=== PATIENT | female | born 1940 | race Caucasian/White ===

== ENCOUNTER → 2016-07-31 | Outpatient (CLI) | payer MEDICARE, MEDICAID ==
[~2016-07-31] MED LIST: AMLO10TA PO; ATRV10T PO; BNZ20T PO; BPR75T PO; FURO20TA4 PO; GLMP1T PO; GLYB1.253 PO; NIFE10CA21 PO; POTA99TA15 PO
--- NOTE | 2016-08-01 17:05 | Diagnostic Imaging Report ---
Bilateral screening mammogram. The current study was also evaluated with a Computer Aided Detection (CAD) system. INDICATION: Screening. No current complaints stated on the questionnaire. COMPARISON: 05/31/2015. FINDINGS: The breasts are composed of heterogeneously dense parenchyma which may decrease mammographic sensitivity. A lobulated 9 mm asymmetry is seen in the lateral aspect of the left breast. The right breast demonstrates no definite change. IMPRESSION: Focal compression view and ultrasound evaluation for lateral left breast asymmetry is recommended. ACR BI-RADS Category 0: Incomplete. (Needs additional imaging evaluation). Result letter will be mailed to the patient. Note: At least 10% of breast cancer is not imaged by mammography. Dictated by: Dictated on workstation # [id number]
== END ==
LOC: RAD 09:12
PROVIDERS: ATTEND Internal Medicine
DX: Z12.31 Encounter for screening mammogram for malignant neoplasm of breast (principal)
CPT/HCPCS: 77067

== ENCOUNTER → 2016-09-12 | Outpatient (CLI) | payer MEDICARE, MEDICAID | LOC: RAD 08:19 | PROVIDERS: ATTEND Internal Medicine | DX: R92.8 Other abnormal and inconclusive findings on diagnostic imaging of breast (principal) ==

== ENCOUNTER 2019-02-07 09:50 | Emergency (ER) | payer MEDICARE, MEDICAID ==
[~2019-02-07] VITALS: Ht 152 cm; Wt 82.7 kg
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
[2019-02-07] MEDS ORDERED: fentaNYL INJECTION 100 MCG/2 ML AMP IM ONE (10:30)
--- NOTE | 2019-02-07 10:54 | Diagnostic Imaging Report ---
EXAMINATION: Left shoulder 2 or more views HISTORY: Trauma FINDINGS: No comparison available. There is a comminuted left proximal humeral fracture. There is varus angulation and impaction with anterior displacement of the humeral shaft relative to the head. The humeral head remains in articulation with the glenoid fossa. There is severe glenohumeral joint osteoarthritis. IMPRESSION: 1. Comminuted and displaced proximal left humeral fracture extending into the humeral head. Dictated by: Dictated on workstation # [id number]
--- NOTE | 2019-02-07 10:54 | NUR ---
IN TALKING TO PT AT THIS TIME.
--- NOTE | 2019-02-07 11:05 | NUR ---
PT HAS TO WAIT FOR HER RIDE TO GET OUT OF [facility]. UP AMBULATING WITH TECH AT THIS TIME.
[2019-02-07] MEDS ORDERED: HYDR-3455 PO (11:30)
[2019-02-07 11:44] VITALS: BP 175/82
--- NOTE | 2019-02-07 12:50 | NUR ---
PT'S [facility] VAN IS HERE TO GET HER. TRIED ASSISTING PT UP THE STAIRS ET PT WAS UNABLE TO GET UP THEM. PT HAS STIARS GOING INTO HER HOUSE. PT BROUGHT BACK INTO ER ET MADE AWARE AND PLANS FOR ADMIT.
[2019-02-07] MEDS ORDERED: BUSP10TA95 PO (15:39)
[2019-02-08] MEDS ORDERED: AMLO10TA7 PO (10:35)
[2019-02-08] MEDS ORDERED: BUSP10TA95 PO (10:35)
[2019-02-08] MEDS ORDERED: LISI1TAB10 PO (10:35)
[2019-02-08] MEDS ORDERED: FLUT16SP22 NSEACH (10:35)
[2019-02-08] MEDS ORDERED: FURO20TA4 PO (10:35)
[2019-02-08] MEDS ORDERED: ATOR10TA66 PO (10:35)
[2019-02-08] MEDS ORDERED: ALBU18HF2 PO (10:35)
[2019-02-08] MEDS ORDERED: GLIM4TAB PO (10:35)
[2019-02-08] MEDS ORDERED: METF-397 PO (10:35)
[2019-02-08] MEDS ORDERED: MONT10TA24 PO (10:36)
[2019-02-08] MEDS ORDERED: ACET-2650 PO (10:49)
== END 2019-02-07 11:44 | disposition home or self-care (01) ==
LOC: EDUNIT# 09:50 → ER 09:51
DX: S42.92XA Fracture of left shoulder girdle, part unspecified, initial encounter for closed fracture (principal); I10 Essential (primary) hypertension; E11.9 Type 2 diabetes mellitus without complications; F41.9 Anxiety disorder, unspecified; E78.00 Pure hypercholesterolemia, unspecified; Z90.710 Acquired absence of both cervix and uterus; Z88.5 Allergy status to narcotic agent; W18.39XA Other fall on same level, initial encounter; Y92.811 Bus as the place of occurrence of the external cause
CPT/HCPCS: 73030

== ENCOUNTER 2019-02-07 13:00 | Observation (INO) | payer MEDICARE, MEDICAID ==
[~2019-02-07 13:00] MED LIST changes: +HYDR-3455 PO
--- NOTE | 2019-02-07 13:40 | NUR ---
PRIMO BORJA admitted to room 405-1, with an admitting diagnosis of LEFT SHOULDER FRACTURE, on 02/07/19 DIRECT ADMIT via WHEELCHAIR , accompanied by ED STAFF AND FRIEND.PRIMO BORJA introduced to surroundings, call light, bed controls, phone, TV, temperature control, lights, meal times, smoking policy, visitor policy, side rail policy, bathrooms and showers. Patient Rights given to patient in the handbook. PRIMO BORJA verbalizes understanding that [facility] is not responsible for the loss or damage to any personal effects or valuables that are kept in the patients posession during their hospitalization. PRIMO BORJA verbalizes understanding of Interdisciplinary Patient Education. Patient and/or family were informed about the Rapid Response Team and its purpose.
[2019-02-07] MEDS ORDERED: ACETAMINOPHEN 325 MG TABLET PO PRN (14:00)
[2019-02-07] MEDS ORDERED: fentaNYL INJECTION 100 MCG/2 ML AMP IV PRN (14:00)
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
[2019-02-07] MEDS: HYDROcodone/APAP 5 MG/325 MG (LORTAB) TAB PO PRN ×2 (14:51→20:26)
[2019-02-07] MEDS ORDERED: BUSP10TA95 PO (15:39)
[2019-02-07 16:00] VITALS: BP 159/77
--- NOTE | 2019-02-07 19:39 | NUR ---
DR MILLS NOTIFIED REGARDING PT ANXIETY AND HOME MEDICATIONS. DR MILLS ORDERED TO CONTINUE ALL HOME MEDS EXCEPT LASIX AND PROCARDIA. MED REC DONE.
[2019-02-07 20:00] VITALS: BP 153/78
[2019-02-07 23:30] VITALS: BP 125/75
[2019-02-08 04:00] VITALS: BP 133/76
[2019-02-08] MEDS: glyBURIDE 2.5 MG (MICRONASE) TAB PO SCH (06:39)
[2019-02-08] MEDS: HYDROcodone/APAP 5 MG/325 MG (LORTAB) TAB PO PRN ×3 (06:39→19:00)
[2019-02-08 08:06] VITALS: BP 159/66
[2019-02-08] MEDS ORDERED: busPIRone 10 MG (BUSPAR) TAB PO SCH (09:00)
[2019-02-08] MEDS ORDERED: lisINopril 20 MG (PRINIVIL) TABLET PO SCH (09:00)
[2019-02-08] MEDS ORDERED: NON-FORMULARY MEDICATION 1 EA EA (Buspirone HCl 10 MG) PO SCH (09:00)
[2019-02-08] MEDS ORDERED: ATORVASTATIN CALCIUM PO SCH (09:00)
[2019-02-08] MEDS ORDERED: amLODIPine 10 MG (NORVASC) TAB PO SCH (09:00)
--- NOTE | 2019-02-08 10:15 | NUR ---
Spoke with Dr. Fletcher on the phone, he will follow up with patient on Friday.
[2019-02-08] MEDS ORDERED: LISI1TAB10 PO (10:35)
[2019-02-08] MEDS ORDERED: AMLO10TA7 PO (10:35)
[2019-02-08] MEDS ORDERED: ATOR10TA66 PO (10:35)
[2019-02-08] MEDS ORDERED: GLIM4TAB PO (10:35)
[2019-02-08] MEDS ORDERED: ALBU18HF2 PO (10:35)
[2019-02-08] MEDS ORDERED: FURO20TA4 PO (10:35)
[2019-02-08] MEDS ORDERED: FLUT16SP22 NSEACH (10:35)
[2019-02-08] MEDS ORDERED: BUSP10TA95 PO (10:35)
[2019-02-08] MEDS ORDERED: METF-397 PO (10:35)
[2019-02-08] MEDS ORDERED: MONT10TA24 PO (10:36)
[2019-02-08] MEDS ORDERED: ACET-2650 PO (10:49)
--- NOTE | 2019-02-08 10:50 | NUR ---
SPOKE WITH PT WELL GOING OVER THE EXT MED HISTORY TO COMPLETE THE MED REC. PT WAS ABLE TO TELL ME HOW/ WHEN SHE TAKES HER MEDS AND IT MATCHES THE EXT MED HISTORY. OTC MEDS: TYLENOL ARTHRITIS: 1 TAB Q 8 H PRN
--- NOTE | 2019-02-08 11:03 | Physical Therapy Progress Note ---
Therapy Progress Note Attempted PT eval at 1045 this date. Pt in bed; reports she had just showered. Declined therapy at this time. Reports she will participate "tomorrow"; educated pt on importance of PT. Told her I would return later today to attempt to see her, she was in agreeance. KALANI NARANJO PT Feb 08, 2019 11:03
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
[2019-02-08 12:00] VITALS: BP 150/72
--- NOTE | 2019-02-08 12:20 | Progress Note - Hospitalist ---
[facility] 02/08/19 1220: Subjective HPI/CC On Admission Date Seen by Provider: Feb 08, 2019 Time Seen by Provider: 07:48 This is a 78-year-old white female who is getting on the [employer] bus today lost her balance fell over striking her left arm. She has a comminuted fracture of the left humerus. The patient is in quite severe pain and has some disabilities in terms of ambulation to begin with and is unable to get in her home. She complains of being cold at the time of my interview and in some discomfort from her shoulder. Subjective/Events-last exam Pt reports falling while trying to sit down on the bus that was taking her to [employer]. She states she fell bracing her fall with her left arm that resulted in the injury to her shoulder area. she states her pain is okay right now due to the pain medication and keeping her arm elevated and immobilized. She does have some pedal edema which she states is chronic, but is worse since being in the hospital. She denied any loss of consciousness, dizziness, or vision changes during before or after the fall. She reports having a dry cough that she claims is from the BuSpar that she was given for her anxiety after the fall. She states she did have some abdominal pain that was likely related to gas, because it is better after she had a bowel movement this morning with a lot of gas. She does complain of chronic arthritis in her hands and knees that is still bothering her some at the moment. Review of Systems General: No Chills, No Fatigue HEENT: No Head Aches, No Visual Changes, No Sinus Congestion, No Sore Throat Pulmonary: No Dyspnea; Cough (Dry cough after BuSpar administration) Cardiovascular: Edema; No: Chest Pain, Palpitations, Lt Headedness Gastrointestinal: No: Nausea, Vomiting, Abdominal Pain, Diarrhea, Constipation Musculoskeletal: neck pain, shoulder pain, hand pain (Arthritis related on right); No: leg pain, foot pain Neurological: No: Weakness, Numbness Focused Exam Respiratory: Chest Non Tender, Lungs Clear, Normal Breath Sounds, No Accessory Muscle Use, No Respiratory Distress Cardiovascular: Regular Rate, Rhythm, No Murmur, Normal Peripheral Pulses Peripheral Pulses: 2+ Dorsalis Pedis (R), 2+ Left Dors-Pedis (L), 2+ Radial Pulses (R), 2+ Radial Pulses (L) Skin: normal color, warm/dry Objective Exam Vital Signs Vital Signs Date Time Temp Pulse Resp B/P (MAP) Pulse Ox O2 Delivery O2 Flow Rate FiO2 02/08/19 08:06 36.9 108 17 159/66 (97) 97 Room Air Capillary Refill : Less Than 3 Seconds General Appearance: WD/WN, Mild Distress Neck: Full Range of Motion, Normal Inspection Respiratory: Chest Non Tender, Lungs Clear, Normal Breath Sounds, No Accessory Muscle Use, No Respiratory Distress Cardiovascular: Regular Rate, Rhythm, No Gallop, Normal Peripheral Pulses Extremity: No Normal Range of Motion, No Non Tender (Left shoulder tenderness); No Calf Tenderness, Pedal Edema Neurologic/Psychiatric: Alert, Oriented x3, Normal Mood/Affect Skin: Normal Color, Warm/Dry Results/Procedures Lab Patient resulted labs reviewed. Imaging: Reviewed Imaging Report Assessment/Plan Assessment and Plan Assess & Plan/Chief Complaint Assessment: Left humerus fracture Diabetes Arthritis Hypertension Anxiety Plan: Consult orthopedics Continue pain management Consult OT/PT for rehab unit evaluation Continue management of diabetes with home medications/ insulin Continue management of hypertension Continue Buspirone for anxiety Clinical Quality Measures DVT/VTE Risk/Contraindication: Risk Factor Score Per Nursin RFS Level Per Nursing on Admit: 4+=Very High AIMEE VACA DO 02/08/19 2014: Subjective Subjective/Events-last exam Pt doing fairly well, pain is well controlled Consulted Dr. Aguirre but he does not do reverse shoulders of which that is what she needs so Dr. Amador was updated along with Dr. Fletcher and she does not need surgery now probably in the next couple of months will need a reverse shoulder operation and I have offered inpatient rehab but she refused therapies today, she lives alone, appears to be depressed and in real need of inpatient rehab so will try to re-attempt to work with her today. Review of Systems Musculoskeletal: arm pain Objective Exam General Appearance: No Apparent Distress, WD/WN Respiratory: Lungs Clear Cardiovascular: Regular Rate, Rhythm Extremity: Other (decreased ROM left arm) Neurologic/Psychiatric: Alert, Oriented x3, No Motor/Sensory Deficits, Normal Mood/Affect Assessment/Plan Assessment and Plan Assess & Plan/Chief Complaint Pain control IRF? Home meds Diagnosis/Problems Diagnosis/Problems (1) Fracture of left shoulder Status: Acute Qualifiers: Qualified Codes: S42.92XA - Fracture of left shoulder girdle, part unspecified, initial encounter for closed fracture Supervisory-Addendum Brief Verification & Attestation Participated in pt care: history, MDM, physical Personally performed: exam, history, MDM, supervision of care Care discussed with: Medical Student Procedures: n/a Results interpretation: Verified all documentation Verification and Attestation of Medical Student E/M Service A medical student performed and documented this service in my presence. I reviewed and verified all information documented by the medical student and made modifications to such information, when appropriate. I personally performed the physical exam and medical decision making. Aimee Vaca, Feb 08, 2019,20:14 [facility] Feb 08, 2019 12:20 AIMEE VACA DO Feb 08, 2019 20:14
[2019-02-08 12:21] LABS: HEMOGLOBIN 10.2 G/DL (11.5-16.0); RED CELL DISTRIBUTION WIDTH 14.8 % (10.0-14.5); WHITE BLOOD COUNT 10.1 10^3/uL (4.3-11.0)
[2019-02-08 12:44] LABS: BILIRUBIN,TOTAL 0.5 MG/DL (0.1-1.0); CALCIUM 9.2 MG/DL (8.5-10.1); CREATININE SERUM 1.57 MG/DL (0.60-1.30); TOTAL PROTEIN 7.2 GM/DL (6.4-8.2)
[2019-02-08] MEDS ORDERED: ACETAMINOPHEN 325 MG TABLET PO PRN (12:45)
[2019-02-08] MEDS: RT-ALBUTEROL SULF 2.5 MG/3 ML PRE-MIX VIAL IH SCH ×3 (13:42→21:50)
[2019-02-08] MEDS: FLUTICASONE NASAL SPRAY (FLONASE) 16 GM BTL NS SCH (14:15)
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
[2019-02-08 16:10] VITALS: BP 133/79
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
[2019-02-08] MEDS ORDERED: GLIMEPIRIDE 1 MG (AMARYL) TAB PO SCH (16:30)
[2019-02-08] MEDS: metFORMIN 500 MG (GLUCOPHAGE) TAB PO SCH (17:20)
[2019-02-08] MEDS ORDERED: DOCUSATE SODIUM 100 MG (COLACE) CAP PO PRN (20:15)
[2019-02-08] MEDS ORDERED: ONDANSETRON 4 MG (ZOFRAN) ORAL DISSOLVE TAB PO PRN (20:15)
[2019-02-08] MEDS ORDERED: ONDANSETRON 4 MG/2 ML (SDV) Z0FRAN IVP PRN (20:15)
[2019-02-08] MEDS ORDERED: CALCIUM CARBONATE 500 MG (TUMS) TAB.CHEW PO PRN (20:15)
[2019-02-08] MEDS ORDERED: ENOXAPARIN 30 MG/0.3 ML (LOVENOX) SYR SC SCH (20:15)
[2019-02-08] MEDS ORDERED: diphenhydrAMINE 25 MG TAB (BENADRYL) PO PRN (20:15)
[2019-02-08] MEDS ORDERED: ALPRAZolam 0.25 MG (XANAX) TAB PO PRN (20:15)
[2019-02-08] MEDS ORDERED: MELATONIN 3 MG TABLET PO PRN (20:15)
[2019-02-08 20:30] VITALS: BP 118/52
[2019-02-08] MEDS: busPIRone 10 MG (BUSPAR) TAB PO SCH (20:30)
[2019-02-08] MEDS: POLYETHYLENE GLYCOL 17 GM (MIRALAX) PACK PO SCH ×2 (21:00→22:11)
[2019-02-08] MEDS: SENNA W/DOCUSATE (SENOKOT S) TABLET PO SCH ×2 (21:00→22:02)
[2019-02-08] MEDS ORDERED: MONTELUKAST 10 MG (SINGULAIR) TAB PO SCH (21:00)
[2019-02-09 00:32] VITALS: BP 143/73
[2019-02-09] MEDS: RT-ALBUTEROL SULF 2.5 MG/3 ML PRE-MIX VIAL IH SCH ×2 (01:43→06:49)
[2019-02-09] MEDS: HYDROcodone/APAP 5 MG/325 MG (LORTAB) TAB PO PRN (01:44)
[2019-02-09 04:50] VITALS: BP 126/75
[2019-02-09 06:21] LABS: BASOPHILS % (AUTO) 0 % (0-10); EOSINOPHILS % (AUTO) 0 % (0-10); HEMATOCRIT 26 % (35-52); HEMOGLOBIN 8.5 G/DL (11.5-16.0); LYMPHOCYTES # (AUTO) 1.1 X 10^3 (1.0-4.0); LYMPHOCYTES % (AUTO) 12 % (12-44); MEAN CORPUSCULAR HEMOGLOBIN 28 PG (25-34); MEAN CORPUSCULAR HGB CONC 33 G/DL (32-36); MEAN CORPUSCULAR VOLUME 83 FL (80-99); MEAN PLATELET VOLUME 8.3 FL (7.4-10.4); MONOCYTES # (AUTO) 0.7 X 10^3 (0.0-1.0); MONOCYTES % (AUTO) 8 % (0-12); NEUTROPHILS # (AUTO) 7.4 X 10^3 (1.8-7.8); NEUTROPHILS % (AUTO) 81 % (42-75); PLATELET COUNT 301 10^3/uL (130-400); RED CELL DISTRIBUTION WIDTH 14.9 % (10.0-14.5); WHITE BLOOD COUNT 9.2 10^3/uL (4.3-11.0)
[2019-02-09] MEDS ORDERED: GLIMEPIRIDE 4 MG (AMARYL) TAB PO SCH (06:30)
[2019-02-09 06:45] LABS: ALBUMIN 3.4 GM/DL (3.2-4.5); BILIRUBIN,TOTAL 0.4 MG/DL (0.1-1.0); CALCIUM 8.8 MG/DL (8.5-10.1); CREATININE SERUM 1.45 MG/DL (0.60-1.30); POTASSIUM 5.1 MMOL/L (3.6-5.0); TOTAL PROTEIN 6.3 GM/DL (6.4-8.2)
[2019-02-09] MEDS: glyBURIDE 2.5 MG (MICRONASE) TAB PO SCH (06:54)
[2019-02-09] MEDS: metFORMIN 500 MG (GLUCOPHAGE) TAB PO SCH (06:54)
[2019-02-09 07:40] VITALS: BP 108/65
[2019-02-09] MEDS: busPIRone 10 MG (BUSPAR) TAB PO SCH (08:46)
[2019-02-09] MEDS: SENNA W/DOCUSATE (SENOKOT S) TABLET PO SCH (08:47)
[2019-02-09] MEDS: POLYETHYLENE GLYCOL 17 GM (MIRALAX) PACK PO SCH (08:47)
[2019-02-09] MEDS: FLUTICASONE NASAL SPRAY (FLONASE) 16 GM BTL NS SCH (08:47)
[2019-02-09] MEDS ORDERED: FUROSEMIDE 20 MG (LASIX) TAB PO SCH (09:00)
[2019-02-09] MEDS ORDERED: lisINopril 20 MG (PRINIVIL) TABLET PO SCH (09:00)
[2019-02-09] MEDS ORDERED: amLODIPine 10 MG (NORVASC) TAB PO SCH (09:00)
--- NOTE | 2019-02-09 09:29 | NUR ---
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 She was going to leave to get her bible, and thanked us from bringing her one so she could stay at the bedside. Pt is Confucianist and affiliated with [employer].
--- NOTE | 2019-02-09 10:28 | Discharge Summary ---
PRATIBHA WILLIAM [facility] 02/09/19 1028: Diagnosis/Chief Complaint Date of Admission Feb 07, 2019 at 13:00 Date of Discharge Discharge Date: Feb 09, 2019 Admission Diagnosis Left humerus fracture Obesity Hypertension Type II diabetes Chronic leg pain Plan consult Dr. Amador, evaluate for inpatient rehabilitation Primary Care Reji Daigle MD Discharge Diagnosis (1) Fracture of left shoulder Status: Acute Discharge Summary Discharge Physical Exam Allergies: Coded Allergies: codeine (Verified Adverse Reaction, Mild, NAUSEA, 02/08/19) Vitals & I&Os Vital Signs Date Time Temp Pulse Resp B/P (MAP) Pulse Ox O2 Delivery O2 Flow Rate FiO2 02/09/19 08:00 Room Air 02/09/19 07:40 36.4 94 18 108/65 (79) 96 General Appearance: WD/WN, Mild Distress Respiratory: Chest Non Tender, Lungs Clear, Normal Breath Sounds, No Accessory Muscle Use, No Respiratory Distress Cardiovascular: Regular Rate, Rhythm, No Gallop, No JVD, No Murmur, Normal Peripheral Pulses Extremity: No Calf Tenderness, Pedal Edema (Minor bilateral) Skin: Normal Color, Warm/Dry Neurologic/Psychiatric: Alert, Oriented x3, Normal Mood/Affect Hospital Course Pt fell trying to sit down on the [employer] bus bracing herself with her left arm. She was brought to the ER and evaluated for left shoulder subsequent to the fall. She was found to have a comminuted fracture of the proximal humerus. She wanted to return home and see her orthopedic surgeon Dr. Quinonez the next day, but upon trying to get on the bus home she was unable. She was admitted to the 4th floor for observation and orthopedic consultation. She was started on pain management, diabetic management, and some medication for anxiety. She was evaluated by orthopedics Dr. Aguirre who does not perform shoulder surgery, but found out that she can either have open reduction and internal fixation by a trauma surgeon or total shoulder by shoulder specialist. The patient was informed of this information as well as that surgery is not an emergency and that we will likely need to let some of the swelling decrease as well as correct the patients hyponatremia prior to surgery. The patient is to be discharged to inpatient rehabilitation in order to help reduce the swelling and correct her sodium levels. Labs (last 24 hrs) Laboratory Tests 02/08/19 12:10: White Blood Count 10.1, Red Blood Count 3.63L, Hemoglobin 10.2L, Hematocrit 30L, Mean Corpuscular Volume 83, Mean Corpuscular Hemoglobin 28, Mean Corpuscular Hemoglobin Concent 34, Red Cell Distribution Width 14.8H, Platelet Count 325, Mean Platelet Volume 8.0, Sodium Level 127L, Potassium Level 5.0, Chloride Level 92L, Carbon Dioxide Level 26, Anion Gap 9, Blood Urea Nitrogen 45H, Creatinine 1.57H, Estimat Glomerular Filtration Rate 32, BUN/Creatinine Ratio 29, Glucose Level 143H, Calcium Level 9.2, Corrected Calcium 9.2, Total Bilirubin 0.5, Aspartate Amino Transf (AST/SGOT) 17, Alanine Aminotransferase (ALT/SGPT) 10, Alkaline Phosphatase 78, Total Protein 7.2, Albumin 4.0 02/09/19 05:40: White Blood Count 9.2, Red Blood Count 3.08L, Hemoglobin 8.5L, Hematocrit 26L, Mean Corpuscular Volume 83, Mean Corpuscular Hemoglobin 28, Mean Corpuscular Hemoglobin Concent 33, Red Cell Distribution Width 14.9H, Platelet Count 301, Mean Platelet Volume 8.3, Sodium Level 126L, Potassium Level 5.1H, Chloride Level 91L, Carbon Dioxide Level 21, Anion Gap 14, Blood Urea Nitrogen 48H, Creatinine 1.45H, Estimat Glomerular Filtration Rate 35, BUN/Creatinine Ratio 33, Glucose Level 148H, Calcium Level 8.8, Corrected Calcium 9.3, Total Bilirubin 0.4, Aspartate Amino Transf (AST/SGOT) 16, Alanine Aminotransferase (ALT/SGPT) 11, Alkaline Phosphatase 56, Total Protein 6.3L, Albumin 3.4, Neutrophils (%) (Auto) 81H, Lymphocytes (%) (Auto) 12, Monocytes (%) (Auto) 8, Eosinophils (%) (Auto) 0, Basophils (%) (Auto) 0, Neutrophils # (Auto) 7.4, Lymphocytes # (Auto) 1.1, Monocytes # (Auto) 0.7, Eosinophils # (Auto) 0.0, Basophils # (Auto) 0.0 Patient resulted labs reviewed. Pending Labs Laboratory Tests 02/09/19 05:40: White Blood Count 9.2, Red Blood Count 3.08, Hemoglobin 8.5, Hematocrit 26, Mean Corpuscular Volume 83, Mean Corpuscular Hemoglobin 28, Mean Corpuscular Hemoglobin Concent 33, Red Cell Distribution Width 14.9, Platelet Count 301, Mean Platelet Volume 8.3, Neutrophils (%) (Auto) 81, Lymphocytes (%) (Auto) 12, Monocytes (%) (Auto) 8, Eosinophils (%) (Auto) 0, Basophils (%) (Auto) 0, Neutrophils # (Auto) 7.4, Lymphocytes # (Auto) 1.1, Monocytes # (Auto) 0.7, Eosinophils # (Auto) 0.0, Basophils # (Auto) 0.0, Sodium Level 126, Potassium Level 5.1, Chloride Level 91, Carbon Dioxide Level 21, Anion Gap 14, Blood Urea Nitrogen 48, Creatinine 1.45, Estimat Glomerular Filtration Rate 35, BUN/Creatinine Ratio 33, Glucose Level 148, Calcium Level 8.8, Corrected Calcium 9.3, Total Bilirubin 0.4, Aspartate Amino Transf (AST/SGOT) 16, Alanine Aminotransferase (ALT/SGPT) 11, Alkaline Phosphatase 56, Total Protein 6.3, Albumin 3.4 Imaging: Reviewed Imaging Report Discharge Home Medications: Active Scripts Active Reported Tylenol Arthritis (Acetaminophen) 650 Mg Tablet.er 650 Mg PO Q8H PRN Montelukast Sodium 10 Mg Tablet 10 Mg PO HS Atorvastatin Calcium 10 Mg Tablet 10 Mg PO DAILY Glimepiride 4 Mg Tablet 4 Mg PO DAILY Fluticasone Propionate 16 Gm [facility].susp 2 Spr NSEACH DAILY Amlodipine Besylate 10 Mg Tablet 10 Mg PO DAILY Metformin HCl 500 Mg Tablet 500 Mg PO BID Lisinopril-Hctz 20-25 mg Tab (Lisinopril/Hydrochlorothiazide) 1 Each Tablet 1 Tab PO DAILY Furosemide 20 Mg Tablet 20 Mg PO DAILY Ventolin Hfa (Albuterol Sulfate) 18 Gm Hfa.aer.ad 2 Puff PO Q4H Buspirone HCl 10 Mg Tablet 10 Mg PO BID Instructions to patient/family Please see electronic discharge instructions given to patient. Clinical Quality Measures DVT/VTE Risk/Contraindication: Risk Factor Score Per Nursin RFS Level Per Nursing on Admit: 4+=Very High AIMEE VACA DO 02/09/192051: Diagnosis/Chief Complaint Discharge Diagnosis (1) Closed left humeral fracture (2) Anxiety Status: Acute Discharge Summary Discharge Physical Exam Allergies: Coded Allergies: codeine (Verified Adverse Reaction, Mild, NAUSEA, 02/08/19) General Appearance: No Apparent Distress, WD/WN, Chronically ill Respiratory: Lungs Clear Cardiovascular: Regular Rate, Rhythm Neurologic/Psychiatric: Alert, Oriented x3, No Motor/Sensory Deficits, Normal Mood/Affect Hospital Course Was the Problem List Reviewed?: Yes Hospital course: Pt had a short hospital course when she was admitted after a left proximal humerus fracture displaced, after seen in the ER she was sent home but returned a couple hours later so Dr. Pablo admitted her directly. Pt was found to have hyponatremia of 127, placed on fluid restriction, still an issue at 126 on re-check, creatinine remains stable at 1.5. Home medications were restarted and no evidence of any medication as the source of the hyponatremia. Pt very poor historian. Spoke with Dr. Fletcher and Dr Aguirre who talked to Dr. Amador, Pt will ultimately need a reverse shoulder arthroplasty and will need that done after she is able to navigate and electrolyte imbalances are corrected and will need that to be done as an outpatient basis. Her bowels are moving, she was able to participate in therapy, so she was transferred down to inpatient rehab. Discussion & Recommendations Discharge Planning: <30 minutes discharge planning Supervisory-Addendum Brief Verification & Attestation Participated in pt care: history, MDM, physical Personally performed: exam, history, MDM, supervision of care Care discussed with: Medical Student Procedures: n/a Results interpretation: Verified all documentation Verification and Attestation of Medical Student E/M Service A medical student performed and documented this service in my presence. I reviewed and verified all information documented by the medical student and made modifications to such information, when appropriate. I personally performed the physical exam and medical decision making. Aimee Vaca, Feb 09, 2019,20:52 Problem Qualifiers (1) Fracture of left shoulder: Encounter type: initial encounter Fracture type: closed Qualified Codes: S42.92XA - Fracture of left shoulder girdle, part unspecified, initial encounter for closed fracture PRATIBHA WILLIAM Feb 09, 2019 10:28 AIMEE VACA DO Feb 09, 2019 20:52
[2019-02-09] MEDS ORDERED: ENOXAPARIN 40 MG/0.4 ML (LOVENOX) SYR SC SCH (22:00)
== END 2019-02-09 10:39 ==
LOC: 4TH 13:00
PROVIDERS: ADMIT Internal Medicine; ATTEND Internal Medicine
DX: S42.202A Unspecified fracture of upper end of left humerus, initial encounter for closed fracture (principal); I10 Essential (primary) hypertension; M19.90 Unspecified osteoarthritis, unspecified site; M79.606 Pain in leg, unspecified; E78.00 Pure hypercholesterolemia, unspecified; E11.9 Type 2 diabetes mellitus without complications; E66.09 Other obesity due to excess calories; G89.29 Other chronic pain; F41.9 Anxiety disorder, unspecified; W01.0XXA Fall on same level from slipping, tripping and stumbling without subsequent striking against object, initial encounter; Z88.5 Allergy status to narcotic agent; Z90.710 Acquired absence of both cervix and uterus; Z68.35 Body mass index [BMI] 35.0-35.9, adult; Z79.891 Long term (current) use of opiate analgesic; Z79.899 Other long term (current) drug therapy
CPT/HCPCS: 36415; 80053; 85025; 85027; 94640; 94760; 99211; G0378

== ENCOUNTER 2019-02-09 10:04 | Inpatient (IN) | payer MEDICARE, MEDICAID ==
[~2019-02-09] VITALS: Ht 152.4 cm; Wt 91.9 kg
[~2019-02-09 10:04] MED LIST changes: +ACET-2650 PO; +ALBU18HF2 PO; +AMLO10TA7 PO; +ATOR10TA66 PO; +BUSP10TA95 PO; +FLUT16SP22 NSEACH; +GLIM4TAB PO; +LISI1TAB10 PO; +METF-397 PO; +MONT10TA24 PO
[2019-02-09] MEDS ORDERED: diphenhydrAMINE 25 MG TAB (BENADRYL) PO PRN (10:15)
[2019-02-09] MEDS ORDERED: LOPERAMIDE 2 MG (IMODIUM) TABLET PO PRN (10:15)
[2019-02-09] MEDS ORDERED: DOCUSATE SODIUM 100 MG (COLACE) CAP PO PRN (10:15)
--- NOTE | 2019-02-09 10:30 | NUR ---
Primo Borja admitted to room 229, with an admitting diagnosis of Left Shoulder Fracture, on 02/07/2019 from 4th Floor via Wheelchair, accompanied by Therapy.PRIMO BORJA introduced to surroundings, call light, bed controls, phone, TV, temperature control, lights, meal times, smoking policy, visitor policy, side rail policy, bathrooms and showers. Patient Rights given to patient in the handbook.PRIMO BORJA verbalizes understanding that [facility] is not responsible for the loss or damage to any personal effects or valuables that are kept in the patient's possession during their hospitalization. The following Patient Care Plans were discussed with the Pt: Discharge Planning,Pain,Impaired Mobility,High risk infection and Knowledge Deficit. PRIMO BORJA verbalizes understanding of Interdisciplinary Patient Education. Patient received Patient Rights Booklet, which includes Privacy Act Statement and Data Collection Information Summary.
--- NOTE | 2019-02-09 11:39 | Physical Therapy Evaluation ---
PT Evaluation-General Medical Diagnosis Admission Date Feb 09, 2019 at 10:40 Medical Diagnosis: left humerus fx Onset Date: Feb 07, 2019 Therapy Diagnosis Therapy Diagnosis: impaired mobility, strength, endurance, ROM Height/Weight Height (Feet): 5 Weight (Pounds): 203 Weight Bear Status Right Lower Extremity: Right Full Weight Bearing Left Lower Extremity: Left Full Weight Bearing [place] VARGAS in sling Referral Physician: Aimee Villagomez DO Reason for Referral: Evaluation/Treatment Medical History Pertinent Medical History: Arthritis, DM, HTN Reviewed History: Yes Social History Home: Single Level Current Living Status: Alone Entry Into Home: Stairs With Railing PT Steps Into Home: 3 Prior Prior Level of Function SCALE: Activities may be completed with or without assistive devices. 8-Hojhfjaqmj-anmtyqj completes the activity by him/herself with no assistance from a helper. 5-Set-up or Clean-up Assistance-helper sets up or cleans up; patient completes activity. [place] assists only prior to or following the activity. 4-Supervision or Touching Assistance-helper provides verbal cues and/or touching/steadying and/or contact guard assistance as patient completes activity. Assistance may be provided throughout the activity or intermittently. 3-Partial/Moderate Assistance-helper does LESS THAN HALF the effort. [place] lifts, holds or supports trunk or limbs, but provides less than half the effort. 2-Substantial/Maximal Assistance-helper does MORE THAN HALF the effort. [place] lifts or holds trunk or limbs and provides more than half the effort. 7-Giietyvmh-ztylwv does ALL the effort. Patient does none of the effort to complete the activity. Or, the assistance of 2 or more helpers is required for the patient to complete the activity. If activity was not attempted, code reason: 7-Patient Refused. 9-Not Applicable-not attempted and the patient did not perform the activity before the current illness, exacerbation or injury. 10-Not Attempted due to Environmental Limitations-(lack of equipment, weather restraints, etc.). 88-Not Attempted due to Medical Conditions or Safety Concerns. Bed Mobility: 6 Transfers (B,C,W/C): 6 Gait: 6 Indoor Mobility (Ambulation): Independent used single point cane PT Evaluation-Current Subjective Pt in recliner pre-tx with feet elevated. Pt agrees to PT but states she doesn't know how much she will be able to due secondary to her nausea. Patient has unrated pain in her left arm. Pt/Family Goals to be independent at home Objective Patient Orientation: Person, Place, Time, Situation Pt asks PT multiple times if she is doing okay and if this PT is upset with the pt. Pt is reassured of no problems. Pt is mod impulsive and doesn't use quad cane appropriately at all times or will leave the cane and keep walking. Pt has difficulty following directions for LE exercises this date. ROM/Strength ROM Lower Extremities WNL Strength Lower Extremities hip flexion R: 4+/5. L 4-/5 Knee extension R: 5/5. L 4/5 Knee flexion R: 5/5. L 4/5 Sensory Vision: Wears Glasses Hearing: Functional Hand Dominance: Right Sensation Right Lower Extremit: Intact Sensation Left Lower Extremity: Intact Transfers Roll Left to Right (QC): 2 (MaxA) Sit to Lying (QC): 3 (ModA for LE lifting) Lying to Sitting/Side of Bed(Q: 3 Sit to Stand (QC): 3 (ModA) Chair/Hqa-om-Pyhfh Xfer(QC): 3 (Nasima) Car Transfer (QC): 3 (ModA for LE lifting) Pt is limited by pain and nausea today. Gait Does the Patient Walk?: Yes Mode of Locomotion: Walk Anticipated Mode of Locomotion: Walk Walk 10 feet (QC): 3 (Nasima) Walk 50 ft with 2 Turns(QC): 3 (Nasima) Walk 150 ft (QC): 9 (Nausea) Walking 10ft/uneven surface-QC: 3 (modA with multiple slight LOB) Distance: 75'x2 Gait Assistive Device: Cane Large Base Quad Comments/Gait Description Pt walks with R foot turned out with decreased R knee flexion during R LE swing phase. Pt walks with step through pattern but is unsteady with multiple LOB requiring min-modA to maintain balance. Pt does not rely on quad cane appropriately. Wheelchair Training Does the Pt Use a Wheelchair?: No Stairs 1 Step (curb) (QC): 9 (nausea) 4 Steps (QC): 9 (nausea) 12 Steps (QC): 9 (nausea) Patient is not able to safely attempt stairs due to poor balance and nausea. Balance Sitting Static: Good Sitting Dynamic: Good Standing Static: Fair Standing Dynamic: Poor Picking up an Object (QC): 88 Treatment Pt performed LE exercises in bed, bed mobility, gait training, transfer training, and education this date. Assessment/Needs Pt is currently a fall risk. Pt is limited this session by pain in her L UE and by nausea. Pt has gait abnormalities and Slight LE weakness that need to be addr essed for the pt to be safe with ambulation. 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 Time Frame: Mar 02, 2019 Sit to Lying (QC): 4 (SBA) Lying-Sitting on Side/Bed(QC): 4 (SBA) Sit to Stand (QC): 4 (SBA) Roll Left to Right (QC): 4 (SBA) Chair/Tcl-gb-Phbzu Xfer(QC): 4 (SBA) Car Transfer (QC): 4 (SBA) Distance: 150' Walk 10 feet (QC): 4 (SBA) Walk 10ft-Uneven Surface(QC): 4 (CGA) Walk 50ft with 2 Turns (QC): 4 (SBA) Walk 150 ft (QC): 4 (SBA) Gait Assistive Device: Cane Single Point # of Steps: 4 1 Step (curb) (QC): 4 (CGA) 4 Steps (QC): 4 (CGA) Picking up an Object (QC): 4 (CGA) PT Plan Problem List Problem List: Activity Tolerance, Functional Strength, Safety, Balance, Gait, Transfer, Bed Mobility, ROM Treatment/Plan Treatment Plan: Continue Plan of Care Treatment Plan: Bed Mobility, Concurrent Therapy, Education, Functional Activity Isaias, Functional Strength, Group Therapy, Gait, Safety, Therapeutic Exercise, Transfers Treatment Duration: Mar 02, 2019 Frequency: At least 5 of 7 days/Wk (IRF) Estimated Hrs Per Day: 1.5 hours per day Patient and/or Family Agrees t: Yes Safety Risks/Education Patient Education: Gait Training, Transfer Techniques, Reviewed Precautions, Correct Positioning, Safety Issues Teaching Recipient: Patient Teaching Methods: Demonstration, Discussion Response to Teaching: Reinforcement Needed Discharge Recommendations Plan Patient will perform bed mobility and transfer training, balance and endurance training, functional strengthening, gait training, stair training, and education, to improve functional mobility and independence at home. Therapy Discharge Recommendati: Scheduled Assistance, Assisted Living, Other, See Comments (home with family) Time/GCodes Time In: 1105 Time Out: 1205 Total Billed Treatment Time: 60 Total Billed Treatment 1 visit EVM 30' EX 10' FA 20' KAMILA CHERY PT Feb 09, 2019 11:39
[2019-02-09] MEDS: inSUlin ASPART (NovoLOG) 1 UNIT/0.01 ML (CHARGE PER UNIT) SC SCH ×3 (11:52→20:31)
[2019-02-09] MEDS: HYDROcodone/APAP 5 MG/325 MG (LORTAB) TAB PO PRN ×3 (11:52→22:22)
--- NOTE | 2019-02-09 12:49 | Occupational Therapy Eval ---
OT Evaluation-General/PLF Medical Diagnosis Admission Date Feb 09, 2019 at 10:40 Medical Diagnosis: left humerus fx Onset Date: Feb 07, 2019 Therapy Diagnosis Therapy Diagnosis: impaired self care skills Height/Weight Height (Feet): 5 Weight (Pounds): 203 Weight Bear Status Weight Bearing Restriction: Non Weight Bearing Location Restriction: L UE (sling on when up) Referral Physician: Aimee Villagomez DO Medical History Pertinent Medical History: Arthritis, DM, HTN Additional Medical History anxiety Current History Pt had a fall resulting in left humeral fracture. Social History Home: Single Level Current Living Status: Alone Entry Into Home: Stairs With Railing Steps Into Home: 3 ADL-Prior Level of Function SCALE: Activities may be completed with or without assistive devices. 7-Mwcdnvpfig-ahmweip completes the activity by him/herself with no assistance from a helper. 5-Set-up or Clean-up Assistance-helper sets up or cleans up; patient completes activity. [place] assists only prior to or following the activity. 4-Supervision or Touching Assistance-helper provides verbal cues and/or touching/steadying and/or contact guard assistance as patient completes activity. Assistance may be provided throughout the activity or intermittently. 3-Partial/Moderate Assistance-helper does LESS THAN HALF the effort. [place] lifts, holds or supports trunk or limbs, but provides less than half the effort. 2-Substantial/Maximal Assistance-helper does MORE THAN HALF the effort. [place] lifts or holds trunk or limbs and provides more than half the effort. 4-Nisprtfeu-hjahsm does ALL the effort. Patient does none of the effort to complete the activity. Or, the assistance of 2 or more helpers is required for the patient to complete the activity. If activity was not attempted, code reason: 7-Patient Refused. 9-Not Applicable-not attempted and the patient did not perform the activity before the current illness, exacerbation or injury. 10-Not Attempted due to Environmental Limitations-(lack of equipment, weather restraints, etc.). 88-Not Attempted due to Medical Conditions or Safety Concerns. ADL PLOF Comments Pt reports being independent with self care and mobility prior to fall. Does not drive. Uses a cane for mobility. Self Care: Independent DME/Equipment: Bath Chair, Tub/Shower (Pt states she has not been using for last several months. Has just been doing sponge baths) Drive Self: No OT Current Status Subjective Pt agreeable to therapy and transfer to ARU. Pt reports nausea, RN states pt recently had nausea medication. Pt reports 5/10 pain in left UE. Mental Status/Objective Patient Orientation: Person, Place Current Glasses/Contacts: Yes Hearing Aids: No Dentures/Partials: No Hand Dominance: Right Upper Extremity ROM Right- grossly WFL Left UE Not assessed- in sling secondary to humeral fracture. Upper Extremity Coordination Right UE intact Left UE not assessed ADL-Treatment ADL-Current Pt supine to sit with mod assist and cues for technique. Pt sit to stand with min assist and transfer to w/c. Transported to ARU via w/c. Pt transferred w/c to recliner chair with mod assist and cues for safety. Pt completed grooming tasks while seated in chair. Pt combed hair and washed face with SBA. Used mouth swab for oral care with SBA. Education provided regarding role of OT and plan of care. Pt states understanding of education and agrees with plan, but states she doesn't know how much she will be able to do today secondary to nausea. Will continue ADL assessment in future session as pt tolerates. Pt sitting in chair with needs met after session. Oral Hygiene (QC): 4 Education OT Patient Education: Rehab process Teaching Recipient: Patient Teaching Methods: Discussion Response to Teaching: Verbalize Understanding OT Short Term Goals Short Term Goals Time Frame: Feb 16, 2019 Upper Body Dressing(FIM): 3 Lower Body Dressing(FIM): 3 Toileting(FIM): 3 Toilet/Commode Transfer(FIM): 4 Additional Short Term Goals: 1-Demonstrate ADL Tasks, 2-Verbalize Understanding, 3-ImproveStrength/Isaias 1=Demonstrate adherence to instructed precautions during ADL tasks. 2=Patient will verbalize/demonstrate understanding of assistive devices/modifications for ADL. 3=Patient will improve strength/tolerance for activity to enable patient to perform ADL's. OT Fdc Goals Fdc Goals Time Frame: Mar 02, 2019 Eating (QC): 6 Oral Hygiene (QC): 5 Shower/Bathe Self (QC): 4 Upper Body Dressing (QC): 5 Lower Body Dressing (QC): 5 On/Off Footwear (QC): 5 Toileting Hygiene (QC): 6 Toilet/Commode Transfer (QC): 6 Additional Goals: 1-Demonstrate ADL Tasks, 2-Verbalize Understanding, 3- ImproveStrength/Isaias 1=Demonstrate adherence to instructed precautions during ADL tasks. 2=Patient will verbalize/demonstrate understanding of assistive devices/modifications for ADL. 3=Patient will improve strength/tolerance for activity to enable patient to perform ADL's. OT Education/Plan Problem List/Assessment Assessment: Decreased Activ Tolerance, Decreased UE Strength, Dependent Transfers, Impaired Coordination, Impaired Funct Balance, Impaired I ADL's, Impaired Self-Care Skills Pt to benefit from skilled OT intervention for ADL training, transfers, strengthening, and safety education to increase level of independence and allow safe discharge plan. Discharge Recommendations Plan/Recommendations: Continue POC Treatment Plan/Plan of Care Treatment,Training & Education: Yes Patient would benefit from OT for education, treatment and training to promote independence in ADL's, mobility, safety and/or upper extremity function for ADL's. Plan of Care: ADL Retraining, Functional Mobility, Group Exercise/Act as Ind, UE Funct Exercise/Act Treatment Duration: Mar 02, 2019 Frequency: At least 5 of 7 days/Wk (IRF) Estimated Hrs Per Day: 1.5 hours per day Rehab Potential: Fair Time/GCodes Start Time: 10:35 Stop Time: 11:05 Total Time Billed (hr/min): 30 Billed Treatment Time 1 visit, EVM(15minutes), ADL(15minutes) BENJAMIN ADAMES OT Feb 09, 2019 12:49
--- NOTE | 2019-02-09 13:01 | NUR ---
REVIEWED MED REC IT WAS REPORTED UPON ADMISSION TO 4TH FLOOR. NO CHANGES WERE MADE WHEN THE PATIENT DISCHARGED TO REHAB.
[2019-02-09 13:36] VITALS: BP 151/75
--- NOTE | 2019-02-09 14:04 | Physical Therapy Daily Note ---
PT Daily Note-Current Subjective Pt in bed pre-tx. Pt agrees to therapy this afternoon. This treatment will be co-treatment with OT due to patients decreased endurance, weakness, and poor tolerance of therapy and poor balance and inability to use left arm. Appearance Pt is in the therapy gym post-tx continuing with OT at this time. Mental Status Patient Orientation: Person, Situation UE sling on L UE Transfers SCALE: Activities may be completed with or without assistive devices. 1-Xesmwblhsn-pxpqjpo completes the activity by him/herself with no assistance from a helper. 5-Set-up or Clean-up Assistance-helper sets up or cleans up; patient completes activity. [place] assists only prior to or following the activity. 4-Supervision or Touching Assistance-helper provides verbal cues and/or touching/steadying and/or contact guard assistance as patient completes activity. Assistance may be provided throughout the activity or intermittently. 3-Partial/Moderate Assistance-helper does LESS THAN HALF the effort. [place] lifts, holds or supports trunk or limbs, but provides less than half the effort. 2-Substantial/Maximal Assistance-helper does MORE THAN HALF the effort. [place] lifts or holds trunk or limbs and provides more than half the effort. 6-Ralfrlyed-vrytnm does ALL the effort. Patient does none of the effort to complete the activity. Or, the assistance of 2 or more helpers is required for the patient to complete the activity. If activity was not attempted, code reason: 7-Patient Refused. 9-Not Applicable-not attempted and the patient did not perform the activity before the current illness, exacerbation or injury. 10-Not Attempted due to Environmental Limitations-(lack of equipment, weather restraints, etc.). 88-Not Attempted due to Medical Conditions or Safety Concerns. Roll Left to Right (QC): 2 Sit to Lying (QC): 2 Sit to Stand (QC): 3 (min-modA pt is not consistant and varies assist needs with every attempt.) Weight Bearing Right Lower Extremity: Right Full Weight Bearing Left Lower Extremity: Left Full Weight Bearing NWB LUE, in sling Gait Training Does the Patient Walk?: Yes Gait: 3 (modA. pt is mainly CGA with mod LOB that requires modA to regain balance.) Distance: 50'x2 Walk 10 feet (QC): 3 (modA with mod LOB) Gait Assistive Device: Cane Large Base Quad Pt continues improper use of quad cane at this time. pt is inconsistent with cane placement either too far lateral or will let the cane get behind her and not be able to use the cane for balance. Treatments Pt performed ambulation training, transfer training, and static balance (with PT assist) while OT worked on ADL's at the sink. OT also worked on [place] soc ks on pt's rest breaks during ambulation. Assessment Current Status: Poor Progress Pt continues to be a fall risk with improper use of AD during ambulation with mod LOB. Pt fatigues quickly with therapy and continues to be limited by pain and nausea. PT Short Term Goals Short Term Goals Time Frame: Feb 16, 2019 Gait Distance Comment: 150' Gait Assistive Device: Cane Large Base Quad PT Skilled Nursing Goals Skilled Nursing Goals PT Skilled Nursing Goals Time Frame: Mar 02, 2019 Sit to Lying (QC): 4 (SBA) Lying-Sitting on Side/Bed(QC): 4 (SBA) Sit to Stand (QC): 4 (SBA) Roll Left to Right (QC): 4 (SBA) Chair/Hhz-nm-Abcgi Xfer(QC): 4 (SBA) Car Transfer (QC): 4 (SBA) Distance: 150' Walk 10 feet (QC): 4 (SBA) Walk 10ft-Uneven Surface(QC): 4 (CGA) Walk 50ft with 2 Turns (QC): 4 (SBA) Walk 150 ft (QC): 4 (SBA) Gait Assistive Device: Cane Single Point # of Steps: 4 1 Step (curb) (QC): 4 (CGA) 4 Steps (QC): 4 (CGA) Picking up an Object (QC): 4 (CGA) PT Plan Problem List Problem List: Activity Tolerance, Functional Strength, Safety, Balance, Gait, Transfer, Bed Mobility Treatment/Plan Treatment Plan: Continue Plan of Care Treatment Plan: Bed Mobility, Concurrent Therapy, Education, Functional Activity Isaias, Functional Strength, Group Therapy, Gait, Safety, Therapeutic Exercise, Transfers Treatment Duration: Mar 02, 2019 Frequency: At least 5 of 7 days/Wk (IRF) Estimated Hrs Per Day: 1.5 hours per day Patient and/or Family Agrees t: Yes Safety Risks/Education Patient Education: Gait Training, Transfer Techniques, Correct Positioning, Safety Issues Teaching Recipient: Patient Teaching Methods: Demonstration, Discussion Response to Teaching: Return Demonstration, Reinforcement Needed Time/GCodes Time In: 1330 Time Out: 1400 Total Billed Treatment Time: 30 Total Billed Treatment 1 visit GT 20' FA 10' KAMILA CHERY PT Feb 09, 2019 14:04
--- NOTE | 2019-02-09 14:42 | Occupational Ther Daily Note ---
OT Current Status-Daily Note Subjective Pt. is tearful and reports pain in left UE. Does not report number, but has already had pain medication. OT issued ice pack at end of treatment. Pt. also verbalizes that she is nauseated. Nursing is aware of this. OT gave pt. broth and crackers at end of session. Appearance Pt. in bed. Agrees to work with therapy. Mental Status/Objective Patient Orientation: Person ADL-Treatment Therapy Code Descriptions/Definitions Functional [place] Measure: 0=Not Assessed/NA 4=Minimal Assistance 1=Total Assistance 5=Supervision or Setup 2=Maximal Assistance 6=Modified [place] 3=Moderate Assistance 7=Complete IndependenceSCALE: Activities may be completed with or without assistive devices. 8-Mwogsdoltq-uaoqjdu completes the activity by him/herself with no assistance from a helper. 5-Set-up or Clean-up Assistance-helper sets up or cleans up; patient completes activity. [place] assists only prior to or following the activity. 4-Supervision or Touching Assistance-helper provides verbal cues and/or touching/steadying and/or contact guard assistance as patient completes activity. Assistance may be provided throughout the activity or intermittently. 3-Partial/Moderate Assistance-helper does LESS THAN HALF the effort. [place] lifts, holds or supports trunk or limbs, but provides less than half the effort. 2-Substantial/Maximal Assistance-helper does MORE THAN HALF the effort. [place] lifts or holds trunk or limbs and provides more than half the effort. 0-Rfarqiktv-uaiyio does ALL the effort. Patient does none of the effort to complete the activity. Or, the assistance of 2 or more helpers is required for the patient to complete the activity. If activity was not attempted, code reason: 7-Patient Refused. 9-Not Applicable-not attempted and the patient did not perform the activity before the current illness, exacerbation or injury. 10-Not Attempted due to Environmental Limitations-(lack of equipment, weather restraints, etc.). 88-Not Attempted due to Medical Conditions or Safety Concerns. Eating (QC): 5 (Set up at end of session with chicken broth and saltine crackers.) Shower/Bathe Self (QC): 7 Upper Body Dressing (QC): 7 (Pt. declines at this time due to pain.) Lower Body Dressing (QC): 1 (Pt. unable to doff slipper socks on her own. OT issued dressing stick and pt. able to doff with stick and assist. OT donned them for her.) Toileting Hygiene (QC): 1 (Pt. is unable to cleanse front salma area after urinating. OT did this for her.) Toilet Transfer (QC): 3 PT/OT completed partial co-treatment due to nausea, pain, and fatigue. OT facilitated ADL skills training as well as endurance tasks while PT facilitated mobility and transfers. Pt. transferred with max x 2 from supine-sit. Stood with min assist and ambulated to bathroom. Pt. requires constant cues for encouragement and to use quad cane effectively. Pt. stood with min assist of one person at sink, while second person assisted with washing hands. Ambulated to dining area where pt. requested to sit down. Pt. is somewhat tearful throughout treatment. OT/PT continued to encourage pt. Pt. is able to stand and ambulated a second time, but requires rest break. PT leaves and OT finishes treatment. Pt. uses right UE while seated to complete arm arc task for right shoulder ROM and endurance. Tolerated back and forth motion several times with requests to rest. Ambulated back to room with CGA/Min assist and transferred sit-supine with max x 2. Pt. positioned to comfort level and ice pack applied to left UE. All needs met. Education OT Patient Education: Correct positioning, Exercise program, Modified ADL techniques, Progress toward Goal/Update tx plan, Purpose of tx/functional activities, Reviewed precautions, Rehab process, Transfer techniques, Use of adapted equipment Teaching Recipient: Patient Teaching Methods: Demonstration, Discussion Response to Teaching: Verbalize Understanding, Return Demonstration OT Short Term Goals Short Term Goals Time Frame: Feb 16, 2019 Upper Body Dressing(FIM): 3 Lower Body Dressing(FIM): 3 Toileting(FIM): 3 Toilet/Commode Transfer(FIM): 4 Additional Short Term Goals: 1-Demonstrate ADL Tasks, 2-Verbalize Understanding, 3-ImproveStrength/Isaias 1=Demonstrate adherence to instructed precautions during ADL tasks. 2=Patient will verbalize/demonstrate understanding of assistive devices/modifi cations for ADL. 3=Patient will improve strength/tolerance for activity to enable patient to perform ADL's. OT Prison Goals Prison Goals Time Frame: Mar 02, 2019 Eating (QC): 6 Oral Hygiene (QC): 5 Shower/Bathe Self (QC): 4 Upper Body Dressing (QC): 5 Lower Body Dressing (QC): 5 On/Off Footwear (QC): 5 Toileting Hygiene (QC): 6 Toilet/Commode Transfer (QC): 6 Additional Goals: 1-Demonstrate ADL Tasks, 2-Verbalize Understanding, 3- ImproveStrength/Isaias 1=Demonstrate adherence to instructed precautions during ADL tasks. 2=Patient will verbalize/demonstrate understanding of assistive devices/modifications for ADL. 3=Patient will improve strength/tolerance for activity to enable patient to perform ADL's. OT Education/Plan Problem List/Assessment Assessment: Decreased Activ Tolerance, Decreased UE Strength, Dependent Transfers, Impaired Bed Mobility, Impaired Cognition, Impaired Funct Balance, Impaired I ADL's, Impaired Self-Care Skills, Restricted Funct UE ROM Pt to benefit from skilled OT intervention for ADL training, transfers, strengthening, and safety education to increase level of independence and allow safe discharge plan. Discharge Recommendations Plan/Recommendations: Continue POC Therapy Discharge Recommendati: Post Acute OT Equpiment Recommendations-D/C: Hip Kit Treatment Plan/Plan of Care Treatment,Training & Education: Yes Patient would benefit from OT for education, treatment and training to promote independence in ADL's, mobility, safety and/or upper extremity function for ADL 's. Plan of Care: ADL Retraining, Functional Mobility, Group Exercise/Act as Ind, UE Funct Exercise/Act Treatment Duration: Mar 02, 2019 Frequency: At least 5 of 7 days/Wk (IRF) Estimated Hrs Per Day: 1.5 hours per day Agreement: Yes Rehab Potential: Fair Time/GCodes Start Time: 13:30 Stop Time: 14:20 Total Time Billed (hr/min): 50 Billed Treatment Time 1, ADL x 20minutes, FA x 30minutes PATSY STERN OT Feb 09, 2019 14:42
[2019-02-09] MEDS: RT-ALBUTEROL SULF 2.5 MG/3 ML PRE-MIX VIAL INH SCH ×3 (14:47→22:24)
--- NOTE | 2019-02-09 15:10 | ST Cognitive Linguistic Eval ---
Speech Evaluation-General Medical Diagnosis left humerus fx Onset Date: Feb 07, 2019 Therapy Diagnosis Therapy Diagnosis: Cognitive-communication Precautions Precautions/Isolations: Fall Prevention, Standard Precautions Referral Referring Physician: Dr. Villagomez Reason for Referral: Evaluation/Treatment Medical History Pertinent Medical History: Arthritis, DM, HTN Reviewed History: Yes Social History Current Living Status: Alone Speech PLF-Current Status Prior Level of Function Patient lived at home alone where she was independent for her daily needs. She has a big support system of friends and rastafarian family. Subjective Patient was pleasant and cooperative with the cognitive assessment Language Eval: Auditory Comprehends Simple Yes/No Ques: Functional Indent/Objects Multiple [place]: Functional Ident/Pics in Multiple [place]: Functional Follows 1-Step Commands: Functional Follows Complex Directions: Mild Follows General Conversations: Functional Language Eval: Verbal Language Completes Spontaneous Greeting: Functional Produces Auto, Serial Info: Functional Imitates Simple Words/Phrases: Functional Word Finding: Mild Requests Basic Needs: Functional States Basic Personal Info: Functional Expresses Complex Ideas: Moderate Objective Cognitive Domain Attention: WNL Memory: Moderate Problem Solving: Mild Executive Functions: Mild Visuospatial Skills: WNL Composite Severity Rating: WNL Clock Drawing Severity Rating: Mild Objective Formal/Standardized Tests [facility] Mental Status ([facility]) Results , Mild Neurocognitive Disorder Oral Motor/Speech Production Within Normal Limits Impression The patient is a 78 year old female who was admitted to the ARU s/p broken arm. The patient was given the SLUMS with results of . This indicates a MNCD range. The patient will receive skilled ST for improving cognitive function with focus on safety and independence. Speech Patient Assess Expression of Ideas/Wants: Exhibits (3) Understanding Verbal Content: Usually Understands (3) Brief Interview-Mental Status: Yes Repetition of Three Words: Three (3) Temporal Orientation: Year: Correct (3) Temporal Orientation: Month: Accurate within 5 days(2) Temporal Orientation: Day: Correct (1) Recall : Wear to say "Sock": No, could not recall (0) Recall : Color: No, could not recall (0) Recall : Bed: Yes,after cueing (1) Memory/Recall Ability: Current season, That he or she is in a hsp/hsp unit Speech Short Term Goals Short Term Goals Short Term Goals 1) The patient will complete memory tasks related to her daily needs at 90% or greater given 10% cues. 2) The patient will complete problem solving tasks related to her daily needs at 90% or greater given 10% cues. 3) The patient will complete safety awareness tasks related to her daily needs at 90% or greater given 10% cues. Speech [place] Paralegal Goals [place] Paralegal Goals Patient will improve her cognitive level of function in order to return home safely. Speech-Plan Patient/Family Goals Patient/Family Goals: Patient plans on returning home alone with support of friends post rehab. Treatment Plan Speech Therapy Treatment Plan: Continue Plan of Care Patient will receive skilled ST for improving cognitive function. Treatment Duration: Feb 19, 2019 Frequency: 5 times per week Estimated Hrs Per Day: .5 hour per day Rehab Potential: Fair Barriers to Learning: Patient has mild cognitive deficits Pt/Family Agrees to Plan: Yes Safety Risks/Education Teaching Recipient: Patient, Friend Teaching Methods: Discussion Response to Teaching: Verbalize Understanding Education Topics Provided: Safety within her room and communication of wants/needs Time Speech Therapy Time In: 13:00 Speech Therapy Time Out: 13:15 Total Billed Time: 15 Billed Treatment Time 1, MARTIN Altamirano Feb 09, 2019 15:10
--- NOTE | 2019-02-09 15:28 | NUR ---
RD ASSESSMENT PMHx: hypercholesterolemia; HTN; DM PT INTERACTION: Pt was awake and pleasant during consult for MST score. Pt states current appetite is pretty poor, and has been since admission. Note pt consumed avg of 38% of meals x2d, per chart review. Pt states following a regular diet at home, and has no current issues with chewing/swallowing food at this time. Pt states some recent episodes of nausea and vomiting this AM. Pt states recent issues with constipation, and is currently on a bowel regimen of senna, miralax, colace. Note no BM has been recorded at this time. Pt states recent 17# wt loss, but could not give timeframe of weight lost. Note unable to determine recent wt hx, per chart review. Pt states current DM management as pretty good and blood glucose readings are "generally between 90-114, and never above 200." ABNORMAL NUTRITION-RELATED LAB VALUES: Na 126 (L); Cl 91 (L); Pro 6.3 (L); K 5.1 (H); BUN 48 (H); cr 1.45 (H); glu 148 (H) Est. kcal needs: 8463-7748 kcal (15-20 kcal/kg) Est. Pro needs: 85-101 g Pro (1.0-1.2 g Pro/kg) PES STATEMENT: Inadequate oral intake (NI-2.1) related to nausea | vomiting | loss of appetite as evidenced by pt interview | 39% of meals x2d INTERVENTION: Continue with current diet order of Regular diet. Encouraged pt to eat when able. Pt may benefit from nutrition supplementation if PO intake declines. MONITOR/EVALUATE: PO Intake; Plan of Care; Hydration Status; Weight Status; Lab Values Maxine Lucero, MS, RD, LD Ext. 133
[2019-02-09 17:20] VITALS: BP 139/72
[2019-02-09] MEDS: metFORMIN 500 MG (GLUCOPHAGE) TAB PO SCH (17:32)
--- NOTE | 2019-02-09 18:31 | NUR ---
BOTTOM IS RED, BUT BLANCHABLE. ALLEVYN APPLIED. TURN Q2H.
--- NOTE | 2019-02-09 19:45 | NUR ---
PATIENT IS VERY FEARFUL, STATING SHE IS "NERVOUS" MAKING STATEMENTS SEVERAL TIMES TO THIS RN, "I CAN'T LIFT MY ARM." REFERRING TO HER LEFT, FRACTURED ARM. RN EXPLAINED INJURY AND DISEASE PROCESS, WELL , SCHEDULED MD PLANS WITH SURGICAL INTERVENTION. PATIENT VERBALIZED UNDERSTANDING. REINFORCEMENT AND RN PRESENCE REQUIRED FOR PATIENT. DEEP BREATHING AND RELAXATION EXERCISES. RETURN DEMO-REINFORCEMENT IS NEEDED. PATIENT REFUSES XANAX. CONTINUE TO MONITOR.
[2019-02-09] MEDS: ONDANSETRON 4 MG (ZOFRAN) ORAL DISSOLVE TAB PO PRN (20:25)
--- NOTE | 2019-02-09 20:25 | NUR ---
POWER SALINAS FOR C/O NAUSEA. CONT TO MONITOR.
[2019-02-09] MEDS: POLYETHYLENE GLYCOL 17 GM (MIRALAX) PACK PO SCH (20:26)
[2019-02-09] MEDS: MONTELUKAST 10 MG (SINGULAIR) TAB PO SCH (20:26)
[2019-02-09] MEDS: busPIRone 10 MG (BUSPAR) TAB PO SCH (20:26)
[2019-02-09] MEDS: SENNA W/DOCUSATE (SENOKOT S) TABLET PO SCH (20:26)
--- NOTE | 2019-02-09 22:00 | NUR ---
ZOFRAN EFFECTIVE AT THIS TIME. CONT TO MONITOR
[2019-02-09] MEDS: ENOXAPARIN 40 MG/0.4 ML (LOVENOX) SYR SC SCH (22:22)
[2019-02-10] MEDS: ACETAMINOPHEN 500 MG TAB (TYLENOL) PO PRN (00:40)
--- NOTE | 2019-02-10 00:53 | NUR ---
PATIENT UP MOD A, FWW, GAIT BELT. EVEN STEADY GAIT TO BR. REQ ASSISTANCE MANEUVERING ROSS KHAN PERFORM HYGIENE. VOIDED LARGE AMOUNT OF URINE AND HAD SOFT, FORMED BM. PATIENT C/O PAIN 5/10 IN LEFT ARM. TYLENOL FO RC/O PAIN. RIGHT SIDE LYING AT THIS TIME. CONT TO MONITOR.
[2019-02-10] MEDS: RT-ALBUTEROL SULF 2.5 MG/3 ML PRE-MIX VIAL INH SCH ×5 (02:10→19:12)
[2019-02-10] MEDS: HYDROcodone/APAP 5 MG/325 MG (LORTAB) TAB PO PRN ×4 (04:12→21:22)
[2019-02-10 04:46] VITALS: BP 139/81
[2019-02-10] MEDS: metFORMIN 500 MG (GLUCOPHAGE) TAB PO SCH ×2 (06:14→17:12)
[2019-02-10] MEDS: glyBURIDE 2.5 MG (MICRONASE) TAB PO SCH (06:14)
[2019-02-10] MEDS: GLIMEPIRIDE 4 MG (AMARYL) TAB PO SCH (06:14)
[2019-02-10] MEDS: inSUlin ASPART (NovoLOG) 1 UNIT/0.01 ML (CHARGE PER UNIT) SC SCH ×4 (06:15→21:23)
[2019-02-10 06:22] LABS: BASOPHILS % (AUTO) 0 % (0-10); EOSINOPHILS % (AUTO) 0 % (0-10); HEMATOCRIT 24 % (35-52); HEMOGLOBIN 8.2 G/DL (11.5-16.0); LYMPHOCYTES # (AUTO) 1.3 X 10^3 (1.0-4.0); LYMPHOCYTES % (AUTO) 15 % (12-44); MEAN CORPUSCULAR HEMOGLOBIN 28 PG (25-34); MEAN CORPUSCULAR HGB CONC 34 G/DL (32-36); MEAN CORPUSCULAR VOLUME 84 FL (80-99); MEAN PLATELET VOLUME 8.3 FL (7.4-10.4); MONOCYTES # (AUTO) 0.9 X 10^3 (0.0-1.0); MONOCYTES % (AUTO) 10 % (0-12); NEUTROPHILS # (AUTO) 6.6 X 10^3 (1.8-7.8); NEUTROPHILS % (AUTO) 75 % (42-75); PLATELET COUNT 285 10^3/uL (130-400); RED CELL DISTRIBUTION WIDTH 14.6 % (10.0-14.5); WHITE BLOOD COUNT 8.9 10^3/uL (4.3-11.0)
[2019-02-10 06:55] LABS: ALBUMIN 3.5 GM/DL (3.2-4.5); BILIRUBIN,TOTAL 0.4 MG/DL (0.1-1.0); CALCIUM 8.5 MG/DL (8.5-10.1); CREATININE SERUM 1.27 MG/DL (0.60-1.30); POTASSIUM 4.9 MMOL/L (3.6-5.0); TOTAL PROTEIN 6.2 GM/DL (6.4-8.2)
[2019-02-10 08:00] VITALS: BP 114/64
--- NOTE | 2019-02-10 08:10 | PM&R H&P / Post Admit Assess ---
History of Present Illness HPI/Chief Complaint Chief complaint: Left proximal humerus fracture HPI: This is a 78yo [facility] white female who presented after a proximal left humerus fracture after falling in the [employer] bus. She was admitted, pain was controlled, hyponatremia managed with fluid restriction, and home meds were restarted. She was able to participate in therapy, in preparation for repair on the left arm with a reverse arthroplasty likely by Dr. Fletcher or Dr. Crane in the near future once electrolyte imbalances are corrected. Previously independent of all ADL's. No confusion noted but she is a poor historian. Source: patient, RN/MD, old records Exam Limitations: no limitations Date Seen 02/10/19 Time Seen by a Provider: 08:30 Attending Physician Aimee Vaca DO PCP Reji Daigle MD Referring Physician Date of Admission Feb 09, 2019 at 10:40 Home Medications & Allergies Home Medications Reviewed patient Home Medication Reconciliation performed by pharmacy medication reconciliations certified medical technician and/or nursing. Patients Allergies have been reviewed. Allergies Allergies Coded Allergies codeine (Verified Adverse Reaction, Mild, NAUSEA, 02/08/19) Past Sjopaav-Zslzqy-Jnitgs Hx Past Med/Social Hx: Reviewed Nursing Past Med/Soc Hx, Reviewed and Corrections made Patient Social History Marrital Status: single Employed/Student: retired Smoking Status: Never a Smoker Recent Foreign Travel: No Contact w/other who traveled: No Recent Hopitalizations: No Recent Infectious Disease Expo: No Immunizations Up To Date Pediatric: Yes Date of Pneumonia Vaccine: Jul 05, 2015 Date of Influenza Vaccine: Feb 03, 2019 Seasonal Allergies Seasonal Allergies: No Past Medical History Surgeries: Hysterectomy Currently Using CPAP: No Currently Using BIPAP: No Cardiac: High Cholesterol, Hypertension Reproductive: No Sexually Transmitted Disease: No HIV/AIDS: No Female Reproductive Disorders: Denies Hysterectomy Musculoskeletal: Arthritis, Chronic Back Pain, Fractures Endocrine: Diabetes, Non-Insulin dep Are Your Blood Sugars Over 250: No Loss of Vision: Denies Cancer: Uterine Did You Recieve Any Treatments: Yes What Type of Treatment Did You: Surgical Intervention Psychosocial: Anxiety History of Blood Disorders: No Adverse Reaction to Blood Richardson: No Family History Diabetes mellitus 19 FATHER Hypertension 19 FATHER Diabetes, Hypertension Review of Systems Constitutional: see HPI, weakness EENTM: no symptoms reported Respiratory: no symptoms reported Cardiovascular: no symptoms reported Genitourinary: no symptoms reported Musculoskeletal: joint pain (left shoulder) Psychiatric/Neurological: Anxiety, Depressed All Other Systems Reviewed Negative Unless Noted: Yes Physical Exam Exam Vital Signs Vital Signs Date Time Temp Pulse Resp B/P (MAP) Pulse Ox O2 Delivery O2 Flow Rate FiO2 02/10/19 08:40 92 Room Air 02/10/19 04:46 36.3 91 20 139/81 (100) Capillary Refill : Less Than 3 Seconds General Appearance: No Apparent Distress, WD/WN, Chronically ill HEENT: PERRL/EOMI, Normal ENT Inspection, Pharynx Normal, Moist Mucous Membranes Neck: Full Range of Motion, Normal Inspection, Non Tender, Supple Respiratory: Chest Non Tender, Lungs Clear, Normal Breath Sounds, No Accessory Muscle Use, No Respiratory Distress Cardiovascular: Regular Rate, Rhythm, No Edema, No Gallop, No JVD, No Murmur Gastrointestinal: Normal Bowel Sounds, No Organomegaly, No Pulsatile Mass, Non Tender, Soft Back: Normal Inspection, No CVA Tenderness, No Vertebral Tenderness Extremity: Normal Capillary Refill, Normal Inspection, Normal Range of Motion (except left arm in sling), Non Tender, No Calf Tenderness, No Pedal Edema Neurologic/Psychiatric: Alert, Oriented x3, No Motor/Sensory Deficits, Normal Mood/Affect, tester sound II-XII Norm as Tested Skin: Normal Color, Warm/Dry Lymphatic: No Adenopathy Results Results/Procedures Labs Laboratory Tests 02/10/19 06:10 Patient resulted labs reviewed. Assessment/Plan Assessment and Plan Assess & Plan/Chief Complaint Assessment: Left proximal humerus fracture will need repair on an outpatient basis Severe hyponatremia requiring fluid restriction Anemia Chronic renal insufficiency Hypertension Diabetes mellitus Plan: Pain medication Bowel regimen Inpatient rehabilitation Monitor closely (1) Closed left humeral fracture (2) Hyponatremia (3) Hypertension (4) Diabetes mellitus (5) Chronic renal insufficiency (6) Anemia (7) Frequent falls Post Admission Physician Asses Date seen by provider: Feb 10, 2019 Time seen by provider: 08:30 Admisison Dx: (1) Closed left humeral fracture The preadmission screen agrees with the post admission assessment that the patient is a good candidate for inpatient rehabilitation. The patient will have a comprehensive program of inpatient rehabilitation with a goal of maximizing level of functional independence prior to discharge home. The patient will have PT/OT ninety minutes per day, each discipline, five days a week for gait, strengthening, conditioning, balance, ADLs, any patient/family/caregiver training as necessary. Speech therapy to do cognitive assessment and treat as indicated. Rehabilitation nursing to assist with bowel, bladder, skin, wound care, medication administration, pain management. Fire Equipment Inspector Helper to assist with discharge planning, community reentry. SCD's for DVT prophylaxis. She appears to be well motivated to participate in three hours of therapy a day. She should be able to tolerate three hours of therapy a day from a medical standpoint. She should benefit from the three hours of therapy a day. She has a reasonable discharge plan, reasonable discharge rehabilitation goals and a supportive family. She has various comorbidities that need to be closely monitored with medications and treatments adjusted on a daily basis as needed. These include: See list Barriers to discharge for this patient who had been independent prior to this are for her to be modified independent to supervision for ADLs and mobility skills prior to discharge home, so as to lessen the burden of the caregivers. Risks for this patient include: 1. Fall 2. Fracture 3. DVT 4. Pulmonary embolism 5. Wound infection 6. Skin breakdown 7. Contractures 8. Poorly controlled pain 9. Urinary retention 10. UTI 11. Respiratory infection 12. Aspiration Estimated Length of Stay: 10 days Prognosis: Rehab prognosis appears good for goal of discharge home modified independent to supervision for ADLs and mobility skills. AIMEE VACA DO Feb 10, 2019 08:10
--- NOTE | 2019-02-10 08:20 | NUR ---
MEDICATED WITH LORTAB FOR LEFT ARM PAIN. LEFT HAND VERY SWOLLEN AND ELEVATED ON PILLOW. MEDICATED WITH ZOFRAN FOR CHRONIC NAUSEA. DR. VACA AWARE OF NA 127 AND ELEVATED BUN. REMAINS ON FLUID RESTRICTION.
[2019-02-10] MEDS: lisINopril 20 MG (PRINIVIL) TABLET PO SCH (08:21)
[2019-02-10] MEDS: busPIRone 10 MG (BUSPAR) TAB PO SCH ×2 (08:22→21:22)
[2019-02-10] MEDS: POLYETHYLENE GLYCOL 17 GM (MIRALAX) PACK PO SCH ×2 (08:22→21:23)
[2019-02-10] MEDS: SENNA W/DOCUSATE (SENOKOT S) TABLET PO SCH ×2 (08:22→21:23)
[2019-02-10] MEDS: amLODIPine 10 MG (NORVASC) TAB PO SCH (08:23)
[2019-02-10] MEDS: FUROSEMIDE 20 MG (LASIX) TAB PO SCH (08:23)
[2019-02-10] MEDS: ONDANSETRON 4 MG (ZOFRAN) ORAL DISSOLVE TAB PO PRN (08:24)
[2019-02-10] MEDS: FLUTICASONE NASAL SPRAY (FLONASE) 16 GM BTL NS SCH (08:25)
--- NOTE | 2019-02-10 09:52 | Speech Therapy Daily Note ---
Speech Daily Progress Note Subjective Date Seen by Provider: Feb 10, 2019 Time Seen by Provider: 00:30 Patient was resting in bed when I entered her room. The patient has taken nausea medicine as well as her pain medicine so she was very lethargic. Objective The patient completed memory tasks related to her daily needs at 70% given 20% cues. Assessment Assessment Current Status: Good Progress Treatment Plan Continue Plan of Care Speech Short Term Goals Short Term Goals Short Term Goals 1) The patient will complete memory tasks related to her daily needs at 90% or greater given 10% cues. 2) The patient will complete problem solving tasks related to her daily needs at 90% or greater given 10% cues. 3) The patient will complete safety awareness tasks related to her daily needs at 90% or greater given 10% cues. Speech Intermediate Goals Retail And Promotions Coordinator Goals Patient will improve her cognitive level of function in order to return home safely. Speech-Plan Patient/Family Goals Patient/Family Goals: The patient plans on returning home post rehab. She lives alone, however she has a very large support group of friends and zoroastrianism family. Treatment Plan Speech Therapy Treatment Plan: Continue Plan of Care Patient was able to participate with therapy with verbal cues due to being drowsy. Treatment Duration: Feb 19, 2019 Frequency: 5 times per week Estimated Hrs Per Day: .5 hour per day Rehab Potential: Fair Barriers to Learning: Patient has cognitive deficits. Pt/Family Agrees to Plan: Yes Safety Risks/Education Teaching Recipient: Patient Teaching Methods: Demonstration, Discussion Response to Teaching: Verbalize Understanding, Return Demonstration Education Topics Provided: Continued communication of her wants and needs. Time Speech Therapy Time In: 09:00 Speech Therapy Time Out: 09:30 Total Billed Time: 30 Billed Treatment Time [address] Feb 10, 2019 09:52
--- NOTE | 2019-02-10 10:11 | Individualized Plan of Care ---
Individualized Plan of Care Rehab Nursing IPOC Order Admission Date Feb 09, 2019 at 10:40 Current Orders Orders Admission Order(Inpt,Obs,Sdc) (02/09/19 10:07) Vital Signs: Per Unit Policy ( 08,16,00 (02/09/19 10:07) Java Lead Developer-Inpt Rehab Con (02/09/19 10:07) Rehab Nursing Orders-Ipoc (02/09/19 10:07) Physical Therapy Rehab Orders (02/09/19 10:07) Occupational Therapy Rehab Ord (02/09/19 10:07) Speech Therapy Rehab Orders (02/09/19 10:07) Intake & Output ,, (02/09/19 10:07) Precautions (Aru) (02/09/19 10:07) Weekly Weight WEEK (02/09/19 10:07) Rehab-Intensity Of Therapy (02/09/19 10:07) Initiate Admission Nursing Pro .admission (02/09/19 10:07) Initiate Admission Nursing Pro .admission (02/09/19 10:07) Cbc With Automated Diff (02/10/19 06:00) Comprehensive Metabolic Panel (02/10/19 06:00) Acetaminophen Tablet (Tylenol Tablet) (02/09/19 10:15) Alprazolam Tablet (Xanax Tablet) (02/09/19 10:15) Calcium Carbonate Chew Tablet (Antacid C (02/09/19 10:15) Diphenhydramine Tablet (Benadryl Tablet) (02/09/19 10:15) Docusate Sodium Capsule (Colace Capsule) (02/09/19 10:15) Hydrocodone/Apap 5/325 Tablet (Lortab 5 (02/09/19 10:15) Loperamide Tablet (Imodium Tablet) (02/09/19 10:15) Melatonin Tablet (Melatonin Tablet) (02/09/19 10:15) Ondansetron Oral Dissolve Tab (Zofran (02/09/19 10:15) Senna S Tablet (Senokot S Tablet) (02/09/19 21:00) Fluid Restriction (02/09/19 10:14) Cho 75g/M 0snack (21-2400 Singh) (02/09/19 Dinner) Accucheck Achs ACHS (02/09/19 10:17) Insulin Aspart (Novolog) (Novolog (Charg (02/09/19 11:00) Admission Arrival Bed Request (02/09/19 10:40) Code/Resuscitation (02/09/19 11:19) Ice: Apply To Affected Area (02/09/19 11:19) Albuterol Pre-Mix Nebs (Rt) (Proventil (02/09/19 14:00) Svn Small Volume Nebulizer (02/09/19 11:19) Fluticasone Nasal [place] (Flonase Nasal S (02/10/19 09:00) Glyburide Tablet (Micronase Tablet) (02/10/19 06:30) Furosemide Tablet (Lasix Tablet) (02/10/19 09:00) Montelukast Tablet (Singulair Tablet) (02/09/19 21:00) Buspirone Tablet (Buspar Tablet) (02/09/19 21:00) Glimepiride Tablet (Amaryl Tablet) (02/10/19 06:30) Lisinopril Tablet (Zestril Tablet) (02/10/19 09:00) Metformin Tablet (Glucophage Tablet) (02/09/19 17:00) Atorvastatin Tablet (Lipitor Tablet) (02/09/19 21:00) Polyethylene Glycol Powder Pkt (Miralax (02/09/19 21:00) Enoxaparin Injection (Lovenox Injection) (02/09/19 22:00) Amlodipine Tablet (Norvasc Tablet) (02/10/19 09:00) Request Ot Evaluate & Treat (02/09/19 13:50) Patient Visit (02/09/19 ) Speech Sound Lang Comp (02/09/19 ) Patient Visit (02/09/19 ) Pt Eval Moderate Complexity (02/09/19 ) Gait Training, Ea 15 Min (02/09/19 ) Exercise Therap, Ea 15 Min (02/09/19 ) Functional Activities, Ea 15 (02/09/19 ) Ondansetron Injection (Zofran Injectio (02/10/19 10:30) Patient Visit (02/10/19 ) Treat. Speech/Lang/Voice (02/10/19 ) Patient Visit (02/10/19 ) Exercise Therap, Ea 15 Min (02/10/19 ) Gait Training, Ea 15 Min (02/10/19 ) Functional Activities, Ea 15 (02/10/19 ) Rehab Nursing Orders: Ongoing Assess. of Cognitive Status, Ongoing Assess. of Function Status, Bladder Management, Bladder Scan, Bladder Training, Bowel Management, Bowel Training, Disease Management & Educaiton, DVT Prophylaxis, Fall Prevention, Fluid/Electrolyte/Nutrition Mgmt, Infection Prevention, Medication Management & Education, Management of Risks & Complications, Nutrition Management, Pain Management, Patient/Family Support, Safety Management Intensity of Therapy to be met Patient to be seen: Min.3h per day/5 of 7d PT IPOC Problem List: Activity Tolerance, Functional Strength, Safety, Balance, Gait, Transfer, Bed Mobility Treatment Plan: Continue Plan of Care Bed Mobility, Concurrent Therapy, Education, Functional Activity Isaias, Functional Strength, Group Therapy, Gait, Safety, Therapeutic Exercise, T ransfers Treatment Duration: Mar 02, 2019 Frequency: At least 5 of 7 days/Wk (IRF) Estimated Hrs Per Day: 1.5 hours per day OT IPOC Problems: Decreased Activ Tolerance, Decreased UE Strength, Dependent Transfers, Impaired Bed Mobility, Impaired Cognition, Impaired Funct Balance, Impaired I ADL's, Impaired Self-Care Skills, Restricted Funct UE ROM OT Treatment, Training and Edu: Yes OT Problems Pt to benefit from skilled OT intervention for ADL training, transfers, strengthening, and safety education to increase level of independence and allow safe discharge plan. Plan of Care: ADL Retraining, Functional Mobility, Group Exercise/Act as Ind, UE Funct Exercise/Act Treatment Duration: Mar 02, 2019 Frequency: At least 5 of 7 days/Wk (IRF) Estimated Hrs Per Day: 1.[address] IPOC Speech Therapy Treatment Plan: Continue Plan of Care Treatment Duration: Feb 19, 2019 Frequency: 5 times per week Estimated Hrs Per Day: .5 hour per day Java Lead Developer/Case Mgmt Java Lead Developer/Case Managemen: Discharge Planning Dietitian/Art Framing Manager Dietitian/Art Framing Manager to monitor nutritional status and make changes and/or recommendations as needed and work with speech pathology on dietary upgrades as the occur. Physician IPOC Medical Issues being managed closely and that require the 24 hour availability of a physician: History of learning disability and severe pain and hyponatremia and at risk for decompensation. Medical Issues: Bowel/Bladder Function, DVT Prophylaxis, Falls Precautions, Fluid/Electrolyte/Nutrition Balance, Pain Management Brief Synthesis of Preadmission Screen, Post-Admission Evaluation, and Therapy Evaluations: PT will increase ambulation with no use of the left arm OT will work on independence in ADLs given the left arm cannot be used because of the sling and will work on hand edema Speech therapy will work on cognition Pt requires 24/7 supervision given her slum score of 20 Medical Prognosis: Good Anticipated Length of Stay: 7 days JAMEY VACA DO Feb 10, 2019 10:11
--- NOTE | 2019-02-10 10:17 | Physical Therapy Daily Note ---
PT Daily Note-Current Subjective Pt laying Supine in bed upon arrival. Pt agrees to PT. Pt reports not sleeping well last night and feeling nauseated today. "I'm not sure how much I can do today but I will try." Pain Numeric Pain Scale: 5-Moderate Pain Location: Left Location Body Site: Arm Pain Description: Ache Mental Status Patient Orientation: Person, Confused, Place Attachments: Other-See Comments (Sling for L UE) Transfers SCALE: Activities may be completed with or without assistive devices. 1-Nneabpseyc-vpygbwv completes the activity by him/herself with no assistance from a helper. 5-Set-up or Clean-up Assistance-helper sets up or cleans up; patient completes activity. Crandall assists only prior to or following the activity. 4-Supervision or Touching Assistance-helper provides verbal cues and/or touching/steadying and/or contact guard assistance as patient completes activity. Assistance may be provided throughout the activity or intermittently. 3-Partial/Moderate Assistance-helper does LESS THAN HALF the effort. Crandall lifts, holds or supports trunk or limbs, but provides less than half the effort. 2-Substantial/Maximal Assistance-helper does MORE THAN HALF the effort. Crandall lifts or holds trunk or limbs and provides more than half the effort. 6-Pvvofcywy-fepabt does ALL the effort. Patient does none of the effort to complete the activity. Or, the assistance of 2 or more helpers is required for the patient to complete the activity. If activity was not attempted, code reason: 7-Patient Refused. 9-Not Applicable-not attempted and the patient did not perform the activity before the current illness, exacerbation or injury. 10-Not Attempted due to Environmental Limitations-(lack of equipment, weather restraints, etc.). 88-Not Attempted due to Medical Conditions or Safety Concerns. Weight Bearing Right Lower Extremity: Right Full Weight Bearing Left Lower Extremity: Left Full Weight Bearing NWB LUE, in sling Exercises Supine Ex: Ankle pumps, Quad Set, Glut sets, Heel Slides, Straight leg raise, Hip abd/add Supine Reps: 15 Treatments Pt needs encouragement to participate as pt states she is not feeling well, nauseated today. Pt completes Supine Ex in bed with several RBs as needed. Pt needs assistance with repositioning so DORMITORY KEEPER assists. Pt resting at end of Rx with all needs met, call light in hand. Assessment Current Status: Fair Progress Pt needs redirection to stay on task & encouragement to participate due to feeling ill. Nursing is aware. PT Short Term Goals Short Term Goals Time Frame: Feb 16, 2019 Gait Distance Comment: 150' Gait Assistive Device: Cane Large Base Quad PT Coping Machine Operator Goals Custodial Goals PT Custodial Goals Time Frame: Mar 02, 2019 Sit to Lying (QC): 4 (SBA) Lying-Sitting on Side/Bed(QC): 4 (SBA) Sit to Stand (QC): 4 (SBA) Roll Left to Right (QC): 4 (SBA) Chair/Ywi-rf-Uxwnc Xfer(QC): 4 (SBA) Car Transfer (QC): 4 (SBA) Distance: 150' Walk 10 feet (QC): 4 (SBA) Walk 10ft-Uneven Surface(QC): 4 (CGA) Walk 50ft with 2 Turns (QC): 4 (SBA) Walk 150 ft (QC): 4 (SBA) Gait Assistive Device: Cane Single Point # of Steps: 4 1 Step (curb) (QC): 4 (CGA) 4 Steps (QC): 4 (CGA) Picking up an Object (QC): 4 (CGA) PT Plan Problem List Problem List: Activity Tolerance, Functional Strength, Safety, Balance, Gait, Transfer Treatment/Plan Treatment Plan: Continue Plan of Care Treatment Plan: Bed Mobility, Concurrent Therapy, Education, Functional Activity Isaias, Functional Strength, Group Therapy, Gait, Safety, Therapeutic Exercise, Transfers Treatment Duration: Mar 02, 2019 Frequency: At least 5 of 7 days/Wk (IRF) Estimated Hrs Per Day: 1.5 hours per day Patient and/or Family Agrees t: Yes Safety Risks/Education Patient Education: Correct Positioning, Safety Issues Teaching Methods: Discussion Response to Teaching: Verbalize Understanding, Reinforcement Needed Time/GCodes Time In: 930 Time Out: 1015 Total Billed Treatment Time: 45 Total Billed Treatment 1, EX x2 (30m) & FA (15m) LOTTIE POSEY PTA Feb 10, 2019 10:17
[2019-02-10] MEDS: CALCIUM CARBONATE 500 MG (TUMS) TAB.CHEW PO PRN ×2 (10:37→19:01)
--- NOTE | 2019-02-10 12:53 | Occupational Ther Daily Note ---
OT Current Status-Daily Note Subjective Pt in bed, states she's been nauseated this morning. Agrees to therapy. Reports 5/10 pain in left shoulder. ADL-Treatment Pt supine to sit with minimal assistance to right side. Skilled cues for technique and safety. Sit to stand with minimal assistance. Gait to restroom quad cane. Pt requires multiple cues for sequencing and use of quad cane, but has difficulty comprehending. Transfer to toilet with min assist. Pt able to pull Depends down, but requires assist for hygiene and to pull Depends up. Pt initially states she would like to shower, but then requests sponge bath only stating she is "queasy." Transfer to chair with min assist. Sponge bath completed while seated in chair. Pt able to wash chest and abdomen, and partially wash left UE, but requires assist for all other areas. Increased time. Educated pt on UE dressing technique. Pt requires assist to thread bilateral UE into sleeves and dry chain puller head. Unable to pull down in back without assist. Pt also requires assist to properly position left UE sling. Assist to thread bilateral LE into Depends. Pt stood with min assist and attempts to pull Depends up on right side, but requires assist to complete. Pt demonstrates ability to doff socks with min assist using dressing stick. Skilled cues for use. Total assist to don socks. Pt combed hair with SBA using right UE. Increased time required for all ADL tasks. Pt completed graded clothespin activity with right hand to increase sign carpenter/pinch strength. Pt has some difficulty with greatest resistance clothespins, but is able to complete without assist, only increase time. Pt requests to return to bed after session. Min assist for transfer and for sit to supine. Pt resting in bed with needs met after session. Therapy Code Descriptions/Definitions Functional [place] Measure: 0=Not Assessed/NA 4=Minimal Assistance 1=Total Assistance 5=Supervision or Setup 2=Maximal Assistance 6=Modified [place] 3=Moderate Assistance 7=Complete IndependenceSCALE: Activities may be completed with or without assistive devices. 3-Jooaqytgzp-tsyewwj completes the activity by him/herself with no assistance from a helper. 5-Set-up or Clean-up Assistance-helper sets up or cleans up; patient completes activity. [place] assists only prior to or following the activity. 4-Supervision or Touching Assistance-helper provides verbal cues and/or touch ing/steadying and/or contact guard assistance as patient completes activity. Assistance may be provided throughout the activity or intermittently. 3-Partial/Moderate Assistance-helper does LESS THAN HALF the effort. [place] lifts, holds or supports trunk or limbs, but provides less than half the effort. 2-Substantial/Maximal Assistance-helper does MORE THAN HALF the effort. [place] lifts or holds trunk or limbs and provides more than half the effort. 0-Odtfjzqkf-ifjlel does ALL the effort. Patient does none of the effort to complete the activity. Or, the assistance of 2 or more helpers is required for the patient to complete the activity. If activity was not attempted, code reason: 7-Patient Refused. 9-Not Applicable-not attempted and the patient did not perform the activity before the current illness, exacerbation or injury. 10-Not Attempted due to Environmental Limitations-(lack of equipment, weather restraints, etc.). 88-Not Attempted due to Medical Conditions or Safety Concerns. Shower/Bathe Self (QC): 2 Upper Body Dressing (QC): 1 Lower Body Dressing (QC): 2 Toileting Hygiene (QC): 2 Toilet Transfer (QC): 3 OT Short Term Goals Short Term Goals Time Frame: Feb 16, 2019 Upper Body Dressing(FIM): 3 Lower Body Dressing(FIM): 3 Toileting(FIM): 3 Toilet/Commode Transfer(FIM): 4 Additional Short Term Goals: 1-Demonstrate ADL Tasks, 2-Verbalize Understanding, 3-ImproveStrength/Isaias 1=Demonstrate adherence to instructed precautions during ADL tasks. 2=Patient will verbalize/demonstrate understanding of assistive devices/modifications for ADL. 3=Patient will improve strength/tolerance for activity to enable patient to p erform ADL's. OT Senior Care Goals Senior Care Goals Time Frame: Mar 02, 2019 Eating (QC): 6 Oral Hygiene (QC): 5 Shower/Bathe Self (QC): 4 Upper Body Dressing (QC): 5 Lower Body Dressing (QC): 5 On/Off Footwear (QC): 5 Toileting Hygiene (QC): 6 Toilet/Commode Transfer (QC): 6 Additional Goals: 1-Demonstrate ADL Tasks, 2-Verbalize Understanding, 3- ImproveStrength/Isaias 1=Demonstrate adherence to instructed precautions during ADL tasks. 2=Patient will verbalize/demonstrate understanding of assistive devices/modifications for ADL. 3=Patient will improve strength/tolerance for activity to enable patient to perform ADL's. OT Education/Plan Discharge Recommendations Plan/Recommendations: Continue POC Treatment Plan/Plan of Care Patient would benefit from OT for education, treatment and training to promote independence in ADL's, mobility, safety and/or upper extremity function for ADL's. Plan of Care: ADL Retraining, Functional Mobility, Group Exercise/Act as Ind, UE Funct Exercise/Act Treatment Duration: Mar 02, 2019 Frequency: At least 5 of 7 days/Wk (IRF) Estimated Hrs Per Day: 1.5 hours per day Agreement: Yes Rehab Potential: Fair Time/GCodes Start Time: 10:45 Stop Time: 12:00 Total Time Billed (hr/min): 75 Billed Treatment Time 1 visit, ADLx4(65minutes), EX(10minutes) BENJAMIN ADAMES OT Feb 10, 2019 12:53
[2019-02-10] MEDS: ONDANSETRON 4 MG/2 ML (SDV) Z0FRAN IVP PRN ×2 (14:00→21:22)
--- NOTE | 2019-02-10 15:48 | NUR ---
Attempted to meet with patient for initial assessment and to discuss weekly team conference. Patient had multiple visitors at bedside. Will attempt to see patient later today.
--- NOTE | 2019-02-10 16:03 | Physical Therapy Daily Note ---
PT Daily Note-Current Subjective Pt laying Supine in bed upon arrival. Pt agrees to PT but again reports feeling ill. SANITARY LANDFILL SUPERVISOR asks pt to attempt taking a walk and pt agrees. Mental Status Patient Orientation: Person, Place Attachments: Other-See Comments (Sling for L UE) Transfers SCALE: Activities may be completed with or without assistive devices. 7-Lnnftqyhse-hseaxdx completes the activity by him/herself with no assistance from a helper. 5-Set-up or Clean-up Assistance-helper sets up or cleans up; patient completes activity. [place] assists only prior to or following the activity. 4-Supervision or Touching Assistance-helper provides verbal cues and/or touching/steadying and/or contact guard assistance as patient completes activity. Assistance may be provided throughout the activity or intermittently. 3-Partial/Moderate Assistance-helper does LESS THAN HALF the effort. [place] lifts, holds or supports trunk or limbs, but provides less than half the effort. 2-Substantial/Maximal Assistance-helper does MORE THAN HALF the effort. [place] lifts or holds trunk or limbs and provides more than half the effort. 6-Yfunbvdwi-gdewgy does ALL the effort. Patient does none of the effort to complete the activity. Or, the assistance of 2 or more helpers is required for the patient to complete the activity. If activity was not attempted, code reason: 7-Patient Refused. 9-Not Applicable-not attempted and the patient did not perform the activity before the current illness, exacerbation or injury. 10-Not Attempted due to Environmental Limitations-(lack of equipment, weather restraints, etc.). 88-Not Attempted due to Medical Conditions or Safety Concerns. Roll Left to Right (QC): 4 Sit to Lying (QC): 4 Sit to Stand (QC): 4 Weight Bearing Right Lower Extremity: Right Full Weight Bearing Left Lower Extremity: Left Full Weight Bearing NWB LUE, in sling Gait Training Does the Patient Walk?: Yes Gait: 4 Distance: 30' Walk 10 feet (QC): 4 Gait Persons Needed: 1 Gait Assistive Device: Cane Large Base Quad Pt is given instruction on how to properly use LBQC but retention is poor, SANITARY [employer]ANDFILL SUPERVISOR gives redirection. Treatments Pt transfers from Supine to EOB to standing. Pt uses LBQC to ambulates to [facility] then rest and back to room. Pt asks to use restroom before returning to bed. Pt needs assistance for pericare. Pt returns to bed at end of tx. Pt resting in bed with all needs met as company arrives. Pt has call light in hand. Assessment Current Status: Fair Progress Pt is limited by fatigue, feeling ill and cognitive deficits at this time. PT Short Term Goals Short Term Goals Time Frame: Feb 16, 2019 Gait Distance Comment: 150' Gait Assistive Device: Cane Large Base Quad PT Long-Term Goals Die Tester Goals PT Long-Term Goals Time Frame: Mar 02, 2019 Sit to Lying (QC): 4 (SBA) Lying-Sitting on Side/Bed(QC): 4 (SBA) Sit to Stand (QC): 4 (SBA) Roll Left to Right (QC): 4 (SBA) Chair/Cyq-yy-Znchx Xfer(QC): 4 (SBA) Car Transfer (QC): 4 (SBA) Distance: 150' Walk 10 feet (QC): 4 (SBA) Walk 10ft-Uneven Surface(QC): 4 (CGA) Walk 50ft with 2 Turns (QC): 4 (SBA) Walk 150 ft (QC): 4 (SBA) Gait Assistive Device: Cane Single Point # of Steps: 4 1 Step (curb) (QC): 4 (CGA) 4 Steps (QC): 4 (CGA) Picking up an Object (QC): 4 (CGA) PT Plan Problem List Problem List: Activity Tolerance, Functional Strength, Safety, Balance, Gait, Transfer Treatment/Plan Treatment Plan: Continue Plan of Care Treatment Plan: Bed Mobility, Concurrent Therapy, Education, Functional Activity Isaias, Functional Strength, Group Therapy, Gait, Safety, Therapeutic Exercise, Transfers Treatment Duration: Mar 02, 2019 Frequency: At least 5 of 7 days/Wk (IRF) Estimated Hrs Per Day: 1.5 hours per day Patient and/or Family Agrees t: Yes Safety Risks/Education Patient Education: Gait Training, Transfer Techniques, Correct Positioning, Safety Issues Teaching Recipient: Patient Teaching Methods: Discussion Response to Teaching: Reinforcement Needed Time/GCodes Time In: 1330 Time Out: 1400 Total Billed Treatment Time: 30 Total Billed Treatment 1, GT (15m) & FA (15m) LOTTIE POSEY SANITARY LANDFILL SUPERVISOR Feb 10, 2019 16:02
--- NOTE | 2019-02-10 16:54 | NUR ---
Attempted to meet with patient to complete initial assessment and to discuss weekly team conference. Patient sleeping soundly in bed. Will attempt to talk with patient tomorrow.
[2019-02-10 18:00] VITALS: BP 144/77
--- NOTE | 2019-02-10 18:00 | NUR ---
NAUSEA BETTER WITH IV ZOFRAN. TUMS HELPS "GASEY STOMACH". REPEATEDLY REMINDING TO KEEP LEFT ARM AND HAND ELEVATED, BUT LIKES TO DANGLE HAND AND IT HAS 3+ EDEMA.
[2019-02-10] MEDS: ENOXAPARIN 40 MG/0.4 ML (LOVENOX) SYR SC SCH (21:22)
[2019-02-10] MEDS: MONTELUKAST 10 MG (SINGULAIR) TAB PO SCH (21:22)
[2019-02-11] MEDS: RT-ALBUTEROL SULF 2.5 MG/3 ML PRE-MIX VIAL INH SCH ×7 (00:42→22:42)
[2019-02-11] MEDS: CALCIUM CARBONATE 500 MG (TUMS) TAB.CHEW PO PRN (02:37)
[2019-02-11] MEDS: inSUlin ASPART (NovoLOG) 1 UNIT/0.01 ML (CHARGE PER UNIT) SC SCH ×4 (05:52→20:26)
[2019-02-11] MEDS: HYDROcodone/APAP 5 MG/325 MG (LORTAB) TAB PO PRN ×4 (06:16→21:40)
[2019-02-11] MEDS: ONDANSETRON 4 MG/2 ML (SDV) Z0FRAN IVP PRN (06:16)
[2019-02-11 06:34] VITALS: BP 121/67
[2019-02-11] MEDS: metFORMIN 500 MG (GLUCOPHAGE) TAB PO SCH ×2 (06:47→18:11)
[2019-02-11] MEDS: GLIMEPIRIDE 4 MG (AMARYL) TAB PO SCH (06:48)
[2019-02-11] MEDS: glyBURIDE 2.5 MG (MICRONASE) TAB PO SCH (06:48)
--- NOTE | 2019-02-11 09:40 | PM&R Progress Note ---
Subjective HPI/CC On Admission Date Seen by Provider: Feb 11, 2019 Time Seen by Provider: 08:30 Chief complaint: Left proximal humerus fracture HPI: This is a 78yo [facility] white female who presented after a proximal left humerus fracture after falling in the [employer] bus. She was admitted, pain was controlled, hyponatremia managed with fluid restriction, and home meds were restarted. She was able to participate in therapy, in preparation for repair on the left arm with a reverse arthroplasty likely by Dr. Fletcher or Dr. Crane in the near future once electrolyte imbalances are corrected. Previously independent of all ADL's. No confusion noted but she is a poor historian. Subjective/Events-last exam Protonix 40 mg daily will be ordered along with her home dose Mylanta because she is awfully nauseated. Learning disability and dementia precludes a fast recovery. May very well need a group home. Pain is tolerated with the left shoulder. Doing well overall. Reviewed therapy notes Conferred with RN Checked meds and labs Review of Systems Gastrointestinal: Nausea Musculoskeletal: arm pain Objective Exam Vital Signs Vital Signs Date Time Temp Pulse Resp B/P (MAP) Pulse Ox O2 Delivery O2 Flow Rate FiO2 02/11/19 18:57 90 Room Air 02/11/19 18:00 36.6 100 18 116/69 (85) Capillary Refill : Less Than 3 Seconds General Appearance: No Apparent Distress, WD/WN, Chronically ill HEENT: PERRL/EOMI, Normal ENT Inspection, Pharynx Normal, Moist Mucous Membranes Neck: Full Range of Motion, Normal Inspection, Non Tender, Supple Respiratory: Chest Non Tender, Lungs Clear, Normal Breath Sounds, No Accessory Muscle Use, No Respiratory Distress Cardiovascular: Regular Rate, Rhythm, No Edema, No Gallop, No JVD, No Murmur Gastrointestinal: Normal Bowel Sounds, No Organomegaly, No Pulsatile Mass, Non Tender, Soft Back: Normal Inspection, No CVA Tenderness, No Vertebral Tenderness Extremity: Normal Capillary Refill, Normal Inspection, Normal Range of Motion (except left arm in sling), Non Tender, No Calf Tenderness, No Pedal Edema Neurologic/Psychiatric: Alert, Oriented x3, No Motor/Sensory Deficits, Normal Mood/Affect, digging machine operator II-XII Norm as Tested Skin: Normal Color, Warm/Dry Lymphatic: No Adenopathy Results/Procedures Lab Patient resulted labs reviewed. FIM Transfers Therapy Code Descriptions/Definitions Functional [place] Measure: 0=Not Assessed/NA 4=Minimal Assistance 1=Total Assistance 5=Supervision or Setup 2=Maximal Assistance 6=Modified [place] 3=Moderate Assistance 7=Complete IndependenceSCALE: Activities may be completed with or without assistive devices. 3-Sprqxowdws-khrvclr completes the activity by him/herself with no assistance from a helper. 5-Set-up or Clean-up Assistance-helper sets up or cleans up; patient completes activity. [place] assists only prior to or following the activity. 4-Supervision or Touching Assistance-helper provides verbal cues and/or touching/steadying and/or contact guard assistance as patient completes activity. Assistance may be provided throughout the activity or intermittently. 3-Partial/Moderate Assistance-helper does LESS THAN HALF the effort. [place] lifts, holds or supports trunk or limbs, but provides less than half the effort. 2-Substantial/Maximal Assistance-helper does MORE THAN HALF the effort. [place] lifts or holds trunk or limbs and provides more than half the effort. 2-Mdvudnxwe-xytbai does ALL the effort. Patient does none of the effort to compl ete the activity. Or, the assistance of 2 or more helpers is required for the patient to complete the activity. If activity was not attempted, code reason: 7-Patient Refused. 9-Not Applicable-not attempted and the patient did not perform the activity before the current illness, exacerbation or injury. 10-Not Attempted due to Environmental Limitations-(lack of equipment, weather restraints, etc.). 88-Not Attempted due to Medical Conditions or Safety Concerns. Roll Left to Right (QC): 4 Sit to Lying (QC): 4 Sit to Stand (QC): 4 Chair/Uwj-ak-Kzyhp Xfer(QC): 3 (Nasima) Car Transfer (QC): 3 (ModA for LE lifting) Gait Training Does the Patient Walk?: Yes Gait (FIM): 4 Distance: 30' Walk 10 feet (QC): 4 Walk 50 ft with 2 Turns(QC): 3 (Nasima) Walk 150 ft (QC): 9 (Nausea) Walking 10ft/uneven surface-QC: 3 (modA with multiple slight LOB) Gait Persons Needed: 1 Gait Assistive Device: Cane Large Base Quad Wheelchair Training Does the Pt Use a Wheelchair?: No Stair Training 1 Step (curb) (QC): 9 (nausea) 4 Steps (QC): 9 (nausea) 12 Steps (QC): 9 (nausea) Balance Picking up an Object (QC): 88 ADL-Treatment Eating (QC): 5 (Set up at end of session with chicken broth and saltine crackers.) Oral Hygiene (QC): 4 Shower/Bathe Self (QC): 2 Upper Body Dressing (QC): 1 Lower Body Dressing (QC): 2 Toileting Hygiene (QC): 2 Toilet Transfer (QC): 3 Assessment/Plan Assessment and Plan Assess & Plan/Chief Complaint Assessment: Left proximal humerus fracture will need repair on an outpatient basis Severe hyponatremia requiring fluid restriction Anemia Chronic renal insufficiency Hypertension Diabetes mellitus GERD Plan: Pain medication Bowel regimen Inpatient rehabilitation Monitor closely PPI (1) Closed left humeral fracture (2) Hyponatremia (3) Hypertension (4) Diabetes mellitus (5) Chronic renal insufficiency (6) Anemia (7) Frequent falls JAMEY VACA DO Feb 11, 2019 09:39
--- NOTE | 2019-02-11 09:56 | Speech Therapy Daily Note ---
Speech Daily Progress Note Subjective Date Seen by Provider: Feb 11, 2019 Time Seen by Provider: 00:30 Patient stated she was feeling nauseated again. Objective Patient completed a series of safety awareness with 75% given 25% verbal and/or visual cues. Assessment Assessment Current Status: Fair Progress Treatment Plan Continue Plan of Care Speech Short Term Goals Short Term Goals Short Term Goals 1) The patient will complete memory tasks related to her daily needs at 90% or greater given 10% cues. 2) The patient will complete problem solving tasks related to her daily needs at 90% or greater given 10% cues. 3) The patient will complete safety awareness tasks related to her daily needs at 90% or greater given 10% cues. Speech Police Aide Goals Fpc Goals Patient will improve her cognitive level of function in order to return home safely. Speech-Plan Patient/Family Goals Patient/Family Goals: Patient plans on returning home alone, however this will be determined by the team and patient at a later date prior to discharge. Treatment Plan Speech Therapy Treatment Plan: Continue Plan of Care Patient was able to participate easier today. Treatment Duration: Feb 19, 2019 Frequency: 5 times per week Estimated Hrs Per Day: .5 hour per day Rehab Potential: Fair Barriers to Learning: Patient has cognitive deficits. Pt/Family Agrees to Plan: Yes Safety Risks/Education Teaching Recipient: Patient Teaching Methods: Demonstration, Discussion Response to Teaching: Verbalize Understanding, Return Demonstration Education Topics Provided: Continued communication of her wants/needs. Time Speech Therapy Time In: 09:00 Speech Therapy Time Out: 09:30 Total Billed Time: 30 Billed Treatment Time 1, MARTIN Gutierrez Feb 11, 2019 09:56
[2019-02-11] MEDS: ONDANSETRON 4 MG (ZOFRAN) ORAL DISSOLVE TAB PO PRN (10:57)
--- NOTE | 2019-02-11 11:01 | Occupational Ther Daily Note ---
OT Current Status-Daily Note Subjective Pt. is tearful throughout treatment, and states that she is nauseated. Reports pain in left UE during movement tasks, but does not state pain level. Pt. has had pain medication and meds for nausea. Completed gentle massage and positioning to left UE for pain control. Appearance Pt. in bed when therapist enters room. Agrees to treatment. Mental Status/Objective Patient Orientation: Person, Place ADL-Treatment Therapy Code Descriptions/Definitions Functional [place] Measure: 0=Not Assessed/NA 4=Minimal Assistance 1=Total Assistance 5=Supervision or Setup 2=Maximal Assistance 6=Modified [place] 3=Moderate Assistance 7=Complete IndependenceSCALE: Activities may be completed with or without assistive devices. 9-Bbeywywaiy-zivpqaj completes the activity by him/herself with no assistance from a helper. 5-Set-up or Clean-up Assistance-helper sets up or cleans up; patient completes activity. [place] assists only prior to or following the activity. 4-Supervision or Touching Assistance-helper provides verbal cues and/or touching/steadying and/or contact guard assistance as patient completes activity. Assistance may be provided throughout the activity or intermittently. 3-Partial/Moderate Assistance-helper does LESS THAN HALF the effort. [place] lifts, holds or supports trunk or limbs, but provides less than half the effort. 2-Substantial/Maximal Assistance-helper does MORE THAN HALF the effort. [place] lifts or holds trunk or limbs and provides more than half the effort. 3-Nzbcsxyqn-cxioim does ALL the effort. Patient does none of the effort to complete the activity. Or, the assistance of 2 or more helpers is required for the patient to complete the activity. If activity was not attempted, code reason: 7-Patient Refused. 9-Not Applicable-not attempted and the patient did not perform the activity before the current illness, exacerbation or injury. 10-Not Attempted due to Environmental Limitations-(lack of equipment, weather restraints, etc.). 88-Not Attempted due to Medical Conditions or Safety Concerns. Oral Hygiene (QC): 5 (Set up to brush gums seated.) Shower/Bathe Self (QC): 2 (Pt. declines showering, but agrees to sponge bathe up in chair. Pt. is able to wash stomach, right groin area, and bilateral feet with LH sponge. OT washed and dried between toes. Noted that pt. has not been able to care for feet herself at home. Requires assistance otherwise for all other parts. Pt. having difficulty reaching salma areas in stance or under panus region. Unable to wash under arms. Requires encouragement to do for self.) Upper Body Dressing (QC): 2 (Max assist overall to doff/don sling and shirt. Max cues provided on how to initiate each task.) Lower Body Dressing (QC): 2 (Pt. is able to doff slipper socks with DS with min assist and cues. Requires max assist to don with sock aide.) Toileting Hygiene (QC): 2 Toilet Transfer (QC): 7 (Pt. verbalizes that she wants to be able to have a BM, but declines attempting to toilet at this time.) Other Treatment Noted left hand swollen when OT entered room. OT provided gentle retrograde massage to left hand and lower arm with lotion. Pt. verbalizes that this feels good. Provided gentle PROM to left elbow and wrist. Pt. educated to make sure that sling is on appropriately, as she will let left hand hand out of it, causing further swelling. During ADLs, noted toenails need podiatry attention. Notified nursing and nurse to put in consult. OT applied isotoner glove to left hand to further assist with swelling. Pt. further educated on importance of k eeping sling in good placement and hand elevated. Pt. verbalizes understanding. All needs met in room. Education OT Patient Education: Correct positioning, Exercise program, Modified ADL techniques, Progress toward Goal/Update tx plan, Purpose of tx/functional activities, Reviewed precautions, Rehab process, Transfer techniques, Use of adapted equipment Teaching Recipient: Patient Teaching Methods: Demonstration, Discussion Response to Teaching: Verbalize Understanding, Return Demonstration OT Short Term Goals Short Term Goals Time Frame: Feb 16, 2019 Upper Body Dressing(FIM): 3 Lower Body Dressing(FIM): 3 Toileting(FIM): 3 Toilet/Commode Transfer(FIM): 4 Additional Short Term Goals: 1-Demonstrate ADL Tasks, 2-Verbalize Understanding, 3-ImproveStrength/Isaias 1=Demonstrate adherence to instructed precautions during ADL tasks. 2=Patient will verbalize/demonstrate understanding of assistive devices/modifications for ADL. 3=Patient will improve strength/tolerance for activity to enable patient to perform ADL's. OT Halfway Goals Halfway Goals Time Frame: Mar 02, 2019 Eating (QC): 6 Oral Hygiene (QC): 5 Shower/Bathe Self (QC): 4 Upper Body Dressing (QC): 5 Lower Body Dressing (QC): 5 On/Off Footwear (QC): 5 Toileting Hygiene (QC): 6 Toilet/Commode Transfer (QC): 6 Additional Goals: 1-Demonstrate ADL Tasks, 2-Verbalize Understanding, 3- ImproveStrength/Isaias 1=Demonstrate adherence to instructed precautions during ADL tasks. 2=Patient will verbalize/demonstrate understanding of assistive devices/modifications for ADL. 3=Patient will improve strength/tolerance for activity to enable patient to perform ADL's. OT Education/Plan Problem List/Assessment Assessment: Decreased Activ Tolerance, Decreased UE Strength, Dependent Transfers, Impaired Bed Mobility, Impaired Cognition, Impaired Coordination, Impaired Funct Balance, Impaired I ADL's, Impaired Self-Care Skills, Restricted Funct UE ROM Discharge Recommendations Plan/Recommendations: Continue POC Therapy Discharge Recommendati: 24 Hour Supervision Equpiment Recommendations-D/C: Hip Kit Treatment Plan/Plan of Care Treatment,Training & Education: Yes Patient would benefit from OT for education, treatment and training to promote independence in ADL's, mobility, safety and/or upper extremity function for ADL's. Plan of Care: ADL Retraining, Functional Mobility, Group Exercise/Act as Ind, UE Funct Exercise/Act Treatment Duration: Mar 02, 2019 Frequency: At least 5 of 7 days/Wk (IRF) Estimated Hrs Per Day: 1.5 hours per day Agreement: Yes Rehab Potential: Fair Time/GCodes Start Time: 09:30 Stop Time: 10:45 Total Time Billed (hr/min): 75 Billed Treatment Time 1, Ex x 30minutes, ADL x 45minutes PATSY STERN OT Feb 11, 2019 11:01
[2019-02-11] MEDS: POLYETHYLENE GLYCOL 17 GM (MIRALAX) PACK PO SCH ×2 (11:02→20:35)
[2019-02-11] MEDS: SENNA W/DOCUSATE (SENOKOT S) TABLET PO SCH ×2 (11:03→11:23)
[2019-02-11] MEDS: FLUTICASONE NASAL SPRAY (FLONASE) 16 GM BTL NS SCH (11:22)
[2019-02-11] MEDS: lisINopril 20 MG (PRINIVIL) TABLET PO SCH (11:22)
[2019-02-11] MEDS: amLODIPine 10 MG (NORVASC) TAB PO SCH (11:22)
[2019-02-11] MEDS: PANTOPRAZOLE 20 MG TABLET (PROTONIX) PO SCH (11:23)
[2019-02-11] MEDS: FUROSEMIDE 20 MG (LASIX) TAB PO SCH (11:23)
[2019-02-11] MEDS: busPIRone 10 MG (BUSPAR) TAB PO SCH ×2 (11:27→20:24)
--- NOTE | 2019-02-11 12:00 | NUR ---
Met with patient to complete initial assessment and to discuss weekly team conference. Patient admitted to ARU on 02/09/19 with a left shoulder fracture. Patient lives at home alone in a single-story home with 3 entry steps with railing. Patient reported being independent with ADLs and functional mobility with a SPC. Patient reported she does not drive because her "doctor won't let her." Patient reported having a bath chair at home. Patient confirmed her PCP as Dr. Daigle. Her preferred pharmacy is [facility] in [place], [place]. Patient confirmed primary insurance as Medicare and secondary insurance as [place] Medicaid. Emergency contacts are: Mirlande Anglin (friend) - and Verna Brandt (friend) - . Patient reported she has neighbors and friends that assist her as needed. When asked if patient would have assistance at discharge, she stated her neighbors could assist; however, she would not want anybody to live with her because she is "too independent." Patient asked if this worker could contact her friend, Mary who works at the [email or web address] [facility], to let her know she was hospitalized. Patient reported Mary and Mary's fiance help patient and that Mary would want to know she is in the hospital. Patient also asked if this worker would let Carolina, RN on 4th floor, know she was on the rehab unit. Patient asking for pastoral care visit and this worker will place order for pastoral consultation. Discussed purpose of weekly team conference and patient verbalized understanding. Informed patient that team's recommendation is to reevaluate patient next Friday. Patient is in agreement with this and stated she wants to "stay here as long as she can so she gets better." Patient's discharge goal is to return home alone. Carolina, 4th floor nurse, arrived on rehab unit. Carolina notified of patient's request to see her. Carolina verbalized understanding and stated she would visit her.
--- NOTE | 2019-02-11 12:18 | NUR ---
Attempted to call Mary at the [facility]. Mary was not working and will not work until this Friday at 1100. Notified patient.
--- NOTE | 2019-02-11 12:27 | Physical Therapy Daily Note ---
PT Daily Note-Current Subjective Pt sitting in chair in room upon arrival. Pt reluctantly agrees to participate with PT. Pt reports nausea and fatigue again today. Pt reports sleeping well though but wants to return to bed. After encouragement & medications, pt participates in limited PT. Pain Numeric Pain Scale: 5-Moderate Pain Location: Left Location Body Site: Arm Pain Description: Throbbing Mental Status Patient Orientation: Person, Confused, Place Attachments: Other-See Comments (Sling foe L UE) Transfers SCALE: Activities may be completed with or without assistive devices. 9-Vfxxoakrye-dphlivc completes the activity by him/herself with no assistance from a helper. 5-Set-up or Clean-up Assistance-helper sets up or cleans up; patient completes activity. [place] assists only prior to or following the activity. 4-Supervision or Touching Assistance-helper provides verbal cues and/or touching/steadying and/or contact guard assistance as patient completes activity. Assistance may be provided throughout the activity or intermittently. 3-Partial/Moderate Assistance-helper does LESS THAN HALF the effort. [place] lifts, holds or supports trunk or limbs, but provides less than half the effort. 2-Substantial/Maximal Assistance-helper does MORE THAN HALF the effort. [place] lifts or holds trunk or limbs and provides more than half the effort. 1-Nuldvxrwl-zrbrda does ALL the effort. Patient does none of the effort to complete the activity. Or, the assistance of 2 or more helpers is required for the patient to complete the activity. If activity was not attempted, code reason: 7-Patient Refused. 9-Not Applicable-not attempted and the patient did not perform the activity before the current illness, exacerbation or injury. 10-Not Attempted due to Environmental Limitations-(lack of equipment, weather restraints, etc.). 88-Not Attempted due to Medical Conditions or Safety Concerns. Sit to Stand (QC): 4 Weight Bearing Right Lower Extremity: Right Full Weight Bearing Left Lower Extremity: Left Full Weight Bearing JOHNNY VARGAS, in sling Gait Training Does the Patient Walk?: Yes Gait: 4 Distance: 50' Walk 10 feet (QC): 4 Walk 50 ft with 2 Turns(QC): 4 Gait Persons Needed: 1 Gait Assistive Device: Handheld Assist Pt walks with slow rhona, needing reassurance from LECTURER OF [place]. Pt had tried using LBQC but continues to demonstrate lack of retention with proper instruction of use of AD. It appears to hamper pt's mobility more than assist. Exercises Seated Therapy Exercises: Ankle pumps, Sit to stand (5 reps), Long arc quads, Hip flexion, Kicking activity, Hamstring Curls Seated Reps: 20 Treatments Pt is encouraged to participated in Rx. Pt completes Seated Ex with RB as needed. Pt then transfers to standing after receiving medications. Pt ambulates short distance before needing to RB. Pt returns to room at end of tx with all needs met, call light in hand. Assessment Current Status: Fair Progress Pt limits participation in Rx. LECT[employer] [place] continues to encourage and advise benefits of PT. Pt reports fatigue and nausea limit participation. PT Short Term Goals Short Term Goals Time Frame: Feb 16, 2019 Gait Distance Comment: 150' Gait Assistive Device: Cane Large Base Quad PT Name Plate Stamping Machine Operator Goals Name Plate Stamping Machine Operator Goals PT Name Plate Stamping Machine Operator Goals Time Frame: Mar 02, 2019 Sit to Lying (QC): 4 (SBA) Lying-Sitting on Side/Bed(QC): 4 (SBA) Sit to Stand (QC): 4 (SBA) Roll Left to Right (QC): 4 (SBA) Chair/Nwo-je-Evvel Xfer(QC): 4 (SBA) Car Transfer (QC): 4 (SBA) Distance: 150' Walk 10 feet (QC): 4 (SBA) Walk 10ft-Uneven Surface(QC): 4 (CGA) Walk 50ft with 2 Turns (QC): 4 (SBA) Walk 150 ft (QC): 4 (SBA) Gait Assistive Device: Cane Single Point # of Steps: 4 1 Step (curb) (QC): 4 (CGA) 4 Steps (QC): 4 (CGA) Picking up an Object (QC): 4 (CGA) PT Plan Problem List Problem List: Activity Tolerance, Functional Strength, Safety, Balance, Gait, Transfer Treatment/Plan Treatment Plan: Continue Plan of Care Treatment Plan: Bed Mobility, Concurrent Therapy, Education, Functional Activity Isaias, Functional Strength, Group Therapy, Gait, Safety, Therapeutic Exercise, Transfers Treatment Duration: Mar 02, 2019 Frequency: At least 5 of 7 days/Wk (IRF) Estimated Hrs Per Day: 1.5 hours per day Patient and/or Family Agrees t: Yes Safety Risks/Education Patient Education: Gait Training, Transfer Techniques, Correct Positioning, Safety Issues Teaching Recipient: Patient Teaching Methods: Discussion Response to Teaching: Reinforcement Needed Time/GCodes Time In: 1045 Time Out: 1130 Total Billed Treatment Time: 45 Total Billed Treatment 1, FA (15m), GT (10m) & EX (20m) LOTTIE POSEY LECTURER OF [place] Feb 11, 2019 12:27
[2019-02-11] MEDS: ANTACID SUSP 30 ML UDC (MYLANTA) PO PRN (15:27)
--- NOTE | 2019-02-11 16:42 | Physical Therapy Daily Note ---
PT Daily Note-Current Subjective Pt laying Supine in bed. Pt reports fatigue and asks for Supine EX. Pain Numeric Pain Scale: 5-Moderate Pain Location: Left Location Body Site: Arm Pain Description: Throbbing Mental Status Patient Orientation: Person, Confused, Place Attachments: Other-See Comments (sling for L UE) Transfers SCALE: Activities may be completed with or without assistive devices. 1-Gacbczgzdn-hmwevxy completes the activity by him/herself with no assistance from a helper. 5-Set-up or Clean-up Assistance-helper sets up or cleans up; patient completes activity. [place] assists only prior to or following the activity. 4-Supervision or Touching Assistance-helper provides verbal cues and/or touching/steadying and/or contact guard assistance as patient completes activity. Assistance may be provided throughout the activity or intermittently. 3-Partial/Moderate Assistance-helper does LESS THAN HALF the effort. [place] lifts, holds or supports trunk or limbs, but provides less than half the effort. 2-Substantial/Maximal Assistance-helper does MORE THAN HALF the effort. [place] lifts or holds trunk or limbs and provides more than half the effort. 2-Dvjvfkhnj-vjxayn does ALL the effort. Patient does none of the effort to complete the activity. Or, the assistance of 2 or more helpers is required for the patient to complete the activity. If activity was not attempted, code reason: 7-Patient Refused. 9-Not Applicable-not attempted and the patient did not perform the activity before the current illness, exacerbation or injury. 10-Not Attempted due to Environmental Limitations-(lack of equipment, weather restraints, etc.). 88-Not Attempted due to Medical Conditions or Safety Concerns. Weight Bearing Right Lower Extremity: Right Full Weight Bearing Left Lower Extremity: Left Full Weight Bearing NWB LUE, in sling Exercises Supine Ex: Ankle pumps, Quad Set, Glut sets, Heel Slides, Straight leg raise, Hip abd/add Supine Reps: 20 Treatments Pt completes Supine Ex with RB as needed. Pt resting as guest arrives at end of tx. Pt has all needs met, call light in hand. Assessment Current Status: Fair Progress Pt continues to limit participation. Pt also continues to demonstrate cognitive deficits that limit understanding of benefits of PT. PT Short Term Goals Short Term Goals Time Frame: Feb 16, 2019 Gait Distance Comment: 150' Gait Assistive Device: Cane Large Base Quad PT Dental Services Director Goals Dental Services Director Goals PT Dental Services Director Goals Time Frame: Mar 02, 2019 Sit to Lying (QC): 4 (SBA) Lying-Sitting on Side/Bed(QC): 4 (SBA) Sit to Stand (QC): 4 (SBA) Roll Left to Right (QC): 4 (SBA) Chair/Yty-sr-Imicj Xfer(QC): 4 (SBA) Car Transfer (QC): 4 (SBA) Distance: 150' Walk 10 feet (QC): 4 (SBA) Walk 10ft-Uneven Surface(QC): 4 (CGA) Walk 50ft with 2 Turns (QC): 4 (SBA) Walk 150 ft (QC): 4 (SBA) Gait Assistive Device: Cane Single Point # of Steps: 4 1 Step (curb) (QC): 4 (CGA) 4 Steps (QC): 4 (CGA) Picking up an Object (QC): 4 (CGA) PT Plan Problem List Problem List: Activity Tolerance, Functional Strength, Safety Treatment/Plan Treatment Plan: Continue Plan of Care Treatment Plan: Bed Mobility, Concurrent Therapy, Education, Functional Activity Isaias, Functional Strength, Group Therapy, Gait, Safety, Therapeutic Exercise, Transfers Treatment Duration: Mar 02, 2019 Frequency: At least 5 of 7 days/Wk (IRF) Estimated Hrs Per Day: 1.5 hours per day Patient and/or Family Agrees t: Yes Safety Risks/Education Patient Education: Transfer Techniques, Correct Positioning, Safety Issues Teaching Recipient: Patient Teaching Methods: Discussion Response to Teaching: Verbalize Understanding Time/GCodes Time In: 1515 Time Out: 1545 Total Billed Treatment Time: 30 Total Billed Treatment 1, EX x2 (30m) LOTTIE POSEY UNHAIRER Feb 11, 2019 16:42
[2019-02-11 18:00] VITALS: BP 116/69
[2019-02-11] MEDS: MONTELUKAST 10 MG (SINGULAIR) TAB PO SCH (20:25)
[2019-02-11] MEDS: ENOXAPARIN 40 MG/0.4 ML (LOVENOX) SYR SC SCH (21:22)
[2019-02-12] MEDS: ALPRAZolam 0.25 MG (XANAX) TAB PO PRN ×2 (00:24→20:55)
[2019-02-12] MEDS: RT-ALBUTEROL SULF 2.5 MG/3 ML PRE-MIX VIAL INH SCH ×5 (02:47→21:49)
[2019-02-12] MEDS: HYDROcodone/APAP 5 MG/325 MG (LORTAB) TAB PO PRN ×4 (02:50→20:55)
[2019-02-12] MEDS: inSUlin ASPART (NovoLOG) 1 UNIT/0.01 ML (CHARGE PER UNIT) SC SCH ×4 (05:22→21:08)
[2019-02-12 05:40] VITALS: BP 160/76
[2019-02-12 06:21] LABS: CALCIUM 8.7 MG/DL (8.5-10.1); CREATININE SERUM 1.33 MG/DL (0.60-1.30)
[2019-02-12] MEDS: glyBURIDE 2.5 MG (MICRONASE) TAB PO SCH (06:31)
[2019-02-12] MEDS: metFORMIN 500 MG (GLUCOPHAGE) TAB PO SCH ×2 (06:32→17:05)
[2019-02-12] MEDS: GLIMEPIRIDE 4 MG (AMARYL) TAB PO SCH (06:32)
--- NOTE | 2019-02-12 08:35 | Speech Therapy Daily Note ---
Speech Daily Progress Note Subjective Date Seen by Provider: Feb 12, 2019 Time Seen by Provider: 00:30 Patient was sleeping in bed and awoke when therapist entered room. Patient complained of lack of sleep and pain in both arms. Patient reported feeling unwell with stomachache. Objective Patient refused to participate in cognitive-communicative tasks and skills were targeted via conversation. Patient was oriented to date and day of the week with a visual aid. Patient was able to recall details of injury, report personal information, and recall previous therapy and strategies. Patient independently recalled room safety and use of call button. Assessment Assessment Current Status: Good Progress Treatment Plan Continue Plan of Care Speech Short Term Goals Short Term Goals Short Term Goals 1) The patient will complete memory tasks related to her daily needs at 90% or greater given 10% cues. 2) The patient will complete problem solving tasks related to her daily needs at 90% or greater given 10% cues. 3) The patient will complete safety awareness tasks related to her daily needs at 90% or greater given 10% cues. Speech Prison Goals Manager Utilization Goals Patient will improve her cognitive level of function in order to return home safely. Speech-Plan Patient/Family Goals Patient/Family Goals: Patient hopes to return home to her cat Treatment Plan Speech Therapy Treatment Plan: Continue Plan of Care Patient was pleasant and demonstrated functional cognitive skills during co nversation. Formal memory and communication tasks were not performed due to refusal. Treatment Duration: Feb 19, 2019 Frequency: 5 times per week Estimated Hrs Per Day: .5 hour per day Rehab Potential: Fair Barriers to Learning: participation and cognition Pt/Family Agrees to Plan: Yes Safety Risks/Education Teaching Recipient: Patient Teaching Methods: Discussion Response to Teaching: Verbalize Understanding Education Topics Provided: room safety and visual aids for memory Time Speech Therapy Time In: 07:58 Speech Therapy Time Out: 08:28 Total Billed Time: 30 Billed Treatment Time 1, TEDDY Marshall Feb 12, 2019 08:35
--- NOTE | 2019-02-12 09:06 | PM&R Progress Note ---
Subjective HPI/CC On Admission Date Seen by Provider: Feb 12, 2019 Time Seen by Provider: 09:15 Chief complaint: Left proximal humerus fracture HPI: This is a 78yo [facility] white female who presented after a proximal left humerus fracture [place] [employer] [place]. She was admitted, pain was controlled, hyponatremia managed with fluid restriction, and home meds were restarted. She was able to participate in therapy, in preparation for repair on the left arm with a reverse arthroplasty likely by Dr. Fletcher or Dr. Crane in the near future once electrolyte imbalances are corrected. Previously independent of all ADL's. No confusion noted but she is a poor historian. Subjective/Events-last exam Protonix 40 mg daily will be maintained along with her home dose Mylanta because she is still experiencing nausea Learning disability and dementia precludes a fast recovery. Will likely need a mcfp. Pain is tolerated with the left shoulder. Sodium level 129 Doing well overall. Reviewed therapy notes Conferred with RN Checked meds and labs Review of Systems Musculoskeletal: arm pain Objective Exam Vital Signs Vital Signs Date Time Temp Pulse Resp B/P (MAP) Pulse Ox O2 Delivery O2 Flow Rate FiO2 02/12/19 07:13 94 Room Air 02/12/19 05:40 36.2 97 20 160/76 (104) Capillary Refill : Less Than 3 Seconds General Appearance: No Apparent Distress, WD/WN, Chronically ill HEENT: PERRL/EOMI, Normal ENT Inspection, Pharynx Normal, Moist Mucous Membranes Neck: Full Range of Motion, Normal Inspection, Non Tender, Supple Respiratory: Chest Non Tender, Lungs Clear, Normal Breath Sounds, No Accessory Muscle Use, No Respiratory Distress Cardiovascular: Regular Rate, Rhythm, No Edema, No Gallop, No JVD, No Murmur Gastrointestinal: Normal Bowel Sounds, No Organomegaly, No Pulsatile Mass, Non Tender, Soft Back: Normal Inspection, No CVA Tenderness, No Vertebral Tenderness Extremity: Normal Capillary Refill, Normal Inspection, Normal Range of Motion (except left arm in sling), Non Tender, No Calf Tenderness, No Pedal Edema Neurologic/Psychiatric: Alert, Oriented x3, No Motor/Sensory Deficits, Normal Mood/Affect, proteomics scientist II-XII Norm as Tested Skin: Normal Color, Warm/Dry Lymphatic: No Adenopathy Results/Procedures Lab Laboratory Tests 02/12/19 05:15 Patient resulted labs reviewed. FIM Transfers Therapy Code Descriptions/Definitions Functional [place] Measure: 0=Not Assessed/NA 4=Minimal Assistance 1=Total Assistance 5=Supervision or Setup 2=Maximal Assistance 6=Modified [place]rell 3=Moderate Assistance 7=Complete IndependenceSCALE: Activities may be completed with or without assistive devices. 9-Hjykrkkdmi-lftvtku completes the activity by him/herself with no assistance from a helper. 5-Set-up or Clean-up Assistance-helper sets up or cleans up; patient completes activity. [place] assists only prior to or following the activity. 4-Supervision or Touching Assistance-helper provides verbal cues and/or touching/steadying and/or contact guard assistance as patient completes activity. Assistance may be provided throughout the activity or intermittently. 3-Partial/Moderate Assistance-helper does LESS THAN HALF the effort. [place] lif ts, holds or supports trunk or limbs, but provides less than half the effort. 2-Substantial/Maximal Assistance-helper does MORE THAN HALF the effort. [place] lifts or holds trunk or limbs and provides more than half the effort. 0-Ffbjwgyck-trjomk does ALL the effort. Patient does none of the effort to complete the activity. Or, the assistance of 2 or more helpers is required for the patient to complete the activity. If activity was not attempted, code reason: 7-Patient Refused. 9-Not Applicable-not attempted and the patient did not perform the activity before the current illness, exacerbation or injury. 10-Not Attempted due to Environmental Limitations-(lack of equipment, weather restraints, etc.). 88-Not Attempted due to Medical Conditions or Safety Concerns. Roll Left to Right (QC): 4 Sit to Lying (QC): 4 Sit to Stand (QC): 4 Chair/Gkj-us-Fuxoc Xfer(QC): 3 (Nasima) Car Transfer (QC): 3 (ModA for LE lifting) Gait Training Does the Patient Walk?: Yes Gait (FIM): 4 Distance: 50' Walk 10 feet (QC): 4 Walk 50 ft with 2 Turns(QC): 4 Walk 150 ft (QC): 9 (Nausea) Walking 10ft/uneven surface-QC: 3 (modA with multiple slight LOB) Gait Persons Needed: 1 Gait Assistive Device: Handheld Assist Wheelchair Training Does the Pt Use a Wheelchair?: No Stair Training 1 Step (curb) (QC): 9 (nausea) 4 Steps (QC): 9 (nausea) 12 Steps (QC): 9 (nausea) Balance Picking up an Object (QC): 88 ADL-Treatment Eating (QC): 5 (Set up at end of session with chicken broth and saltine crackers.) Oral Hygiene (QC): 5 (Set up to brush gums seated.) Shower/Bathe Self (QC): 2 (Pt. declines showering, but agrees to sponge bathe up in chair. Pt. is able to wash stomach, right groin area, and bilateral feet with LH sponge. OT washed and dried between toes. Noted that pt. has not been able to care for feet herself at home. Requires assistance otherwise for all other parts. Pt. having difficulty reaching salma areas in stance or under panus region. Unable to wash under arms. Requires encouragement to do for self.) Upper Body Dressing (QC): 2 (Max assist overall to doff/don sling and shirt. Max cues provided on how to initiate each task.) Lower Body Dressing (QC): 2 (Pt. is able to doff slipper socks with DS with min assist and cues. Requires max assist to don with sock aide.) Toileting Hygiene (QC): 2 Toilet Transfer (QC): 7 (Pt. verbalizes that she wants to be able to have a BM, but declines attempting to toilet at this time.) Assessment/Plan Assessment and Plan Assess & Plan/Chief Complaint Assessment: Left proximal humerus fracture will need repair on an outpatient basis Severe hyponatremia requiring fluid restriction improving now 129 Anemia Chronic renal insufficiency Hypertension Diabetes mellitus GERD Plan: Pain medication Bowel regimen Inpatient rehabilitation Monitor closely PPI Likely will need mcfp (1) Closed left humeral fracture (2) Hyponatremia (3) Hypertension (4) Diabetes mellitus (5) Chronic renal insufficiency (6) Anemia (7) Frequent falls JAMEY VACA DO Feb 12, 2019 09:06
[2019-02-12] MEDS: FUROSEMIDE 20 MG (LASIX) TAB PO SCH (09:14)
[2019-02-12] MEDS: amLODIPine 10 MG (NORVASC) TAB PO SCH (09:14)
[2019-02-12] MEDS: busPIRone 10 MG (BUSPAR) TAB PO SCH ×2 (09:14→20:54)
[2019-02-12] MEDS: PANTOPRAZOLE 20 MG TABLET (PROTONIX) PO SCH (09:14)
[2019-02-12] MEDS: lisINopril 20 MG (PRINIVIL) TABLET PO SCH (09:14)
--- NOTE | 2019-02-12 09:47 | Occ Therapy Progress Note ---
Therapy Progress Note Pt refused treatment at this time due to nausea and L arm pain. Pt stated that she would like to wait and would take shower later this morning. Will attempt with pt at 11. 1 refusal KALANI BOOKER Feb 12, 2019 09:47
[2019-02-12] MEDS: ANTACID SUSP 30 ML UDC (MYLANTA) PO PRN (09:49)
[2019-02-12] MEDS: POLYETHYLENE GLYCOL 17 GM (MIRALAX) PACK PO SCH ×2 (09:50→20:47)
[2019-02-12] MEDS: SENNA W/DOCUSATE (SENOKOT S) TABLET PO SCH ×2 (09:50→20:54)
[2019-02-12] MEDS: FLUTICASONE NASAL SPRAY (FLONASE) 16 GM BTL NS SCH (09:51)
--- NOTE | 2019-02-12 11:01 | Physical Therapy Daily Note ---
PT Daily Note-Current Subjective Pt. in bed, c/o she is having nausea as well as pain in left arm at 8/10 mostly during TRFs. Pt. expresses fear and wants to be reassured she will not fall etc, "hold on to me honey" Pain Numeric Pain Scale: 8 Location: Left Location Body Site: Shoulder Pain Description: Stabbing Mental Status Patient Orientation: Person, Place, Time, Situation Attachments: Other-See Comments (LUE sling) Transfers SCALE: Activities may be completed with or without assistive devices. 4-Riaayhjfgg-fszyxlm completes the activity by him/herself with no assistance from a helper. 5-Set-up or Clean-up Assistance-helper sets up or cleans up; patient completes activity. [place] assists only prior to or following the activity. 4-Supervision or Touching Assistance-helper provides verbal cues and/or touching/steadying and/or contact guard assistance as patient completes activity. Assistance may be provided throughout the activity or intermittently. 3-Partial/Moderate Assistance-helper does LESS THAN HALF the effort. [place] lifts, holds or supports trunk or limbs, but provides less than half the effort. 2-Substantial/Maximal Assistance-helper does MORE THAN HALF the effort. [place] lifts or holds trunk or limbs and provides more than half the effort. 2-Xortpalnq-vxiwcn does ALL the effort. Patient does none of the effort to complete the activity. Or, the assistance of 2 or more helpers is required for the patient to complete the activity. If activity was not attempted, code reason: 7-Patient Refused. 9-Not Applicable-not attempted and the patient did not perform the activity before the current illness, exacerbation or injury. 10-Not Attempted due to Environmental Limitations-(lack of equipment, weather restraints, etc.). 88-Not Attempted due to Medical Conditions or Safety Concerns. Transfers (B, C, W/C): 3 Roll Left to Right (QC): 3 Sit to Lying (QC): 3 Sit to Stand (QC): 4 Chair/Umr-gd-Woyqh Xfer(QC): 3 Bed to/from Chair: 3 Car Transfer (QC): 88 Weight Bearing Right Lower Extremity: Right Full Weight Bearing Left Lower Extremity: Left Full Weight Bearing NWB LUE, in sling Gait Training Does the Patient Walk?: Yes Gait: 3 Walk 10 feet (QC): 3 Walk 50 ft with 2 Turns(QC): 3 Gait Persons Needed: 1 Gait Assistive Device: Handheld Assist pt. very fearful and states she does not like to use the cane and prefers hand held. Pt. encouraged to think about progressing to the cane or another device to progress to greater indep Exercises Supine Ex: Bridging, Ankle pumps, Quad Set, Rolling, Glut sets, Heel Slides, Short Arc Quads, Scooting, Straight leg raise, Hip abd/add Supine Reps: 12 (x2) Seated Therapy Exercises: Ankle pumps, Sit to stand, Long arc quads, Hip flexion Seated Reps: 20 Treatments short bouts of gait with PAPETERIE TABLE ASSEMBLER pt. very fearful and holds to therapist with tight gis scientist, sit to stand pt instructed to use arm of chair instead of pulling on pt. This was a major accomplishment for pt. this date. Assessment Current Status: Good Progress pt. is fearful and has some learning challenges and needs reassurance . PT Short Term Goals Short Term Goals Time Frame: Feb 16, 2019 Gait Distance Comment: 150' Gait Assistive Device: Cane Large Base Quad PT Routing Clerk Goals Routing Clerk Goals PT Prison Goals Time Frame: Mar 02, 2019 Sit to Lying (QC): 4 (SBA) Lying-Sitting on Side/Bed(QC): 4 (SBA) Sit to Stand (QC): 4 (SBA) Roll Left to Right (QC): 4 (SBA) Chair/Ucj-oj-Xkrlx Xfer(QC): 4 (SBA) Car Transfer (QC): 4 (SBA) Distance: 150' Walk 10 feet (QC): 4 (SBA) Walk 10ft-Uneven Surface(QC): 4 (CGA) Walk 50ft with 2 Turns (QC): 4 (SBA) Walk 150 ft (QC): 4 (SBA) Gait Assistive Device: Cane Single Point # of Steps: 4 1 Step (curb) (QC): 4 (CGA) 4 Steps (QC): 4 (CGA) Picking up an Object (QC): 4 (CGA) PT Plan Treatment/Plan Treatment Plan: Continue Plan of Care Treatment Plan: Bed Mobility, Concurrent Therapy, Education, Functional Activity Isaias, Functional Strength, Group Therapy, Gait, Safety, Therapeutic Exercise, Transfers Treatment Duration: Mar 02, 2019 Frequency: At least 5 of 7 days/Wk (IRF) Estimated Hrs Per Day: 1.5 hours per day Patient and/or Family Agrees t: Yes Safety Risks/Education Patient Education: Gait Training, Transfer Techniques, Correct Positioning, Disease Process, Safety Issues Teaching Recipient: Patient Teaching Methods: Demonstration, Discussion Response to Teaching: Verbalize Understanding, Return Demonstration, Reinforcement Needed Time/GCodes Time In: 1000 Time Out: 1100 Total Billed Treatment Time: 60 Total Billed Treatment 1,GT25m,FA20m,EX15m SUMA BERMAN FORM SETTER [address] [address] FORMS Feb 12, 2019 11:01
--- NOTE | 2019-02-12 11:08 | Occupational Ther Daily Note ---
OT Current Status-Daily Note Subjective Pt reported that she was up all night. She state that she needs some Mylanta for upset stomach. Appearance Pt in bed when OT entered the room. Pt agrees to therapy but requested to have it in an hour. Mental Status/Objective Patient Orientation: Person, Place, Time, Situation ADL-Treatment Pt ambulated to the shower room with hand hold. Pt declined to use the toilet. Pt sat on the shower bench. OT asked the pt to undress but patient stated that she is hurting so bad that she could not do it, OT assisted. OT handed pt wash cloth to clean self but only patted the chest and stated that she could not due to pain. Pt required max assist to dress, and don socks. OT donned sling and edema glove. Pt declined to go the the gym but agreed to do some exercises in room. Pt ambulated with CGA to reclining chair for exercises. Therapy Code Descriptions/Definitions Functional [place] Measure: 0=Not Assessed/NA 4=Minimal Assistance 1=Total Assistance 5=Supervision or Setup 2=Maximal Assistance 6=Modified [place] 3=Moderate Assistance 7=Complete IndependenceSCALE: Activities may be completed with or without assistive devices. 9-Qyqldztkdt-nzrkkvb completes the activity by him/herself with no assistance from a helper. 5-Set-up or Clean-up Assistance-helper sets up or cleans up; patient completes activity. [place] assists only prior to or following the activity. 4-Supervision or Touching Assistance-helper provides verbal cues and/or touching/steadying and/or contact guard assistance as patient completes activity. Assistance may be provided throughout the activity or intermittently. 3-Partial/Moderate Assistance-helper does LESS THAN HALF the effort. [place] lifts, holds or supports trunk or limbs, but provides less than half the effort. 2-Substantial/Maximal Assistance-helper does MORE THAN HALF the effort. [place] lifts or holds trunk or limbs and provides more than half the effort. 1-Frxlezmwg-oabfww does ALL the effort. Patient does none of the effort to complete the activity. Or, the assistance of 2 or more helpers is required for the patient to complete the activity. If activity was not attempted, code reason: 7-Patient Refused. 9-Not Applicable-not attempted and the patient did not perform the activity before the current illness, exacerbation or injury. 10-Not Attempted due to Environmental Limitations-(lack of equipment, weather restraints, etc.). 88-Not Attempted due to Medical Conditions or Safety Concerns. Oral Hygiene (QC): 5 (Pt had difficult doing sqeezing toothpaste onto brush, OT cued the pt to squeeze in her mouth . Pt completed oral hygiene at sink seated on a chair.) Bathing Location: L Arm, R Arm, L Upper Leg, R Upper Leg, L Lower Leg (including foot), R Lower Leg (including foot), Chest, Abdomen, Buttocks, Perineal Area Shower/Bathe Self (QC): 2 Upper Body Dressing (QC): 2 Lower Body Dressing (QC): 2 Toileting Hygiene (QC): 7 Toilet Transfer (QC): 7 Other Treatment Pt educated in UE exercises for strengthening and ROM that adheres to humeral fracture precautions. Pt completed forearm pronation/supination ROM without resistance. Strengthening of wrist flexion/extension with 1# wt and medium resistance sponge for insurance advisor/pinch strengthening. Pt given medium resistance theraputty for working on pinch and insurance advisor strengthening. Pt also provided pt with squeeze ball and educated the importance of it. Gentle edema to dorsum of hand. Edema has decreased since applying edema glove. Pt completed therapy exercise and ambulated to bed with CGA. Pt she required cues to move her feet and body on the bed. Pt in bed arm elevated phone and call light in reach. All need met. Education OT Patient Education: Correct positioning, Exercise program, Instructions don/doff splint/brace, Modified ADL techniques, Progress toward Goal/Update tx plan, Purpose of tx/functional activities, Reviewed precautions, Rehab process, Safety issues, Transfer techniques, Use of adapted equipment Teaching Recipient: Patient Teaching Methods: Demonstration, Discussion Response to Teaching: Verbalize Understanding, Return Demonstration OT Short Term Goals Short Term Goals Time Frame: Feb 16, 2019 Upper Body Dressing(FIM): 3 Lower Body Dressing(FIM): 3 Toileting(FIM): 3 Toilet/Commode Transfer(FIM): 4 Additional Short Term Goals: 1-Demonstrate ADL Tasks, 2-Verbalize Understanding, 3-ImproveStrength/Isaias 1=Demonstrate adherence to instructed precautions during ADL tasks. 2=Patient will verbalize/demonstrate understanding of assistive devices/modifications for ADL. 3=Patient will improve strength/tolerance for activity to enable patient to perform ADL's. OT Smash Piecer Goals Smash Piecer Goals Time Frame: Mar 02, 2019 Eating (QC): 6 Oral Hygiene (QC): 5 Shower/Bathe Self (QC): 4 Upper Body Dressing (QC): 5 Lower Body Dressing (QC): 5 On/Off Footwear (QC): 5 Toileting Hygiene (QC): 6 Toilet/Commode Transfer (QC): 6 Additional Goals: 1-Demonstrate ADL Tasks, 2-Verbalize Understanding, 3-Imp roveStrength/Isaias 1=Demonstrate adherence to instructed precautions during ADL tasks. 2=Patient will verbalize/demonstrate understanding of assistive devices/modifications for ADL. 3=Patient will improve strength/tolerance for activity to enable patient to perform ADL's. OT Education/Plan Problem List/Assessment Assessment: Decreased Activ Tolerance, Decreased UE Strength, Edema, Impaired Bed Mobility, Impaired Funct Balance, Impaired I ADL's, Impaired Self-Care Skills Discharge Recommendations Plan/Recommendations: Continue POC Therapy Discharge Recommendati: Post Acute OT Equpiment Recommendations-D/C: Hip Kit Treatment Plan/Plan of Care Patient would benefit from OT for education, treatment and training to promote independence in ADL's, mobility, safety and/or upper extremity function for ADL's. Plan of Care: ADL Retraining, Functional Mobility, Group Exercise/Act as Ind, UE Funct Exercise/Act Treatment Duration: Mar 02, 2019 Frequency: At least 5 of 7 days/Wk (IRF) Estimated Hrs Per Day: 1.5 hours per day Agreement: Yes Rehab Potential: Fair Time/GCodes Start Time: 11:00 Stop Time: 12:00 Total Time Billed (hr/min): 60 Billed Treatment Time 1, ADL 2 (30 min) EX 2 (30 min) KALANI BOOKER Feb 12, 2019 11:08
--- NOTE | 2019-02-12 14:31 | Therapy Group Daily Note ---
Therapy Daily Group Note Patient Education Topic Other List Below (ambulation, ARU description/expectations) Exercises LE Seated Exercise, UE Exercise Session Ratio (pt:therapist): 5:1 Goal of Session: Education on ARU Expectations, UE/LE Strengthing, Other (list) (ambulation) Goal Met for this Session: Yes Pt Benefit of Group: Contributions to Others, Increased Functional Strength, Improved Cognition, Recognition of Peers, Socialization Other/Notes Pt ambulated with hand hold assist to ARU [facility] area for OT/PT group. Group consisted of introductions (name, place living, telling a joke), socialization, UE/LE seated exercises, education of ARU description/expectations and walking safely utilizing AE. Pt introduced self appropriately and actively listened to peers. Pt demonstrated understanding of educational topics by asking questions or giving personal observations and stories. Pt was able to tolerate UE/LE seated exercises with assist with L LE at times. After therapy, pt lying in bed with call light/phone in reach. Pt c/o pain, reported to nrsg. All needs met in room. Start Time: 13:00 Stop Time: 14:15 Total Billed Treatment Time: 75 Total Billed Treatment 1-GRP KALANI BOOKER Feb 12, 2019 14:31 POS
[2019-02-12 18:20] VITALS: BP 137/80
[2019-02-12] MEDS: MONTELUKAST 10 MG (SINGULAIR) TAB PO SCH (20:54)
[2019-02-12] MEDS: ENOXAPARIN 40 MG/0.4 ML (LOVENOX) SYR SC SCH (20:56)
[2019-02-13] MEDS: HYDROcodone/APAP 5 MG/325 MG (LORTAB) TAB PO PRN ×5 (00:17→20:49)
[2019-02-13] MEDS: RT-ALBUTEROL SULF 2.5 MG/3 ML PRE-MIX VIAL INH SCH ×6 (01:31→21:25)
[2019-02-13 05:07] VITALS: BP 135/66
[2019-02-13] MEDS: metFORMIN 500 MG (GLUCOPHAGE) TAB PO SCH ×2 (06:07→16:24)
[2019-02-13] MEDS: glyBURIDE 2.5 MG (MICRONASE) TAB PO SCH (06:07)
[2019-02-13] MEDS: inSUlin ASPART (NovoLOG) 1 UNIT/0.01 ML (CHARGE PER UNIT) SC SCH ×4 (06:08→21:08)
[2019-02-13] MEDS: GLIMEPIRIDE 4 MG (AMARYL) TAB PO SCH (06:08)
[2019-02-13 08:00] VITALS: BP 123/66
[2019-02-13] MEDS: FUROSEMIDE 20 MG (LASIX) TAB PO SCH (08:50)
[2019-02-13] MEDS: lisINopril 20 MG (PRINIVIL) TABLET PO SCH (08:50)
[2019-02-13] MEDS: POLYETHYLENE GLYCOL 17 GM (MIRALAX) PACK PO SCH ×2 (08:50→19:42)
[2019-02-13] MEDS: PANTOPRAZOLE 20 MG TABLET (PROTONIX) PO SCH (08:50)
[2019-02-13] MEDS: busPIRone 10 MG (BUSPAR) TAB PO SCH ×2 (08:50→20:49)
[2019-02-13] MEDS: SENNA W/DOCUSATE (SENOKOT S) TABLET PO SCH ×2 (08:51→20:49)
[2019-02-13] MEDS: FLUTICASONE NASAL SPRAY (FLONASE) 16 GM BTL NS SCH (08:52)
[2019-02-13] MEDS: amLODIPine 10 MG (NORVASC) TAB PO SCH (08:54)
--- NOTE | 2019-02-13 10:28 | Physical Therapy Daily Note ---
PT Daily Note-Current Subjective Pt laying asleep Supine in bed upon arrival. Pt c/o nausea & fatigue again today and agrees to limited Supine Ex in bed. Pain Numeric Pain Scale: 5-Moderate Pain Location: Left Location Body Site: Shoulder Pain Description: Stabbing Mental Status Patient Orientation: Person, Confused, Place Attachments: Other-See Comments (Sling for L UE) Transfers SCALE: Activities may be completed with or without assistive devices. 7-Gyrguenazj-vruaraj completes the activity by him/herself with no assistance from a helper. 5-Set-up or Clean-up Assistance-helper sets up or cleans up; patient completes activity. [place] assists only prior to or following the activity. 4-Supervision or Touching Assistance-helper provides verbal cues and/or touchin g/steadying and/or contact guard assistance as patient completes activity. Assistance may be provided throughout the activity or intermittently. 3-Partial/Moderate Assistance-helper does LESS THAN HALF the effort. [place] lifts, holds or supports trunk or limbs, but provides less than half the effort. 2-Substantial/Maximal Assistance-helper does MORE THAN HALF the effort. [place] lifts or holds trunk or limbs and provides more than half the effort. 9-Rycbcwjme-oruwky does ALL the effort. Patient does none of the effort to complete the activity. Or, the assistance of 2 or more helpers is required for the patient to complete the activity. If activity was not attempted, code reason: 7-Patient Refused. 9-Not Applicable-not attempted and the patient did not perform the activity before the current illness, exacerbation or injury. 10-Not Attempted due to Environmental Limitations-(lack of equipment, weather restraints, etc.). 88-Not Attempted due to Medical Conditions or Safety Concerns. Weight Bearing Right Lower Extremity: Right Full Weight Bearing Left Lower Extremity: Left Full Weight Bearing NWB LUE, in sling Exercises Supine Ex: Ankle pumps, Quad Set, Glut sets, Heel Slides, Straight leg raise, Hip abd/add Supine Reps: 20 Treatments Pt completes Supine Ex in bed with RB as needed. Pt resting at end of Rx with all needs met, call light in hand. Assessment Current Status: Fair Progress Pt self limits based on nausea & fatigue. ELECTRIC PILE DRIVER OPERATOR encourages participation. PT Short Term Goals Short Term Goals Time Frame: Feb 16, 2019 Gait Distance Comment: 150' Gait Assistive Device: Cane Large Base Quad PT Residential Goals School Cook Goals PT Residential Goals Time Frame: Mar 02, 2019 Sit to Lying (QC): 4 (SBA) Lying-Sitting on Side/Bed(QC): 4 (SBA) Sit to Stand (QC): 4 (SBA) Roll Left to Right (QC): 4 (SBA) Chair/Pov-cj-Vneyx Xfer(QC): 4 (SBA) Car Transfer (QC): 4 (SBA) Distance: 150' Walk 10 feet (QC): 4 (SBA) Walk 10ft-Uneven Surface(QC): 4 (CGA) Walk 50ft with 2 Turns (QC): 4 (SBA) Walk 150 ft (QC): 4 (SBA) Gait Assistive Device: Cane Single Point # of Steps: 4 1 Step (curb) (QC): 4 (CGA) 4 Steps (QC): 4 (CGA) Picking up an Object (QC): 4 (CGA) PT Plan Problem List Problem List: Activity Tolerance, Functional Strength, Safety, Balance, Gait, Transfer Treatment/Plan Treatment Plan: Continue Plan of Care Treatment Plan: Bed Mobility, Concurrent Therapy, Education, Functional Activity Isaias, Functional Strength, Group Therapy, Gait, Safety, Therapeutic Exercise, Transfers Treatment Duration: Mar 02, 2019 Frequency: At least 5 of 7 days/Wk (IRF) Estimated Hrs Per Day: 1.5 hours per day Patient and/or Family Agrees t: Yes Safety Risks/Education Patient Education: Correct Positioning, Safety Issues Teaching Recipient: Patient Teaching Methods: Discussion Response to Teaching: Reinforcement Needed Time/GCodes Time In: 820 Time Out: 840 Total Billed Treatment Time: 20 Total Billed Treatment 1, EX (20m) LOTTIE POSEY ELECTRIC PILE DRIVER OPERATOR Feb 13, 2019 10:28
--- NOTE | 2019-02-13 14:00 | NUR ---
TOLERATED SITTING UP IN CHAIR FOR SEVERAL HOURS WELL. SITTING ON PILLOW DUE TO REDDENED SACRUM. COMPANY VISITED AND PATIENT IN GOOD SPIRITS. ISOTONER GLOVE ON LEFT HAND. LEFT HAND AND ARM REMAIN SWOLLEN.
--- NOTE | 2019-02-13 14:59 | PM&R Progress Note ---
Subjective HPI/CC On Admission Date Seen by Provider: Feb 13, 2019 Time Seen by Provider: 13:30 Chief complaint: Left proximal humerus fracture HPI: This is a 78yo [facility] white female who presented after a proximal left humerus fracture after falling in the [employer] bus. She was admitted, pain was controlled, hyponatremia managed with fluid restriction, and home meds were restarted. She was able to participate in therapy, in preparation for repair on the left arm with a reverse arthroplasty likely by Dr. Fletcher or Dr. Crane in the near future once electrolyte imbalances are corrected. Previously independent of all ADL's. No confusion noted but she is a poor historian. Subjective/Events-last exam Protonix 40 mg daily will be maintained along with her home dose Mylanta and she appears to have less stomach somatic issues Learning disability and dementia precludes a fast recovery. Will likely need a residential since she really can't pull herself up. Pain is tolerated with the left shoulder. Visitors here now Doing well overall. Reviewed therapy notes Conferred with RN Checked meds and labs Review of Systems General: Fatigue Musculoskeletal: arm pain Objective Exam Vital Signs Vital Signs Date Time Temp Pulse Resp B/P (MAP) Pulse Ox O2 Delivery O2 Flow Rate FiO2 02/13/19 10:38 92 Room Air 02/13/19 05:07 36.5 84 18 135/66 (89) Capillary Refill : Less Than 3 Seconds General Appearance: No Apparent Distress, WD/WN, Chronically ill HEENT: PERRL/EOMI, Normal ENT Inspection, Pharynx Normal, Moist Mucous Membranes Neck: Full Range of Motion, Normal Inspection, Non Tender, Supple Respiratory: Chest Non Tender, Lungs Clear, Normal Breath Sounds, No Accessory Muscle Use, No Respiratory Distress Cardiovascular: Regular Rate, Rhythm, No Edema, No Gallop, No JVD, No Murmur Gastrointestinal: Normal Bowel Sounds, No Organomegaly, No Pulsatile Mass, Non Tender, Soft Back: Normal Inspection, No CVA Tenderness, No Vertebral Tenderness Extremity: Normal Capillary Refill, Normal Inspection, Normal Range of Motion (except left arm in sling), Non Tender, No Calf Tenderness, No Pedal Edema Neurologic/Psychiatric: Alert, Oriented x3, No Motor/Sensory Deficits, Normal Mood/Affect, chief operating officer II-XII Norm as Tested Skin: Normal Color, Warm/Dry Lymphatic: No Adenopathy Results/Procedures Lab Patient resulted labs reviewed. FIM Transfers Therapy Code Descriptions/Definitions Functional [place] Measure: 0=Not Assessed/NA 4=Minimal Assistance 1=Total Assistance 5=Supervision or Setup 2=Maximal Assistance 6=Modified [place] 3=Moderate Assistance 7=Complete IndependenceSCALE: Activities may be completed with or without assistive devices. 7-Xstgcydpsr-rvjnsqm completes the activity by him/herself with no assistance from a helper. 5-Set-up or Clean-up Assistance-helper sets up or cleans up; patient completes activity. [place] assists only prior to or following the activity. 4-Supervision or Touching Assistance-helper provides verbal cues and/or touching/steadying and/or contact guard assistance as patient completes activity. Assistance may be provided throughout the activity or intermittently. 3-Partial/Moderate Assistance-helper does LESS THAN HALF the effort. [place] lifts, holds or supports trunk or limbs, but provides less than half the effort. 2-Substantial/Maximal Assistance-helper does MORE THAN HALF the effort. [place] lifts or holds trunk or limbs and provides more than half the effort. 7-Ihphidtkx-vafsfv does ALL the effort. Patient does none of the effort to complete the activity. Or, the assistance of 2 or more helpers is required for the patient to complete the activity. If activity was not attempted, code reason: 7-Patient Refused. 9-Not Applicable-not attempted and the patient did not perform the activity before the current illness, exacerbation or injury. 10-Not Attempted due to Environmental Limitations-(lack of equipment, weather restraints, etc.). 88-Not Attempted due to Medical Conditions or Safety Concerns. Transfers (B, C, W/C) (FIM): 3 Roll Left to Right (QC): 3 Sit to Lying (QC): 3 Sit to Stand (QC): 4 Chair/Asx-bb-Eqtql Xfer(QC): 3 Bed to/from Chair: 3 Car Transfer (QC): 88 Gait Training Does the Patient Walk?: Yes Gait (FIM): 3 Distance: 50' Walk 10 feet (QC): 3 Walk 50 ft with 2 Turns(QC): 3 Walk 150 ft (QC): 9 (Nausea) Walking 10ft/uneven surface-QC: 3 (modA with multiple slight LOB) Gait Persons Needed: 1 Gait Assistive Device: Handheld Assist Wheelchair Training Does the Pt Use a Wheelchair?: No Stair Training 1 Step (curb) (QC): 9 (nausea) 4 Steps (QC): 9 (nausea) 12 Steps (QC): 9 (nausea) Balance Picking up an Object (QC): 88 ADL-Treatment Eating (QC): 5 (Set up at end of session with chicken broth and saltine crackers.) Oral Hygiene (QC): 5 (Pt had difficult doing sqeezing toothpaste onto brush, OT cued the pt to squeeze in her mouth . Pt completed oral hygiene at sink seated on a chair.) Bathing Location: L Arm, R Arm, L Upper Leg, R Upper Leg, L Lower Leg (including foot), R Lower Leg (including foot), Chest, Abdomen, Buttocks, Perineal Area Shower/Bathe Self (QC): 2 Upper Body Dressing (QC): 2 Lower Body Dressing (QC): 2 Toileting Hygiene (QC): 7 Toilet Transfer (QC): 7 Assessment/Plan Assessment and Plan Assess & Plan/Chief Complaint Assessment: Left proximal humerus fracture will need repair on an outpatient basis Severe hyponatremia requiring fluid restriction improving now 129 Anemia Chronic renal insufficiency Hypertension Diabetes mellitus GERD Plan: Pain medication Bowel regimen Inpatient rehabilitation Monitor closely PPI Likely will need residential (1) Closed left humeral fracture (2) Hyponatremia (3) Hypertension (4) Diabetes mellitus (5) Chronic renal insufficiency (6) Anemia (7) Frequent falls JAMEY VACA DO Feb 13, 2019 14:59
[2019-02-13] MEDS: ACETAMINOPHEN 500 MG TAB (TYLENOL) PO PRN (16:22)
[2019-02-13 17:28] VITALS: BP 146/72
--- NOTE | 2019-02-13 18:00 | NUR ---
NO INCONTINENCY TODAY. UP IN CHAIR X 2 TODAY.
[2019-02-13] MEDS: ALPRAZolam 0.25 MG (XANAX) TAB PO PRN (20:49)
[2019-02-13] MEDS: MELATONIN 3 MG TABLET PO PRN (20:50)
[2019-02-13] MEDS: MONTELUKAST 10 MG (SINGULAIR) TAB PO SCH (20:50)
[2019-02-13] MEDS: ENOXAPARIN 40 MG/0.4 ML (LOVENOX) SYR SC SCH (21:15)
[2019-02-14] MEDS: HYDROcodone/APAP 5 MG/325 MG (LORTAB) TAB PO PRN ×6 (00:22→22:52)
[2019-02-14] MEDS: RT-ALBUTEROL SULF 2.5 MG/3 ML PRE-MIX VIAL INH SCH ×6 (02:02→21:41)
[2019-02-14 05:29] VITALS: BP 168/81
[2019-02-14] MEDS: inSUlin ASPART (NovoLOG) 1 UNIT/0.01 ML (CHARGE PER UNIT) SC SCH ×4 (05:37→19:51)
[2019-02-14] MEDS: GLIMEPIRIDE 4 MG (AMARYL) TAB PO SCH (06:37)
[2019-02-14] MEDS: metFORMIN 500 MG (GLUCOPHAGE) TAB PO SCH ×2 (06:37→16:42)
[2019-02-14] MEDS: glyBURIDE 2.5 MG (MICRONASE) TAB PO SCH (06:37)
[2019-02-14 08:00] VITALS: BP 144/69
[2019-02-14] MEDS: FUROSEMIDE 20 MG (LASIX) TAB PO SCH (09:01)
[2019-02-14] MEDS: lisINopril 20 MG (PRINIVIL) TABLET PO SCH (09:01)
[2019-02-14] MEDS: PANTOPRAZOLE 20 MG TABLET (PROTONIX) PO SCH (09:01)
[2019-02-14] MEDS: busPIRone 10 MG (BUSPAR) TAB PO SCH ×2 (09:01→19:43)
[2019-02-14] MEDS: amLODIPine 10 MG (NORVASC) TAB PO SCH (09:01)
[2019-02-14] MEDS: POLYETHYLENE GLYCOL 17 GM (MIRALAX) PACK PO SCH ×2 (09:02→19:44)
[2019-02-14] MEDS: SENNA W/DOCUSATE (SENOKOT S) TABLET PO SCH ×2 (09:02→19:43)
[2019-02-14] MEDS: FLUTICASONE NASAL SPRAY (FLONASE) 16 GM BTL NS SCH (09:02)
--- NOTE | 2019-02-14 09:13 | PM&R Progress Note ---
Subjective HPI/CC On Admission Date Seen by Provider: Feb 14, 2019 Time Seen by Provider: 09:15 Chief complaint: Left proximal humerus fracture HPI: This is a 78yo [facility] white female who presented after a proximal left humerus fracture after [place] in [place] [employer]. She was admitted, pain was controlled, hyponatremia managed with fluid restriction, and home meds were restarted. She was able to participate in therapy, in preparation for repair on the left arm with a reverse arthroplasty likely by Dr. Fletcher or Dr. Crane in the near future once electrolyte imbalances are corrected. Previously independent of all ADL's. No confusion noted but she is a poor historian. Subjective/Events-last exam Protonix 40 mg daily will be maintained along with her home dose Mylanta and she appears to have less stomach somatic issues Learning disability and dementia precludes a fast recovery. Will likely need a mcfp since she really can't pull herself up. Pain is tolerated with the left shoulder but now overuse is causing right shoul collins pain. Visitors come to see her a lot Doing well overall. Reviewed therapy notes Conferred with RN Checked meds and labs Review of Systems General: Fatigue Musculoskeletal: arm pain Objective Exam Vital Signs Vital Signs Date Time Temp Pulse Resp B/P (MAP) Pulse Ox O2 Delivery O2 Flow Rate FiO2 02/14/19 06:47 97 Room Air 02/14/19 05:29 36.3 82 18 168/81 (110) Capillary Refill : Less Than 3 Seconds General Appearance: No Apparent Distress, WD/WN, Chronically ill HEENT: PERRL/EOMI, Normal ENT Inspection, Pharynx Normal, Moist Mucous Membranes Neck: Full Range of Motion, Normal Inspection, Non Tender, Supple Respiratory: Chest Non Tender, Lungs Clear, Normal Breath Sounds, No Accessory Muscle Use, No Respiratory Distress Cardiovascular: Regular Rate, Rhythm, No Edema, No Gallop, No JVD, No Murmur Gastrointestinal: Normal Bowel Sounds, No Organomegaly, No Pulsatile Mass, Non Tender, Soft Back: Normal Inspection, No CVA Tenderness, No Vertebral Tenderness Extremity: Normal Capillary Refill, Normal Inspection, Normal Range of Motion (except left arm in sling), Non Tender, No Calf Tenderness, No Pedal Edema Neurologic/Psychiatric: Alert, Oriented x3, No Motor/Sensory Deficits, Normal Mood/Affect, cigarette lighter repairer II-XII Norm as Tested Skin: Normal Color, Warm/Dry Lymphatic: No Adenopathy Results/Procedures Lab Patient resulted labs reviewed. FIM Transfers Therapy Code Descriptions/Definitions Functional [place] Measure: 0=Not Assessed/NA 4=Minimal Assistance 1=Total Assistance 5=Supervision or Setup 2=Maximal Assistance 6=Modified [place] 3=Moderate Assistance 7=Complete IndependenceSCALE: Activities may be completed with or without assistive devices. 8-Zkxtlgqxhz-biymnbn completes the activity by him/herself with no assistance from a helper. 5-Set-up or Clean-up Assistance-helper sets up or cleans up; patient completes activity. [place] assists only prior to or following the activity. 4-Supervision or Touching Assistance-helper provides verbal cues and/or touching/steadying and/or contact guard assistance as patient completes activity. Assistance may be provided throughout the activity or intermittently. 3-Partial/Moderate Assistance-helper does LESS THAN HALF the effort. [place] lifts, holds or supports trunk or limbs, but provides less than half the effort. 2-Substantial/Maximal Assistance-helper does MORE THAN HALF the effort. [place] lifts or holds trunk or limbs and provides more than half the effort. 3-Xvrxztuay-dcyoam does ALL the effort. Patient does none of the effort to complete the activity. Or, the assistance of 2 or more helpers is required for the patient to complete the activity. If activity was not attempted, code reason: 7-Patient Refused. 9-Not Applicable-not attempted and the patient did not perform the activity before the current illness, exacerbation or injury. 10-Not Attempted due to Environmental Limitations-(lack of equipment, weather restraints, etc.). 88-Not Attempted due to Medical Conditions or Safety Concerns. Transfers (B, C, W/C) (FIM): 3 Roll Left to Right (QC): 3 Sit to Lying (QC): 3 Sit to Stand (QC): 4 Chair/Qop-gy-Vijcb Xfer(QC): 3 Bed to/from Chair: 3 Car Transfer (QC): 88 Gait Training Does the Patient Walk?: Yes Gait (FIM): 3 Distance: 50' Walk 10 feet (QC): 3 Walk 50 ft with 2 Turns(QC): 3 Walk 150 ft (QC): 9 (Nausea) Walking 10ft/uneven surface-QC: 3 (modA with multiple slight LOB) Gait Persons Needed: 1 Gait Assistive Device: Handheld Assist Wheelchair Training Does the Pt Use a Wheelchair?: No Stair Training 1 Step (curb) (QC): 9 (nausea) 4 Steps (QC): 9 (nausea) 12 Steps (QC): 9 (nausea) Balance Picking up an Object (QC): 88 ADL-Treatment Eating (QC): 5 (Set up at end of session with chicken broth and saltine crackers.) Oral Hygiene (QC): 5 (Pt had difficult doing sqeezing toothpaste onto brush, OT cued the pt to squeeze in her mouth . Pt completed oral hygiene at sink seated on a chair.) Bathing Location: L Arm, R Arm, L Upper Leg, R Upper Leg, L Lower Leg (including foot), R Lower Leg (including foot), Chest, Abdomen, Buttocks, Perineal Area Shower/Bathe Self (QC): 2 Upper Body Dressing (QC): 2 Lower Body Dressing (QC): 2 Toileting Hygiene (QC): 7 Toilet Transfer (QC): 7 Assessment/Plan Assessment and Plan Assess & Plan/Chief Complaint Assessment: Left proximal humerus fracture will need repair on an outpatient basis Severe hyponatremia requiring fluid restriction improving now 129 Anemia Chronic renal insufficiency Hypertension Diabetes mellitus GERD Plan: Pain medication Bowel regimen Inpatient rehabilitation Monitor closely PPI Likely will need mcfp (1) Closed left humeral fracture (2) Hyponatremia (3) Hypertension (4) Diabetes mellitus (5) Chronic renal insufficiency (6) Anemia (7) Frequent falls JAMEY VACA DO Feb 14, 2019 09:13
[2019-02-14] MEDS: ANTACID SUSP 30 ML UDC (MYLANTA) PO PRN (09:17)
--- NOTE | 2019-02-14 13:00 | NUR ---
HAS ENJOYED COMPANY TODAY. CONTINUES TO HAVE PAIN IN LEFT ARM FROM FRACTURE AND RIGHT ARM FROM OVERUSE. MEDICATED PRN.
[2019-02-14] MEDS: CALCIUM CARBONATE 500 MG (TUMS) TAB.CHEW PO PRN ×2 (14:09→19:44)
[2019-02-14] MEDS: ACETAMINOPHEN 500 MG TAB (TYLENOL) PO PRN (16:42)
[2019-02-14 18:00] VITALS: BP 131/76
[2019-02-14] MEDS: MONTELUKAST 10 MG (SINGULAIR) TAB PO SCH (19:43)
[2019-02-14] MEDS: ALPRAZolam 0.25 MG (XANAX) TAB PO PRN (19:43)
[2019-02-14] MEDS: ENOXAPARIN 40 MG/0.4 ML (LOVENOX) SYR SC SCH (21:06)
[2019-02-15] MEDS: RT-ALBUTEROL SULF 2.5 MG/3 ML PRE-MIX VIAL INH SCH ×6 (01:59→21:24)
[2019-02-15] MEDS: inSUlin ASPART (NovoLOG) 1 UNIT/0.01 ML (CHARGE PER UNIT) SC SCH ×4 (05:03→20:29)
[2019-02-15 05:04] VITALS: BP 162/76
[2019-02-15 05:37] LABS: BASOPHILS # (AUTO) 0.1 10^3/uL (0.0-0.1); BASOPHILS % (AUTO) 1 % (0-10); EOSINOPHILS # (AUTO) 0.2 10^3/uL (0.0-0.3); EOSINOPHILS % (AUTO) 3 % (0-10); HEMATOCRIT 25 % (35-52); HEMOGLOBIN 8.4 G/DL (11.5-16.0); LYMPHOCYTES # (AUTO) 1.5 X 10^3 (1.0-4.0); LYMPHOCYTES % (AUTO) 19 % (12-44); MEAN CORPUSCULAR HEMOGLOBIN 28 PG (25-34); MEAN CORPUSCULAR HGB CONC 33 G/DL (32-36); MEAN CORPUSCULAR VOLUME 85 FL (80-99); MONOCYTES # (AUTO) 0.9 X 10^3 (0.0-1.0); MONOCYTES % (AUTO) 11 % (0-12); NEUTROPHILS # (AUTO) 5.2 X 10^3 (1.8-7.8); NEUTROPHILS % (AUTO) 66 % (42-75); PLATELET COUNT 381 10^3/uL (130-400); RED CELL DISTRIBUTION WIDTH 15.6 % (10.0-14.5); WHITE BLOOD COUNT 7.9 10^3/uL (4.3-11.0)
[2019-02-15 06:03] LABS: ALBUMIN 3.3 GM/DL (3.2-4.5); BILIRUBIN,TOTAL 0.7 MG/DL (0.1-1.0); CALCIUM 8.8 MG/DL (8.5-10.1); CREATININE SERUM 1.3 MG/DL (0.60-1.30); POTASSIUM 5.3 MMOL/L (3.6-5.0)
[2019-02-15] MEDS: metFORMIN 500 MG (GLUCOPHAGE) TAB PO SCH ×2 (06:14→17:18)
[2019-02-15] MEDS: glyBURIDE 2.5 MG (MICRONASE) TAB PO SCH (06:14)
[2019-02-15] MEDS: GLIMEPIRIDE 4 MG (AMARYL) TAB PO SCH (06:14)
[2019-02-15] MEDS: CALCIUM CARBONATE 500 MG (TUMS) TAB.CHEW PO PRN ×2 (06:14→14:20)
[2019-02-15] MEDS: HYDROcodone/APAP 5 MG/325 MG (LORTAB) TAB PO PRN ×3 (06:15→17:38)
[2019-02-15] MEDS: lisINopril 20 MG (PRINIVIL) TABLET PO SCH (08:36)
[2019-02-15] MEDS: amLODIPine 10 MG (NORVASC) TAB PO SCH (08:36)
[2019-02-15] MEDS: FUROSEMIDE 20 MG (LASIX) TAB PO SCH (08:36)
[2019-02-15] MEDS: PANTOPRAZOLE 20 MG TABLET (PROTONIX) PO SCH (08:36)
[2019-02-15] MEDS: POLYETHYLENE GLYCOL 17 GM (MIRALAX) PACK PO SCH ×2 (08:36→20:30)
[2019-02-15] MEDS: SENNA W/DOCUSATE (SENOKOT S) TABLET PO SCH ×2 (08:36→20:29)
[2019-02-15] MEDS: busPIRone 10 MG (BUSPAR) TAB PO SCH ×2 (08:36→20:29)
[2019-02-15] MEDS: FLUTICASONE NASAL SPRAY (FLONASE) 16 GM BTL NS SCH (08:37)
--- NOTE | 2019-02-15 09:03 | PM&R Progress Note ---
Subjective HPI/CC On Admission Date Seen by Provider: Feb 15, 2019 Time Seen by Provider: 08:30 Chief complaint: Left proximal humerus fracture HPI: This is a 78yo [facility] white female who presented after a proximal left humerus fracture after [place] in the [employer]. She was admitted, pain was controlled, hyponatremia managed with fluid restriction, and home meds were restarted. She was able to participate in therapy, in preparation for repair on the left arm with a reverse arthroplasty likely by Dr. Fletcher or Dr. Crane in the near future once electrolyte imbalances are corrected. Previously independent of all ADL's. No confusion noted but she is a poor historian. Subjective/Events-last exam Sodium level 125 Increase fluid restriction severity to 800 from 1000 Started sodium tablets 1g twice daily Low sugar noted Needs a penitentiary but improving Reviewed therapy notes Conferred with RN Checked meds and labs Review of Systems General: Fatigue Musculoskeletal: arm pain Objective Exam Vital Signs Vital Signs Date Time Temp Pulse Resp B/P (MAP) Pulse Ox O2 Delivery O2 Flow Rate FiO2 02/15/19 17:20 36.7 86 20 146/76 (99) 98 Room Air Capillary Refill : Less Than 3 Seconds General Appearance: No Apparent Distress, WD/WN, Chronically ill HEENT: PERRL/EOMI, Normal ENT Inspection, Pharynx Normal, Moist Mucous Membranes Neck: Full Range of Motion, Normal Inspection, Non Tender, Supple Respiratory: Chest Non Tender, Lungs Clear, Normal Breath Sounds, No Accessory Muscle Use, No Respiratory Distress Cardiovascular: Regular Rate, Rhythm, No Edema, No Gallop, No JVD, No Murmur Gastrointestinal: Normal Bowel Sounds, No Organomegaly, No Pulsatile Mass, Non Tender, Soft Back: Normal Inspection, No CVA Tenderness, No Vertebral Tenderness Extremity: Normal Capillary Refill, Normal Inspection, Normal Range of Motion (except left arm in sling), Non Tender, No Calf Tenderness, No Pedal Edema Neurologic/Psychiatric: Alert, Oriented x3, No Motor/Sensory Deficits, Normal Mood/Affect, embedded nurse II-XII Norm as Tested Skin: Normal Color, Warm/Dry Lymphatic: No Adenopathy Results/Procedures Lab Laboratory Tests 02/15/19 04:59 Patient resulted labs reviewed. FIM Transfers Therapy Code Descriptions/Definitions Functional [place] Measure: 0=Not Assessed/NA 4=Minimal Assistance 1=Total Assistance 5=Supervision or Setup 2=Maximal Assistance 6=Modified [place] 3=Moderate Assistance 7=Complete IndependenceSCALE: Activities may be completed with or without assistive devices. 9-Ojwttdakww-dnlczgb completes the activity by him/herself with no assistance from a helper. 5-Set-up or Clean-up Assistance-helper sets up or cleans up; patient completes activity. [place] assists only prior to or following the activity. 4-Supervision or Touching Assistance-helper provides verbal cues and/or touching/steadying and/or contact guard assistance as patient completes activity. Assistance may be provided throughout the activity or intermittently. 3-Partial/Moderate Assistance-helper does LESS THAN HALF the effort. [place] lifts, holds or supports trunk or limbs, but provides less than half the effort. 2-Substantial/Maximal Assistance-helper does MORE THAN HALF the effort. [place] lifts or holds trunk or limbs and provides more than half the effort. 3-Bphcvenna-nztibh does ALL the effort. Patient does none of the effort to complete the activity. Or, the assistance of 2 or more helpers is required for the patient to complete the activity. If activity was not attempted, code reason: 7-Patient Refused. 9-Not Applicable-not attempted and the patient did not perform the activity before the current illness, exacerbation or injury. 10-Not Attempted due to Environmental Limitations-(lack of equipment, weather restraints, etc.). 88-Not Attempted due to Medical Conditions or Safety Concerns. Transfers (B, C, W/C) (FIM): 3 Roll Left to Right (QC): 3 Sit to Lying (QC): 3 Sit to Stand (QC): 4 Chair/Egm-ho-Lxaiw Xfer(QC): 3 Bed to/from Chair: 3 Car Transfer (QC): 88 Gait Training Does the Patient Walk?: Yes Gait (FIM): 3 Distance: 50' Walk 10 feet (QC): 3 Walk 50 ft with 2 Turns(QC): 3 Walk 150 ft (QC): 9 (Nausea) Walking 10ft/uneven surface-QC: 3 (modA with multiple slight LOB) Gait Persons Needed: 1 Gait Assistive Device: Handheld Assist Wheelchair Training Does the Pt Use a Wheelchair?: No Stair Training 1 Step (curb) (QC): 9 (nausea) 4 Steps (QC): 9 (nausea) 12 Steps (QC): 9 (nausea) Balance Picking up an Object (QC): 88 ADL-Treatment Eating (QC): 5 (Set up at end of session with chicken broth and saltine crackers.) Oral Hygiene (QC): 5 (Pt had difficult doing sqeezing toothpaste onto brush, OT cued the pt to squeeze in her mouth . Pt completed oral hygiene at sink seated on a chair.) Bathing Location: L Arm, R Arm, L Upper Leg, R Upper Leg, L Lower Leg (including foot), R Lower Leg (including foot), Chest, Abdomen, Buttocks, Perineal Area Shower/Bathe Self (QC): 2 Upper Body Dressing (QC): 2 Lower Body Dressing (QC): 2 Toileting Hygiene (QC): 7 Toilet Transfer (QC): 7 Assessment/Plan Assessment and Plan Assess & Plan/Chief Complaint Assessment: Left proximal humerus fracture will need repair on an outpatient basis Severe hyponatremia requiring fluid restriction improving now 129 Anemia Chronic renal insufficiency Hypertension Diabetes mellitus GERD Plan: Pain medication Bowel regimen Inpatient rehabilitation Monitor closely PPI Likely will need penitentiary Fluid restriction Salt tablets (1) Closed left humeral fracture (2) Hyponatremia (3) Hypertension (4) Diabetes mellitus (5) Chronic renal insufficiency (6) Anemia (7) Frequent falls JAMEY VACA DO Feb 15, 2019 09:03 POS
--- NOTE | 2019-02-15 09:41 | Occupational Ther Daily Note ---
OT Current Status-Daily Note Subjective Pt reports that she is sore all over and she is hurting "really bad." Pt could not remember if she had pain pill or not. Did not report pain level, but nursing is notified. Appearance Pt up in recliner. Patient agrees to therapy treatment. Mental Status/Objective Patient Orientation: Person, Place, Situation ADL-Treatment Therapy Code Descriptions/Definitions Functional [place] Measure: 0=Not Assessed/NA 4=Minimal Assistance 1=Total Assistance 5=Supervision or Setup 2=Maximal Assistance 6=Modified [place] 3=Moderate Assistance 7=Complete IndependenceSCALE: Activities may be completed with or without assistive devices. 1-Aityoyxmwi-mubpifl completes the activity by him/herself with no assistance from a helper. 5-Set-up or Clean-up Assistance-helper sets up or cleans up; patient completes activity. [place] assists only prior to or following the activity. 4-Supervision or Touching Assistance-helper provides verbal cues and/or touching/steadying and/or contact guard assistance as patient completes activity. Assistance may be provided throughout the activity or intermittently. 3-Partial/Moderate Assistance-helper does LESS THAN HALF the effort. [place] lifts, holds or supports trunk or limbs, but provides less than half the effort. 2-Substantial/Maximal Assistance-helper does MORE THAN HALF the effort. [place] lifts or holds trunk or limbs and provides more than half the effort. 5-Fcxohzucy-vbmfyb does ALL the effort. Patient does none of the effort to complete the activity. Or, the assistance of 2 or more helpers is required for the patient to complete the activity. If activity was not attempted, code reason: 7-Patient Refused. 9-Not Applicable-not attempted and the patient did not perform the activity before the current illness, exacerbation or injury. 10-Not Attempted due to Environmental Limitations-(lack of equipment, weather restraints, etc.). 88-Not Attempted due to Medical Conditions or Safety Concerns. Oral Hygiene (QC): 5 (Pt required set up only to complete oral hygiene. Pt seated on the chair at the sink.) Bathing Location: L Arm, R Arm, L Upper Leg, R Upper Leg, L Lower Leg ( including foot), R Lower Leg (including foot), Chest, Abdomen, Buttocks, Perineal Area Shower/Bathe Self (QC): 2 (OT handed the pt wash cloth to clease self but pt was only able to wash her face. Pt stated that she is hurting bad she could not do any more. Pt attempted to cleanse body but only patted chest. OT completed for her.) Upper Body Dressing (QC): 1 Lower Body Dressing (QC): 1 Toileting Hygiene (QC): 2 (Pt had difficulty doffing pants to sit on the toilet so OT assisted her.) Toilet Transfer (QC): 4 (Using grabbars pt was able to stand with CGA.) Pt complained that she is hurting today that she could not do anything. Pt had difficulty with upper and lower body dressing. OT assisted her and donned sling as well. Pt ambulated to therapy gym with hand held assist. Pt participated in strengthening activity using one pound weight with right UE, x 3 exercises x 10 reps in all planes. OT completed PROM to LUE in elbow flexion, wrist flexion/extension, and finger flexion. Also completed gentle retrograde massage on the dorsal side to eliminate swelling. Edema glove was donned. OT educated the importance elevating hand and keeping it in sling for positioning. Pt ambulated back to room with handheld assist, and transferred to bed with SBA. Call light, phone in reach. All needs met. Education OT Patient Education: Correct positioning, Exercise program, Instructions don/ doff splint/brace, Modified ADL techniques, Progress toward Goal/Update tx plan, Purpose of tx/functional activities, Reviewed precautions, Rehab process, Safety issues, Transfer techniques, Use of adapted equipment Teaching Recipient: Patient Teaching Methods: Demonstration, Discussion Response to Teaching: Verbalize Understanding, Return Demonstration OT Short Term Goals Short Term Goals Time Frame: Feb 16, 2019 Upper Body Dressing(FIM): 3 Lower Body Dressing(FIM): 3 Toileting(FIM): 3 Toilet/Commode Transfer(FIM): 4 Additional Short Term Goals: 1-Demonstrate ADL Tasks, 2-Verbalize Understanding, 3-ImproveStrength/Isaias 1=Demonstrate adherence to instructed precautions during ADL tasks. 2=Patient will verbalize/demonstrate understanding of assistive devices/modifications for ADL. 3=Patient will improve strength/tolerance for activity to enable patient to perform ADL's. OT Penitentiary Goals Yarn Dumper Goals Time Frame: Mar 02, 2019 Eating (QC): 6 Oral Hygiene (QC): 5 Shower/Bathe Self (QC): 4 Upper Body Dressing (QC): 5 Lower Body Dressing (QC): 5 On/Off Footwear (QC): 5 Toileting Hygiene (QC): 6 Toilet/Commode Transfer (QC): 6 Additional Goals: 1-Demonstrate ADL Tasks, 2-Verbalize Understanding, 3- ImproveStrength/Isaias 1=Demonstrate adherence to instructed precautions during ADL tasks. 2=Patient will verbalize/demonstrate understanding of assistive devices/modifications for ADL. 3=Patient will improve strength/tolerance for activity to enable patient to perform ADL's. OT Education/Plan Problem List/Assessment Assessment: Decreased Activ Tolerance, Decreased Safety Aware, Decreased UE Strength, Dependent Transfers, Edema, Impaired Bed Mobility, Impaired Cognition, Impaired Coordination, Impaired Funct Balance, Impaired I ADL's, Impaired Self- Care Skills, Restricted Funct UE ROM Discharge Recommendations Plan/Recommendations: Continue POC Therapy Discharge Recommendati: Post Acute OT Equpiment Recommendations-D/C: Hip Kit Treatment Plan/Plan of Care Treatment,Training & Education: Yes Patient would benefit from OT for education, treatment and training to promote independence in ADL's, mobility, safety and/or upper extremity function for ADL's. Plan of Care: ADL Retraining, Functional Mobility, Group Exercise/Act as Ind, UE Funct Exercise/Act Treatment Duration: Mar 02, 2019 Frequency: At least 5 of 7 days/Wk (IRF) Estimated Hrs Per Day: 1.5 hours per day Agreement: Yes Rehab Potential: Fair Time/GCodes Start Time: 08:15 Stop Time: 09:30 Total Time Billed (hr/min): 75 Billed Treatment Time 1, ADL x 45minutes, EX x 30minutes PATSY STERN OT Feb 15, 2019 09:41
--- NOTE | 2019-02-15 10:21 | Progress Note ---
[facility] 02/15/19 1020: Progress Note CC: Left Humerus Fracture * Pt states she has no motivation today and feels like going back to bed * She states she is able to walk using a walker with no assistance * She states her shoulder is sore today and the swelling has gone down some * She reports being constipated and not having a BM since Friday, which she thinks she is giving her headaches * Pt was informed of her low sodium levels again, and told about restricting fluids intake as well as getting a dissolving salt pill * She states she has been a little dizzy recently as well * She is currently unable to perform her ADL without significant assistance * Pt likely will need fpc facility to help her in self care at least until her shoulder can be repair * She has been unable to complete most of her therapy recently due to fatigue a nd nausea Discharge likely Friday (02/19) pending skill nursing placement evaluation and medical evaluation for hyponatremia AIMEE VACA DO 02/15/192034: Supervisory-Addendum Brief Verification & Attestation Participated in pt care: history, MDM, physical Personally performed: exam, history, MDM, supervision of care Care discussed with: Medical Student Procedures: n/a Results interpretation: Verified all documentation Verification and Attestation of Medical Student E/M Service A medical student performed and documented this service in my presence. I reviewed and verified all information documented by the medical student and made modifications to such information, when appropriate. I personally performed the physical exam and medical decision making. Aimee Vaca, Feb 15, 2019,20:35 [facility] Feb 15, 2019 10:20 AIMEE PERRY DO Feb 15, 2019 20:35 POS
--- NOTE | 2019-02-15 10:35 | NUR ---
Pastoral care visit.
[2019-02-15] MEDS: SODIUM CHLORIDE 1 GM TABLET PO SCH ×2 (11:02→20:34)
[2019-02-15] MEDS: ONDANSETRON 4 MG (ZOFRAN) ORAL DISSOLVE TAB PO PRN (11:06)
--- NOTE | 2019-02-15 11:09 | Physical Therapy Daily Note ---
PT Daily Note-Current Subjective Pt laying Supine in bed upon arrival. Pt agrees to PT but reports nausea again this morning. Pain Numeric Pain Scale: 4 Location: Left Location Body Site: Shoulder Pain Description: Ache Mental Status Patient Orientation: Person, Place Attachments: Other-See Comments (Sling for L UE) Transfers SCALE: Activities may be completed with or without assistive devices. 2-Wgyoadzcvq-iwbrilj completes the activity by him/herself with no assistance from a helper. 5-Set-up or Clean-up Assistance-helper sets up or cleans up; patient completes activity. [place] assists only prior to or following the activity. 4-Supervision or Touching Assistance-helper provides verbal cues and/or touching/steadying and/or contact guard assistance as patient completes activity. Assistance may be provided throughout the activity or intermittently. 3-Partial/Moderate Assistance-helper does LESS THAN HALF the effort. [place] lifts, holds or supports trunk or limbs, but provides less than half the effort. 2-Substantial/Maximal Assistance-helper does MORE THAN HALF the effort. [place] lifts or holds trunk or limbs and provides more than half the effort. 7-Ndraskolv-mnkffh does ALL the effort. Patient does none of the effort to complete the activity. Or, the assistance of 2 or more helpers is required for the patient to complete the activity. If activity was not attempted, code reason: 7-Patient Refused. 9-Not Applicable-not attempted and the patient did not perform the activity before the current illness, exacerbation or injury. 10-Not Attempted due to Environmental Limitations-(lack of equipment, weather restraints, etc.). 88-Not Attempted due to Medical Conditions or Safety Concerns. Sit to Lying (QC): 4 Sit to Stand (QC): 4 Weight Bearing Right Lower Extremity: Right Full Weight Bearing Left Lower Extremity: Left Full Weight Bearing NWB LUE, in sling Gait Training Does the Patient Walk?: Yes Gait: 4 Distance: 50', 100', 150' Walk 10 feet (QC): 4 Walk 50 ft with 2 Turns(QC): 4 Walk 150 ft (QC): 4 Gait Persons Needed: 1 Gait Assistive Device: None Pt needs encouragement to walk longer. If pt is distracted with talking to DATABASE ARCHITECT while walking, pt will ambulate longer. Wheelchair Training Does the Pt Use a Wheelchair?: No Exercises Supine Ex: Ankle pumps, Quad Set, Heel Slides, Hip abd/add Supine Reps: 20 Seated Therapy Exercises: Ankle pumps, Long arc quads, Hip flexion, Kicking activity, Glut set Seated Reps: 15 Treatments Pt completes Supine Ex in bed then transfers from Supine to EOB at CGA-Min A. Pt then stands and ambulates to restroom. Pt then ambulates to Therapy Commons, RB then ambulates in hallway. Pt completes Seated Ex. Pt then returns to room to rest Supine in bed at end of Rx. Pt has all needs met, call light in hand. Assessment Current Status: Fair Progress Pt needs encouragement to participate at times, self limiting due to nausea and fatigue. PT Short Term Goals Short Term Goals Time Frame: Feb 16, 2019 Gait Distance Comment: 150' Gait Assistive Device: Cane Large Base Quad PT Prison Goals Prison Goals PT Prison Goals Time Frame: Mar 02, 2019 Sit to Lying (QC): 4 (SBA) Lying-Sitting on Side/Bed(QC): 4 (SBA) Sit to Stand (QC): 4 (SBA) Roll Left to Right (QC): 4 (SBA) Chair/Dpp-ec-Unsmf Xfer(QC): 4 (SBA) Car Transfer (QC): 4 (SBA) Distance: 150' Walk 10 feet (QC): 4 (SBA) Walk 10ft-Uneven Surface(QC): 4 (CGA) Walk 50ft with 2 Turns (QC): 4 (SBA) Walk 150 ft (QC): 4 (SBA) Gait Assistive Device: Cane Single Point # of Steps: 4 1 Step (curb) (QC): 4 (CGA) 4 Steps (QC): 4 (CGA) Picking up an Object (QC): 4 (CGA) PT Plan Problem List Problem List: Activity Tolerance, Functional Strength, Safety, Balance, Gait, Transfer Treatment/Plan Treatment Plan: Continue Plan of Care Treatment Plan: Bed Mobility, Concurrent Therapy, Education, Functional Activity Isaias, Functional Strength, Group Therapy, Gait, Safety, Therapeutic Exercise, Transfers Treatment Duration: Mar 02, 2019 Frequency: At least 5 of 7 days/Wk (IRF) Estimated Hrs Per Day: 1.5 hours per day Patient and/or Family Agrees t: Yes Safety Risks/Education Patient Education: Gait Training, Transfer Techniques, Correct Positioning, Safety Issues Teaching Recipient: Patient Teaching Methods: Discussion Response to Teaching: Verbalize Understanding Time/GCodes Time In: 1000 Time Out: 1100 Total Billed Treatment Time: 60 Total Billed Treatment 1, GT (20m), FA (15m) & EX x2 (25m) LOTTIE POSEY DATABASE ARCHITECT Feb 15, 2019 11:09 POS
--- NOTE | 2019-02-15 14:03 | Physical Therapy Daily Note ---
PT Daily Note-Current Subjective Pt laying asleep Supine in bed upon arrival. Pt agrees to PT. Pain Location: No Pain Reported Mental Status Patient Orientation: Person, Place Transfers SCALE: Activities may be completed with or without assistive devices. 7-Xlefxmqcqz-hypkute completes the activity by him/herself with no assistance from a helper. 5-Set-up or Clean-up Assistance-helper sets up or cleans up; patient completes activity. [place] assists only prior to or following the activity. 4-Supervision or Touching Assistance-helper provides verbal cues and/or touching/steadying and/or contact guard assistance as patient completes activity. Assistance may be provided throughout the activity or intermittently. 3-Partial/Moderate Assistance-helper does LESS THAN HALF the effort. [place] lifts, holds or supports trunk or limbs, but provides less than half the effort. 2-Substantial/Maximal Assistance-helper does MORE THAN HALF the effort. [place] lifts or holds trunk or limbs and provides more than half the effort. 4-Kgsqcoiso-pcmfii does ALL the effort. Patient does none of the effort to complete the activity. Or, the assistance of 2 or more helpers is required for the patient to complete the activity. If activity was not attempted, code reason: 7-Patient Refused. 9-Not Applicable-not attempted and the patient did not perform the activity before the current illness, exacerbation or injury. 10-Not Attempted due to Environmental Limitations-(lack of equipment, weather restraints, etc.). 88-Not Attempted due to Medical Conditions or Safety Concerns. Weight Bearing Right Lower Extremity: Right Full Weight Bearing Left Lower Extremity: Left Full Weight Bearing NWB LUE, in sling Treatments Pt reports more fatigue in afternoon. MACHINE OPERATOR GENERAL gives pt education over energy conservation, pain management & benefit of continued participation in therapy despite fatigue and pain (pushing through). Pt resting at end of Rx. with all needs met, call light in hand. Assessment Current Status: Fair Progress Pt needs encouragement at times to participate in Rx. PT Short Term Goals Short Term Goals Time Frame: Feb 16, 2019 Gait Distance Comment: 150' Gait Assistive Device: Cane Large Base Quad PT Telephone Sex Worker Goals Telephone Sex Worker Goals PT Telephone Sex Worker Goals Time Frame: Mar 02, 2019 Sit to Lying (QC): 4 (SBA) Lying-Sitting on Side/Bed(QC): 4 (SBA) Sit to Stand (QC): 4 (SBA) Roll Left to Right (QC): 4 (SBA) Chair/Gcw-qj-Ijsud Xfer(QC): 4 (SBA) Car Transfer (QC): 4 (SBA) Distance: 150' Walk 10 feet (QC): 4 (SBA) Walk 10ft-Uneven Surface(QC): 4 (CGA) Walk 50ft with 2 Turns (QC): 4 (SBA) Walk 150 ft (QC): 4 (SBA) Gait Assistive Device: Cane Single Point # of Steps: 4 1 Step (curb) (QC): 4 (CGA) 4 Steps (QC): 4 (CGA) Picking up an Object (QC): 4 (CGA) PT Plan Problem List Problem List: Activity Tolerance, Functional Strength, Safety, Gait, Transfer Treatment/Plan Treatment Plan: Continue Plan of Care Treatment Plan: Bed Mobility, Concurrent Therapy, Education, Functional Activity Isaias, Functional Strength, Group Therapy, Gait, Safety, Therapeutic Exercise, Transfers Treatment Duration: Mar 02, 2019 Frequency: At least 5 of 7 days/Wk (IRF) Estimated Hrs Per Day: 1.5 hours per day Patient and/or Family Agrees t: Yes Safety Risks/Education Patient Education: Gait Training, Transfer Techniques, Correct Positioning, Safety Issues Teaching Recipient: Patient Teaching Methods: Discussion Response to Teaching: Verbalize Understanding Time/GCodes Time In: 1345 Time Out: 1400 Total Billed Treatment Time: 15 Total Billed Treatment 1, FA (15m) LOTTIE POSEY PTA Feb 15, 2019 14:03 POS
--- NOTE | 2019-02-15 14:55 | Speech Therapy Daily Note ---
Speech Daily Progress Note Subjective Date Seen by Provider: Feb 15, 2019 Time Seen by Provider: 00:30 Patient resting in her bed, she states she had some medicine for her stomach. Objective Patient completed problem solving tasks related to her daily needs at 80% with 20% verbal cues and/or redirections. Assessment Assessment Current Status: Good Progress Treatment Plan Continue Plan of Care Speech Short Term Goals Short Term Goals Short Term Goals 1) The patient will complete memory tasks related to her daily needs at 90% or greater given 10% cues. 2) The patient will complete problem solving tasks related to her daily needs at 90% or greater given 10% cues. 3) The patient will complete safety awareness tasks related to her daily needs at 90% or greater given 10% cues. Speech Shelter Goals Chalk Cutter Goals Patient will improve her cognitive level of function in order to return home safely. Speech-Plan Patient/Family Goals Patient/Family Goals: Patient plans on returning to her home where she lives alone. The discharge placement will be determined by the team as related to her progress. Treatment Plan Speech Therapy Treatment Plan: Continue Plan of Care Patient requires redirection frequently. Treatment Duration: Feb 26, 2019 Frequency: 5 times per week Estimated Hrs Per Day: .5 hour per day Rehab Potential: Fair Barriers to Learning: Patient has cognitive deficits. Pt/Family Agrees to Plan: Yes Safety Risks/Education Teaching Recipient: Patient Teaching Methods: Demonstration, Discussion Response to Teaching: Verbalize Understanding, Return Demonstration Education Topics Provided: Continued safety within her room. Time Speech Therapy Time In: 11:30 Speech Therapy Time Out: 12:00 Total Billed Time: 30 Billed Treatment Time 1JOEY [address] ST Feb 15, 2019 14:55 POS
[2019-02-15 17:20] VITALS: BP 146/76
[2019-02-15] MEDS: ALPRAZolam 0.25 MG (XANAX) TAB PO PRN (20:29)
[2019-02-15] MEDS: ACETAMINOPHEN 500 MG TAB (TYLENOL) PO PRN (20:29)
[2019-02-15] MEDS: MONTELUKAST 10 MG (SINGULAIR) TAB PO SCH (20:29)
[2019-02-15] MEDS: ENOXAPARIN 40 MG/0.4 ML (LOVENOX) SYR SC SCH (21:39)
[2019-02-15] MEDS: ANTACID SUSP 30 ML UDC (MYLANTA) PO PRN (21:39)
[2019-02-16] MEDS: HYDROcodone/APAP 5 MG/325 MG (LORTAB) TAB PO PRN ×4 (02:11→20:17)
[2019-02-16] MEDS: RT-ALBUTEROL SULF 2.5 MG/3 ML PRE-MIX VIAL INH SCH ×6 (02:26→22:19)
[2019-02-16 05:48] VITALS: BP 117/69
[2019-02-16] MEDS: inSUlin ASPART (NovoLOG) 1 UNIT/0.01 ML (CHARGE PER UNIT) SC SCH ×4 (05:54→20:32)
[2019-02-16] MEDS: metFORMIN 500 MG (GLUCOPHAGE) TAB PO SCH ×2 (06:08→17:30)
[2019-02-16] MEDS: GLIMEPIRIDE 4 MG (AMARYL) TAB PO SCH (06:08)
[2019-02-16] MEDS: glyBURIDE 2.5 MG (MICRONASE) TAB PO SCH (06:08)
[2019-02-16] MEDS: POLYETHYLENE GLYCOL 17 GM (MIRALAX) PACK PO SCH ×2 (08:26→20:17)
[2019-02-16] MEDS: SENNA W/DOCUSATE (SENOKOT S) TABLET PO SCH ×2 (08:27→20:17)
--- NOTE | 2019-02-16 08:37 | PM&R Progress Note ---
Subjective HPI/CC On Admission Date Seen by Provider: Feb 16, 2019 Time Seen by Provider: 08:30 Chief complaint: Left proximal humerus fracture HPI: This is a 78yo [facility] white female who presented after a proximal left humerus fracture after falling in the [employer]ian[employer] bus. She was admitted, pain was controlled, hyponatremia managed with fluid restriction, and home meds were restarted. She was able to participate in therapy, in preparation for repair on the left arm with a reverse arthroplasty likely by Dr. Fletcher or Dr. Crane in the near future once electrolyte imbalances are corrected. Previously independent of all ADL's. No confusion noted but she is a poor historian. Subjective/Events-last exam Patient really feels like she is thirsty Started sodium tablets 1g twice daily yesterday Will check BMP tomorrow Overall feels pretty good otherwise Needs a skilled nursing but improving Reviewed therapy notes Conferred with RN Checked meds and labs Review of Systems General: Fatigue Objective Exam Vital Signs Vital Signs Date Time Temp Pulse Resp B/P (MAP) Pulse Ox O2 Delivery O2 Flow Rate FiO2 02/16/19 06:11 94 Room Air 02/16/19 05:48 36.8 85 16 117/69 (85) Capillary Refill : Less Than 3 Seconds General Appearance: No Apparent Distress, WD/WN, Chronically ill HEENT: PERRL/EOMI, Normal ENT Inspection, Pharynx Normal, Moist Mucous Membranes Neck: Full Range of Motion, Normal Inspection, Non Tender, Supple Respiratory: Chest Non Tender, Lungs Clear, Normal Breath Sounds, No Accessory Muscle Use, No Respiratory Distress Cardiovascular: Regular Rate, Rhythm, No Edema, No Gallop, No JVD, No Murmur Gastrointestinal: Normal Bowel Sounds, No Organomegaly, No Pulsatile Mass, Non Tender, Soft Back: Normal Inspection, No CVA Tenderness, No Vertebral Tenderness Extremity: Normal Capillary Refill, Normal Inspection, Normal Range of Motion (except left arm in sling), Non Tender, No Calf Tenderness, No Pedal Edema Neurologic/Psychiatric: Alert, Oriented x3, No Motor/Sensory Deficits, Normal Mood/Affect, traffic personnel supervisor II-XII Norm as Tested Skin: Normal Color, Warm/Dry Lymphatic: No Adenopathy Results/Procedures Lab Patient resulted labs reviewed. FIM Transfers Therapy Code Descriptions/Definitions Functional [place] Measure: 0=Not Assessed/NA 4=Minimal Assistance 1=Total Assistance 5=Supervision or Setup 2=Maximal Assistance 6=Modified [place] 3=Moderate Assistance 7=Complete IndependenceSCALE: Activities may be completed with or without assistive devices. 3-Fwhfclwvml-clisexy completes the activity by him/herself with no assistance from a helper. 5-Set-up or Clean-up Assistance-helper sets up or cleans up; patient completes activity. [place] assists only prior to or following the activity. 4-Supervision or Touching Assistance-helper provides verbal cues and/or touching/steadying and/or contact guard assistance as patient completes activity. Assistance may be provided throughout the activity or intermittently. 3-Partial/Moderate Assistance-helper does LESS THAN HALF the effort. [place] lifts, holds or supports trunk or limbs, but provides less than half the effort. 2-Substantial/Maximal Assistance-helper does MORE THAN HALF the effort. [place] lifts or holds trunk or limbs and provides more than half the effort. 0-Gmqpfwxok-vnnzki does ALL the effort. Patient does none of the effort to complete the activity. Or, the assistance of 2 or more helpers is required for the patient to complete the activity. If activity was not attempted, code reason: 7-Patient Refused. 9-Not Applicable-not attempted and the patient did not perform the activity before the current illness, exacerbation or injury. 10-Not Attempted due to Environmental Limitations-(lack of equipment, weather restraints, etc.). 88-Not Attempted due to Medical Conditions or Safety Concerns. Transfers (B, C, W/C) (FIM): 3 Roll Left to Right (QC): 3 Sit to Lying (QC): 4 Sit to Stand (QC): 4 Chair/Stk-js-Xmvbs Xfer(QC): 3 Bed to/from Chair: 3 Car Transfer (QC): 88 Gait Training Does the Patient Walk?: Yes Gait (FIM): 4 Distance: 50', 100', 150' Walk 10 feet (QC): 4 Walk 50 ft with 2 Turns(QC): 4 Walk 150 ft (QC): 4 Walking 10ft/uneven surface-QC: 3 (modA with multiple slight LOB) Gait Persons Needed: 1 Gait Assistive Device: None Wheelchair Training Does the Pt Use a Wheelchair?: No Stair Training 1 Step (curb) (QC): 9 (nausea) 4 Steps (QC): 9 (nausea) 12 Steps (QC): 9 (nausea) Balance Picking up an Object (QC): 88 ADL-Treatment Eating (QC): 5 (Set up at end of session with chicken broth and saltine crackers.) Oral Hygiene (QC): 5 (Pt required set up only to complete oral hygiene. Pt seated on the chair at the sink.) Bathing Location: L Arm, R Arm, L Upper Leg, R Upper Leg, L Lower Leg (including foot), R Lower Leg (including foot), Chest, Abdomen, Buttocks, Perineal Area Shower/Bathe Self (QC): 2 (OT handed the pt wash cloth to clease self but pt was only able to wash her face. Pt stated that she is hurting bad she could not do any more. Pt attempted to cleanse body but only patted chest. OT completed for her.) Upper Body Dressing (QC): 1 Lower Body Dressing (QC): 1 Toileting Hygiene (QC): 2 (Pt had difficulty doffing pants to sit on the toilet so OT assisted her.) Toilet Transfer (QC): 4 (Using grabbars pt was able to stand with CGA.) Assessment/Plan Assessment and Plan Assess & Plan/Chief Complaint Assessment: Left proximal humerus fracture will need repair on an outpatient basis Severe hyponatremia requiring fluid restriction improving now 129 Anemia Chronic renal insufficiency Hypertension Diabetes mellitus GERD Plan: Pain medication Bowel regimen Inpatient rehabilitation Monitor closely PPI Likely will need skilled nursing Fluid restriction Salt tablets (1) Closed left humeral fracture (2) Hyponatremia (3) Hypertension (4) Diabetes mellitus (5) Chronic renal insufficiency (6) Anemia (7) Frequent falls JAMEY VACA DO Feb 16, 2019 08:37 POS
[2019-02-16] MEDS: PANTOPRAZOLE 20 MG TABLET (PROTONIX) PO SCH (09:05)
[2019-02-16] MEDS: busPIRone 10 MG (BUSPAR) TAB PO SCH ×2 (09:05→20:17)
[2019-02-16] MEDS: FUROSEMIDE 20 MG (LASIX) TAB PO SCH (09:05)
[2019-02-16] MEDS: SODIUM CHLORIDE 1 GM TABLET PO SCH ×2 (09:06→20:17)
[2019-02-16] MEDS: amLODIPine 10 MG (NORVASC) TAB PO SCH (09:06)
[2019-02-16] MEDS: FLUTICASONE NASAL SPRAY (FLONASE) 16 GM BTL NS SCH (09:06)
[2019-02-16] MEDS: lisINopril 20 MG (PRINIVIL) TABLET PO SCH (09:06)
--- NOTE | 2019-02-16 09:25 | Physical Therapy Daily Note ---
PT Daily Note-Current Subjective Pt. up in recliner and c/o she is so thirsty and her bottom hurts. Nursing present and inspects area on pts. buttocks. Pt. c/o throughout Rx that she is very tired and resists walking but complies with repeated encouragement Pain Numeric Pain Scale: 6 Location: Medial Location Body Site: Sacrum Pain Description: Pressure Mental Status Patient Orientation: MR Attachments: Other-See Comments (sling LUE) Transfers SCALE: Activities may be completed with or without assistive devices. 5-Bdidxivdiq-terncha completes the activity by him/herself with no assistance from a helper. 5-Set-up or Clean-up Assistance-helper sets up or cleans up; patient completes activity. [place] assists only prior to or following the activity. 4-Supervision or Touching Assistance-helper provides verbal cues and/or touching/steadying and/or contact guard assistance as patient completes activity. Assistance may be provided throughout the activity or intermittently. 3-Partial/Moderate Assistance-helper does LESS THAN HALF the effort. [place] lifts, holds or supports trunk or limbs, but provides less than half the effort. 2-Substantial/Maximal Assistance-helper does MORE THAN HALF the effort. [place] lifts or holds trunk or limbs and provides more than half the effort. 1-Gohdlgjod-dyquat does ALL the effort. Patient does none of the effort to complete the activity. Or, the assistance of 2 or more helpers is required for the patient to complete the activity. If activity was not attempted, code reason: 7-Patient Refused. 9-Not Applicable-not attempted and the patient did not perform the activity before the current illness, exacerbation or injury. 10-Not Attempted due to Environmental Limitations-(lack of equipment, weather restraints, etc.). 88-Not Attempted due to Medical Conditions or Safety Concerns. Transfers (B, C, W/C): 3 Roll Left to Right (QC): 3 Sit to Lying (QC): 3 Sit to Stand (QC): 4 Chair/Gnt-ar-Hbjnh Xfer(QC): 4 pt. retropulsive and requires min assist as well as step by step repeated instruction for all TRF and gait. Pt doesnt use good safet patterns unless cued, pt. reaches for therapist , whimpering and wants to be pulled up or josey godwin by hand Weight Bearing Right Lower Extremity: Right Full Weight Bearing Left Lower Extremity: Left Full Weight Bearing NWB LUE, in sling Gait Training Does the Patient Walk?: Yes Gait: 3 Walk 10 feet (QC): 3 Walk 50 ft with 2 Turns(QC): 88 Walk 150 ft (QC): 88 Gait Persons Needed: 1 Gait Assistive Device: Walker Glenn pt. has been using large QC, glenn walker was trialed today as pt. is awkward with QC etc. pt. still needs skilled instruction as well as MENOMINEE at glenn walker and instruction every step. pt. frequently letting go of glenn walker and states her hand are numb. Exercises Supine Ex: Ankle pumps, Quad Set, Heel Slides, Scooting, Hip abd/add Supine Reps: 20 Seated Therapy Exercises: Ankle pumps, Sit to stand, Long arc quads, Hip flexion Seated Reps: 20 pt. needs expander machine operator instruction for all exercises and AAROM and still cannot duplicate the motion if shown or taken through with P/AAROM. Treatments pt. toileted and requires assist to manage brief up and down, pt. has LOB with some reaching etc Assessment Current Status: Fair Progress pts. limited learning and comprehension inhibits safe function therefore pt. is dependent for all mobility. PT Short Term Goals Short Term Goals Time Frame: Feb 16, 2019 Gait Distance Comment: 150' Gait Assistive Device: Cane Large Base Quad PT Shelter Goals Director [place] Goals PT Director [place] Goals Time Frame: Mar 02, 2019 Sit to Lying (QC): 4 (SBA) Lying-Sitting on Side/Bed(QC): 4 (SBA) Sit to Stand (QC): 4 (SBA) Roll Left to Right (QC): 4 (SBA) Chair/Fax-jz-Erhbp Xfer(QC): 4 (SBA) Car Transfer (QC): 4 (SBA) Distance: 150' Walk 10 feet (QC): 4 (SBA) Walk 10ft-Uneven Surface(QC): 4 (CGA) Walk 50ft with 2 Turns (QC): 4 (SBA) Walk 150 ft (QC): 4 (SBA) Gait Assistive Device: Cane Single Point # of Steps: 4 1 Step (curb) (QC): 4 (CGA) 4 Steps (QC): 4 (CGA) Picking up an Object (QC): 4 (CGA) PT Plan Treatment/Plan Treatment Plan: Continue Plan of Care Treatment Plan: Bed Mobility, Concurrent Therapy, Education, Functional Activity Isaias, Functional Strength, Group Therapy, Gait, Safety, Therapeutic Exercise, Transfers Treatment Duration: Mar 02, 2019 Frequency: At least 5 of 7 days/Wk (IRF) Estimated Hrs Per Day: 1.5 hours per day Patient and/or Family Agrees t: Yes Safety Risks/Education Patient Education: Gait Training, Transfer Techniques, Correct Positioning, Disease Process, Safety Issues Teaching Recipient: Patient Teaching Methods: Discussion Response to Teaching: Unable to Return Demonstration, Unable to Comprehend, Reinforcement Needed Time/GCodes Time In: 800 Time Out: 930 Total Billed Treatment Time: 90 Total Billed Treatment 1,GT40m,E20m,FA30m SUMA BERMAN RESIDENT CAREGIVER Feb 16, 2019 09:25 POS
--- NOTE | 2019-02-16 09:25 | Progress Note ---
[facility] 02/16/1923[facility] Progress Note CC: Left proximal humerus fracture * She states she was able to sleep last night, but did have some pain in her right arm and shoulder * She denied any chest pain, palpitations, shortness of breath, cough, abdominal pain, or nausea. * She states she was able to walk around yesterday and go to PT in the morning without much difficulty * She states she has been very thirsty due to being restricted on her fluid intake due to the low sodium levels * She states her left shoulder pain is better today * She still has some swelling in her left arm and hand, but the swelling in her legs has been better AIMEE VACA DO 02/16/1925: Supervisory-Addendum Brief Verification & Attestation Participated in pt care: history, MDM, physical Personally performed: exam, history, MDM, supervision of care Care discussed with: Medical Student Procedures: n/a Results interpretation: Verified all documentation Verification and Attestation of Medical Student E/M Service A medical student performed and documented this service in my presence. I reviewed and verified all information documented by the medical student and made modifications to such information, when appropriate. I personally performed the physical exam and medical decision making. Aimee Vaca, Feb 16, 2019,09:27 PRATIBHA WILLIAM Feb 16, 2019 09:25 AIMEE PERRY DO Feb 16, 2019 09:27 POS
--- NOTE | 2019-02-16 10:06 | NUR ---
Observed patient while working with PT this morning. Patient required constant cueing on safe use of adaptive equipment. Per PT's progress note: "pt. retropulsive and requires min assist as well as step by step repeated instruction for all TRF and gait. Pt doesnt use good safet patterns unless cued, pt. reaches for therapist , whimpering and wants to be pulled up or assisted by hand." Discussed with OT and per report, patient still requiring a lot of assistance for bathing, dressing and toileting. Discussed discharge options with patient as she will most likely require 24-hour assistance at home versus SNF placement. Patient states "she would like to think about it." Reminded patient that our weekly team conference is tomorrow, Friday, and this worker would discuss team's recommendations with patient after meeting. Patient verbalized understanding.
[2019-02-16 10:09] LABS: CALCIUM 8.8 MG/DL (8.5-10.1); CREATININE SERUM 1.29 MG/DL (0.60-1.30); POTASSIUM 5.1 MMOL/L (3.6-5.0)
--- NOTE | 2019-02-16 10:18 | Speech Therapy Daily Note ---
Speech Daily Progress Note Subjective Date Seen by Provider: Feb 16, 2019 Time Seen by Provider: 00:30 Patient was resting in her recliner after having a pain pill. She was able to participate with q/a. Objective Patient completed a series of memory tasks related to her daily needs at 80% with 15% verbal cues or repetitions. Assessment Assessment Current Status: Good Progress Treatment Plan Continue Plan of Care Speech Short Term Goals Short Term Goals Short Term Goals 1) The patient will complete memory tasks related to her daily needs at 90% or greater given 10% cues. 2) The patient will complete problem solving tasks related to her daily needs at 90% or greater given 10% cues. 3) The patient will complete safety awareness tasks related to her daily needs at 90% or greater given 10% cues. Speech Wheel Installer Goals [facility] Goals Patient will improve her cognitive level of function in order to return home safely. Speech-Plan Patient/Family Goals Patient/Family Goals: Patient plans on returning home upon rehab discharge, however she may not be able to be independent. Discharge placement will be determined as the patient progresses. Treatment Plan Speech Therapy Treatment Plan: Continue Plan of Care Patient has increased memory by 20%. Treatment Duration: Feb 26, 2019 Frequency: 5 times per week Estimated Hrs Per Day: .5 hour per day Rehab Potential: Fair Barriers to Learning: Patient has cognitive deficits as well as learning disability. Pt/Family Agrees to Plan: Yes Safety Risks/Education Teaching Recipient: Patient Teaching Methods: Demonstration, Discussion Response to Teaching: Verbalize Understanding, Return Demonstration Education Topics Provided: Continued safety awareness. Time Speech Therapy Time In: 09:30 Speech Therapy Time Out: 10:00 Total Billed Time: 30 Billed Treatment Time [address] Feb 16, 2019 10:18 POS
--- NOTE | 2019-02-16 11:50 | Occupational Ther Daily Note ---
OT Current Status-Daily Note Subjective Pt did complain of pain left UE. Pt did not rate the pain. Nurse notified. Appearance Pt seated in recliner when OT walked in the room. Pt agrees to therapy. Mental Status/Objective Patient Orientation: Person, Place, Time, Situation ADL-Treatment Therapy Code Descriptions/Definitions Functional [place] Measure: 0=Not Assessed/NA 4=Minimal Assistance 1=Total Assistance 5=Supervision or Setup 2=Maximal Assistance 6=Modified [place] 3=Moderate Assistance 7=Complete IndependenceSCALE: Activities may be completed with or without assistive devices. 4-Tsligsosfv-ofdwaby completes the activity by him/herself with no assistance from a helper. 5-Set-up or Clean-up Assistance-helper sets up or cleans up; patient completes activity. [place] assists only prior to or following the activity. 4-Supervision or Touching Assistance-helper provides verbal cues and/or touching/steadying and/or contact guard assistance as patient completes activity. Assistance may be provided throughout the activity or intermittently. 3-Partial/Moderate Assistance-helper does LESS THAN HALF the effort. [place] lifts, holds or supports trunk or limbs, but provides less than half the effort. 2-Substantial/Maximal Assistance-helper does MORE THAN HALF the effort. [place] lifts or holds trunk or limbs and provides more than half the effort. 1-Jzkgcgomf-pfpwrr does ALL the effort. Patient does none of the effort to complete the activity. Or, the assistance of 2 or more helpers is required for the patient to complete the activity. If activity was not attempted, code reason: 7-Patient Refused. 9-Not Applicable-not attempted and the patient did not perform the activity b efore the current illness, exacerbation or injury. 10-Not Attempted due to Environmental Limitations-(lack of equipment, weather restraints, etc.). 88-Not Attempted due to Medical Conditions or Safety Concerns. Oral Hygiene (QC): 5 (Pt required set up only. Pt completed oral hygiene seated on chair at sink.) Bathing Location: Chest, Abdomen Shower/Bathe Self (QC): 2 (Pt required max assist to complete sponge bath.) Upper Body Dressing (QC): 2 (Pt required max assist to don and and doff gown and sling.) Lower Body Dressing (QC): 2 (OT assisted pt to don underwear over feet. Pt was able to pull senior living up on the left side over hips.) Toileting Hygiene (QC): 2 (Pt required max assist to complete toilet hygeine.) Toilet Transfer (QC): 4 (pt required handheld assist to transfer.) Other Treatment Pt declined shower but agreed to sponge bath. Pt was able to cleanse her face and chest when OT handed her the washcloth. Pt complained throughout the session that she is hurting "all over." OT assisted with her shower with max assist, as pt. does not sequence well and requires constant cues to complete the task. Pt. has AE in room, but often requires continued cues on how to use it. Pt. participated in left UE PROM to wrist, elbow, and fingers, as well as AAROM, wrist flexion/extension fingers flexion /extension, retrograde massage performed to reduce swelling. Pt was encouraged for participate and educated the important of those exercises. Pt. very guarded with exercises due to reports of pain. Pt ambulated to bed hand held assist. Pt laying in bed with call light, phone in reach, and all needs met. Education OT Patient Education: Correct positioning, Exercise program, Instructions don/ doff splint/brace, Modified ADL techniques, Progress toward Goal/Update tx plan, Purpose of tx/functional activities, Reviewed precautions, Rehab process, Safety issues, Transfer techniques, Use of adapted equipment Teaching Recipient: Patient Teaching Methods: Demonstration, Discussion Response to Teaching: Verbalize Understanding, Return Demonstration OT Short Term Goals Short Term Goals Time Frame: Feb 16, 2019 Upper Body Dressing(FIM): 3 Lower Body Dressing(FIM): 3 Toileting(FIM): 3 Toilet/Commode Transfer(FIM): 4 Additional Short Term Goals: 1-Demonstrate ADL Tasks, 2-Verbalize Understanding, 3-ImproveStrength/Isaias 1=Demonstrate adherence to instructed precautions during ADL tasks. 2=Patient will verbalize/demonstrate understanding of assistive devices/modifications for ADL. 3=Patient will improve strength/tolerance for activity to enable patient to perform ADL's. OT Merchandising Execution Manager Goals [facility] Goals Time Frame: Mar 02, 2019 Eating (QC): 6 Oral Hygiene (QC): 5 Shower/Bathe Self (QC): 4 Upper Body Dressing (QC): 5 Lower Body Dressing (QC): 5 On/Off Footwear (QC): 5 Toileting Hygiene (QC): 6 Toilet/Commode Transfer (QC): 6 Additional Goals: 1-Demonstrate ADL Tasks, 2-Verbalize Understanding, 3- ImproveStrength/Isaias 1=Demonstrate adherence to instructed precautions during ADL tasks. 2=Patient will verbalize/demonstrate understanding of assistive devices/modifications for ADL. 3=Patient will improve strength/tolerance for activity to enable patient to perform ADL's. OT Education/Plan Problem List/Assessment Assessment: Decreased Activ Tolerance, Decreased Safety Aware, Decreased UE Strength, Dependent Transfers, Edema, Impaired Cognition, Impaired Coordination, Impaired Funct Balance, Impaired I ADL's, Impaired Self-Care Skills, Restricted Funct UE ROM Discharge Recommendations Plan/Recommendations: Continue POC Therapy Discharge Recommendati: Post Acute OT Equpiment Recommendations-D/C: Hip Kit Treatment Plan/Plan of Care Treatment,Training & Education: Yes Patient would benefit from OT for education, treatment and training to promote independence in ADL's, mobility, safety and/or upper extremity function for ADL's. Plan of Care: ADL Retraining, Functional Mobility, Group Exercise/Act as Ind, UE Funct Exercise/Act Treatment Duration: Mar 02, 2019 Frequency: At least 5 of 7 days/Wk (IRF) Estimated Hrs Per Day: 1.5 hours per day Agreement: Yes Rehab Potential: Fair Time/GCodes Start Time: 10:00 Stop Time: 11:15 Total Time Billed (hr/min): 75 Billed Treatment Time 1, ADL 40 minutes 1 EX 35 Minutes This note is to reflect a rehab/swb note, and not an acute note. PATSY STERN OT Feb 16, 2019 11:50 POS
[2019-02-16 18:00] VITALS: BP 128/72
[2019-02-16 20:00] VITALS: BP 137/67
[2019-02-16] MEDS: ALPRAZolam 0.25 MG (XANAX) TAB PO PRN (20:17)
[2019-02-16] MEDS: MONTELUKAST 10 MG (SINGULAIR) TAB PO SCH (20:17)
[2019-02-16] MEDS: ENOXAPARIN 40 MG/0.4 ML (LOVENOX) SYR SC SCH (21:55)
[2019-02-16] MEDS: ACETAMINOPHEN 500 MG TAB (TYLENOL) PO PRN (22:01)
[2019-02-16] MEDS: MELATONIN 3 MG TABLET PO PRN (23:43)
[2019-02-17] MEDS: HYDROcodone/APAP 5 MG/325 MG (LORTAB) TAB PO PRN ×4 (01:33→23:47)
[2019-02-17] MEDS: RT-ALBUTEROL SULF 2.5 MG/3 ML PRE-MIX VIAL INH SCH ×6 (02:13→22:11)
[2019-02-17 05:24] VITALS: BP 95/57
[2019-02-17 05:27] LABS: CALCIUM 8.9 MG/DL (8.5-10.1); CREATININE SERUM 1.42 MG/DL (0.60-1.30); POTASSIUM 5.5 MMOL/L (3.6-5.0)
--- NOTE | 2019-02-17 05:45 | NUR ---
CRITICAL GLUCOSE LEVEL RECEIVED - GLUCOSE LEVEL 58. THIS RN GAVE PT ORANGE JUICE AND PEANUT BUTTER. WILL CONTINUE TO MONITOR
[2019-02-17] MEDS: inSUlin ASPART (NovoLOG) 1 UNIT/0.01 ML (CHARGE PER UNIT) SC SCH ×4 (06:01→20:14)
--- NOTE | 2019-02-17 06:17 | NUR ---
FOLLOW UP BLOOD SUGAR LEVEL 73.
[2019-02-17] MEDS: GLIMEPIRIDE 4 MG (AMARYL) TAB PO SCH (06:44)
[2019-02-17] MEDS: metFORMIN 500 MG (GLUCOPHAGE) TAB PO SCH (06:44)
--- NOTE | 2019-02-17 06:47 | NUR ---
FOLLOW UP BLOOD SUGAR LEVEL 93. Addendum: 02/17/19 at 0658 by EYAL OROT RN AMENDMENT TO NOTE: BLOOD SUGAR LEVEL 95.
[2019-02-17 08:44] VITALS: BP 163/72
[2019-02-17] MEDS: lisINopril 20 MG (PRINIVIL) TABLET PO SCH (08:44)
[2019-02-17] MEDS: ALPRAZolam 0.25 MG (XANAX) TAB PO PRN ×2 (08:44→20:22)
[2019-02-17] MEDS: SENNA W/DOCUSATE (SENOKOT S) TABLET PO SCH ×2 (08:44→20:23)
[2019-02-17] MEDS: busPIRone 10 MG (BUSPAR) TAB PO SCH ×2 (08:44→20:22)
[2019-02-17] MEDS: amLODIPine 10 MG (NORVASC) TAB PO SCH (08:45)
[2019-02-17] MEDS: FUROSEMIDE 20 MG (LASIX) TAB PO SCH (08:45)
[2019-02-17] MEDS: SODIUM CHLORIDE 1 GM TABLET PO SCH ×2 (08:45→20:22)
--- NOTE | 2019-02-17 09:08 | PM&R Progress Note ---
Subjective HPI/CC On Admission Date Seen by Provider: Feb 17, 2019 Time Seen by Provider: 08:30 Chief complaint: Left proximal humerus fracture HPI: This is a 78yo [facility] white female who presented after a proximal left humerus fracture after falling in the [employer]. She was admitted, pain was controlled, hyponatremia managed with fluid restriction, and home meds were restarted. She was able to participate in therapy, in preparation for repair on the left arm with a reverse arthroplasty likely by Dr. Fletcher or Dr. Crane in the near future once electrolyte imbalances are corrected. Previously independent of all ADL's. No confusion noted but she is a poor historian. Subjective/Events-last exam Pt very nervous Sodium level 128 so will increase fluids to 1200cc a day Stop Protonix since less than 1% could cause hyponatremia so will continue off of that medication Creatinine 1.42 but she has chronic renal insufficiency of 1.6 baseline Hgb 8.2 Tried to reassure her Spoke to Dr. Crane in process of getting everything arranged for surgery tomorrow Reviewed therapy notes Conferred with RN Checked meds and labs Will go to [place] after DC from inpatient med-surg Review of Systems Musculoskeletal: arm pain Neurological: Other (anxiety) Objective Exam Vital Signs Vital Signs Date Time Temp Pulse Resp B/P (MAP) Pulse Ox O2 Delivery O2 Flow Rate FiO2 02/17/19 14:32 98 Room Air 02/17/19 08:44 93 163/72 (102) 02/17/19 05:24 36.7 16 Capillary Refill : Less Than 3 Seconds General Appearance: No Apparent Distress, WD/WN, Chronically ill HEENT: PERRL/EOMI, Normal ENT Inspection, Pharynx Normal, Moist Mucous Membranes Neck: Full Range of Motion, Normal Inspection, Non Tender, Supple Respiratory: Chest Non Tender, Lungs Clear, Normal Breath Sounds, No Accessory Muscle Use, No Respiratory Distress Cardiovascular: Regular Rate, Rhythm, No Edema, No Gallop, No JVD, No Murmur Gastrointestinal: Normal Bowel Sounds, No Organomegaly, No Pulsatile Mass, Non Tender, Soft Back: Normal Inspection, No CVA Tenderness, No Vertebral Tenderness Extremity: Normal Capillary Refill, Normal Inspection, Normal Range of Motion, Non Tender, No Calf Tenderness, No Pedal Edema Neurologic/Psychiatric: Alert, Oriented x3, No Motor/Sensory Deficits, Normal Mood/Affect, civil cad designer II-XII Norm as Tested Skin: Normal Color, Warm/Dry Lymphatic: No Adenopathy Results/Procedures Lab Laboratory Tests 02/17/19 04:35 Patient resulted labs reviewed. FIM Transfers Therapy Code Descriptions/Definitions Functional [place] Measure: 0=Not Assessed/NA 4=Minimal Assistance 1=Total Assistance 5=Supervision or Setup 2=Maximal Assistance 6=Modified [place] 3=Moderate Assistance 7=Complete IndependenceSCALE: Activities may be completed with or without assistive devices. 4-Lxbdmhipku-ihvoscf completes the activity by him/herself with no assistance from a helper. 5-Set-up or Clean-up Assistance-helper sets up or cleans up; patient completes activity. [place] assists only prior to or following the activity. 4-Supervision or Touching Assistance-helper provides verbal cues and/or touching/steadying and/or contact guard assistance as patient completes acti vity. Assistance may be provided throughout the activity or intermittently. 3-Partial/Moderate Assistance-helper does LESS THAN HALF the effort. [place] lifts, holds or supports trunk or limbs, but provides less than half the effort. 2-Substantial/Maximal Assistance-helper does MORE THAN HALF the effort. [place] lifts or holds trunk or limbs and provides more than half the effort. 9-Flafdmygx-eggshf does ALL the effort. Patient does none of the effort to complete the activity. Or, the assistance of 2 or more helpers is required for the patient to complete the activity. If activity was not attempted, code reason: 7-Patient Refused. 9-Not Applicable-not attempted and the patient did not perform the activity before the current illness, exacerbation or injury. 10-Not Attempted due to Environmental Limitations-(lack of equipment, weather restraints, etc.). 88-Not Attempted due to Medical Conditions or Safety Concerns. Transfers (B, C, W/C) (FIM): 3 Roll Left to Right (QC): 3 Sit to Lying (QC): 3 Sit to Stand (QC): 4 Chair/Cnr-qj-Xrccp Xfer(QC): 4 Bed to/from Chair: 3 Car Transfer (QC): 88 Gait Training Does the Patient Walk?: Yes Gait (FIM): 3 Distance: 50', 100', 150' Walk 10 feet (QC): 3 Walk 50 ft with 2 Turns(QC): 88 Walk 150 ft (QC): 88 Walking 10ft/uneven surface-QC: 3 (modA with multiple slight LOB) Gait Persons Needed: 1 Gait Assistive Device: Walker Glenn Wheelchair Training Does the Pt Use a Wheelchair?: No Stair Training 1 Step (curb) (QC): 9 (nausea) 4 Steps (QC): 9 (nausea) 12 Steps (QC): 9 (nausea) Balance Picking up an Object (QC): 88 ADL-Treatment Eating (QC): 5 (Set up at end of session with chicken broth and saltine crackers.) Oral Hygiene (QC): 5 (Pt required set up only. Pt completed oral hygiene seated on chair at sink.) Bathing Location: L Arm, R Arm, R Upper Leg, L Lower Leg (including foot), R Lower Leg (including foot), Chest, Abdomen, Buttocks, Perineal Area Shower/Bathe Self (QC): 2 (Pt required max assist to complete sponge bath.) Upper Body Dressing (QC): 2 (Pt required max assist to don and and doff upper body dressing.) Lower Body Dressing (QC): 2 (OT assisted pt to don underwear. Pt was able to pull [place] up on the left side.) Toileting Hygiene (QC): 5 (Pt required set up to complete oral hygiene while seated at sink.) Toilet Transfer (QC): 4 (pt required handheld assist to transfer.) Assessment/Plan Assessment and Plan Assess & Plan/Chief Complaint Assessment: Left proximal humerus fracture will need repair tomorrow Severe hyponatremia requiring fluid restriction improving now 129 Anemia Chronic renal insufficiency Hypertension Diabetes mellitus GERD Plan: Pain medication Bowel regimen Inpatient rehabilitation Monitor closely PPI Likely will need custodial Fluid restriction Salt tablets (1) Closed left humeral fracture (2) Hyponatremia (3) Hypertension (4) Diabetes mellitus (5) Chronic renal insufficiency (6) Anemia (7) Frequent falls JAMEY VACA DO Feb 17, 2019 09:08 POS
[2019-02-17] MEDS: FLUTICASONE NASAL SPRAY (FLONASE) 16 GM BTL NS SCH (09:30)
[2019-02-17] MEDS: POLYETHYLENE GLYCOL 17 GM (MIRALAX) PACK PO SCH ×2 (09:30→19:45)
--- NOTE | 2019-02-17 09:45 | Occupational Ther Daily Note ---
OT Current Status-Daily Note Subjective Pt states " My bottom hurts." No pain number given. Nurse notified. Appearance Pt was in bed when OT entered the room. Pt agrees to therapy treatment. Mental Status/Objective Patient Orientation: Person, Place, Time, Situation ADL-Treatment From supine to EOB, pt required min assist. Pt ambulated to the bathroom with hand held assistance, requiring min assist. Pt encouraged to doff her gown but stated that she "can't" do it. OT encouraged pt to attempt using AE. Pt. was only able to doff sock with verbal cues on how to use dressing stick. Pt required CGA for toilet transfer. Pt encouraged to cleanse self. Pt stated ' I can't do it." OT assisted with toilet hygiene. Pt ambulated with hand held assist to the shower. OT handed the wash cloth for pt to cleanse self but was only able to cleanse face, chest and abdomen. OT completed shower for her. Pt required max assist to don LE clothing, and Mod assist to don upper body clothing, including shirt and sling. OT performed PROM / AAROM ,retrograde massage to reduce pain/swelling, finger flexion/extension to increase movements of left UE. OT donned compression glove and arm sling to left arm. Pt ambulated back to the room with hand held min assist. Pt seated in her recliner. Call light, phone in reach. All needs met. Therapy Code Descriptions/Definitions Functional [place] Measure: 0=Not Assessed/NA 4=Minimal Assistance 1=Total Assistance 5=Supervision or Setup 2=Maximal Assistance 6=Modified [place] 3=Moderate Assistance 7=Complete IndependenceSCALE: Activities may be completed with or without assistive devices. 2-Bynlnaxonu-ioclfxj completes the activity by him/herself with no assistance from a helper. 5-Set-up or Clean-up Assistance-helper sets up or cleans up; patient completes activity. [place] assists only prior to or following the activity. 4-Supervision or Touching Assistance-helper provides verbal cues and/or touchi ng/steadying and/or contact guard assistance as patient completes activity. Assistance may be provided throughout the activity or intermittently. 3-Partial/Moderate Assistance-helper does LESS THAN HALF the effort. [place] lifts, holds or supports trunk or limbs, but provides less than half the effort. 2-Substantial/Maximal Assistance-helper does MORE THAN HALF the effort. [place] lifts or holds trunk or limbs and provides more than half the effort. 1-Qaewxivoh-cy[place]ne does ALL the effort. Patient does none of the effort to complete the activity. Or, the assistance of 2 or more helpers is required for the patient to complete the activity. If activity was not attempted, code reason: 7-Patient Refused. 9-Not Applicable-not attempted and the patient did not perform the activity before the current illness, exacerbation or injury. 10-Not Attempted due to Environmental Limitations-(lack of equipment, weather restraints, etc.). 88-Not Attempted due to Medical Conditions or Safety Concerns. Oral Hygiene (QC): 5 (Pt completed oral hygiene while seated on the chair with set up only. ) Bathing Location: Chest, Abdomen Shower/Bathe Self (QC): 2 Upper Body Dressing (QC): 3 Lower Body Dressing (QC): 2 Toileting Hygiene (QC): 1 Toilet Transfer (QC): 4 Education OT Patient Education: Correct positioning, Exercise program, Home exercise program, Instructions don/doff splint/brace, Modified ADL techniques, Progress toward Goal/Update tx plan, Purpose of tx/functional activities, Reviewed precautions, Rehab process, Safety issues, Transfer techniques, Use of adapted equipment Teaching Recipient: Patient Teaching Methods: Demonstration Response to Teaching: Verbalize Understanding, Return Demonstration OT Short Term Goals Short Term Goals Time Frame: Feb 16, 2019 Upper Body Dressing(FIM): 3 Lower Body Dressing(FIM): 3 Toileting(FIM): 3 Toilet/Commode Transfer(FIM): 4 Additional Short Term Goals: 1-Demonstrate ADL Tasks, 2-Verbalize Understanding, 3-ImproveStrength/Isaias 1=Demonstrate adherence to instructed precautions during ADL tasks. 2=Patient will verbalize/demonstrate understanding of assistive devices/modifications for ADL. 3=Patient will improve strength/tolerance for activity to enable patient to perform ADL's. OT [facility] Goals Creel Clerk Goals Time Frame: Mar 02, 2019 Eating (QC): 6 Oral Hygiene (QC): 5 Shower/Bathe Self (QC): 4 Upper Body Dressing (QC): 5 Lower Body Dressing (QC): 5 On/Off Footwear (QC): 5 Toileting Hygiene (QC): 6 Toilet/Commode Transfer (QC): 6 Additional Goals: 1-Demonstrate ADL Tasks, 2-Verbalize Understanding, 3- ImproveStrength/Isaias 1=Demonstrate adherence to instructed precautions during ADL tasks. 2=Patient will verbalize/demonstrate understanding of assistive devices/modifications for ADL. 3=Patient will improve strength/tolerance for activity to enable patient to perform ADL's. OT Education/Plan Problem List/Assessment Assessment: Decreased Activ Tolerance, Decreased Safety Aware, Decreased UE Strength, Dependent Transfers, Edema, Impaired Cognition, Impaired Coordination, Impaired Funct Balance, Impaired I ADL's, Impaired Self-Care Skills, Restricted Funct UE ROM Discharge Recommendations Plan/Recommendations: Continue POC Therapy Discharge Recommendati: Post Acute OT Comment To be determined. Treatment Plan/Plan of Care Treatment,Training & Education: Yes Patient would benefit from OT for education, treatment and training to promote independence in ADL's, mobility, safety and/or upper extremity function for ADL's. Plan of Care: ADL Retraining, Functional Mobility, Group Exercise/Act as Ind, UE Funct Exercise/Act Treatment Duration: Mar 02, 2019 Frequency: At least 5 of 7 days/Wk (IRF) Estimated Hrs Per Day: 1.5 hours per day Agreement: Yes Rehab Potential: Fair Time/GCodes Start Time: 08:15 Stop Time: 09:15 Total Time Billed (hr/min): 60 Billed Treatment Time 1, ADL X 45minutes, EX X 15minutes PATSY STERN OT Feb 17, 2019 09:45 POS
--- NOTE | 2019-02-17 10:14 | Progress Note ---
[facility] 02/17/19 1014: Progress Note CC: Left proximal humerus fracture * Pt reports not sleeping well due to having some anxiety * She states she has been constipated and this has caused her to have a headache * She denies any abdominal pain, nausea, or vomiting * She states she had a little trouble breathing this morning, but is okay currently * She denies any dizziness, but does report getting lightheaded when she bears down on the toilet trying to have a BM * She states she has been walking around okay, but she does not like the new cane they are having her use because it is a lot heavier * She does report getting tired during her workouts, but states she tries to complete them all * She does not like wearing the glove for her edema on her left hand * The swelling in left shoulder has decreased, and it has become less tender to the touch AIMEE VACA DO 02/17/19 1643: Supervisory-Addendum Brief Verification & Attestation Participated in pt care: history, MDM, physical Personally performed: exam, history, MDM, supervision of care Care discussed with: Medical Student Procedures: n/a Results interpretation: Verified all documentation Verification and Attestation of Medical Student E/M Service A medical student performed and documented this service in my presence. I reviewed and verified all information documented by the medical student and made modifications to such information, when appropriate. I personally performed the physical exam and medical decision making. Aimee Vaca, Feb 17, 2019,16:43 [facility] Feb 17, 2019 10:14 AIMEE PERRY DO Feb 17, 2019 16:43 POS
--- NOTE | 2019-02-17 10:19 | Physical Therapy Daily Note ---
PT Daily Note-Current Subjective Patient agrees to PT at this time. Patient reports that she is not feeling good today and doesn't think she can walk very far. Patient reports that her L arm hurts but her R arm and bottom are sore as well. Pt. requests pain meds, nurse advises they have just been given. Pain Numeric Pain Scale: 5-Moderate Pain Location: Left Location Body Site: Arm Pain Description: Ache Mental Status Patient Orientation: Person, Place, Time, Situation Attachments: Other-See Comments (sling L UE) Transfers SCALE: Activities may be completed with or without assistive devices. 6-Xbwrxamzpq-lonhono completes the activity by him/herself with no assistance from a helper. 5-Set-up or Clean-up Assistance-helper sets up or cleans up; patient completes activity. [place] assists only prior to or following the activity. 4-Supervision or Touching Assistance-helper provides verbal cues and/or touching/steadying and/or contact guard assistance as patient completes activity. Assistance may be provided throughout the activity or intermittently. 3-Partial/Moderate Assistance-helper does LESS THAN HALF the effort. [place] lifts, holds or supports trunk or limbs, but provides less than half the effort. 2-Substantial/Maximal Assistance-helper does MORE THAN HALF the effort. [place] lifts or holds trunk or limbs and provides more than half the effort. 7-Rgwcprxur-iovmkx does ALL the effort. Patient does none of the effort to complete the activity. Or, the assistance of 2 or more helpers is required for the patient to complete the activity. If activity was not attempted, code reason: 7-Patient Refused. 9-Not Applicable-not attempted and the patient did not perform the activity before the current illness, exacerbation or injury. 10-Not Attempted due to Environmental Limitations-(lack of equipment, weather restraints, etc.). 88-Not Attempted due to Medical Conditions or Safety Concerns. Sit to Stand (QC): 4 Required reminders to push up from and reach back for chair when sitting or standing. Weight Bearing Right Lower Extremity: Right Full Weight Bearing Left Lower Extremity: Left Full Weight Bearing NWB LUE, in sling Gait Training Does the Patient Walk?: Yes Gait: 3 Distance: 30ftx3,10ftx1 Walk 10 feet (QC): 3 Gait Assistive Device: Walker Glenn Required reminders to move glenn walker first, then take steps. Patient tended to move walker too far in front and would be unable to maintain floor contact with all 4 legs. Required manual assistance to move or steady walker. sporadic pattern, dependent for safety and skilled instruction Exercises Supine Ex: Ankle pumps, Quad Set, Glut sets, Heel Slides, Straight leg raise, Hip abd/add Supine Reps: 10 Seated Therapy Exercises: Ankle pumps, Long arc quads, Hip flexion, Hip abd/add Seated Reps: 10 (2 sets) Assessment Current Status: Fair Progress Patient able to complete supine exercises in chair with feet up, requiring cues to slow down movement and complete full ROM. Patient walked 30' x3 with glenn walker and seated rest breaks in between. Patient demonstrated fatigue at conclusion of each walk. Patient able to complete sit to stand and ambulation with recurrent reminders and manual cues for hand placement and walker placement. PT Short Term Goals Short Term Goals Time Frame: Feb 16, 2019 Gait Distance Comment: 150' Gait Assistive Device: Cane Large Base Quad PT Alf Goals Ignition Mechanic Goals PT Ignition Mechanic Goals Time Frame: Mar 02, 2019 Sit to Lying (QC): 4 (SBA) Lying-Sitting on Side/Bed(QC): 4 (SBA) Sit to Stand (QC): 4 (SBA) Roll Left to Right (QC): 4 (SBA) Chair/Xfs-kz-Edwcf Xfer(QC): 4 (SBA) Car Transfer (QC): 4 (SBA) Distance: 150' Walk 10 feet (QC): 4 (SBA) Walk 10ft-Uneven Surface(QC): 4 (CGA) Walk 50ft with 2 Turns (QC): 4 (SBA) Walk 150 ft (QC): 4 (SBA) Gait Assistive Device: Cane Single Point # of Steps: 4 1 Step (curb) (QC): 4 (CGA) 4 Steps (QC): 4 (CGA) Picking up an Object (QC): 4 (CGA) PT Plan Treatment/Plan Treatment Plan: Continue Plan of Care Treatment Plan: Bed Mobility, Concurrent Therapy, Education, Functional Activity Isaias, Functional Strength, Group Therapy, Gait, Safety, Therapeutic Exercise, Transfers Treatment Duration: Mar 02, 2019 Frequency: At least 5 of 7 days/Wk (IRF) Estimated Hrs Per Day: 1.5 hours per day Patient and/or Family Agrees t: Yes Safety Risks/Education Patient Education: Gait Training, Transfer Techniques, Correct Positioning, Disease Process, Safety Issues Teaching Recipient: Patient Teaching Methods: Demonstration, Discussion Response to Teaching: Verbalize Understanding, Return Demonstration Time/GCodes Time In: 930 Time Out: 1015 Total Billed Treatment Time: 45 Total Billed Treatment 1 visit EX 15min FA 15min GT 15min SUMA BERMAN PTA Feb 17, 2019 10:19 POS
--- NOTE | 2019-02-17 12:48 | Consultation ---
History of Present Illness History of Present Illness Patient Consulted On(ankur/time) 02/17/19 12:43 Date Seen by Provider: Feb 17, 2019 Time Seen by Provider: 12:43 Reason for Visit: left shoulder pain History of Present Illness She fell nearly two weeks ago and hurt the left shoulder. She was admitted and then moved to rehab. Some medical issues have been treated and resolved. Dr. Aguirre does not do shoulder replacements, and I was asked to see her for this. She is still having a lot of pain in the arm and swelling down to the fingers. She denies numbness or tingling. The swelling is better with a compression glove. Allergies and Home Medications Allergies Coded Allergies: codeine (Verified Adverse Reaction, Mild, NAUSEA, 02/08/19) Home Medications Acetaminophen 650 Mg Tablet.er, 650 MG PO Q8H PRN for PAIN-MILD, (Reported) Albuterol Sulfate 18 Gm Hfa.aer.ad, 2 PUFF PO Q4H, (Reported) Amlodipine Besylate 10 Mg Tablet, 10 MG PO DAILY, (Reported) Atorvastatin Calcium 10 Mg Tablet, 10 MG PO DAILY, (Reported) Buspirone HCl 10 Mg Tablet, 10 MG PO BID, (Reported) Fluticasone Propionate 16 Gm [place].susp, 2 SPR NSEACH DAILY, (Reported) Furosemide 20 Mg Tablet, 20 MG PO DAILY, (Reported) Glimepiride 4 Mg Tablet, 4 MG PO DAILY, (Reported) Lisinopril/Hydrochlorothiazide 1 Each Tablet, 1 TAB PO DAILY, (Reported) Metformin HCl 500 Mg Tablet, 500 MG PO BID, (Reported) Montelukast Sodium 10 Mg Tablet, 10 MG PO HS, (Reported) Patient Home Medication List Home Medication List Reviewed: Yes Past Dxwxboe-Uhmpet-Wureru Hx Past Med/Social Hx: Reviewed Nursing Past Med/Soc Hx, Reviewed and Corrections made Patient Social History Alcohol Use: Denies Use Recreational Drug Use: No Smoking Status: Never a Smoker Recent Foreign Travel: No Contact w/Someone Who Travel: No Recent Infectious Disease Expo: No Recent Hopitalizations: No Immunizations Up To Date PED Vaccines UTD: Yes Date of Pneumonia Vaccine: Jul 05, 2015 Date of Influenza Vaccine: Feb 03, 2019 Seasonal Allergies Seasonal Allergies: No Past Medical History Surgeries: Yes Hysterectomy Respiratory: Yes Chronic Bronchitis Currently Using CPAP: No Currently Using BIPAP: No Cardiac: Yes High Cholesterol, Hypertension Neurological: No Reproductive Disorders: No Female Reproductive Disorders: Denies 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 Sexually Transmitted Disease: No HIV/AIDS: No Genitourinary: No Gastrointestinal: No Musculoskeletal: Yes Arthritis, Chronic Back Pain, Fractures Endocrine: Yes Diabetes, Non-Insulin dep Are Your Blood Sugars Over 250: No HEENT: No (wears glasses) Loss of Vision: Denies Cancer: No Uterine Did You Recieve Any Treatments: Yes What Type of Treatment Did You: Surgical Intervention Psychosocial: No Anxiety Integumentary: No Blood Disorders: No Adverse Reaction/Blood Tranf: No Family Medical History Diabetes mellitus 19 FATHER Hypertension 19 FATHER Diabetes, Hypertension Review of Systems-General Constitutional: no symptoms reported EENTM: no symptoms reported Respiratory: no symptoms reported Cardiovascular: no symptoms reported Gastrointestinal: no symptoms reported Genitourinary: no symptoms reported : No Musculoskeletal: other (See HPI) Skin: no symptoms reported Psychiatric/Neurological: Anxiety Physical Exam-General Problems Physical Exam Vital Signs Vital Signs - First Documented 02/11/19 02/11/19 02:35 06:34 Temp 36.3 Pulse 86 Resp 20 B/P (MAP) 121/67 (85) Pulse Ox 90 O2 Delivery Room Air Capillary Refill : Less Than 3 Seconds General Appearance: WD/WN, no apparent distress, obese Neck: non-tender Respiratory: chest non-tender Cardiovascular: normal peripheral pulses Extremities: other (Left upper arm is bruised and it is working its way down the arm the the hand. The hand is moderately swollen. ROM of shoulder not assessed due to the fracture) Skin: normal color Assessment/Plan Assessment/Plan Admission Diagnosis/Plan Primary DJD left glenohumeral joint with comminuted left proximal humerus fracture- will proceed with left reverse total shoulder arthroplasty tomorrow. She can be admitted in patient, have the surgery, and come back to rehab 2 days afterwards. Admission Status: Inpatient Order (span 2 midnights) Reason for Inpatient Admission: She will be admitted to acute care tomorrow from the rehab unit and needs hospitalization for postoperative pain control Clinical Quality Measures DVT/VTE Risk/Contraindication: Risk Factor Score Per Nursin RFS Level Per Nursing on Admit: 4+=Very High SERENE JONES MD Feb 17, 2019 12:48 POS
--- NOTE | 2019-02-17 13:48 | Speech Therapy Daily Note ---
Speech Daily Progress Note Subjective Date Seen by Provider: Feb 17, 2019 Time Seen by Provider: 00:30 Patient resting in her recliner when I entered her room. She states she is having shoulder surgery tomorrow. Objective Patient completed q/a regarding her daily needs with 75% given moderate verbal cues and redirections. Assessment Assessment Current Status: Fair Progress Treatment Plan Discontinue ST Speech Short Term Goals Short Term Goals Short Term Goals 1) The patient will complete memory tasks related to her daily needs at 90% or greater given 10% cues. 2) The patient will complete problem solving tasks related to her daily needs at 90% or greater given 10% cues. 3) The patient will complete safety awareness tasks related to her daily needs at 90% or greater given 10% cues. Speech Cap And Hat Production Supervisor Goals Cap And Hat Production Supervisor Goals Patient will improve her cognitive level of function in order to return home safely. Speech-Plan Patient/Family Goals Patient/Family Goals: Patient will most likely go to SNF due to needs post surgery. Treatment Plan Speech Therapy Treatment Plan: Discontinue ST Patient is being discharged today due to having surgery tomorrow. Treatment Duration: Feb 17, 2019 Frequency: 5 times per week Estimated Hrs Per Day: .5 hour per day Rehab Potential: Fair Barriers to Learning: Patient has mild cognitive deficits. Pt/Family Agrees to Plan: Yes Safety Risks/Education Teaching Recipient: Patient Teaching Methods: Demonstration, Discussion Response to Teaching: Verbalize Understanding, Return Demonstration Education Topics Provided: Safety within her room and upon discharge. Time Speech Therapy Time In: 11:30 Speech Therapy Time Out: 12:00 Total Billed Time: 30 Billed Treatment Time 1JOEY [address]ETH[address] ST Feb 17, 2019 13:48 POS
--- NOTE | 2019-02-17 14:30 | Physical Therapy Daily Note ---
PT Daily Note-Current Transfers SCALE: Activities may be completed with or without assistive devices. 7-Dpqqcbezsf-xwginpf completes the activity by him/herself with no assistance from a helper. 5-Set-up or Clean-up Assistance-helper sets up or cleans up; patient completes activity. [place] assists only prior to or following the activity. 4-Supervision or Touching Assistance-helper provides verbal cues and/or touching/steadying and/or contact guard assistance as patient completes activity. Assistance may be provided throughout the activity or intermittently. 3-Partial/Moderate Assistance-helper does LESS THAN HALF the effort. [place] lifts, holds or supports trunk or limbs, but provides less than half the effort. 2-Substantial/Maximal Assistance-helper does MORE THAN HALF the effort. [place] lifts or holds trunk or limbs and provides more than half the effort. 1-Etknulpmd-rpndox does ALL the effort. Patient does none of the effort to complete the activity. Or, the assistance of 2 or more helpers is required for the patient to complete the activity. If activity was not attempted, code reason: 7-Patient Refused. 9-Not Applicable-not attempted and the patient did not perform the activity before the current illness, exacerbation or injury. 10-Not Attempted due to Environmental Limitations-(lack of equipment, weather restraints, etc.). 88-Not Attempted due to Medical Conditions or Safety Concerns. Transfers (B, C, W/C): 3 Roll Left to Right (QC): 3 Sit to Lying (QC): 3 Sit to Stand (QC): 4 Chair/Iqx-dq-Ivtri Xfer(QC): 4 Car Transfer (QC): 88 Weight Bearing Right Lower Extremity: Right Full Weight Bearing Left Lower Extremity: Left Full Weight Bearing NWB LUE, in sling Gait Training Gait: 3 Walk 10 feet (QC): 3 Walk 50 ft with 2 Turns(QC): 88 Walk 150 ft (QC): 88 Walking 10ft/uneven surface-QC: 88 Gait Persons Needed: 1 Gait Assistive Device: Walker Glenn pt. needs FT assist , fatigues quickly and wants to stop for rest often Stair Training 1 Step (curb) (QC): 88 4 Steps (QC): 88 12 Steps (QC): 88 unsafe to trial steps Balance Picking up an Object (QC): 88 Treatments documentation for QC codes only PT Short Term Goals Short Term Goals Time Frame: Feb 16, 2019 Gait Distance Comment: 150' Gait Assistive Device: Cane Large Base Quad PT Skilled Nursing Goals Skilled Nursing Goals PT Skilled Nursing Goals Time Frame: Mar 02, 2019 Sit to Lying (QC): 4 (SBA) Lying-Sitting on Side/Bed(QC): 4 (SBA) Sit to Stand (QC): 4 (SBA) Roll Left to Right (QC): 4 (SBA) Chair/The-kz-Odngt Xfer(QC): 4 (SBA) Car Transfer (QC): 4 (SBA) Distance: 150' Walk 10 feet (QC): 4 (SBA) Walk 10ft-Uneven Surface(QC): 4 (CGA) Walk 50ft with 2 Turns (QC): 4 (SBA) Walk 150 ft (QC): 4 (SBA) Gait Assistive Device: Cane Single Point # of Steps: 4 1 Step (curb) (QC): 4 (CGA) 4 Steps (QC): 4 (CGA) Picking up an Object (QC): 4 (CGA) PT Plan Treatment/Plan Treatment Plan: Discontinue PT Treatment Plan: Bed Mobility, Concurrent Therapy, Education, Functional Activity Isaias, Functional Strength, Group Therapy, Gait, Safety, Therapeutic Exercise, Transfers Treatment Duration: Mar 02, 2019 Frequency: At least 5 of 7 days/Wk (IRF) Estimated Hrs Per Day: 1.5 hours per day Patient and/or Family Agrees t: Yes Time/GCodes Time In: 1430 Time Out: 1430 Total Billed Treatment Time: 0 Total Billed Treatment no Rx , no chg SUMA BERMAN HEMP FIBER TAKER OFF Feb 17, 2019 14:30 POS
--- NOTE | 2019-02-17 14:44 | Therapy Group Daily Note ---
Therapy Daily Group Note Patient Education Topic Other List Below (memory and strategies) Exercises LE Seated Exercise, UE Exercise Session Ratio (pt:therapist): 4:1 Goal of Session: Education on ARU Expectations, Memory Strategies, UE/LE Strengthing Goal Met for this Session: Yes Pt Benefit of Group: Contributions to Others, Increased Functional Safety, Increased Functional Strength, Improved Cognition, Socialization Other/Notes Pt. participated in group PT OT session . Pt. came and went with assist using alexei walker. Pt. was social and participated sharing name and contributing to exercises session by demonstrating exercises from written illustrated card with assist from therapist. Pts were reviewed in the routines and expectations of ARU. Pt. to room after group with assist to bed , call ball at hand Start Time: 13:00 Stop Time: 13:50 Total Billed Treatment Time: 50 Total Billed Treatment 1,GRP SUMA BERMAN PLAY READER Feb 17, 2019 14:44 POS
--- NOTE | 2019-02-17 15:14 | NUR ---
Weekly team conference Attempted to meet with patient to discuss weekly team conference; however, patient is sleeping and RN reports patient has had increased anxiety today for which she received a Xanax. Plan is for patient to discharge from ARU tomorrow, 02/18/19, for reverse total shoulder arthroplasty by Dr. Crane. Surgery is scheduled for 1300. After surgery, patient will admit to the med/surg unit. Dr. Villagomez and RN aware of this plan.
--- NOTE | 2019-02-17 15:25 | NUR ---
Weekly team conference Patient awake at this time. Discussed weekly team conference and plan for tomorrow's surgery with patient. Patient reported she knows all about the surgery and Dr. Crane talked with her earlier today. Patient verbalized understanding that she would discharge from ARU to surgery and then admit to 4th floor for postoperative care. Attempted to discuss discharge options after surgery with patient; however, patient stated "she does not want to talk about nursing homes right now, she doesn't like them and she doesn't want to go to one."
--- NOTE | 2019-02-17 15:27 | NUR ---
RD FOLLOW-UP PMHx: hypercholesterolemia; HTN; DM PT INTERACTION: Pt was awake and pleasant during nutrition follow-up. Pt states appetite has been "so-so" since last assessment. Note pt PO intake avg >75% meals x3d, per chart review. Pt states recent episodes of nausea, but no emesis since last assessment. Pt states recent episodes of constipation since last assessment. Note last BM was 02/12, per chart review. Note pt currently on bowel regimen of senna, miralax, colace. ABNORMAL NUTRITION-RELATED LAB VALUES: Na 126 (L); Cl 90 (L); K 5.1 (H); BUN 36 (H) Est. kcal needs: 4073-2622 kcal (15-20 kcal/kg) Est. Pro needs: 91-110 g Pro (1.-1.2 g Pro/kg) PES STATEMENT: Given pt's PO intake and hx since last assessment, no nutrition diagnosis at this time (NO-1.1) INTERVENTION: Continue with current diet order of CHO 75g/m 0snack diet MONITOR/EVALUATE: PO Intake; Plan of Care; Hydration Status; Weight Status; Lab Values Maxine Lucero, MS, RD, LD Ext. 133
[2019-02-17] MEDS ORDERED: LISI-552 PO ×2 (16:32)
[2019-02-17] MEDS ORDERED: ACHD5005 PO ×2 (16:32)
[2019-02-17] MEDS ORDERED: ENOX40DI8 SC ×2 (16:32)
[2019-02-17] MEDS ORDERED: ALPR0.254 PO ×2 (16:32)
[2019-02-17] MEDS ORDERED: NF-NACL1GT PO ×2 (16:32)
[2019-02-17] MEDS ORDERED: LORazepam INJ 2 MG/ML (ATIVAN) VIAL IVP PRN (16:45)
[2019-02-17 18:10] VITALS: BP 132/70
[2019-02-17] MEDS: ANTACID SUSP 30 ML UDC (MYLANTA) PO PRN (19:28)
[2019-02-17] MEDS: MONTELUKAST 10 MG (SINGULAIR) TAB PO SCH (20:22)
[2019-02-17] MEDS: MELATONIN 3 MG TABLET PO PRN (20:23)
[2019-02-17] MEDS: CALCIUM CARBONATE 500 MG (TUMS) TAB.CHEW PO PRN (21:36)
[2019-02-17] MEDS: ENOXAPARIN 40 MG/0.4 ML (LOVENOX) SYR SC SCH (22:05)
[2019-02-17] MEDS: ONDANSETRON 4 MG (ZOFRAN) ORAL DISSOLVE TAB PO PRN (22:27)
[2019-02-18] MEDS: RT-ALBUTEROL SULF 2.5 MG/3 ML PRE-MIX VIAL INH SCH ×3 (02:01→10:37)
[2019-02-18] MEDS: GLIMEPIRIDE 4 MG (AMARYL) TAB PO SCH (03:03)
[2019-02-18 05:02] VITALS: BP 116/60
[2019-02-18] MEDS: inSUlin ASPART (NovoLOG) 1 UNIT/0.01 ML (CHARGE PER UNIT) SC SCH ×2 (05:07→12:43)
[2019-02-18 06:52] LABS: BASOPHILS # (AUTO) 0.1 10^3/uL (0.0-0.1); BASOPHILS % (AUTO) 1 % (0-10); EOSINOPHILS # (AUTO) 0.2 10^3/uL (0.0-0.3); EOSINOPHILS % (AUTO) 2 % (0-10); HEMATOCRIT 25 % (35-52); HEMOGLOBIN 7.8 G/DL (11.5-16.0); LYMPHOCYTES # (AUTO) 1.3 X 10^3 (1.0-4.0); LYMPHOCYTES % (AUTO) 19 % (12-44); MEAN CORPUSCULAR HEMOGLOBIN 28 PG (25-34); MEAN CORPUSCULAR HGB CONC 32 G/DL (32-36); MEAN CORPUSCULAR VOLUME 88 FL (80-99); MONOCYTES # (AUTO) 0.7 X 10^3 (0.0-1.0); MONOCYTES % (AUTO) 9 % (0-12); NEUTROPHILS % (AUTO) 69 % (42-75); PLATELET COUNT 387 10^3/uL (130-400); RED CELL DISTRIBUTION WIDTH 16.8 % (10.0-14.5); WHITE BLOOD COUNT 7.2 10^3/uL (4.3-11.0)
[2019-02-18 07:24] LABS: ALBUMIN 3.3 GM/DL (3.2-4.5); BILIRUBIN,TOTAL 0.6 MG/DL (0.1-1.0); CALCIUM 8.7 MG/DL (8.5-10.1); CREATININE SERUM 1.44 MG/DL (0.60-1.30); POTASSIUM 5.8 MMOL/L (3.6-5.0); TOTAL PROTEIN 6.1 GM/DL (6.4-8.2)
[2019-02-18] MEDS: HYDROcodone/APAP 5 MG/325 MG (LORTAB) TAB PO PRN (07:24)
--- NOTE | 2019-02-18 08:28 | Therapy Team Discharge Summary ---
Therapy Discharge Summary Discharge Recommendations Date of Discharge Physical Therapy Patient came to rehab following a left humerus fx. Upon evaluation patient performed bed mobility with max assist, supine <-> sit with mod assist, sit <-> stand with mod assist, transfers with min assist, car transfer mod assist, ambulated 75' with a large base quad cane with min assist (including 50' with at least 2 turns of 90 degrees but needed mod assist for 10' over an uneven surface), no stairs. Patient has been performing bed mobility and transfer training, balance and endurance training, functional strengthening, stair training, gait training, and education. Patient has made some progress but has not met any of her shelter goals. Now, patient performs bed mobility with min to mod assist, transfers with CGA, ambulated 10' with a alexei walker with min assist. Patient is discharging from this facility today and will be discharged from PT at this time. Occupational Therapy Decreased Activ Tolerance, Decreased Safety Aware, Decreased UE Strength, Depend ent Transfers, Edema, Impaired Cognition, Impaired Coordination, Impaired Funct Balance, Impaired I ADL's, Impaired Self-Care Skills, Restricted Funct UE ROM PT Processor Grain Goals Processor Grain Goals PT Processor Grain Goals Time Frame: Mar 02, 2019 Roll Left to Right (QC): 4 (SBA) Sit to Lying (QC): 4 (SBA) Lying-Sitting on Side/Bed(QC): 4 (SBA) Sit to Stand (QC): 4 (SBA) Chair/Qij-gg-Pltwy Xfer(QC): 4 (SBA) Car Transfer (QC): 4 (SBA) Distance: 150' Walk 10 feet (QC): 4 (SBA) Walk 10ft-Uneven Surface(QC): 4 (CGA) Walk 50ft with 2 Turns (QC): 4 (SBA) Walk 150 ft (QC): 4 (SBA) Gait Assistive Device: Cane Single Point # of Steps: 4 1 Step (curb) (QC): 4 (CGA) 4 Steps (QC): 4 (CGA) Picking up an Object (QC): 4 (CGA) OT Processor Grain Goals Prison Goals Time Frame: Mar 02, 2019 Eating (FIM): 6 Eating (QC): 6 Oral Hygiene (QC): 5 Shower/Bathe Self (QC): 4 Upper Body Dressing (QC): 5 Lower Body Dressing (QC): 5 On/Off Footwear (QC): 5 Toileting(FIM): 6 Toileting Hygiene (QC): 6 Toilet/Commode Transfer (QC): 6 Additional Goals: 1-Demonstrate ADL Tasks, 2-Verbalize Understanding, 3- ImproveStrength/Isaias 1=Demonstrate adherence to instructed precautions during ADL tasks. 2=Patient will verbalize/demonstrate understanding of assistive sarai luis/modifications for ADL. 3=Patient will improve strength/tolerance for activity to enable patient to perform ADL's. Speech Prison Goals Processor Grain Goals Patient will improve her cognitive level of function in order to return home safely. KAMILA CHERY PT Feb 18, 2019 08:28 POS
--- NOTE | 2019-02-18 09:07 | NUR ---
IMM discussed with patient and signature obtained. Patient verbalized understanding of discharge plan to surgery today and then to 4th floor.
[2019-02-18] MEDS: SODIUM CHLORIDE 1 GM TABLET PO SCH (09:18)
[2019-02-18] MEDS: busPIRone 10 MG (BUSPAR) TAB PO SCH (09:18)
[2019-02-18] MEDS: POLYETHYLENE GLYCOL 17 GM (MIRALAX) PACK PO SCH (09:18)
[2019-02-18] MEDS: SENNA W/DOCUSATE (SENOKOT S) TABLET PO SCH (09:18)
[2019-02-18] MEDS: lisINopril 20 MG (PRINIVIL) TABLET PO SCH (09:20)
[2019-02-18] MEDS: FUROSEMIDE 20 MG (LASIX) TAB PO SCH (09:21)
--- NOTE | 2019-02-18 10:04 | Progress Note ---
[facility] 02/18/19 1004: Progress Note CC: Left proximal humerus fracture * Pt reports increased throbbing pain in her left shoulder today that has kept her awake this morning * She is scheduled for shoulder surgery today at 1300 and has not been able to eat or drink this morning * She states she was able to walk around a little yesterday * She is able to sit up on her own sometimes, but does require help mainly due to the shoulder pain * She had some heartburn last night, but was given some medication that helped * She denies any dizziness, SOB, chest pain, palpitations, headaches, changes in vision, or sinus drainage * She states she had a little bit of a cough yesterday * She would like the pain in her shoulder to get better so she can return to her house where she lives alone AIEME VACA DO 02/19/19 0827: Supervisory-Addendum Brief Verification & Attestation Participated in pt care: history, MDM, physical Personally performed: exam, history, MDM, supervision of care Care discussed with: Medical Student Procedures: n/a Results interpretation: Verified all documentation Verification and Attestation of Medical Student E/M Service A medical student performed and documented this service in my presence. I reviewed and verified all information documented by the medical student and made modifications to such information, when appropriate. I personally performed the physical exam and medical decision making. Aimee Vaca, Feb 19, 2019,08:27 [facility] Feb 18, 2019 10:04 AIMEE PERRY DO Feb 19, 2019 08:27 POS
--- NOTE | 2019-02-18 10:09 | Therapy Team Discharge Summary ---
Therapy Discharge Summary Discharge Recommendations Date of Discharge 02-18-19 Therapy D/C Recommendations: 24 hr Supervision Occupational Therapy Pt. has been seen by occupational therapy to increase overall strength and independence. Due to continued medical issues with left humeral fx, pt. is discharging this date for surgery. Pt. met limited goals due to pain and inability to use left UE. Pt. will transfer to acute setting after surgery and needs will continue to be assessed at that time. Decreased Activ Tolerance, Decreased Safety Aware, Decreased UE Strength, Dependent Transfers, Edema, Impaired Cognition, Impaired Coordination, Impaired Funct Balance, Impaired I ADL's, Impaired Self-Care Skills, Restricted Funct UE ROM PT Internal Communications Manager Goals Internal Communications Manager Goals PT Internal Communications Manager Goals Time Frame: Mar 02, 2019 Roll Left to Right (QC): 4 (SBA) Sit to Lying (QC): 4 (SBA) Lying-Sitting on Side/Bed(QC): 4 (SBA) Sit to Stand (QC): 4 (SBA) Chair/Hmm-vw-Tzput Xfer(QC): 4 (SBA) Car Transfer (QC): 4 (SBA) Distance: 150' Walk 10 feet (QC): 4 (SBA) Walk 10ft-Uneven Surface(QC): 4 (CGA) Walk 50ft with 2 Turns (QC): 4 (SBA) Walk 150 ft (QC): 4 (SBA) Gait Assistive Device: Cane Single Point # of Steps: 4 1 Step (curb) (QC): 4 (CGA) 4 Steps (QC): 4 (CGA) Picking up an Object (QC): 4 (CGA) OT Fci Goals Internal Communications Manager Goals Time Frame: Mar 02, 2019 Eating (FIM): 6 (not met) Eating (QC): 6 (not met) Oral Hygiene (QC): 5 (met) Shower/Bathe Self (QC): 4 (not met) Upper Body Dressing (QC): 5 (not met) Lower Body Dressing (QC): 5 (not met) On/Off Footwear (QC): 5 (not met) Toileting(FIM): 6 (not met) Toileting Hygiene (QC): 6 (not met) Toilet/Commode Transfer (QC): 6 (not met) Additional Goals: 1-Demonstrate ADL Tasks, 2-Verbalize Understanding, 3- ImproveStrength/Isaias 1=Demonstrate adherence to instructed precautions during ADL tasks. 2=Patient will verbalize/demonstrate understanding of assistive devices /modifications for ADL. 3=Patient will improve strength/tolerance for activity to enable patient to perform ADL's. Speech Fci Goals Fci Goals Patient will improve her cognitive level of function in order to return home safely. PATSY STERN OT Feb 18, 2019 10:09 POS
--- NOTE | 2019-02-18 11:08 | Therapy Team Discharge Summary ---
Therapy Discharge Summary Discharge Recommendations Date of Discharge Therapy D/C Recommendations: 24 hr Supervision Occupational Therapy Decreased Activ Tolerance, Decreased Safety Aware, Decreased UE Strength, Dependent Transfers, Edema, Impaired Cognition, Impaired Coordination, Impaired Funct Balance, Impaired I ADL's, Impaired Self-Care Skills, Restricted Funct UE ROM Speech-Language Pathology Patient was admitted to the ARU s/p fractured shoulder. She was given the SLUMS which indicated cognitive deficits. The patient received skilled ST to improve cognitive function for improved safety awareness and independence. The patient is discharging from ARU this date due to shoulder surgery this afternoon. The patient is also discharging from skilled ST this date. PT Skilled Nursing Goals Skilled Nursing Goals PT Skilled Nursing Goals Time Frame: Mar 02, 2019 Roll Left to Right (QC): 4 (SBA) Sit to Lying (QC): 4 (SBA) Lying-Sitting on Side/Bed(QC): 4 (SBA) Sit to Stand (QC): 4 (SBA) Chair/Oax-le-Bdwfk Xfer(QC): 4 (SBA) Car Transfer (QC): 4 (SBA) Distance: 150' Walk 10 feet (QC): 4 (SBA) Walk 10ft-Uneven Surface(QC): 4 (CGA) Walk 50ft with 2 Turns (QC): 4 (SBA) Walk 150 ft (QC): 4 (SBA) Gait Assistive Device: Cane Single Point # of Steps: 4 1 Step (curb) (QC): 4 (CGA) 4 Steps (QC): 4 (CGA) Picking up an Object (QC): 4 (CGA) OT Ad Operations Specialist Goals Ad Operations Specialist Goals Time Frame: Mar 02, 2019 Eating (FIM): 6 (not met) Eating (QC): 6 (not met) Oral Hygiene (QC): 5 (met) Shower/Bathe Self (QC): 4 (not met) Upper Body Dressing (QC): 5 (not met) Lower Body Dressing (QC): 5 (not met) On/Off Footwear (QC): 5 (not met) Toileting(FIM): 6 (not met) Toileting Hygiene (QC): 6 (not met) Toilet/Commode Transfer (QC): 6 (not met) Additional Goals: 1-Demonstrate ADL Tasks, 2-Verbalize Understanding, 3- ImproveStrength/Isaias 1=Demonstrate adherence to instructed precautions during ADL tasks. 2=Patient will verbalize/demonstrate understanding of assistive devices/modifications for ADL. 3=Patient will improve strength/tolerance for activity to enable patient to perform ADL's. Speech Ad Operations Specialist Goals Ad Operations Specialist Goals Patient will improve her cognitive level of function in order to return home safely. MARTIN LARSEN Feb 18, 2019 11:08 POS
[2019-02-18 11:30] VITALS: BP 116/60
[2019-02-18] MEDS ORDERED: LIDOCAINE PF 2% 5 ML (XYLOCAINE) VIAL ONE (12:07)
[2019-02-18] MEDS: FLUTICASONE NASAL SPRAY (FLONASE) 16 GM BTL NS SCH (12:43)
[2019-02-18] MEDS: amLODIPine 10 MG (NORVASC) TAB PO SCH (12:43)
--- NOTE | 2019-02-18 13:35 | Discharge Summary ---
Diagnosis/Chief Complaint Date of Admission Feb 09, 2019 at 10:40 Date of Discharge Discharge Date: Feb 18, 2019 Discharge Diagnosis Assessment: Left proximal humerus fracture will need repair today Severe hyponatremia requiring fluid restriction improving now 129 Anemia Chronic renal insufficiency Hypertension Diabetes mellitus GERD Plan: Pain medication Bowel regimen Inpatient rehabilitation Monitor closely PPI Likely will need correction Fluid restriction Salt tablets (1) Closed left humeral fracture (2) Hyponatremia (3) Hypertension (4) Diabetes mellitus (5) Chronic renal insufficiency (6) Anemia (7) Frequent falls Discharge Summary Discharge Physical Examination Allergies: Coded Allergies: codeine (Verified Adverse Reaction, Mild, NAUSEA, 02/08/19) Vitals & I&Os Vital Signs Date Time Temp Pulse Resp B/P (MAP) Pulse Ox O2 Delivery O2 Flow Rate FiO2 02/18/19 11:30 36.4 74 18 116/60 88 Nasal Cannula 2.00 General Appearance: Alert, Oriented X3, Cooperative Respiratory: Clear to Auscultation Cardiovascular: Regular Rate Neuro: Strength at 5/5 X4 Ext Psych/Mental Status: Mental Status NL, Mood NL Hospital Course Was the Problem List Reviewed?: Yes Hospital course: Pt had an uneventful and lengthy hospital course for nine days prior to transferring to fourth floor to undergo a left shoulder fracture repair by Dr. Crane of reverse type. Sodium level returned near normal at 130, potassium was 5.8, Creatinine 1.4, so Lisinopril was held. Pt overall did very well, no significant issues but chronic anemia noted on labs, overall she was doing very well but will need correction placement after surgery recovery since she will need slower recovery in correction at time of discharge especially given the fact of the learning disability and overall difficulty maintaining her independence. Labs (last 24 hrs) Laboratory Tests 02/09/19 11:52: Glucometer 165H 02/09/19 16:03: Glucometer 163H 02/09/19 20:30: Glucometer 148H 02/10/19 06:10: White Blood Count 8.9, Red Blood Count 2.91L, Hemoglobin 8.2L, Hematocrit 24L, Mean Corpuscular Volume 84, Mean Corpuscular Hemoglobin 28, Mean Corpuscular H emoglobin Concent 34, Red Cell Distribution Width 14.6H, Platelet Count 285, Mean Platelet Volume 8.3, Neutrophils (%) (Auto) 75, Lymphocytes (%) (Auto) 15, Monocytes (%) (Auto) 10, Eosinophils (%) (Auto) 0, Basophils (%) (Auto) 0, Alexis trophils # (Auto) 6.6, Lymphocytes # (Auto) 1.3, Monocytes # (Auto) 0.9, Eosinophils # (Auto) 0.0, Basophils # (Auto) 0.0, Sodium Level 127L, Potassium Level 4.9, Chloride Level 92L, Carbon Dioxide Level 24, Anion Gap 11, Blood Urea Nitrogen 42H, Creatinine 1.27, Estimat Glomerular Filtration Rate 41, BUN/Creatinine Ratio 33, Glucose Level 100, Calcium Level 8.5, Corrected Calcium 8.9, Total Bilirubin 0.4, Aspartate Amino Transf (AST/SGOT) 28, Alanine Aminotransferase (ALT/SGPT) 13, Alkaline Phosphatase 57, Total Protein 6.2L, Albumin 3.5 02/10/19 06:14: Glucometer 100 02/10/19 11:17: Glucometer 122H 02/10/19 16:20: Glucometer 110 02/10/19 20:20: Glucometer 84 02/11/19 02:40: Glucometer 81 02/11/19 05:31: Glucometer 75 02/11/19 11:16: Glucometer 94 02/11/19 16:32: Glucometer 62L 02/11/19 17:16: Glucometer 80 02/11/19 20:23: Glucometer 102 02/12/19 05:13: Glucometer 71 02/12/19 05:15: Sodium Level 129L, Potassium Level 5.0, Chloride Level 92L, Carbon Dioxide Level 25, Anion Gap 12, Blood Urea Nitrogen 38H, Creatinine 1.33H, Estimat Glomerular Filtration Rate 39, BUN/Creatinine Ratio 29, Glucose Level 65L, Calcium Level 8.7 02/12/19 11:18: Glucometer 148H 02/12/19 17:20: Glucometer 101 02/12/19 20:53: Glucometer 104 02/13/19 06:06: Glucometer 100 02/13/19 10:57: Glucometer 138H 02/13/19 16:21: Glucometer 110 02/13/19 20:52: Glucometer 101 02/14/19 05:27: Glucometer 65L 02/14/19 11:08: Glucometer 96 02/14/19 16:33: Glucometer 98 02/14/19 19:48: Glucometer 109 02/15/19 04:59: Glucometer 63L, White Blood Count 7.9, Red Blood Count 2.98L, Hemoglobin 8.4L, Hematocrit 25L, Mean Corpuscular Volume 85, Mean Corpuscular Hemoglobin 28, Mean Corpuscular Hemoglobin Concent 33, Red Cell Distribution Width 15.6H, Platelet Count 381, Mean Platelet Volume 8.0, Neutrophils (%) (Auto) 66, Lymphocytes (%) (Auto) 19, Monocytes (%) (Auto) 11, Eosinophils (%) (Auto) 3, Basophils (%) (Auto) 1, Neutrophils # (Auto) 5.2, Lymphocytes # (Auto) 1.5, Monocytes # (Auto) 0.9, Eosinophils # (Auto) 0.2, Basophils # (Auto) 0.1, Sodium Level 125*L, Potassium Level 5.3H, Chloride Level 90L, Carbon Dioxide Level 23, Anion Gap 12, Blood Urea Nitrogen 36H, Creatinine 1.30, Estimat Glomerular Filtration Rate 40, BUN/Creatinine Ratio 28, Glucose Level 57*L, Calcium Level 8.8, Corrected Calcium 9.4, Total Bilirubin 0.7, Aspartate Amino Transf (AST/SGOT) 21, Alanine Aminotransferase (ALT/SGPT) 15, Alkaline Phosphatase 57, Total Protein 6.0L, Albumin 3.3 02/15/19 06:10: Glucometer 137H 02/15/19 11:13: Glucometer 122H 02/15/19 15:23: Glucometer 96 02/15/19 18:05: Urine Random Sodium 40 02/15/19 20:28: Glucometer 123H 02/16/19 05:31: Glucometer 97 02/16/19 09:40: Sodium Level 126L, Potassium Level 5.1H, Chloride Level 90L, Carbon Dioxide Level 22, Anion Gap 14, Blood Urea Nitrogen 36H, Creatinine 1.29, Estimat Glomerular Filtration Rate 40, BUN/Creatinine Ratio 28, Glucose Level 100, Calcium Level 8.8 02/16/19 17:08: Glucometer 147H 02/16/19 20:27: Glucometer 136H 02/17/19 04:35: Sodium Level 128L, Potassium Level 5.5H, Chloride Level 93L, Carbon Dioxide Level 22, Anion Gap 13, Blood Urea Nitrogen 38H, Creatinine 1.42H, Estimat Glomerular Filtration Rate 36, BUN/Creatinine Ratio 27, Glucose Level 58*L, Calcium Level 8.9 02/17/19 06:18: Glucometer 73 02/17/19 06:46: Glucometer 95 02/17/19 11:37: Glucometer 132H 02/17/19 17:51: Glucometer 109 02/17/19 20:14: Glucometer 139H 02/18/19 05:06: Glucometer 118H 02/18/19 05:55: White Blood Count 7.2, Red Blood Count 2.79L, Hemoglobin 7.8L, Hematocrit 25L, Mean Corpuscular Volume 88, Mean Corpuscular Hemoglobin 28, Mean Corpuscular Hemoglobin Concent 32, Red Cell Distribution Width 16.8H, Platelet Count 387, Mean Platelet Volume 8.0, Neutrophils (%) (Auto) 69, Lymphocytes (%) (Auto) 19, Monocytes (%) (Auto) 9, Eosinophils (%) (Auto) 2, Basophils (%) (Auto) 1, Neutrophils # (Auto) 5.0, Lymphocytes # (Auto) 1.3, Monocytes # (Auto) 0.7, Eosinophils # (Auto) 0.2, Basophils # (Auto) 0.1, Sodium Level 130L, Potassium Level 5.8H, Chloride Level 94L, Carbon Dioxide Level 25, Anion Gap 11, Blood Urea Nitrogen 44H, Creatinine 1.44H, Estimat Glomerular Filtration Rate 35, BUN/Creatinine Ratio 31, Glucose Level 93, Calcium Level 8.7, Corrected Calcium 9.3, Total Bilirubin 0.6, Aspartate Amino Transf (AST/SGOT) 21, Alanine Aminotransferase (ALT/SGPT) 27, Alkaline Phosphatase 58, Total Protein 6.1L, Albumin 3.3 02/18/19 11:40: Glucometer 97 Microbiology 02/17/19 MRSA Screen - Final, Complete MRSA not isolated Pending Labs Microbiology Date/Time Source Procedure Growth Status 02/17/19 15:25 Nasal MRSA Screen - Final MRSA not isolated Complete Laboratory Tests 02/09/19 11:52: Glucometer 165 02/09/19 16:03: Glucometer 163 02/09/19 20:30: Glucometer 148 02/10/19 06:10: White Blood Count 8.9, Red Blood Count 2.91, Hemoglobin 8.2, Hematocrit 24, Mean Corpuscular Volume 84, Mean Corpuscular Hemoglobin 28, Mean Corpuscular Hemoglobin Concent 34, Red Cell Distribution Width 14.6, Platelet Count 285, Mean Platelet Volume 8.3, Neutrophils (%) (Auto) 75, Lymphocytes (%) (Auto) 15, Monocytes (%) (Auto) 10, Eosinophils (%) (Auto) 0, Basophils (%) (Auto) 0, Neutrophils # (Auto) 6.6, Lymphocytes # (Auto) 1.3, Monocytes # (Auto) 0.9, Eosinophils # (Auto) 0.0, Basophils # (Auto) 0.0, Sodium Level 127, Potassium Level 4.9, Chloride Level 92, Carbon Dioxide Level 24, Anion Gap 11, Blood Urea Nitrogen 42, Creatinine 1.27, Estimat Glomerular Filtration Rate 41, BUN/Creatinine Ratio 33, Glucose Level 100, Calcium Level 8.5, Corrected Calcium 8.9, Total Bilirubin 0.4, Aspartate Amino Transf (AST/SGOT) 28, Alanine Aminotransferase (ALT/SGPT) 13, Alkaline Phosphatase 57, Total Protein 6.2, Albumin 3.5 02/10/19 06:14: Glucometer 100 02/10/19 11:17: Glucometer 122 02/10/19 16:20: Glucometer 110 02/10/19 20:20: Glucometer 84 02/11/19 02:40: Glucometer 81 02/11/19 05:31: Glucometer 75 02/11/19 11:16: Glucometer 94 02/11/19 16:32: Glucometer 62 02/11/19 17:16: Glucometer 80 02/11/19 20:23: Glucometer 102 02/12/19 05:13: Glucometer 71 02/12/19 05:15: Sodium Level 129, Potassium Level 5.0, Chloride Level 92, Carbon Dioxide Level 25, Anion Gap 12, Blood Urea Nitrogen 38, Creatinine 1.33, Estimat Glomerular Filtration Rate 39, BUN/Creatinine Ratio 29, Glucose Level 65, Calcium Level 8.7 02/12/19 11:18: Glucometer 148 02/12/19 17:20: Glucometer 101 02/12/19 20:53: Glucometer 104 02/13/19 06:06: Glucometer 100 02/13/19 10:57: Glucometer 138 02/13/19 16:21: Glucometer 110 02/13/19 20:52: Glucometer 101 02/14/19 05:27: Glucometer 65 02/14/19 11:08: Glucometer 96 02/14/19 16:33: Glucometer 98 02/14/19 19:48: Glucometer 109 02/15/19 04:59: Glucometer 63, White Blood Count 7.9, Red Blood Count 2.98, Hemoglobin 8.4, Hematocrit 25, Mean Corpuscular Volume 85, Mean Corpuscular Hemoglobin 28, Mean Corpuscular Hemoglobin Concent 33, Red Cell Distribution Width 15.6, Platelet Count 381, Mean Platelet Volume 8.0, Neutrophils (%) (Auto) 66, Lymphocytes (%) (Auto) 19, Monocytes (%) (Auto) 11, Eosinophils (%) (Auto) 3, Basophils (%) (Auto) 1, Neutrophils # (Auto) 5.2, Lymphocytes # (Auto) 1.5, Monocytes # (Auto) 0.9, Eosinophils # (Auto) 0.2, Basophils # (Auto) 0.1, Sodium Level 125, Potassium Level 5.3, Chloride Level 90, Carbon Dioxide Level 23, Anion Gap 12, Blood Urea Nitrogen 36, Creatinine 1.30, Estimat Glomerular Filtration Rate 40, BUN/Creatinine Ratio 28, Glucose Level 57, Calcium Level 8.8, Corrected Calcium 9.4, Total Bilirubin 0.7, Aspartate Amino Transf (AST/SGOT) 21, Alanine Aminotransferase (ALT/SGPT) 15, Alkaline Phosphatase 57, Total Protein 6.0, Albumin 3.3 02/15/19 06:10: Glucometer 137 02/15/19 11:13: Glucometer 122 02/15/19 15:23: Glucometer 96 02/15/19 18:05: Urine Random Sodium 40 02/15/19 20:28: Glucometer 123 02/16/19 05:31: Glucometer 97 02/16/19 09:40: Sodium Level 126, Potassium Level 5.1, Chloride Level 90, Carbon Dioxide Level 22, Anion Gap 14, Blood Urea Nitrogen 36, Creatinine 1.29, Estimat Glomerular Filtration Rate 40, BUN/Creatinine Ratio 28, Glucose Level 100, Calcium Level 8.8 02/16/19 17:08: Glucometer 147 02/16/19 20:27: Glucometer 136 02/17/19 04:35: Sodium Level 128, Potassium Level 5.5, Chloride Level 93, Carbon Dioxide Level 22, Anion Gap 13, Blood Urea Nitrogen 38, Creatinine 1.42, Estimat Glomerular Filtration Rate 36, BUN/Creatinine Ratio 27, Glucose Level 58, Calcium Level 8.9 02/17/19 06:18: Glucometer 73 02/17/19 06:46: Glucometer 95 02/17/19 11:37: Glucometer 132 02/17/19 17:51: Glucometer 109 02/17/19 20:14: Glucometer 139 02/18/19 05:06: Glucometer 118 02/18/19 05:55: White Blood Count 7.2, Red Blood Count 2.79, Hemoglobin 7.8, Hematocrit 25, Mean Corpuscular Volume 88, Mean Corpuscular Hemoglobin 28, Mean Corpuscular Hemoglobin Concent 32, Red Cell Distribution Width 16.8, Platelet Count 387, Mean Platelet Volume 8.0, Neutrophils (%) (Auto) 69, Lymphocytes (%) (Auto) 19, Monocytes (%) (Auto) 9, Eosinophils (%) (Auto) 2, Basophils (%) (Auto) 1, Neutrophils # (Auto) 5.0, Lymphocytes # (Auto) 1.3, Monocytes # (Auto) 0.7, Eosinophils # (Auto) 0.2, Basophils # (Auto) 0.1, Sodium Level 130, Potassium Level 5.8, Chloride Level 94, Carbon Dioxide Level 25, Anion Gap 11, Blood Urea Nitrogen 44, Creatinine 1.44, Estimat Glomerular Filtration Rate 35, BUN/Creatinine Ratio 31, Glucose Level 93, Calcium Level 8.7, Corrected Calcium 9.3, Total Bilirubin 0.6, Aspartate Amino Transf (AST/SGOT) 21, Alanine Aminotransferase (ALT/SGPT) 27, Alkaline Phosphatase 58, Total Protein 6.1, Albumin 3.3 02/18/19 11:40: Glucometer 97 Discharge Home Medications: Active Scripts Active Sodium Chloride 1 Gm Tab 1 Gm PO BID 14 Days Alprazolam 0.25 Mg Tablet 0.25 Mg PO Q8H PRN 30 Days Hydrocodone/Acetaminophen 5/325mg Tablet (Acetaminophen/Hydrocodone Bitart) 1 Tab Tab 1 Tab PO Q4H PRN 30 Days Lisinopril 20 Mg Tablet 20 Mg PO DAILY 30 Days Enoxaparin Sodium 40 Mg/0.4 Ml Syringe 40 Mg SC DAILY@2200 14 Days Reported Tylenol Arthritis (Acetaminophen) 650 Mg Tablet.er 650 Mg PO Q8H PRN Montelukast Sodium 10 Mg Tablet 10 Mg PO HS Atorvastatin Calcium 10 Mg Tablet 10 Mg PO DAILY Glimepiride 4 Mg Tablet 4 Mg PO DAILY Fluticasone Propionate 16 Gm [place].susp 2 Spr NSEACH DAILY Amlodipine Besylate 10 Mg Tablet 10 Mg PO DAILY Furosemide 20 Mg Tablet 20 Mg PO DAILY Ventolin Hfa (Albuterol Sulfate) 18 Gm Hfa.aer.ad 2 Puff PO Q4H Buspirone HCl 10 Mg Tablet 10 Mg PO BID Instructions to patient/family Please see electronic discharge instructions given to patient. Diagnosis/Problems Diagnosis/Problems (1) Closed left humeral fracture (2) Hyponatremia (3) Hypertension (4) Diabetes mellitus (5) Chronic renal insufficiency (6) Anemia (7) Frequent falls Clinical Quality Measures DVT/VTE Risk/Contraindication: Risk Factor Score Per Nursin RFS Level Per Nursing on Admit: 4+=Very High JAMEY VACA DO Feb 18, 2019 13:35 POS
--- NOTE | 2019-02-18 14:24 | NUR ---
Nsg report called to Tabitha Neal RN
[2019-02-22] MEDS ORDERED: SENN-20 PO ×2 (10:16)
[2019-02-22] MEDS ORDERED: ACHD5005 PO ×2 (10:16)
== END 2019-02-18 12:00 | disposition short-term general hospital (02) | DRG 560 ==
PROVIDERS: ADMIT Internal Medicine; ATTEND Internal Medicine
DX: M84.422D Pathological fracture, left humerus, subsequent encounter for fracture with routine healing (principal); M19.012 Primary osteoarthritis, left shoulder; R29.6 Repeated falls; E87.1 Hypo-osmolality and hyponatremia; D64.9 Anemia, unspecified; F03.90 Unspecified dementia, unspecified severity, without behavioral disturbance, psychotic disturbance, mood disturbance, and anxiety; I12.9 Hypertensive chronic kidney disease with stage 1 through stage 4 chronic kidney disease, or unspecified chronic kidney disease; N18.9 Chronic kidney disease, unspecified; E11.9 Type 2 diabetes mellitus without complications; F41.9 Anxiety disorder, unspecified; E78.00 Pure hypercholesterolemia, unspecified; F32.9 Major depressive disorder, single episode, unspecified; F81.9 Developmental disorder of scholastic skills, unspecified; K21.9 Gastro-esophageal reflux disease without esophagitis; Z79.84 Long term (current) use of oral hypoglycemic drugs; Z85.42 Personal history of malignant neoplasm of other parts of uterus
CPT/HCPCS: 36415; 80048; 80053; 82962; 84300; 85025; 87081; 94010; 94640; 94760

== ENCOUNTER 2019-02-18 08:24 | Inpatient (IN) | payer MEDICARE, MEDICAID ==
[2019-02-18] VITALS (11 sets, daily range): BP systolic 89–142; BP diastolic 45–95
[~2019-02-18] VITALS: Ht 154.9 cm; Wt 91.9 kg
[~2019-02-18 08:24] MED LIST changes: +ACHD5005 PO; +ALPR0.254 PO; +ENOX40DI8 SC; +LISI-552 PO; +NF-NACL1GT PO
[2019-02-18] MEDS ORDERED: ROPIVACAINE 5MG/ML 30ML VIAL ONE (11:55)
[2019-02-18] MEDS ORDERED: MIDAZOLAM 2 MG/2 ML (VERSED) VIAL ONE (11:55)
[2019-02-18] MEDS ORDERED: GENTAMICIN 40 MG/ML 2 ML INJ SDV ONE (12:07)
[2019-02-18] MEDS ORDERED: ROCURONIUM 10 MG/ML 5 ML SYRINGE IV ONE (12:12)
[2019-02-18] MEDS ORDERED: proPOfol 200 MG/20 ML (DIPRIVAN) VIAL IV ONE (12:12)
[2019-02-18] MEDS ORDERED: LIDOCAINE PF 2% 5 ML (XYLOCAINE) VIAL ONE (12:12)
[2019-02-18] MEDS ORDERED: ONDANSETRON 4 MG/2 ML (SDV) Z0FRAN ONE (12:12)
[2019-02-18] MEDS ORDERED: SUCCINYLCHOLINE INJ 100 MG/5 ML SYR ONE ×2 (12:12→12:43)
[2019-02-18] MEDS ORDERED: fentaNYL INJECTION 100 MCG/2 ML AMP ONE (12:13)
[2019-02-18] MEDS ORDERED: SEVOFLURANE (ULTANE) 15 ML INHAL SOLN ONE (12:13)
--- NOTE | 2019-02-18 12:29 | History & Physical-Surgical ---
HPO-Surgical History of Present Illness Chief Complaint: left shoulder pain She fell 2 weeks ago and had a proximal humeral fracture she was admitted to rehab and treated medically by Dr. Villagomez. She is being admitted to acute care for reverse TSA. Diagnosis/Surgical Indication: Primary DJD left shoulder. Left proximal humeral fracture Procedure: Left reverse TSA Date of Surgery: Feb 18, 2019 Weight (Pounds): 203 Height (Feet): 5 Allergies and Home Medications Allergies Coded Allergies: codeine (Verified Adverse Reaction, Mild, NAUSEA, 02/08/19) Home Medications Acetaminophen 650 Mg Tablet.er, 650 MG PO Q8H PRN for PAIN-MILD, (Reported) Albuterol Sulfate 18 Gm Hfa.aer.ad, 2 PUFF PO Q4H, (Reported) Alprazolam 0.25 Mg Tablet, 0.25 MG PO Q8H PRN for ANXIETY Prescribed by: JAMEY VILLAGOMEZ on 02/17/19 163 Amlodipine Besylate 10 Mg Tablet, 10 MG PO DAILY, (Reported) Atorvastatin Calcium 10 Mg Tablet, 10 MG PO DAILY, (Reported) Buspirone HCl 10 Mg Tablet, 10 MG PO BID, (Reported) Enoxaparin Sodium 40 Mg/0.4 Ml Syringe, 40 MG SC DAILY@2200 Prescribed by: JAMEY VILLAGOMEZ on 02/17/19 163 Fluticasone Propionate 16 Gm Oneco.susp, 2 SPR NSEACH DAILY, (Reported) Furosemide 20 Mg Tablet, 20 MG PO DAILY, (Reported) Glimepiride 4 Mg Tablet, 4 MG PO DAILY, (Reported) Hydrocodone Bit/Acetaminophen 1 Tab Tab, 1 TAB PO Q4H PRN for MOD Prescribed by: JAMEY VILLAGOMEZ on 02/17/19 163 Lisinopril 20 Mg Tablet, 20 MG PO DAILY Prescribed by: JAMEY VILLAGOMEZ on 02/17/19 163 Lisinopril/Hydrochlorothiazide 1 Each Tablet, 1 TAB PO DAILY, (Reported) Metformin HCl 500 Mg Tablet, 500 MG PO BID, (Reported) Montelukast Sodium 10 Mg Tablet, 10 MG PO HS, (Reported) Sodium Chloride 1 Gm Tab, 1 GM PO BID Prescribed by: JAMEY VILLAGOMEZ on 02/17/19 163 Patient Home Medication List Home Medication List Reviewed: Yes Past Wgksina-Yxtuki-Ddjevc Hx Patient Social History Employed/Student: employed, unemployed Alcohol Use: Denies Use Recreational Drug Use: No Smoking Status: Never a Smoker Recent Foreign Travel: No Contact w/other who traveled: No Recent Hopitalizations: No Immunizations Up To Date Pediatric: Yes Date of Pneumonia Vaccine: Jul 05, 2015 Date of Influenza Vaccine: Feb 03, 2019 Seasonal Allergies Seasonal Allergies: No Surgeries Yes Hysterectomy Respiratory Yes Currently Using CPAP: No Currently Using BIPAP: No Cardiovascular Yes High Cholesterol, Hypertension Neurological No Reproductive System Hx Reproductive Disorders: No Sexually Transmitted Disease: No HIV/AIDS: No Female Reproductive Disorders: Denies 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 Genitourinary No Gastrointestinal No Musculoskeletal Yes Arthritis, Chronic Back Pain, Fractures Endocrine History of Endocrine Disorders: Yes Endocrine Disorders: Diabetes, Non-Insulin dep HEENT History of HEENT Disorders: No (wears glasses) Loss of Vision: Denies Cancer No Uterine Did You Recieve Any Treatments: Yes Type of Treatment: Surgical Intervention Psychosocial History of Psychiatric Problem: No Behavioral Health Disorders: Anxiety Integumentary History of Skin or Integumenta: No Blood Transfusions History of Blood Disorders: No Adverse Reaction to a Blood Tr: No Family Medical History Significant Family History: Diabetes, Hypertension Family Hx: Diabetes mellitus 19 FATHER Hypertension 19 FATHER Exam Vital Signs Capillary Refill : General Appearance: Oriented X3 HEENT: Atraumatic Respiratory: Clear to Auscultation Cardiovascular: Regular Rate Abdominal: Normal Bowel Sounds Extremities: Other (Left shoulder bruised and tender. ROM not done due to fracture. ) Neuro: Normal Tone, Sensation Intact Psych/Mental Status: Other (Anxious) Assessment/Plan Assessment and Plan Left proximal humeral fracture with primary DJD of left shoulder-- will proceed with a reverse TSA. She can be transferred back to rehab on Friday. Admission Diagnosis Primary DJD left shoulder Left 3 part proximal humeral fracture with displacement. Admission Status: Inpatient Order (span 2 midnights) Reason for Inpatient Admission: Admitted inpatient for postoperative pain control and perioperative IV antibiotics as well as medical managment. SERENE JONES MD Feb 18, 2019 12:29 POS
--- NOTE | 2019-02-18 12:30 | Progress Note-Pre Operative ---
Pre-Operative Progress Note H&P Reviewed The H&P was reviewed, patient examined and no changes noted. Date Seen by Provider: Feb 18, 2019 Time Seen by Provider: 12:30 Date H&P Reviewed: Feb 18, 2019 Time H&P Reviewed: 12:30 Pre-Operative Diagnosis: Primary DJD left shoulder. Displaced left 3 part proximal humeral fracture SERENE JONES MD Feb 18, 2019 12:30 POS
[2019-02-18] MEDS ORDERED: ceFAZolin 2 GM IV Premixed 50 ML ONE (12:31)
[2019-02-18] MEDS ORDERED: DESFLURANE (SUPRANE) 15 ML INHAL SOLN ONE ×8 (12:57→14:18)
[2019-02-18] MEDS ORDERED: LACTATED RINGERS 1,000 ML IV SCH (13:30)
[2019-02-18] MEDS ORDERED: NEOSTIGMINE 3 MG/3 ML VIAL ONE (14:01)
[2019-02-18] MEDS ORDERED: GLYCOPYRROLATE 0.2 MG/ML (ROBINUL) 2 ML VIAL ONE (14:01)
[2019-02-18] MEDS ORDERED: D5 1/2 NS 1000 ML IV SOLUTION 1,000 ML IV SCH ×2 (14:15→17:45)
--- NOTE | 2019-02-18 14:24 | Progress Note-Post Operative ---
Post-Operative Progess Note Surgeon (s)/Sailing Instructor (s) Surgeon SERENE JONES MD Sailing Instructor: LINUS VICTOR PA-C Pre-Operative Diagnosis Primary DJD left shoulder. Displaced left 3 part proximal humeral fracture Post-Operative Diagnosis same Procedure & Operative Findings Date of Procedure 02/18/19 Procedure Performed/Findings left reverse TSA Anesthesia Type General with interscalene block Estimated Blood Loss Estimated blood loss (mL): 100 ml Specimens/Packing Specimens Removed none Packing: none SERENE JONES MD Feb 18, 2019 14:24 POS
[2019-02-18] MEDS ORDERED: HYDROcodone/APAP 7.5 MG/325 MG (LORTAB, LORCET PLUS) TABLET PO PRN (14:30)
[2019-02-18] MEDS ORDERED: morphine INJ 10 MG/ML 1ML (SYR OR VIAL) IVP ONE (14:45)
[2019-02-18] MEDS ORDERED: MEPERIDINE (DEMEROL) INJ 50 MG/ML IVP ONE (14:45)
[2019-02-18] MEDS ORDERED: NON-FORMULARY MEDICATION 1 EA EA (Acetaminophen (Tylenol Arthritis) 650 MG) PO PRN (14:45)
[2019-02-18] MEDS ORDERED: ONDANSETRON 4 MG/2 ML (SDV) Z0FRAN IVP PRN (14:45)
--- NOTE | 2019-02-18 14:50 | NUR ---
PRIMO BORJA admitted to room 425-1, with an admitting diagnosis of REPAIR OF LEFT SHOULDER , on 02/18/19 from [facility].R[facility] via BED, accompanied by STAFF.PRIMO BORJA introduced to surroundings, call light, bed controls, phone, TV, temperature control, lights, meal times, smoking policy, visitor policy, side rail policy, bathrooms and showers. Patient Rights given to patient in the handbook.PRIMO BORJA verbalizes understanding that [facility] is not responsible for the loss or damage to any personal effects or valuables that are kept in the patients posession during their hospitalization. The following Patient Care Plans were discussed with the PT: Discharge Planning, PAIN CONTROL,IV THERAPY, and TESTS AND PROCEDURES. PRIMO BORJA verbalizes understanding of Interdisciplinary Patient Education. Patient and/or family were informed about the Rapid Response Team and its purpose.
[2019-02-18] MEDS ORDERED: morphine INJ 10 MG/ML 1ML (SYR OR VIAL) ONE (15:00)
--- NOTE | 2019-02-18 15:36 | Diagnostic Imaging Report ---
INDICATION: Postop. COMPARISON: Study compared with exam 02/07/2019. FINDINGS: A reverse arthroplasty performed. Residual fracture fragments of the proximal humeral neck in stable alignment. No adverse development. IMPRESSION: Proximal humeral fractures treated with reverse arthroplasty in good alignment. Dictated by: Dictated on workstation # [id number]
[2019-02-18] MEDS: metFORMIN 500 MG (GLUCOPHAGE) TAB PO SCH (17:58)
[2019-02-18] MEDS: RT-ALBUTEROL SULF 2.5 MG/3 ML PRE-MIX VIAL INH SCH ×2 (18:37→22:27)
--- NOTE | 2019-02-18 19:25 | OPERATIVE REPORT ---
DATE OF SERVICE: 02/18/2019 PREOPERATIVE DIAGNOSES: Primary degenerative joint disease of left glenohumeral joint, comminuted left proximal humerus fracture. POSTOPERATIVE DIAGNOSES: Primary degenerative joint disease of left glenohumeral joint, comminuted left proximal humerus fracture. PROCEDURE: Left reverse total shoulder arthroplasty. SURGEON: Serene Crane MD ATTENDING RADIOLOGIST: Markus Cárdenas PA-C. ATTENDING RADIOLOGIST SURGEON DUTIES: The patient positioning, retraction, wound closure, application of sterile dressings. Use of an assistant counsel surgeon was medically indicated. ANESTHESIA: General with ultrasound-guided interscalene block, use of ultrasound-guided interscalene block is medically indicated for postoperative pain control and a EXECUTIVE ASSISTANT TO GENERAL COUNSEL was consulted for their expertise in placement of the block. COMPLICATIONS: None. SPECIMENS: None. ESTIMATED BLOOD LOSS: 100 mL. IMPLANTS: Arthrex reverse total shoulder arthroplasty system with a 24 mm modular glenoid baseplate, 20 mm central compression screw, superior and inferior locking screws, posterior compression screw, Arthrex 33 mm glenosphere with a +4 lateral offset and central locking bolt, Arthrex 8 mm reverse humeral stem cemented with a 6 mm spacer on a 36 mm reverse body, then a +6 mm polyethylene bearing for a total of 12 mm spacer height. INDICATIONS: This lady has fallen two weeks ago, sustained a comminuted proximal humerus fracture. She came to the operating room for reverse total shoulder arthroplasty. Her shoulder is severely arthritic. DESCRIPTION OF PROCEDURE: After informed consent, the patient was transported to the operating room. She was placed on the operating table in supine position. General anesthesia was induced. She was positioned in the beach chair position with the head on the shoulder positioner and the bolster was removed behind the left scapula, so the shoulder could be fully extended. The left upper extremity was prepped with isopropyl alcohol followed by ChloraPrep and was draped in sterile fashion. A time out was done and documented. An oblique incision was made over the left anterior shoulder. It was carried out through subcutaneous tissues. The deltopectoral interval was opened by blunt dissection and the cephalic vein was retracted laterally with the deltoid. The self-retaining retractors were then was placed with a large lateral blade on the deltoid, medial blade on the conjoined tendon and pectoralis major. The clavipectoral fascia was opened. Fracture hematoma extruded. The biceps was identified. It was dissected and released. The head fragment was malrotated and the subscapularis was released from the lesser tuberosity and reflected and then the head fragment was dissected out and removed with electrocautery. The shaft fragment was noted. There were some areas of comminution down the shaft of the humerus. The glenoid was inspected. Severe degenerative changes noted with sclerotic bone on the surface. The labrum was removed. The guide pin was drilled in the center of the glenoid followed by the long face reamer and central reamer. The pin was measured and a 20 mm tap was used and then the modular glenoid component was assembled on the back table. It was screwed down to the glenoid for a good tight fit. Superior and inferior locking screws were placed and posterior compression screw was placed. The 33 mm glenosphere was impacted and then the central locking bolt was impacted. The humeral shaft then was approached. Part of the greater tuberosity had been taken off with the rotator cuff tendon and was sutured with stay sutures. The shaft was thoroughly irrigated, it was then reamed and broached up to an 8. I trialed the 8 broach with a +3, then the +6 insert and the shoulder was noted to be stable with a +6. Therefore, the implants were opened and assembled on the back table. The neck angle was set at 135 degrees. The stem that was impacted for good press fit and then the polyethylene humeral trial was used. I felt that the stem had subsided and that was not getting a good fit due to the comminution. Therefore, the stem was removed. Cement was opened and mixed. The canal was thoroughly irrigated and suctioned dried and methyl methacrylate was placed on the stem when it reached a doughy consistency. The stem then was placed in the humeral shaft and was left slightly proud to make up for loss of length. Once the cement hardened, the insert was trialed. It was elected to use a +6 metal spacer on the reverse body and then used the +6 polyethylene insert. The shoulder was reduced. It was very stable. The wound was thoroughly irrigated with pulse lavage. The greater tuberosity and rotator cuff were repaired to the stem with #5 Ethibond suture. The subscapularis was too thin and damaged to repair. The deltopectoral interval then was closed with a running 0 Vicryl followed by running 2-0 Vicryl and 3-0 Stratafix on the skin. Sterile dressing was applied. The patient was placed in a sling and transferred to the recovery room in stable condition. Job ID: [id number] DocumentID: [id number] Dictated Date: 02/18/2019 14:40:26 City Planning Teacher Date: 02/18/2019 19:25:28 Dictated By: SERENE CRANE MD
[2019-02-18] MEDS: ceFAZolin 2 GM IV Premixed 50 ML IV SCH (20:38)
[2019-02-18] MEDS: ALPRAZolam 0.25 MG (XANAX) TAB PO PRN (20:38)
[2019-02-18] MEDS: busPIRone 10 MG (BUSPAR) TAB PO SCH (20:38)
[2019-02-18] MEDS: MONTELUKAST 10 MG (SINGULAIR) TAB PO SCH (20:38)
[2019-02-18] MEDS: HYDROcodone/APAP 5 MG/325 MG (LORTAB) TAB PO PRN (20:39)
[2019-02-18] MEDS ORDERED: NON-FORMULARY MEDICATION 1 EA EA (Buspirone HCl 10 MG) PO SCH (21:00)
[2019-02-18] MEDS ORDERED: NON-FORMULARY MEDICATION 1 EA EA (Metformin HCl 500 MG) PO SCH (21:00)
[2019-02-18] MEDS: SODIUM CHLORIDE 1 GM TABLET PO SCH (22:50)
[2019-02-18] MEDS: morphine INJ 4 MG/ML 1 ML (VIAL/SYRINGE) IVP PRN (22:50)
[2019-02-19] MEDS: HYDROcodone/APAP 5 MG/325 MG (LORTAB) TAB PO PRN ×4 (00:21→20:44)
[2019-02-19] MEDS: morphine INJ 4 MG/ML 1 ML (VIAL/SYRINGE) IVP PRN (02:02)
[2019-02-19] MEDS ORDERED: LORazepam INJ 2 MG/ML (ATIVAN) VIAL IVP ONE (02:15)
[2019-02-19] MEDS: RT-ALBUTEROL SULF 2.5 MG/3 ML PRE-MIX VIAL INH SCH ×6 (02:40→23:19)
--- NOTE | 2019-02-19 02:57 | NUR ---
dr mckeon notified pt very anxious unable to be controlled by medications ordered.. new order for ativan recieved.. med given
[2019-02-19 04:34] VITALS: BP 150/68
[2019-02-19 04:40] LABS: HEMOGLOBIN 8.4 G/DL (11.5-16.0); MEAN PLATELET VOLUME 7.8 FL (7.4-10.4); RED CELL DISTRIBUTION WIDTH 16.8 % (10.0-14.5); WHITE BLOOD COUNT 11.1 10^3/uL (4.3-11.0)
--- NOTE | 2019-02-19 04:59 | NUR ---
pt rested well for approx 1 hour after the ativan.. now awake and has noted anxiety. difficult to reassure
[2019-02-19 05:01] LABS: CALCIUM 8.8 MG/DL (8.5-10.1); CREATININE SERUM 1.35 MG/DL (0.60-1.30); POTASSIUM 5.3 MMOL/L (3.6-5.0)
[2019-02-19] MEDS: metFORMIN 500 MG (GLUCOPHAGE) TAB PO SCH (05:10)
[2019-02-19] MEDS: ceFAZolin 2 GM IV Premixed 50 ML IV SCH (05:14)
[2019-02-19] MEDS: NS IV 1000 ML 1,000 ML IV SCH ×2 (05:56→23:57)
[2019-02-19] MEDS ORDERED: GLIMEPIRIDE 4 MG (AMARYL) TAB PO SCH (06:30)
[2019-02-19 08:00] VITALS: BP 118/58
--- NOTE | 2019-02-19 08:20 | Anesthesia-General Post-Op ---
General Patient Condition Mental Status/LOC: Same as Preop Cardiovascular: Satisfactory Nausea/Vomiting: Absent Respiratory: Satisfactory Pain: Controlled Complications: Absent Post Op Complications Complications None Follow Up Care/Instructions Patient Instructions None needed. Anesthesia/Patient Condition Patient Condition Patient is doing well, no complaints, stable vital signs, no apparent adverse anesthesia problems. No complications reported per nursing. NURY ESPINAL CRNA Feb 19, 2019 08:20 POS
[2019-02-19] MEDS: SODIUM CHLORIDE 1 GM TABLET PO SCH ×2 (08:33→20:44)
[2019-02-19] MEDS: lisINopril 20 MG (PRINIVIL) TABLET PO SCH (08:33)
[2019-02-19] MEDS: busPIRone 10 MG (BUSPAR) TAB PO SCH ×3 (08:33→20:44)
[2019-02-19] MEDS: ALPRAZolam 0.25 MG (XANAX) TAB PO PRN (08:33)
[2019-02-19] MEDS ORDERED: FUROSEMIDE 20 MG (LASIX) TAB PO SCH (09:00)
[2019-02-19] MEDS ORDERED: NON-FORMULARY MEDICATION 1 EA EA (Lisinopril/Hydrochlorothiazide (Lisinopril-Hctz 20-25 mg PO SCH (09:00)
[2019-02-19] MEDS ORDERED: FLUTICASONE NASAL SPRAY (FLONASE) 16 GM BTL NS SCH (09:00)
[2019-02-19] MEDS ORDERED: NON-FORMULARY MEDICATION 1 EA EA (Amlodipine Besylate 10 MG) PO SCH (09:00)
[2019-02-19] MEDS ORDERED: NON-FORMULARY MEDICATION 1 EA EA (Glimepiride 4 MG) PO SCH (09:00)
[2019-02-19] MEDS ORDERED: amLODIPine 10 MG (NORVASC) TAB PO SCH (09:00)
--- NOTE | 2019-02-19 09:42 | NUR ---
PRIOR TO A.M. MEDICATIONS PULSE WAS 95 BPM, B/P WAS 118/58.
[2019-02-19] MEDS ORDERED: DOCUSATE SODIUM 100 MG (COLACE) CAP PO PRN (10:45)
[2019-02-19] MEDS ORDERED: ONDANSETRON 4 MG/2 ML (SDV) Z0FRAN IVP PRN (10:45)
[2019-02-19] MEDS ORDERED: diphenhydrAMINE 25 MG TAB (BENADRYL) PO PRN (10:45)
[2019-02-19] MEDS ORDERED: ANTACID SUSP 30 ML UDC (MYLANTA) PO PRN (10:45)
[2019-02-19] MEDS ORDERED: LOPERAMIDE 2 MG (IMODIUM) TABLET PO PRN (10:45)
[2019-02-19] MEDS ORDERED: LORazepam INJ 2 MG/ML (ATIVAN) VIAL IVP PRN (10:45)
[2019-02-19] MEDS: amLODIPine 10 MG (NORVASC) TAB PO SCH (11:04)
--- NOTE | 2019-02-19 11:15 | Consultation - Hospitalist ---
[facility] 02/19/19 1115: HPI History of Present Illness: HPI/Chief Complaint Left shoulder pain 1 day post operative repair of proximal humerus fracture Source: patient Exam Limitations: no limitations Date Seen 02/19/19 Attending Physician Malcolm Crane MD PCP Reji Daigle MD Referring Physician Date of Admission Feb 18, 2019 at 08:24 Home Medications & Allergies Home Medications Reviewed patient Home Medication Reconciliation performed by pharmacy medication reconciliations operating room technician and/or nursing. Patients Allergies have been reviewed. Allergies Allergies Coded Allergies codeine (Verified Adverse Reaction, Mild, NAUSEA, 02/08/19) Past Odyelca-Gwbwmk-Nvvgrb Hx Patient Social History Employed/Student: employed, unemployed Alcohol Use: Denies Use Recreational Drug Use: No Smoking Status: Never a Smoker Physical Abuse Screen: No Sexual Abuse: No Recent Foreign Travel: No Contact w/other who traveled: No Recent Hopitalizations: No Immunizations Up To Date Pediatric: Yes Date of Pneumonia Vaccine: Jul 05, 2015 Date of Influenza Vaccine: Feb 03, 2019 Seasonal Allergies Seasonal Allergies: No Past Medical History Surgeries: Hysterectomy Currently Using CPAP: No Currently Using BIPAP: No Cardiac: High Cholesterol, Hypertension : No Reproductive: No Sexually Transmitted Disease: No HIV/AIDS: No Female Reproductive Disorders: Denies Hysterectomy Musculoskeletal: Arthritis, Chronic Back Pain, Fractures Endocrine: Diabetes, Non-Insulin dep Loss of Vision: Denies Cancer: Uterine Did You Recieve Any Treatments: Yes What Type of Treatment Did You: Surgical Intervention Psychosocial: Anxiety History of Blood Disorders: No Adverse Reaction to Blood Richardson: No Family History Diabetes mellitus 19 FATHER Hypertension 19 FATHER Diabetes, Hypertension Review of Systems Constitutional: No chills, No fever EENTM: no symptoms reported, other (Dry mouth,); No blurred vision Respiratory: No cough, No short of breath Cardiovascular: No chest pain, No palpitations Gastrointestinal: No abdominal pain, No diarrhea Skin: no symptoms reported Psychiatric/Neurological: Anxiety, Headache Physical Exam Physical Exam Vital Signs Vital Signs - First Documented 02/18/19 02/18/19 14:35 20:00 Temp 36.5 Pulse 82 Resp 8 B/P (MAP) 89/47 (61) Pulse Ox 96 O2 Delivery OxyMask O2 Flow Rate 10 Capillary Refill : Less Than 3 Seconds Height, Weight, BMI Height: 5'" Weight: 203lbs. oz. [id number]; 38.30 BMI Method:Stated General Appearance: Mild Distress Respiratory: Chest Non Tender, No Accessory Muscle Use, No Respiratory Distress Cardiovascular: Regular Rate, Rhythm, No Murmur, Normal Peripheral Pulses Extremity: No Calf Tenderness, No Pedal Edema Neurologic/Psychiatric: Alert; No Normal Mood/Affect (Anxious); Disoriented (Improved over visit time) Skin: Normal Color, Warm/Dry Results Results/Procedures Labs Laboratory Tests 02/19/19 04:25 Patient resulted labs reviewed. Assessment/Plan Assessment and Plan Assess & Plan/Chief Complaint Assessment: S/P shoulder pain Anxiety Hyponatremia Hyperkalemia Chronic renal insufficiency HTN Plan: Continue pain management Provide anxiety relief with IV Ativan Continue to monitor sodium levels, sodium tablet, fluid restriction Monitor hypertension Start OT/PT Clinical Quality Measures DVT/VTE Risk/Contraindication: Risk Factor Score Per Nursin RFS Level Per Nursing on Admit: 4+=Very High AIMEE VACA DO 02/19/19 1226: HPI History of Present Illness: HPI/Chief Complaint Chief complaint: Medical management following left proximal humerus fracture repair by Dr. Crane History of present illness: This is a 78-year-old white female known to me from inpatient rehabilitation for 1 week following a fall on the [employer] suffering a proximal left humerus fracture requiring inpatient rehabilitation to correct severe hyponatremia and renal failure and then undergoing an uncomplicated re pair yesterday. Patient has a learning disability and requires 24/7 nursing care to she will go to a long term on Friday after recovering from surgery. Currently she is having a little bit of a delirium but hyponatremia of 129 even though D5 1 half normal saline IV fluid was going over night. Patient reports her pain is pretty well controlled. Past Dgwkggo-Itujjw-Lmmshu Hx Past Med/Social Hx: Reviewed Nursing Past Med/Soc Hx, Reviewed and Corrections made Patient Social History Marrital Status: single Employed/Student: unemployed Past Medical History Neurological: Developmental Disorder Family History Diabetes mellitus 19 FATHER Hypertension 19 FATHER Review of Systems Constitutional: see HPI Musculoskeletal: joint pain Psychiatric/Neurological: Anxiety Physical Exam Physical Exam General Appearance: Anxious, Chronically ill, Mild Distress, Obese Respiratory: Lungs Clear Cardiovascular: Regular Rate, Rhythm Neurologic/Psychiatric: Alert, Disoriented (Improved over visit time) Assessment/Plan Assessment and Plan Assess & Plan/Chief Complaint Assessment: Status post left proximal humerus fracture repair uncomplicated POD # 1 Hyponatremia Chronic renal sufficiency Learning disability In need a 24/7 nursing care Plan: Fluid restriction Salt tablets Monitor closely Diagnosis/Problems Diagnosis/Problems (1) Fracture of proximal end of left humerus (2) Frequent falls (3) Chronic renal insufficiency (4) Hyponatremia (5) Anemia (6) Diabetes mellitus (7) Anxiety Status: Acute Supervisory-Addendum Brief Verification & Attestation Participated in pt care: history, MDM, physical Personally performed: exam, history, MDM, supervision of care Care discussed with: Medical Student Procedures: n/a Results interpretation: Verified all documentation Verification and Attestation of Medical Student E/M Service A medical student performed and documented this service in my presence. I reviewed and verified all information documented by the medical student and made modifications to such information, when appropriate. I personally performed the physical exam and medical decision making. Aimee Vaca, Feb 19, 2019,12:26 [facility] Feb 19, 2019 11:15 AIMEE PERRY DO Feb 19, 2019 12:26 POS
[2019-02-19] MEDS: inSUlin ASPART (NovoLOG) 1 UNIT/0.01 ML (CHARGE PER UNIT) SC SCH ×3 (11:27→21:16)
--- NOTE | 2019-02-19 11:54 | Physical Therapy Evaluation ---
PT Evaluation-General Medical Diagnosis Admission Date Feb 18, 2019 at 08:24 Medical Diagnosis: S/P L reverse TSA Onset Date: Feb 18, 2019 Therapy Diagnosis Therapy Diagnosis: Decreased ROM, decreased general strength, decreased activity bj Height/Weight Height (Feet): 5 Weight (Pounds): 203 Precautions Precautions/Isolations: Chemo Precautions, Fall Prevention, Standard Precautions, Pressure Ulcer Weight Bear Status Right Lower Extremity: Right Weight Bearing/Tolerated Left Lower Extremity: Left Weight Bearing/Tolerated no weight bearing on left arm Referral Physician: Rosa Maria Reason for Referral: Evaluation/Treatment, Gait Medical History Pertinent Medical History: Arthritis, DM, HTN Reviewed History: Yes Social History Home: Single Level Current Living Status: Alone Entry Into Home: Stairs With Railing PT Steps Into Home: 3 Prior Prior Level of Function SCALE: Activities may be completed with or without assistive devices. 3-Qopedxgbad-lwtofpe completes the activity by him/herself with no assistance from a helper. 5-Set-up or Clean-up Assistance-helper sets up or cleans up; patient completes activity. [place] assists only prior to or following the activity. 4-Supervision or Touching Assistance-helper provides verbal cues and/or touching/steadying and/or contact guard assistance as patient completes activity. Assistance may be provided throughout the activity or intermittently. 3-Partial/Moderate Assistance-helper does LESS THAN HALF the effort. [place] lifts, holds or supports trunk or limbs, but provides less than half the effort. 2-Substantial/Maximal Assistance-helper does MORE THAN HALF the effort. [place] l ifts or holds trunk or limbs and provides more than half the effort. 0-Fmtbfkilg-tlfhfo does ALL the effort. Patient does none of the effort to complete the activity. Or, the assistance of 2 or more helpers is required for the patient to complete the activity. If activity was not attempted, code reason: 7-Patient Refused. 9-Not Applicable-not attempted and the patient did not perform the activity before the current illness, exacerbation or injury. 10-Not Attempted due to Environmental Limitations-(lack of equipment, weather restraints, etc.). 88-Not Attempted due to Medical Conditions or Safety Concerns. Bed Mobility: 6 Transfers (B,C,W/C): 6 Gait: 6 Indoor Mobility (Ambulation): Independent Prior Device Use: used single point cane PT Evaluation-Current Subjective pt in recliner pre-tx finishing up OT, with nurse mechanic's assistant, and friends in the room. Pt agrees to PT this morning. Pt rates pain 5/10 in the L shoulder. RN aware and pain meds given during TX. Pt/Family Goals Pt's goal is to be independent at home Objective Patient Orientation: Person, Situation Attachments: Oxygen (2L), IV Sling on L arm Pt asks multiple times if she is doing okay or "what did I do wrong" or "are you mad at me" this PT reassured pt she was doing fine with therapy. ROM/Strength Strength Upper Extremities R: hip flexion 4/5, knee flexion 5/5, knee extension 5/5 L: hip flexion 4-/5, knee flexion 4/5, knee extension 4/5 Sensory Vision: Wears Glasses Hearing: Functional Hand Dominance: Right Sensation Left Upper Extremity: Intact Sensation Right Lower Extremit: Intact Sensation Left Lower Extremity: Intact Transfers Sit to Stand (QC): 2 (MaxA ) pt has no control of decent into chair this date. Gait Does the Patient Walk?: No and Walking Goal IS indicated Balance Sitting Static: Fair Sitting Dynamic: Poor Standing Static: Poor Standing Dynamic: Poor Treatment Pt performed AROM wrist flexion/extension, and gripping with L UE. Pt participated in PROM L UE elbow flexion/extension 20sets for all, pt performed functional transfer training with sit to stands (3 stands), and education this date. Assessment/Needs Rehab Potential: Fair PT Forest Ecologist Goals [facility] Goals PT [facility] Goals Time Frame: Feb 26, 2019 Sit to Stand (QC): 4 (CGA) Distance: 100 Walk 10 feet (QC): 4 (CGA) Walk 10ft-Uneven Surface(QC): 4 (CGA) Walk 50ft with 2 Turns (QC): 4 (CGA) Gait Assistive Device: Handheld Assist 1 Step (curb) (QC): 3 (Nasima) 4 Steps (QC): 3 (Nasima) PT Plan Problem List Problem List: Activity Tolerance, Functional Strength, Safety, Balance, Gait, Transfer, Bed Mobility, ROM Treatment/Plan Treatment Plan: Continue Plan of Care Treatment Plan: Bed Mobility, Education, Functional Activity Isaias, Functional Strength, Gait, Safety, Therapeutic Exercise, Transfers Frequency: 6 times per week Estimated Hrs Per Day: .25 hour per day Patient and/or Family Agrees t: Yes Safety Risks/Education Patient Education: Transfer Techniques, Reviewed Precautions, Correct Positioning, Safety Issues Teaching Recipient: Patient Teaching Methods: Demonstration, Discussion Response to Teaching: Verbalize Understanding, Return Demonstration, Reinforcement Needed Discharge Recommendations Plan Patient will perform bed mobility and transfer training, balance and endurance training, functional strengthening, stair training, gait training, and education, to improve functional mobility and independence at home. Time/GCodes Time In: 1120 Time Out: 1140 Total Billed Treatment Time: 20 Total Billed Treatment 1 visit KAMILA XIAO PT Feb 19, 2019 11:54 POS
[2019-02-19 12:00] VITALS: BP 121/70
--- NOTE | 2019-02-19 12:00 | Occupational Therapy Eval ---
OT Evaluation-General/PLF Medical Diagnosis Admission Date Feb 18, 2019 at 08:24 Medical Diagnosis: left reverse total shoulder Onset Date: Feb 07, 2019 Therapy Diagnosis Therapy Diagnosis: impaired self care skills Height/Weight Height (Feet): 5 Weight (Pounds): 203 Precautions Precautions/Isolations: Chemo Precautions, Fall Prevention, Standard Precautions, Pressure Ulcer Referral Physician: Rosa Maria Medical History Pertinent Medical History: Arthritis, DM, HTN Additional Medical History high cholesterol, chronic back pain, anxiety Current History Pt fell on 02/07 resulting in left humeral fracture. Pt was on rehab prior to surgical intervention and had Reverse total shoulder on 02/18. Order received for OT evaluation post surgery. ADL-Prior Level of Function SCALE: Activities may be completed with or without assistive devices. 2-Lfrgytkvhr-zncyeum completes the activity by him/herself with no assistance from a helper. 5-Set-up or Clean-up Assistance-helper sets up or cleans up; patient completes activity. [place] assists only prior to or following the activity. 4-Supervision or Touching Assistance-helper provides verbal cues and/or touching/steadying and/or contact guard assistance as patient completes activity. Assistance may be provided throughout the activity or intermittently. 3-Partial/Moderate Assistance-helper does LESS THAN HALF the effort. [place] lifts, holds or supports trunk or limbs, but provides less than half the effort. 2-Substantial/Maximal Assistance-helper does MORE THAN HALF the effort. [place] lifts or holds trunk or limbs and provides more than half the effort. 8-Jaozaheqj-lxtzlz does ALL the effort. Patient does none of the effort to complete the activity. Or, the assistance of 2 or more helpers is required for the patient to complete the activity. If activity was not attempted, code reason: 7-Patient Refused. 9-Not Applicable-not attempted and the patient did not perform the activity before the current illness, exacerbation or injury. 10-Not Attempted due to Environmental Limitations-(lack of equipment, weather restraints, etc.). 88-Not Attempted due to Medical Conditions or Safety Concerns. ADL PLOF Comments Prior to fall pt reports being able to complete basic self care and mobility skills DME/Equipment: Bath Chair, Tub/Shower OT Current Status Subjective Pt sitting in chair, agreeable, but states she doesn't think she can do much today. Pt reports pain in left shoulder, but does not rate. Requests pain meds, RN notified. Mental Status/Objective Patient Orientation: Person Current Glasses/Contacts: Yes Hand Dominance: Right Upper Extremity ROM Right UE grossly WFL Left UE in sling Upper Extremity Coordination impaired left UE ADL-Treatment ADL-Current Pt sitting in chair, participated in grooming tasks. Pt washed face with SBA and increased time. Pt able to comb right side of hair, but assist for left. Pt declined further activity. Sitting in chair with needs met and visitor present after session. Education OT Patient Education: Rehab process Teaching Recipient: Patient Teaching Methods: Discussion Response to Teaching: Reinforcement Needed OT Short Term Goals Short Term Goals 1=Demonstrate adherence to instructed precautions during ADL tasks. 2=Patient will verbalize/demonstrate understanding of assistive devices/modifications for ADL. 3=Patient will improve strength/tolerance for activity to enable patient to perform ADL's. OT Assisted Goals Office Workforce Planner Goals Time Frame: Mar 05, 2019 Eating (QC): 5 Oral Hygiene (QC): 5 Upper Body Dressing (QC): 3 Lower Body Dressing (QC): 3 Toilet/Commode Transfer (QC): 4 Additional Goals: 1-Demonstrate ADL Tasks, 2-Verbalize Understanding, 3-ImproveStrength/Isaias 1=Demonstrate adherence to instructed precautions during ADL tasks. 2=Patient will verbalize/demonstrate understanding of assistive devices/modifications for ADL. 3=Patient will improve strength/tolerance for activity to enable patient to perform ADL's. OT Education/Plan Problem List/Assessment Assessment: Decreased Activ Tolerance, Decreased Safety Aware, Decreased UE Strength, Dependent Transfers, Impaired Coordination, Impaired Funct Balance, Impaired I ADL's, Impaired Self-Care Skills, Restricted Funct UE ROM Pt had a fall resulting in left humeral fracture, now s/p reverse total shoulder. Pt demonstrates decreased ADL functioning, mobility, strength, and activity tolerance. Pt to benefit from skilled OT intervention for ADL training, transfers, strengthening, and safety education to increase level of function and allow safe discharge plan. Discharge Recommendations Plan/Recommendations: Continue POC Treatment Plan/Plan of Care Treatment,Training & Education: Yes Patient would benefit from OT for education, treatment and training to promote independence in ADL's, mobility, safety and/or upper extremity function for ADL's. Plan of Care: ADL Retraining, Functional Mobility, UE Funct Exercise/Act Treatment Duration: Mar 05, 2019 Frequency: 5 times per week Estimated Hrs Per Day: .25 hour per day Rehab Potential: Fair Time/GCodes Start Time: 11:10 Stop Time: 11:20 Total Time Billed (hr/min): 10 Billed Treatment Time 1, visit, EVM(10minutes) BENJAMIN ADAMES OT Feb 19, 2019 12:00 POS
--- NOTE | 2019-02-19 13:10 | NUR ---
Initial visit: Pt in her recliner, appeared comfortable and said she was not in pain. When I introduced myself, she said appreciated a overhead crane operator visiting her and requested prayer for healing. The pt is Zoroastrianism and says she attends [facility] [facility] [employer] every Friday and describes a meaningful relationship with Pastor Gt Murillo.
[2019-02-19] MEDS ORDERED: RT-ALBUTEROL SULF 2.5 MG/3 ML PRE-MIX VIAL INH SCH (14:00)
[2019-02-19 16:21] VITALS: BP 146/72
--- NOTE | 2019-02-19 16:56 | Progress Note ---
Subjective Date Seen by a Provider: Feb 19, 2019 Time Seen by a Provider: 16:49 Subjective/Events-last exam Patient is a wake and not complaining of pain. Objective Exam Vital Signs Date Time Temp Pulse Resp B/P (MAP) Pulse Ox O2 Delivery O2 Flow Rate FiO2 02/19/19 16:21 36.7 103 18 146/72 (96) 99 Nasal Cannula 3.00 02/19/19 14:17 96 Nasal Cannula 3.00 02/19/19 12:00 36.1 100 18 121/70 (87) 99 Nasal Cannula 4.00 02/19/19 10:28 91 Nasal Cannula 3.00 02/19/19 09:00 98 Nasal Cannula 4.00 02/19/19 08:00 36.5 95 20 118/58 (78) 98 Nasal Cannula 4.00 02/19/19 06:36 91 Nasal Cannula 3.00 02/19/19 04:34 36.4 92 18 150/68 (95) 99 Nasal Cannula 4.00 02/18/19 23:50 36.2 88 22 142/63 (89) 96 Nasal Cannula 4.00 02/18/19 22:27 95 Nasal Cannula 3.00 02/18/19 21:00 96 Nasal Cannula 4.00 02/18/19 20:06 96 Room Air 02/18/19 20:00 35.8 82 18 110/55 (73) 97 Nasal Cannula 4.00 02/18/19 18:37 94 Nasal Cannula 3.00 02/18/19 18:17 36.2 16 106/80 98 Nasal Cannula 3.00 3.00 I & O 02/19/19 07:00 Intake Total 450 ml Output Total 150 ml Balance 300 ml Capillary Refill : Less Than 3 Seconds General Appearance: No Apparent Distress Other comments Dressing removed and Incision is dry and clean Left hand was found dependent to the heart and is now very swollen. Repositioned the hand back above heart and supported the shoulder with blankets to keep hand in place. N/V/M/I left hand. Results Lab Laboratory Tests 02/18/19 20:23: Glucometer 129H 02/19/19 04:25: White Blood Count 11.1H, Red Blood Count 2.96L, Hemoglobin 8.4L, Hematocrit 26L, Mean Corpuscular Volume 89, Mean Corpuscular Hemoglobin 28, Mean Corpuscular Hemoglobin Concent 32, Red Cell Distribution Width 16.8H, Platelet Count 376, Mean Platelet Volume 7.8, Sodium Level 129L, Potassium Level 5.3H, Chloride Level 95L, Carbon Dioxide Level 24, Anion Gap 10, Blood Urea Nitrogen 38H, Creatinine 1.35H, Estimat Glomerular Filtration Rate 38, BUN/Creatinine Ratio 28, Glucose Level 165H, Calcium Level 8.8 02/19/19 11:21: Glucometer 149H 02/19/19 16:21: Glucometer 119H Assessment/Plan Assessment/Plan Assess & Plan/Chief Complaint post - op left reverse total shoulder arthroplasty for left proximal humerus fracture Plan: leave the dressing off the wound Patient is to be move to Dr. Villagomez's service Sling to be used while patient is ambulating. Clinical Quality Measures DVT/VTE Risk/Contraindication: Risk Factor Score Per Nursin RFS Level Per Nursing on Admit: 4+=Very High LINUS VICTOR Feb 19, 2019 16:56 POS
[2019-02-19] MEDS: LORazepam INJ 2 MG/ML (ATIVAN) VIAL IVP PRN ×2 (17:31→23:55)
[2019-02-19 19:55] VITALS: BP 135/79
[2019-02-19] MEDS: MONTELUKAST 10 MG (SINGULAIR) TAB PO SCH (20:43)
[2019-02-19] MEDS: SENNA W/DOCUSATE (SENOKOT S) TABLET PO SCH (20:43)
[2019-02-19] MEDS: ENOXAPARIN 40 MG/0.4 ML (LOVENOX) SYR SC SCH (20:43)
[2019-02-19] MEDS: POLYETHYLENE GLYCOL 17 GM (MIRALAX) PACK PO SCH (20:44)
[2019-02-20 00:15] VITALS: BP 129/63
[2019-02-20] MEDS: RT-ALBUTEROL SULF 2.5 MG/3 ML PRE-MIX VIAL INH SCH ×6 (03:45→22:05)
[2019-02-20 04:22] VITALS: BP 121/62
[2019-02-20 05:23] LABS: HEMOGLOBIN 8.1 G/DL (11.5-16.0); MEAN PLATELET VOLUME 8.1 FL (7.4-10.4); RED CELL DISTRIBUTION WIDTH 16.8 % (10.0-14.5); WHITE BLOOD COUNT 11.1 10^3/uL (4.3-11.0)
[2019-02-20 05:43] LABS: CALCIUM 8.5 MG/DL (8.5-10.1); POTASSIUM 5.2 MMOL/L (3.6-5.0)
[2019-02-20] MEDS: inSUlin ASPART (NovoLOG) 1 UNIT/0.01 ML (CHARGE PER UNIT) SC SCH ×4 (05:53→21:19)
[2019-02-20] MEDS: HYDROcodone/APAP 5 MG/325 MG (LORTAB) TAB PO PRN ×3 (05:53→18:28)
[2019-02-20] MEDS: GLIMEPIRIDE 4 MG (AMARYL) TAB PO SCH (05:53)
[2019-02-20 07:15] VITALS: BP 117/57
[2019-02-20] MEDS: amLODIPine 10 MG (NORVASC) TAB PO SCH (07:52)
[2019-02-20] MEDS: ALPRAZolam 0.25 MG (XANAX) TAB PO PRN ×2 (07:52→22:12)
[2019-02-20] MEDS: SENNA W/DOCUSATE (SENOKOT S) TABLET PO SCH ×2 (07:52→20:36)
[2019-02-20] MEDS: POLYETHYLENE GLYCOL 17 GM (MIRALAX) PACK PO SCH ×2 (07:53→20:36)
[2019-02-20] MEDS: lisINopril 20 MG (PRINIVIL) TABLET PO SCH (07:53)
[2019-02-20] MEDS: busPIRone 10 MG (BUSPAR) TAB PO SCH ×2 (07:53→20:35)
[2019-02-20] MEDS: FLUTICASONE NASAL SPRAY (FLONASE) 16 GM BTL NS SCH (07:55)
[2019-02-20] MEDS: morphine INJ 4 MG/ML 1 ML (VIAL/SYRINGE) IVP PRN (07:59)
[2019-02-20] MEDS ORDERED: FUROSEMIDE 20 MG (LASIX) TAB PO SCH (09:00)
[2019-02-20] MEDS: SODIUM CHLORIDE 1 GM TABLET PO SCH ×2 (10:47→20:36)
[2019-02-20 11:53] VITALS: BP 104/56
--- NOTE | 2019-02-20 13:00 | Physical Therapy Daily Note ---
PT Daily Note-Current Subjective Pt is very confused and agitated on arrival. Mental Status Patient Orientation: Confused Transfers SCALE: Activities may be completed with or without assistive devices. 2-Mzeavecbra-eskktyo completes the activity by him/herself with no assistance from a helper. 5-Set-up or Clean-up Assistance-helper sets up or cleans up; patient completes activity. [place] assists only prior to or following the activity. 4-Supervision or Touching Assistance-helper provides verbal cues and/or touching/steadying and/or contact guard assistance as patient completes activity. Assistance may be provided throughout the activity or intermittently. 3-Partial/Moderate Assistance-helper does LESS THAN HALF the effort. [place] lifts, holds or supports trunk or limbs, but provides less than half the effort. 2-Substantial/Maximal Assistance-helper does MORE THAN HALF the effort. [place] lifts or holds trunk or limbs and provides more than half the effort. 7-Zywntszch-yvdnyz does ALL the effort. Patient does none of the effort to complete the activity. Or, the assistance of 2 or more helpers is required for the patient to complete the activity. If activity was not attempted, code reason: 7-Patient Refused. 9-Not Applicable-not attempted and the patient did not perform the activity before the current illness, exacerbation or injury. 10-Not Attempted due to Environmental Limitations-(lack of equipment, weather restraints, etc.). 88-Not Attempted due to Medical Conditions or Safety Concerns. Transfers (B, C, W/C): 3 Roll Left to Right (QC): 3 Sit to Lying (QC): 3 Sit to Stand (QC): 3 Chair/Ato-de-Tntad Xfer(QC): 3 Weight Bearing Right Lower Extremity: Right Weight Bearing/Tolerated Left Lower Extremity: Left Weight Bearing/Tolerated no weight bearing on left arm Gait Training Does the Patient Walk?: Yes Gait: 1 Distance: 4ft Gait Assistive Device: Cane Single Point Exercises Supine Ex: LE Protocol Supine Reps: 20 Assessment Pt sat edge of bed for 4 minutes with supervision. She was able to transfer over to the chair. Chair alarm on once seated. PT Bail Bonding Agent Goals Bail Bonding Agent Goals PT Group Home Goals Time Frame: Feb 26, 2019 Sit to Stand (QC): 4 (CGA) Distance: 100 Walk 10 feet (QC): 4 (CGA) Walk 10ft-Uneven Surface(QC): 4 (CGA) Walk 50ft with 2 Turns (QC): 4 (CGA) Gait Assistive Device: Handheld Assist 1 Step (curb) (QC): 3 (Nasima) 4 Steps (QC): 3 (Nasima) PT Plan Treatment/Plan Treatment Plan: Continue Plan of Care Treatment Plan: Bed Mobility, Education, Functional Activity Isaias, Functional Strength, Gait, Safety, Therapeutic Exercise, Transfers Frequency: 6 times per week Estimated Hrs Per Day: .25 hour per day Patient and/or Family Agrees t: Yes Time/GCodes Time In: 1215 Time Out: 1231 Total Billed Treatment Time: 16 Total Billed Treatment 1, gt 16 LUCERO WALLER PT Feb 20, 2019 13:00 POS
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
[2019-02-20 16:00] VITALS: BP 110/70
[2019-02-20] MEDS: NS IV 1000 ML 1,000 ML IV SCH (18:33)
[2019-02-20] MEDS: MELATONIN 3 MG TABLET PO PRN (20:36)
[2019-02-20] MEDS: MONTELUKAST 10 MG (SINGULAIR) TAB PO SCH (20:36)
[2019-02-20] MEDS: ENOXAPARIN 40 MG/0.4 ML (LOVENOX) SYR SC SCH (20:37)
[2019-02-21 00:16] VITALS: BP 110/56
[2019-02-21] MEDS: RT-ALBUTEROL SULF 2.5 MG/3 ML PRE-MIX VIAL INH SCH ×6 (04:20→23:12)
[2019-02-21 06:02] LABS: BASOPHILS % (AUTO) 0 % (0-10); EOSINOPHILS # (AUTO) 0.1 10^3/uL (0.0-0.3); EOSINOPHILS % (AUTO) 1 % (0-10); HEMATOCRIT 24 % (35-52); HEMOGLOBIN 7.9 G/DL (11.5-16.0); LYMPHOCYTES # (AUTO) 0.9 X 10^3 (1.0-4.0); LYMPHOCYTES % (AUTO) 12 % (12-44); MEAN CORPUSCULAR HEMOGLOBIN 29 PG (25-34); MEAN CORPUSCULAR HGB CONC 33 G/DL (32-36); MEAN CORPUSCULAR VOLUME 89 FL (80-99); MEAN PLATELET VOLUME 8.7 FL (7.4-10.4); MONOCYTES # (AUTO) 0.8 X 10^3 (0.0-1.0); MONOCYTES % (AUTO) 10 % (0-12); NEUTROPHILS # (AUTO) 6.2 X 10^3 (1.8-7.8); NEUTROPHILS % (AUTO) 77 % (42-75); PLATELET COUNT 156 10^3/uL (130-400); RED CELL DISTRIBUTION WIDTH 17.1 % (10.0-14.5)
[2019-02-21] MEDS: HYDROcodone/APAP 5 MG/325 MG (LORTAB) TAB PO PRN ×3 (06:06→16:14)
[2019-02-21] MEDS: GLIMEPIRIDE 4 MG (AMARYL) TAB PO SCH (06:06)
[2019-02-21 06:30] LABS: ALBUMIN 3.1 GM/DL (3.2-4.5); BILIRUBIN,TOTAL 0.7 MG/DL (0.1-1.0); CALCIUM 8.5 MG/DL (8.5-10.1); CREATININE SERUM 1.07 MG/DL (0.60-1.30); POTASSIUM 4.9 MMOL/L (3.6-5.0); TOTAL PROTEIN 6.1 GM/DL (6.4-8.2)
[2019-02-21] MEDS: inSUlin ASPART (NovoLOG) 1 UNIT/0.01 ML (CHARGE PER UNIT) SC SCH ×4 (06:35→20:58)
[2019-02-21] MEDS: amLODIPine 10 MG (NORVASC) TAB PO SCH (08:18)
[2019-02-21 08:19] VITALS: BP 110/70
[2019-02-21] MEDS: POLYETHYLENE GLYCOL 17 GM (MIRALAX) PACK PO SCH ×2 (08:19→20:35)
[2019-02-21] MEDS: busPIRone 10 MG (BUSPAR) TAB PO SCH ×2 (08:19→21:07)
[2019-02-21] MEDS: lisINopril 20 MG (PRINIVIL) TABLET PO SCH (08:19)
[2019-02-21] MEDS: SENNA W/DOCUSATE (SENOKOT S) TABLET PO SCH ×2 (08:19→21:07)
[2019-02-21] MEDS: CALCIUM CARBONATE 500 MG (TUMS) TAB.CHEW PO PRN (08:19)
[2019-02-21] MEDS: FLUTICASONE NASAL SPRAY (FLONASE) 16 GM BTL NS SCH (08:20)
[2019-02-21] MEDS: SODIUM CHLORIDE 1 GM TABLET PO SCH ×2 (08:20→21:07)
[2019-02-21] MEDS: ACETAMINOPHEN 325 MG TABLET PO PRN (09:45)
[2019-02-21] MEDS: FUROSEMIDE 20 MG (LASIX) TAB PO SCH (09:45)
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
--- NOTE | 2019-02-21 14:34 | NUR ---
UP IN CHAIR, C/O IV HURTING IN RIGHT FOREARM, DR VACA INFORMED AND INSTRUCTED NURSE TO DC IV, O2 ON PER NC AT 1 LITER, O2 SAT 92 PERCENT, LARGE BROWN STOOL, ICE PACK TO LEFT SHOULDER, ARM REMAIN IN SLING, STERI STRIPES INTACT TO LEFT SHOULDER INCISION, NO REDNESS OR DRAINAGE, LEFT ARM REMAINS EDEMATOUS
[2019-02-21 16:00] VITALS: BP 107/66
[2019-02-21] MEDS: MONTELUKAST 10 MG (SINGULAIR) TAB PO SCH (21:07)
[2019-02-21] MEDS: ENOXAPARIN 40 MG/0.4 ML (LOVENOX) SYR SC SCH (21:07)
[2019-02-21] MEDS: MELATONIN 3 MG TABLET PO PRN (23:57)
[2019-02-21] MEDS: ALPRAZolam 0.25 MG (XANAX) TAB PO PRN (23:57)
[2019-02-22 00:24] VITALS: BP 119/70
[2019-02-22] MEDS: RT-ALBUTEROL SULF 2.5 MG/3 ML PRE-MIX VIAL INH SCH ×6 (02:37→22:09)
[2019-02-22] MEDS: HYDROcodone/APAP 5 MG/325 MG (LORTAB) TAB PO PRN ×4 (02:43→21:46)
[2019-02-22] MEDS: inSUlin ASPART (NovoLOG) 1 UNIT/0.01 ML (CHARGE PER UNIT) SC SCH ×4 (05:37→21:26)
[2019-02-22 06:17] LABS: BASOPHILS % (AUTO) 0 % (0-10); EOSINOPHILS % (AUTO) 1 % (0-10); HEMATOCRIT 21 % (35-52); LYMPHOCYTES # (AUTO) 0.8 X 10^3 (1.0-4.0); LYMPHOCYTES % (AUTO) 11 % (12-44); MEAN CORPUSCULAR HEMOGLOBIN 30 PG (25-34); MEAN CORPUSCULAR HGB CONC 32 G/DL (32-36); MEAN CORPUSCULAR VOLUME 89 FL (80-99); MEAN PLATELET VOLUME 8.1 FL (7.4-10.4); MONOCYTES # (AUTO) 0.5 X 10^3 (0.0-1.0); MONOCYTES % (AUTO) 8 % (0-12); NEUTROPHILS # (AUTO) 5.5 X 10^3 (1.8-7.8); NEUTROPHILS % (AUTO) 80 % (42-75); PLATELET COUNT 351 10^3/uL (130-400); RED CELL DISTRIBUTION WIDTH 16.3 % (10.0-14.5); WHITE BLOOD COUNT 6.8 10^3/uL (4.3-11.0)
[2019-02-22] MEDS: GLIMEPIRIDE 4 MG (AMARYL) TAB PO SCH (06:26)
[2019-02-22 06:40] LABS: ALBUMIN 2.7 GM/DL (3.2-4.5); BILIRUBIN,TOTAL 0.5 MG/DL (0.1-1.0); CALCIUM 8.4 MG/DL (8.5-10.1); CREATININE SERUM 1.04 MG/DL (0.60-1.30); POTASSIUM 5.4 MMOL/L (3.6-5.0); TOTAL PROTEIN 5.6 GM/DL (6.4-8.2)
[2019-02-22 08:00] VITALS: BP 116/70
[2019-02-22] MEDS: SENNA W/DOCUSATE (SENOKOT S) TABLET PO SCH ×2 (08:33→20:23)
[2019-02-22] MEDS: busPIRone 10 MG (BUSPAR) TAB PO SCH ×2 (08:33→20:23)
[2019-02-22] MEDS: FLUTICASONE NASAL SPRAY (FLONASE) 16 GM BTL NS SCH (08:33)
[2019-02-22] MEDS: amLODIPine 10 MG (NORVASC) TAB PO SCH (08:34)
[2019-02-22] MEDS: POLYETHYLENE GLYCOL 17 GM (MIRALAX) PACK PO SCH ×2 (08:34→20:23)
[2019-02-22] MEDS: lisINopril 20 MG (PRINIVIL) TABLET PO SCH (08:34)
[2019-02-22] MEDS: FUROSEMIDE 20 MG (LASIX) TAB PO SCH (08:34)
[2019-02-22] MEDS: SODIUM CHLORIDE 1 GM TABLET PO SCH ×2 (08:34→20:23)
--- NOTE | 2019-02-22 08:47 | Occupational Ther Daily Note ---
OT Current Status-Daily Note Subjective Pt. in bed. Reports that she is having pain in her right UE, but is unsure why. Does not report pain level and does not report pain in her left UE. Nursing gives medication while OT in room. Appearance Pt. in bed asleep. Awakes easily and agrees to work with OT. States that she did not sleep well. Mental Status/Objective Patient Orientation: Person, Place Attachments: Oxygen ADL-Treatment Therapy Code Descriptions/Definitions Functional [place] Measure: 0=Not Assessed/NA 4=Minimal Assistance 1=Total Assistance 5=Supervision or Setup 2=Maximal Assistance 6=Modified [place] 3=Moderate Assistance 7=Complete IndependenceSCALE: Activities may be completed with or without assistive devices. 7-Brpmwabiqm-xlgzsvr completes the activity by him/herself with no assistance from a helper. 5-Set-up or Clean-up Assistance-helper sets up or cleans up; patient completes activity. [place] assists only prior to or following the activity. 4-Supervision or Touching Assistance-helper provides verbal cues and/or touching/steadying and/or contact guard assistance as patient completes activity. Assistance may be provided throughout the activity or intermittently. 3-Partial/Moderate Assistance-helper does LESS THAN HALF the effort. [place] lifts, holds or supports trunk or limbs, but provides less than half the effort. 2-Substantial/Maximal Assistance-helper does MORE THAN HALF the effort. [place] lifts or holds trunk or limbs and provides more than half the effort. 5-Aeeebhfmz-pfmbry does ALL the effort. Patient does none of the effort to complete the activity. Or, the assistance of 2 or more helpers is required for the patient to complete the activity. If activity was not attempted, code reason: 7-Patient Refused. 9-Not Applicable-not attempted and the patient did not perform the activity before the current illness, exacerbation or injury. 10-Not Attempted due to Environmental Limitations-(lack of equipment, weather restraints, etc.). 88-Not Attempted due to Medical Conditions or Safety Concerns. Pt. declines OOB activity at this time. Noted left UE in sling and very edematous. OT provided gentle PROM to left elbow to approximately 90 degrees in flexion (end range), PROM to left wrist and fingers. Provided gentle retrograde massage to left hand and forearm. Doffed sling for pt. and re-positioned in higher plane. Pt. educated on importance of the position. Pt. was handed warm washcloth and able to wash face with left hand. Completed AROM exercises to right UE in all planes. Pt. requires encouragement. Pt. declined eating breakfast this a.m. States that she is not hungry. All needs met in bed and pt. positioned to comfort level. Education OT Patient Education: Correct positioning, Exercise program, Modified ADL techniques, Progress toward Goal/Update tx plan, Purpose of tx/functional activities, Reviewed precautions, Rehab process Teaching Recipient: Patient Teaching Methods: Demonstration, Discussion Response to Teaching: Verbalize Understanding, Return Demonstration OT Short Term Goals Short Term Goals 1=Demonstrate adherence to instructed precautions during ADL tasks. 2=Patient will verbalize/demonstrate understanding of assistive devices/modifications for ADL. 3=Patient will improve strength/tolerance for activity to enable patient to perform ADL's. OT Group Home Goals Building Maintenance Supervisor Goals Time Frame: Mar 05, 2019 Eating (QC): 5 Oral Hygiene (QC): 5 Upper Body Dressing (QC): 3 Lower Body Dressing (QC): 3 Toilet/Commode Transfer (QC): 4 Additional Goals: 1-Demonstrate ADL Tasks, 2-Verbalize Understanding, 3- ImproveStrength/Isaias 1=Demonstrate adherence to instructed precautions during ADL tasks. 2=Patient will verbalize/demonstrate understanding of assistive devices/modifications for ADL. 3=Patient will improve strength/tolerance for activity to enable patient to perform ADL's. OT Education/Plan Problem List/Assessment Assessment: Decreased Activ Tolerance, Decreased UE Strength, Impaired I ADL's, Impaired Self-Care Skills, Restricted Funct UE ROM Pt had a fall resulting in left humeral fracture, now s/p reverse total shoulder. Pt demonstrates decreased ADL functioning, mobility, strength, and activity tolerance. Pt to benefit from skilled OT intervention for ADL training, transfers, strengthening, and safety education to increase level of function and allow safe discharge plan. Discharge Recommendations Plan/Recommendations: Continue POC Therapy Discharge Recommendati: 24 Hour Supervision, Post Acute OT Treatment Plan/Plan of Care Treatment,Training & Education: Yes Patient would benefit from OT for education, treatment and training to promote independence in ADL's, mobility, safety and/or upper extremity function for ADL's. Plan of Care: ADL Retraining, Functional Mobility, UE Funct Exercise/Act Treatment Duration: Mar 05, 2019 Frequency: 5 times per week Estimated Hrs Per Day: .25 hour per day Agreement: Yes Rehab Potential: Fair Time/GCodes Start Time: 08:20 Stop Time: 08:40 Total Time Billed (hr/min): 20 Billed Treatment Time 1, Ex PATSY STERN OT Feb 22, 2019 08:47 POS
[2019-02-22] MEDS: ONDANSETRON 4 MG (ZOFRAN) ORAL DISSOLVE TAB PO PRN ×2 (09:25→21:41)
[2019-02-22] MEDS ORDERED: SENN-20 PO ×2 (10:16)
[2019-02-22] MEDS ORDERED: ACHD5005 PO ×2 (10:16)
--- NOTE | 2019-02-22 10:17 | Discharge Inst-Skilled Nursing ---
Discharge Inst-Skilled NF Reconcile Patient Problems Problems Reviewed?: Yes Chief Complaint Chief complaint: Medical management following left proximal humerus fracture repair by Dr. Crane History of present illness: This is a 78-year-old white female known to me from inpatient rehabilitation for 1 week [facility] [employer] [facility] suffering a proximal left humerus fracture requiring inpatient rehabilitation to correct severe hyponatremia and renal failure and then undergoing an uncomplicated repair yesterday. Patient has a learning disability and requires 24/7 nursing care to she will go to a intermediate on Friday after recovering from surgery. Currently she is having a little bit of a delirium but hyponatremia of 129 even though D5 1 half normal saline IV fluid was going over night. Patient reports her pain is pretty well controlled. Patient Instructions Patient Problems: Left humerus fracture repair Hyponatremia Goal: Return to independent living Patient Instructions: Fluid restriction 1200cc/day Consult/Follow Up/Orders Follow Up Appt.: [facility] in 1 week Skilled NF Admit to: Certification (SNF) I certify that SNF services are required to be given on an inpatient basis because of the above named patient's need for retirement care on a continuing basis for the conditions(s) for which he/she was receiving inpatient hospital services prior to his/her transfer to the SNF. Oxygen Delivery Method: Nasal Cannula Discharge Diet: ADA Diet Daily Activity as Tolerated: Yes Resuscitation Status: Full Code New & Resume Previous Orders New Medications: Sennosides/Docusate Sodium (Senna-Time S Tablet) 1 Each Tablet 2 EA PO BID for 30 Days, TAB Continued Medications: Acetaminophen (Tylenol Arthritis) 650 Mg Tablet.er 650 MG PO Q8H PRN for PAIN-MILD, TAB Albuterol Sulfate (Ventolin Hfa) 18 Gm Hfa.aer.ad 2 PUFF PO Q4H Alprazolam (Alprazolam) 0.25 Mg Tablet 0.25 MG PO Q8H PRN for ANXIETY for 30 Days, TAB Amlodipine Besylate (Amlodipine Besylate) 10 Mg Tablet 10 MG PO DAILY Atorvastatin Calcium (Atorvastatin Calcium) 10 Mg Tablet 10 MG PO DAILY Buspirone HCl (Buspirone HCl) 10 Mg Tablet 10 MG PO BID, TAB Enoxaparin Sodium (Enoxaparin Sodium) 40 Mg/0.4 Ml Syringe 40 MG SC DAILY@2200 for 14 Days, SYRINGE Fluticasone Propionate (Fluticasone Propionate) 16 Gm [place].susp 2 SPR NSEACH DAILY Furosemide (Furosemide) 20 Mg Tablet 20 MG PO DAILY Glimepiride (Glimepiride) 4 Mg Tablet 4 MG PO DAILY Hydrocodone Bit/Acetaminophen (Hydrocodone/Acetaminophen 5/325mg Tablet) 1 Tab Tab 1 TAB PO Q4H PRN for MOD, #30 TAB (This prescription has been renewed) Lisinopril (Lisinopril) 20 Mg Tablet 20 MG PO DAILY for 30 Days, TAB Montelukast Sodium (Montelukast Sodium) 10 Mg Tablet 10 MG PO HS Sodium Chloride (Sodium Chloride) 1 Gm Tab 1 GM PO BID for 14 Days, TAB Aimee Villagomez Feb 22, 2019 10:16 AIMEE VILLAGOMEZ DO Feb 22, 2019 10:17 POS
--- NOTE | 2019-02-22 12:01 | Discharge Summary ---
[facility] 02/22/19 1201: Diagnosis/Chief Complaint Date of Admission Feb 18, 2019 at 08:24 Date of Discharge Discharge Date: Feb 22, 2019 Primary Care Reji Daigle MD Discharge Diagnosis (1) Fracture of proximal end of left humerus (2) Frequent falls (3) Chronic renal insufficiency (4) Hyponatremia (5) Anemia (6) Diabetes mellitus (7) Anxiety Status: Acute Discharge Summary Discharge Physical Exam Allergies: Coded Allergies: codeine (Verified Adverse Reaction, Mild, NAUSEA, 02/08/19) Vitals & I&Os Vital Signs Date Time Temp Pulse Resp B/P (MAP) Pulse Ox O2 Delivery O2 Flow Rate FiO2 02/22/19 11:13 94 Nasal Cannula 2.00 02/22/19 08:00 37.2 84 18 116/70 (85) General Appearance: Anxious, Mild Distress, Obese Respiratory: Chest Non Tender, Lungs Clear, Normal Breath Sounds, No Accessory Muscle Use, No Respiratory Distress Cardiovascular: Regular Rate, Rhythm; No No Edema; Normal Peripheral Pulses Extremity: No Normal Range of Motion (Left shoulder immoblized in shoulder sling currently); No Calf Tenderness, Pedal Edema Skin: Normal Color, Warm/Dry Neurologic/Psychiatric: Alert, Oriented x3, Depressed Affect Hospital Course Pt was taken to the operating room for a repair of left proximal humerus fracture that had occurred 1 week prior and required the swelling to decrease before an operation could be performed. The surgery went well and the patient reported decreasing pain in her left shoulder each day. She had a persistent hyponatremia that require a 1200cc daily fluid restriction to maintain her sodium levels. The patient suffered through increased anxiety and debility during the hospital stay and the decision was made to have her discharge to a nursing facility rather than to home, due to her debility and inability to care for her herself currently. Labs (last 24 hrs) Laboratory Tests 02/21/19 16:16: Glucometer 126H 02/21/19 20:49: Glucometer 71 02/22/19 05:15: Glucometer 112H 02/22/19 05:45: White Blood Count 6.8, Red Blood Count 2.34L, Hemoglobin 7.0L, Hematocrit 21L, Mean Corpuscular Volume 89, Mean Corpuscular Hemoglobin 30, Mean Corpuscular Hemoglobin Concent 32, Red Cell Distribution Width 16.3H, Platelet Count 351, Mean Platelet Volume 8.1, Neutrophils (%) (Auto) 80H, Lymphocytes (%) (Auto) 11L , Monocytes (%) (Auto) 8, Eosinophils (%) (Auto) 1, Basophils (%) (Auto) 0, Neutrophils # (Auto) 5.5, Lymphocytes # (Auto) 0.8L, Monocytes # (Auto) 0.5, Eosinophils # (Auto) 0.0, Basophils # (Auto) 0.0, Sodium Level 130L, Potassium Level 5.4H, Chloride Level 100, Carbon Dioxide Level 21, Anion Gap 9, Blood Urea Nitrogen 30H, Creatinine 1.04, Estimat Glomerular Filtration Rate 52, BUN/Creatinine Ratio 29, Glucose Level 97, Calcium Level 8.4L, Corrected Calcium 9.4, Total Bilirubin 0.5, Aspartate Amino Transf (AST/SGOT) 25, Alanine Aminotransferase (ALT/SGPT) 9, Alkaline Phosphatase 66, Total Protein 5.6L, Albumin 2.7L Patient resulted labs reviewed. Pending Labs Laboratory Tests 02/22/19 05:15: Glucometer 112 02/22/19 05:45: White Blood Count 6.8, Red Blood Count 2.34, Hemoglobin 7.0, Hematocrit 21, Mean Corpuscular Volume 89, Mean Corpuscular Hemoglobin 30, Mean Corpuscular Hemoglobin Concent 32, Red Cell Distribution Width 16.3, Platelet Count 351, Mean Platelet Volume 8.1, Neutrophils (%) (Auto) 80, Lymphocytes (%) (Auto) 11, Monocytes (%) (Auto) 8, Eosinophils (%) (Auto) 1, Basophils (%) (Auto) 0, Neutrophils # (Auto) 5.5, Lymphocytes # (Auto) 0.8, Monocytes # (Auto) 0.5, Eosinophils # (Auto) 0.0, Basophils # (Auto) 0.0, Sodium Level 130, Potassium Level 5.4, Chloride Level 100, Carbon Dioxide Level 21, Anion Gap 9, Blood Urea Nitrogen 30, Creatinine 1.04, Estimat Glomerular Filtration Rate 52, BUN/Creatinine Ratio 29, Glucose Level 97, Calcium Level 8.4, Corrected Calcium 9.4, Total Bilirubin 0.5, Aspartate Amino Transf (AST/SGOT) 25, Alanine Aminotransferase (ALT/SGPT) 9, Alkaline Phosphatase 66, Total Protein 5.6, Albumin 2.7 Discharge Home Medications: Active Scripts Active Senna-Time S Tablet (Sennosides/Docusate Sodium) 1 Each Tablet 2 Ea PO BID 30 Days Hydrocodone/Acetaminophen 5/325mg Tablet (Acetaminophen/Hydrocodone Bitart) 1 Tab Tab 1 Tab PO Q4H PRN Sodium Chloride 1 Gm Tab 1 Gm PO BID 14 Days Alprazolam 0.25 Mg Tablet 0.25 Mg PO Q8H PRN 30 Days Lisinopril 20 Mg Tablet 20 Mg PO DAILY 30 Days Enoxaparin Sodium 40 Mg/0.4 Ml Syringe 40 Mg SC DAILY@2200 14 Days Reported Tylenol Arthritis (Acetaminophen) 650 Mg Tablet.er 650 Mg PO Q8H PRN Montelukast Sodium 10 Mg Tablet 10 Mg PO HS Atorvastatin Calcium 10 Mg Tablet 10 Mg PO DAILY Glimepiride 4 Mg Tablet 4 Mg PO DAILY Fluticasone Propionate 16 Gm [place].susp 2 Spr NSEACH DAILY Amlodipine Besylate 10 Mg Tablet 10 Mg PO DAILY Furosemide 20 Mg Tablet 20 Mg PO DAILY Ventolin Hfa (Albuterol Sulfate) 18 Gm Hfa.aer.ad 2 Puff PO Q4H Buspirone HCl 10 Mg Tablet 10 Mg PO BID Instructions to patient/family Please see electronic discharge instructions given to patient. Clinical Quality Measures DVT/VTE Risk/Contraindication: Risk Factor Score Per Nursin RFS Level Per Nursing on Admit: 4+=Very High AIMEE VACA 02/22/192109: Diagnosis/Chief Complaint Discharge Diagnosis (1) Fracture of proximal end of left humerus (2) Closed left humeral fracture (3) Hypertension (4) DJD of left shoulder (5) Diabetes mellitus (6) Anemia (7) Hyponatremia (8) Chronic renal insufficiency (9) Frequent falls (10) Anxiety Status: Acute Discharge Summary Discharge Physical Exam Allergies: Coded Allergies: codeine (Verified Adverse Reaction, Mild, NAUSEA, 02/08/19) General Appearance: No Apparent Distress, WD/WN, Anxious, Chronically ill Respiratory: Chest Non Tender, Lungs Clear, Normal Breath Sounds, No Accessory Muscle Use, No Respiratory Distress Cardiovascular: Regular Rate, Rhythm Neurologic/Psychiatric: Alert, Oriented x3 Hospital Course Was the Problem List Reviewed?: Yes Hospital Course: Pt had an uneventful hospital course when she was admitted from inpatient rehab for left humerus fracture by Dr. Rosa Maria that was performed in an uncomplicated manner. Hyponatremia was managed with fluid restriction which was 130 at DC along with salt tablets.Pain medication was tolerated and bowels regained normalcy and Hgb remain stable at 7.0 due to chronic renal insufficiency. 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 Discussion & Recommendations Discharge Planning: <30 minutes discharge planning Supervisory-Addendum Brief Verification & Attestation Participated in pt care: history, MDM, physical Personally performed: exam, history, MDM, supervision of care Care discussed with: Medical Student Procedures: n/a Results interpretation: Verified all documentation Verification and Attestation of Medical Student E/M Service A medical student performed and documented this service in my presence. I reviewed and verified all information documented by the medical student and made modifications to such information, when appropriate. I personally performed the physical exam and medical decision making. Aimee Vaca, Feb 22, 2019,21:10 [facility] Feb 22, 2019 12:01 AIMEE PERRY DO Feb 22, 2019 21:10 POS
[2019-02-22] MEDS: ALPRAZolam 0.25 MG (XANAX) TAB PO PRN ×2 (13:39→18:08)
--- NOTE | 2019-02-22 13:54 | NUR ---
CM/SS spoke with the patient about [facility] facility placement. The patient states that she does not really want to go to a facility but she will. The patient wanted to start with [facility]. Referral information has been sent to the facility. Will continue to follow. Addendum: 02/22/19 at 1357 by MAHENDRA SUAREZ reviewed / approved
--- NOTE | 2019-02-22 15:17 | Discharge Inst-Skilled Nursing ---
Discharge Inst-Skilled NF Reconcile Patient Problems Problems Reviewed?: Yes Chief Complaint Chief complaint: Medical management following left proximal humerus fracture repair by Dr. Crane History of present illness: This is a 78-year-old white female known to me from inpatient rehabilitation for 1 week following a fall [facility] [place] [employer] [facility] suffering a proximal left humerus fracture requiring inpatient rehabilitation to correct severe hyponatremia and renal failure and then undergoing an uncomplicated repair yesterday. Patient has a learning disability and requires 24/7 nursing care to she will go to a shelter on Friday after recovering from surgery. Currently she is having a little bit of a delirium but hyponatremia of 129 even though D5 1 half normal saline IV fluid was going over night. Patient reports her pain is pretty well controlled. Patient Instructions Patient Problems: Left humerus fracture repair Hyponatremia DM CRI Anemia Goal: Return to independent living Patient Instructions: [facility] in 1 week Consult/Follow Up/Orders Follow Up Appt.: [facility] in 1 week Skilled NF Admit to: [facility] Certification ([facility]) I certify that SNF services are required to be given on an inpatient basis because of the above named patient's need for retirement care on a continuing basis for the conditions(s) for which he/she was receiving inpatient hospital services prior to his/her transfer to the SNF. Correction Facility Order: Nursing Services, Engineer Steam-Evaluate & Treat, Physical Therapy-Evaluate & Treat, Speech Language-Evaluate & Treat Oxygen Delivery Method: Nasal Cannula Discharge Diet: ADA Diet Daily Activity as Tolerated: Yes Resuscitation Status: Full Code New & Resume Previous Orders New Medications: Sennosides/Docusate Sodium (Senna-Time S Tablet) 1 Each Tablet 2 EA PO BID for 30 Days, TAB Continued Medications: Acetaminophen (Tylenol Arthritis) 650 Mg Tablet.er 650 MG PO Q8H PRN for PAIN-MILD, TAB (This prescription has been renewed) Albuterol Sulfate (Ventolin Hfa) 18 Gm Hfa.aer.ad 2 PUFF PO Q4H (This prescription has been renewed) Alprazolam (Alprazolam) 0.25 Mg Tablet 0.25 MG PO Q8H PRN for ANXIETY for 30 Days, TAB Amlodipine Besylate (Amlodipine Besylate) 10 Mg Tablet 10 MG PO DAILY (This prescription has been renewed) Atorvastatin Calcium (Atorvastatin Calcium) 10 Mg Tablet 10 MG PO DAILY (This prescription has been renewed) Buspirone HCl (Buspirone HCl) 10 Mg Tablet 10 MG PO BID, TAB (This prescription has been renewed) Enoxaparin Sodium (Enoxaparin Sodium) 40 Mg/0.4 Ml Syringe 40 MG SC DAILY@2200 for 14 Days, SYRINGE Fluticasone Propionate (Fluticasone Propionate) 16 Gm [place].susp 2 SPR NSEACH DAILY (This prescription has been renewed) Furosemide (Furosemide) 20 Mg Tablet 20 MG PO DAILY (This prescription has been renewed) Glimepiride (Glimepiride) 4 Mg Tablet 4 MG PO DAILY (This prescription has been renewed) Hydrocodone Bit/Acetaminophen (Hydrocodone/Acetaminophen 5/325mg Tablet) 1 Tab Tab 1 TAB PO Q4H PRN for MOD, #30 TAB (This prescription has been renewed) Lisinopril (Lisinopril) 20 Mg Tablet 20 MG PO DAILY for 30 Days, TAB Montelukast Sodium (Montelukast Sodium) 10 Mg Tablet 10 MG PO HS (This prescription has been renewed) Sodium Chloride (Sodium Chloride) 1 Gm Tab 1 GM PO BID for 14 Days, TAB Aimee Villagomez Feb 22, 2019 15:16 AIMEE VILLAGOMEZ DO Feb 22, 2019 15:17 POS
--- NOTE | 2019-02-22 15:53 | NUR ---
MARIVEL/ERICK educated the patient and patients daughter about the care assessment. It was signed and completed. The care assessment has been faxed to [facility] and [facility]. The patient and patient's daughter Mirlande both wanted to complete DPOA paper work while here. It was witnessed and completed with this MARIVEL/ERICK and Julia Deshpande. A copy was put in the patient's chart and multiple copies were sent with the patient and Mirlande. Waiting to see if she can be discharged due to not having her anxiety medication prescribed. Addendum: 02/22/19 at 1600 by JULIA SUAREZ reviewed / approved
[2019-02-22 16:09] VITALS: BP 125/58
[2019-02-22] MEDS: MONTELUKAST 10 MG (SINGULAIR) TAB PO SCH (20:23)
[2019-02-22] MEDS: MELATONIN 3 MG TABLET PO PRN (20:23)
[2019-02-22] MEDS: morphine INJ 4 MG/ML 1 ML (VIAL/SYRINGE) IVP PRN (21:40)
[2019-02-22] MEDS: ENOXAPARIN 40 MG/0.4 ML (LOVENOX) SYR SC SCH (21:41)
[2019-02-23] VITALS: BP 105/61
[2019-02-23] MEDS: CALCIUM CARBONATE 500 MG (TUMS) TAB.CHEW PO PRN ×2 (00:08→08:37)
[2019-02-23] MEDS: ALPRAZolam 0.25 MG (XANAX) TAB PO PRN ×2 (01:37→08:51)
[2019-02-23] MEDS: HYDROcodone/APAP 5 MG/325 MG (LORTAB) TAB PO PRN ×3 (01:37→11:46)
[2019-02-23] MEDS: RT-ALBUTEROL SULF 2.5 MG/3 ML PRE-MIX VIAL INH SCH ×4 (02:00→14:08)
[2019-02-23] MEDS: inSUlin ASPART (NovoLOG) 1 UNIT/0.01 ML (CHARGE PER UNIT) SC SCH ×2 (06:29→11:08)
[2019-02-23] MEDS: GLIMEPIRIDE 4 MG (AMARYL) TAB PO SCH (06:35)
--- NOTE | 2019-02-23 07:01 | NUR ---
PT BS AT 0620 52. HYPOGLYCEMIA PROTOCOL FOLLOWED. PT GIVEN OJ AND PEANUT BUTTER CRACKERS. RECHECKED AT 0645 BS 66. PT CONTINUED WITH MEAL. BS RECHECKED AT 0700, BS 64. BREAKFAST TRAY BEING DELIVERED TO PT.
[2019-02-23 08:00] VITALS: BP 105/55
[2019-02-23] MEDS: POLYETHYLENE GLYCOL 17 GM (MIRALAX) PACK PO SCH (08:33)
[2019-02-23] MEDS: SENNA W/DOCUSATE (SENOKOT S) TABLET PO SCH (08:35)
[2019-02-23] MEDS: lisINopril 20 MG (PRINIVIL) TABLET PO SCH (08:35)
[2019-02-23] MEDS: FUROSEMIDE 20 MG (LASIX) TAB PO SCH (08:35)
[2019-02-23] MEDS: amLODIPine 10 MG (NORVASC) TAB PO SCH (08:35)
[2019-02-23] MEDS: busPIRone 10 MG (BUSPAR) TAB PO SCH (08:35)
[2019-02-23] MEDS: FLUTICASONE NASAL SPRAY (FLONASE) 16 GM BTL NS SCH (08:41)
[2019-02-23] MEDS: SODIUM CHLORIDE 1 GM TABLET PO SCH (09:14)
[2019-02-23] MEDS: ACETAMINOPHEN 325 MG TABLET PO PRN ×2 (09:14)
--- NOTE | 2019-02-23 10:18 | NUR ---
CM/SS patient to transition to SNF [facility] this day at 1400. RNing updated. Mirlande, patient's friend updated also.
[2019-02-23] MEDS: ONDANSETRON 4 MG (ZOFRAN) ORAL DISSOLVE TAB PO PRN (11:46)
--- NOTE | 2019-02-23 14:02 | NUR ---
SPO2 DROPPED TO 87% ON ROOM AIR. REPLACED O2 @ 3 LPM. SPO2 INCREASED TO 92%. Addendum: 02/23/19 at 1406 by TEVIN RUIZ RT Amended: Links added.
[2019-02-23 14:45] VITALS: BP 105/55
--- NOTE | 2019-02-23 14:45 | NUR ---
PRIMO BORJA demonstrates understanding of discharge instructions and accurately returns instructions upon questioning. Copy of Post-Discharge Instructions given to CARLENE (NURSE) AT [facility]. PRIMO BORJA is able to manage continuing needs after dischargeWITH ASSISTANCE OF [facility]. Patients belongings returned to PT. Patient discharged from [facility] on 02/23/19 at 1445. PRIMO BORJA left floor via W/C, accompanied by STAFF AND [facility] GLOBAL LOGISTICS ANALYST.
--- NOTE | 2019-02-23 14:52 | Occupational Ther Daily Note ---
OT Current Status-Daily Note Subjective Pt sitting in recliner. Agrees to therapy. Nrsg and respiratory in room. Pt c/o pain/throbbing in L UE. Increased edema noted in L hand. Mental Status/Objective Patient Orientation: Person, Place, Time, Situation ADL-Treatment Therapy Code Descriptions/Definitions Functional [place] Measure: 0=Not Assessed/NA 4=Minimal Assistance 1=Total Assistance 5=Supervision or Setup 2=Maximal Assistance 6=Modified [place] 3=Moderate Assistance 7=Complete IndependenceSCALE: Activities may be completed with or without assistive devices. 5-Supsnjqukm-ooyoljn completes the activity by him/herself with no assistance from a helper. 5-Set-up or Clean-up Assistance-helper sets up or cleans up; patient completes activity. [place] assists only prior to or following the activity. 4-Supervision or Touching Assistance-helper provides verbal cues and/or touching/steadying and/or contact guard assistance as patient completes ac tivity. Assistance may be provided throughout the activity or intermittently. 3-Partial/Moderate Assistance-helper does LESS THAN HALF the effort. [place] lifts, holds or supports trunk or limbs, but provides less than half the effort. 2-Substantial/Maximal Assistance-helper does MORE THAN HALF the effort. [place] lifts or holds trunk or limbs and provides more than half the effort. 3-Qlosnodhg-tfqyim does ALL the effort. Patient does none of the effort to complete the activity. Or, the assistance of 2 or more helpers is required for the patient to complete the activity. If activity was not attempted, code reason: 7-Patient Refused. 9-Not Applicable-not attempted and the patient did not perform the activity before the current illness, exacerbation or injury. 10-Not Attempted due to Environmental Limitations-(lack of equipment, weather restraints, etc.). 88-Not Attempted due to Medical Conditions or Safety Concerns. Other Treatment Nrsg was cleaning pt up while reclining in chair. Edema massage to L hand completed to decrease swelling. Pt had food in room, but requested applesauce. Pt able to scoop and feed self applesauce. APARICIO repositioned L UE to decrease edema. After therapy, pt reclining in chair with call light/phone in reach. All needs met in room. OT Short Term Goals Short Term Goals 1=Demonstrate adherence to instructed precautions during ADL tasks. 2=Patient will verbalize/demonstrate understanding of assistive devices/modifications for ADL. 3=Patient will improve strength/tolerance for activity to enable patient to perform ADL's. OT Field Organizer Goals Group Home Goals Time Frame: Mar 05, 2019 Eating (QC): 5 Oral Hygiene (QC): 5 Upper Body Dressing (QC): 3 Lower Body Dressing (QC): 3 Toilet/Commode Transfer (QC): 4 Additional Goals: 1-Demonstrate ADL Tasks, 2-Verbalize Understanding, 3- ImproveStrength/Isaias 1=Demonstrate adherence to instructed precautions during ADL tasks. 2=Patient will verbalize/demonstrate understanding of assistive devices/modifications for ADL. 3=Patient will improve strength/tolerance for activity to enable patient to perform ADL's. OT Education/Plan Problem List/Assessment Assessment: Decreased Activ Tolerance, Impaired Self-Care Skills, Restricted Funct UE ROM Pt had a fall resulting in left humeral fracture, now s/p reverse total shoulder. Pt demonstrates decreased ADL functioning, mobility, strength, and activity tolerance. Pt to benefit from skilled OT intervention for ADL training, transfers, strengthening, and safety education to increase level of function and allow safe discharge plan. Discharge Recommendations Plan/Recommendations: Continue POC Treatment Plan/Plan of Care Patient would benefit from OT for education, treatment and training to promote independence in ADL's, mobility, safety and/or upper extremity function for ADL's. Plan of Care: ADL Retraining, Functional Mobility, UE Funct Exercise/Act Treatment Duration: Mar 05, 2019 Frequency: 5 times per week Estimated Hrs Per Day: .25 hour per day Agreement: Yes Rehab Potential: Fair Time/GCodes Start Time: 13:50 Stop Time: 14:00 Total Time Billed (hr/min): 10 Billed Treatment Time 1 visit-FA 1 (10 min) KALANI BOOKER Feb 23, 2019 14:52 POS
== END 2019-02-23 14:45 | DRG 483 ==
LOC: SURG 08:24 → 4TH 17:16
PROVIDERS: ADMIT Orthopaedic Surgery; ATTEND Orthopaedic Surgery
PROC: 0RRK00Z Replacement of Left Shoulder Joint with Reverse Ball and Socket Synthetic Substitute, Open Approach (ICD-10-PCS; principal; 2019-02-18 12:36)
DX: S42.202A Unspecified fracture of upper end of left humerus, initial encounter for closed fracture (principal); E87.1 Hypo-osmolality and hyponatremia; M19.012 Primary osteoarthritis, left shoulder; I12.9 Hypertensive chronic kidney disease with stage 1 through stage 4 chronic kidney disease, or unspecified chronic kidney disease; N18.9 Chronic kidney disease, unspecified; E78.00 Pure hypercholesterolemia, unspecified; E11.9 Type 2 diabetes mellitus without complications; F41.9 Anxiety disorder, unspecified; E87.5 Hyperkalemia; D64.9 Anemia, unspecified; F81.9 Developmental disorder of scholastic skills, unspecified; R29.6 Repeated falls; Z90.710 Acquired absence of both cervix and uterus; Z85.42 Personal history of malignant neoplasm of other parts of uterus; Z88.5 Allergy status to narcotic agent; W19.XXXA Unspecified fall, initial encounter; Z79.84 Long term (current) use of oral hypoglycemic drugs; Y92.811 Bus as the place of occurrence of the external cause
CPT/HCPCS: 36415; 73020; 80048; 80053; 82962; 85025; 85027; 94640; 94664; 94760; 94761

== ENCOUNTER 2019-04-11 20:25 | Inpatient (IN) | payer MEDICARE, MEDICAID ==
[~2019-04-11] VITALS: Ht 152.4 cm; Wt 83.1 kg
[~2019-04-11 20:25] MED LIST changes: +SENN-20 PO
--- NOTE | 2019-04-11 20:43 | ED Chest Pain ---
General Stated Complaint: SOA, CHEST PAIN Source: patient Exam Limitations: no limitations History of Present Illness Date Seen by Provider: Apr 11, 2019 Time Seen by Provider: 20:40 Initial Comments To ER by private vehicle with reports of chest pain shortness of breath and anxiety. This began earlier this evening while at rest about 30 minutes ago. It has resolved at this time. Patient herself states that she felt very anxious and believes this was nothing more than a panic attack. However the neighbor with whom she is living states that she has followed with Dr. Galindo and is scheduled for a stress test in the upcoming few weeks due to a fairly recent onset of bilateral pedal edema and dyspnea on exertion. However the episode of chest pain and shortness of breath last night and tonight prompted emergency room evaluation. She has no history of coronary stenting and has never had a heart catheterization. No fever no chills no cough. She has a history of hypertension obesity and diabetes. She recently was discharged from via [facility], [place], yesterday, following about 3 weeks there for rehabilitation following admission for a shoulder fracture. She is currently living with her neighbor because she is unable to get up the stairs at her own house by herself. Timing/Duration: 1-2 days Severity/Quality: moderate Location: central Radiation: no radiation Activities at Onset: none ASA po LEARNING AND DEVELOPMENT COORDINATOR: No NTG SL LEARNING AND DEVELOPMENT COORDINATOR: No Associated Symptoms: No back pain; shortness of breath Allergies and Home Medications Allergies Coded Allergies: codeine (Verified Adverse Reaction, Mild, NAUSEA, 02/08/19) Home Medications Acetaminophen 650 Mg Tablet.er, 650 MG PO Q8H PRN for PAIN-MILD, (Reported) Albuterol Sulfate 18 Gm Hfa.aer.ad, 2 PUFF PO Q4H, (Reported) Alprazolam 0.25 Mg Tablet, 0.25 MG PO Q8H PRN for ANXIETY Prescribed by: JAMEY VACA on 02/17/19 1632 Amlodipine Besylate 10 Mg Tablet, 10 MG PO DAILY, (Reported) Atorvastatin Calcium 10 Mg Tablet, 10 MG PO DAILY, (Reported) Buspirone HCl 10 Mg Tablet, 10 MG PO BID, (Reported) Enoxaparin Sodium 40 Mg/0.4 Ml Syringe, 40 MG SC DAILY@2200 Prescribed by: JAMEY VACA on 02/17/19 1632 Fluticasone Propionate 16 Gm Xenia.susp, 2 SPR NSEACH DAILY, (Reported) Furosemide 20 Mg Tablet, 20 MG PO DAILY, (Reported) Glimepiride 4 Mg Tablet, 4 MG PO DAILY, (Reported) Hydrocodone Bit/Acetaminophen 1 Tab Tab, 1 TAB PO Q4H PRN for MOD Prescribed by: JAMEY VACA on 02/22/19 1016 Lisinopril 20 Mg Tablet, 20 MG PO DAILY Prescribed by: JAMEY VACA on 02/17/19 1632 Montelukast Sodium 10 Mg Tablet, 10 MG PO HS, (Reported) Sennosides/Docusate Sodium 1 Each Tablet, 2 EA PO BID Prescribed by: JAMEY VACA on 02/22/19 1016 Sodium Chloride 1 Gm Tab, 1 GM PO BID Prescribed by: JAMEY VACA on 02/17/19 163 Patient Home Medication List Home Medication List Reviewed: Yes Review of Systems Review of Systems Constitutional: see HPI EENTM: No Symptoms Reported Respiratory: See HPI, Shortness of Air, SOA With Exertion Cardiovascular: See HPI, Chest Pain Gastrointestinal: See HPI Genitourinary: No Symptoms Reported Musculoskeletal: no symptoms reported Skin: no symptoms reported Psychiatric/Neurological: No Symptoms Reported Endocrine: No Symptoms Reported Past Iyhqybu-Acgcvq-Fmnsxn Hx Patient Social History Recent Foreign Travel: No Contact w/Someone Who Travel: No Recent Hopitalizations: No Immunizations Up To Date PED Vaccines UTD: Yes Date of Pneumonia Vaccine: Jul 05, 2015 Date of Influenza Vaccine: Feb 03, 2019 Seasonal Allergies Seasonal Allergies: No Past Medical History Surgeries: Yes Hysterectomy Respiratory: Yes Chronic Bronchitis Currently Using CPAP: No Currently Using BIPAP: No Cardiac: Yes High Cholesterol, Hypertension Neurological: No Developmental Disorder Reproductive Disorders: No Female Reproductive Disorders: Denies [employer] History: Hysterectomy Sexually Transmitted Disease: No HIV/AIDS: No Genitourinary: No Gastrointestinal: No Musculoskeletal: Yes Arthritis, Chronic Back Pain, Fractures Endocrine: Yes Diabetes, Non-Insulin dep HEENT: No (wears glasses) Loss of Vision: Denies Cancer: No Uterine Did You Recieve Any Treatments: Yes What Type of Treatment Did You: Surgical Intervention Psychosocial: No Anxiety Integumentary: No Blood Disorders: No Adverse Reaction/Blood Tranf: No Family Medical History Diabetes mellitus 19 FATHER Hypertension 19 FATHER Diabetes, Hypertension Physical Exam Vital Signs Vital Signs - First Documented 04/11/19 20:32 FiO2 97 Capillary Refill : Height, Weight, BMI Height: 5'" Weight: 203lbs. oz. 92.048244kw; 38.30 BMI Method:Stated General Appearance: No Apparent Distress, WD/WN, Chronically ill, Obese Respiratory: Normal Breath Sounds, No Accessory Muscle Use, No Respiratory Distress Cardiovascular: Regular Rate, Rhythm, Normal Peripheral Pulses Gastrointestinal: Normal Bowel Sounds, Non Tender, Soft Extremity: Normal Capillary Refill, Pedal Edema (3+ bilateral lower extremities) Neurologic/Psychiatric: Alert, Oriented x3 Skin: Normal Color, Warm/Dry Progress/Results/Core Measures Results/Orders Lab Results Laboratory Tests Test 04/11/19 20:42 Range/Units White Blood Count 11.9 H 4.3-11.0 10^3/uL Red Blood Count 4.31 L 4.35-5.85 10^6/uL Hemoglobin 10.8 L 11.5-16.0 G/DL Hematocrit 35 35-52 % Mean Corpuscular Volume 81 80-99 FL Mean Corpuscular Hemoglobin 25 25-34 PG Mean Corpuscular Hemoglobin Concent 31 L 32-36 G/DL Red Cell Distribution Width 16.1 H 10.0-14.5 % Platelet Count 423 H 130-400 10^3/uL Mean Platelet Volume 8.7 7.4-10.4 FL Neutrophils (%) (Auto) 80 H 42-75 % Lymphocytes (%) (Auto) 11 L 12-44 % Monocytes (%) (Auto) 8 0-12 % Eosinophils (%) (Auto) 1 0-10 % Basophils (%) (Auto) 1 0-10 % Neutrophils # (Auto) 9.6 H 1.8-7.8 X 10^3 Lymphocytes # (Auto) 1.3 1.0-4.0 X 10^3 Monocytes # (Auto) 0.9 0.0-1.0 X 10^3 Eosinophils # (Auto) 0.1 0.0-0.3 10^3/uL Basophils # (Auto) 0.1 0.0-0.1 10^3/uL Prothrombin Time 14.1 12.2-14.7 SEC INR Comment 1.1 0.8-1.4 Activated Partial Thromboplast Time 34 24-35 SEC Sodium Level 136 135-145 MMOL/L Potassium Level 4.8 3.6-5.0 MMOL/L Chloride Level 98 98-107 MMOL/L Carbon Dioxide Level 22 21-32 MMOL/L Anion Gap 16 H 5-14 MMOL/L Blood Urea Nitrogen 25 H 7-18 MG/DL Creatinine 1.12 0.60-1.30 MG/DL Estimat Glomerular Filtration Rate 47 BUN/Creatinine Ratio 22 Glucose Level 129 H 70-105 MG/DL Calcium Level 9.4 8.5-10.1 MG/DL Corrected Calcium 9.5 8.5-10.1 MG/DL Magnesium Level 1.7 1.6-2.4 MG/DL Total Bilirubin 0.4 0.1-1.0 MG/DL Aspartate Amino Transf (AST/SGOT) 49 H 5-34 U/L Alanine Aminotransferase (ALT/SGPT) 15 0-55 U/L Alkaline Phosphatase 80 40-136 U/L Myoglobin 146.9 H 10.0-92.0 NG/ML Troponin I 9.812 *H <0.028 NG/ML B-Type Natriuretic Peptide 1406.9 H <100.0 PG/ML Total Protein 7.0 6.4-8.2 GM/DL Albumin 3.9 3.2-4.5 GM/DL My Orders Orders - DIONNE MONSON APRN Cbc With Automated Diff (04/11/19 20:33) Magnesium (04/11/19 20:33) Chest 1 View, Ap/Pa Only (04/11/19 20:33) Ekg Tracing (04/11/19 20:33) Comprehensive Metabolic Panel (04/11/19 20:33) Myoglobin Serum (04/11/19 20:33) Protime With Inr (04/11/19 20:33) Partial Thromboplastin Time (04/11/19 20:33) O2 (04/11/19 20:33) Monitor-Rhythm Ecg Trace Only (04/11/19 20:33) Lipid Panel (04/12/19 06:00) Ed Iv/Invasive Line Start (04/11/19 20:33) BNP (04/11/19 20:33) Aspirin Chewable Tablet (Baby Aspirin Ch (04/11/19 20:45) Troponin I (04/11/19 20:42) Furosemide Injection (Lasix Injection) (04/11/19 21:30) Ticagrelor Tablet (Brilinta Tablet) (04/11/19 21:45) Enoxaparin Injection (Lovenox Injection) (04/11/19 21:45) Ceftriaxone For Iv Use (Rocephin For I (04/11/19 22:00) Medications Given in ED Current Medications Medications Dose Ordered Sig/Sarah Route Start Time Stop Time Status Last Admin Dose Admin Aspirin 324 mg ONCE ONCE PO 04/11/19 20:45 04/11/19 20:46 DC 04/11/19 20:48 324 MG Furosemide 40 mg ONCE ONCE IVP 04/11/19 21:30 04/11/19 21:31 DC 04/11/19 21:32 40 MG Vital Signs/I&O 04/11/19 04/11/19 04/11/19 20:30 20:30 20:32 Pulse 103 B/P (MAP) 141/82 (101) O2 Delivery Room Air Room Air Room Air FiO2 97 Departure Communication (Admissions) Time/Spoke to Admitting Phy: 21:[address] Vaca, agrees to admit on behalf of [facility]. I spoke with Dr. Rangel who is covering for Dr. Galindo. Brilinta 180 has been given, Lovenox 1 mg/kg has been given, Lasix 40 mg has been given. She remained symptom free at this time. We'll admit to ICU, nothing by mouth after midnight, plan for cardiac catheterization in the morning. She has a white count of 11.1, she reports an intermittent cough but no fevers, cough is not new. The chest x-ray shows a questionable left lower lobe infiltrate. I'll treat with Rocephin plus doxycycline (instead of azithromycin since she has a borderline prolonged QT interval) Impression Primary Impression: CHF (congestive heart failure) Qualified Codes: I50.9 - Heart failure, unspecified Additional Impressions: Chronic renal insufficiency Qualified Codes: N18.9 - Chronic kidney disease, unspecified Anxiety Chest pain Qualified Codes: I20.8 - Other forms of angina pectoris Disposition: ADMITTED INPATIENT Condition: Stable Admissions Decision to Admit Reason: Admit from ER (General) Decision to Admit/Date: Apr 11, 2019 Time/Decision to Admit Time: 21:23 Departure-Patient Inst. Referrals: CARLOS STUBBS MD (PCP/Family) Primary Care Physician DIONNE MONSON APRN Apr 11, 2019 20:43
[2019-04-11] MEDS ORDERED: ASPIRIN 81 MG CHEW (CHILDREN'S ASA) PO ONE (20:45)
[2019-04-11 20:52] LABS: BASOPHILS # (AUTO) 0.1 10^3/uL (0.0-0.1); BASOPHILS % (AUTO) 1 % (0-10); EOSINOPHILS # (AUTO) 0.1 10^3/uL (0.0-0.3); EOSINOPHILS % (AUTO) 1 % (0-10); HEMATOCRIT 35 % (35-52); HEMOGLOBIN 10.8 G/DL (11.5-16.0); LYMPHOCYTES # (AUTO) 1.3 X 10^3 (1.0-4.0); LYMPHOCYTES % (AUTO) 11 % (12-44); MEAN CORPUSCULAR HEMOGLOBIN 25 PG (25-34); MEAN CORPUSCULAR HGB CONC 31 G/DL (32-36); MEAN CORPUSCULAR VOLUME 81 FL (80-99); MEAN PLATELET VOLUME 8.7 FL (7.4-10.4); MONOCYTES # (AUTO) 0.9 X 10^3 (0.0-1.0); MONOCYTES % (AUTO) 8 % (0-12); NEUTROPHILS # (AUTO) 9.6 X 10^3 (1.8-7.8); NEUTROPHILS % (AUTO) 80 % (42-75); PLATELET COUNT 423 10^3/uL (130-400); RED CELL DISTRIBUTION WIDTH 16.1 % (10.0-14.5); WHITE BLOOD COUNT 11.9 10^3/uL (4.3-11.0)
[2019-04-11 21:03] LABS: INR 1.1 (0.8-1.4); PROTHROMBIN TIME PATIENT 14.1 SEC (12.2-14.7)
[2019-04-11 21:11] LABS: ALBUMIN 3.9 GM/DL (3.2-4.5); BILIRUBIN,TOTAL 0.4 MG/DL (0.1-1.0); CALCIUM 9.4 MG/DL (8.5-10.1); CREATININE SERUM 1.12 MG/DL (0.60-1.30); MAGNESIUM 1.7 MG/DL (1.6-2.4); POTASSIUM 4.8 MMOL/L (3.6-5.0)
--- NOTE | 2019-04-11 21:27 | Diagnostic Imaging Report ---
INDICATION: Chest tightness. FINDINGS: Infiltrate in the left base obscuring the left diaphragm is a left pleural effusion. There is a calcified nodule in the right lower lobe presumed granuloma 14 mm. Heart is mildly enlarged. There is some mild central vascular congestion. IMPRESSION: Borderline cardiomegaly and vascular congestion, left lower lobe infiltrate and pleural fluid present suspicious for pneumonia. Dictated by: Dictated on workstation # [id number]
[2019-04-11] MEDS ORDERED: FUROSEMIDE 40 MG/4 ML INJ (LASIX) IVP ONE (21:30)
[2019-04-11] MEDS ORDERED: TICAGRELOR 90 MG TABLET (BRILINTA) PO ONE (21:45)
[2019-04-11] MEDS ORDERED: ENOXAPARIN 100 MG/1 ML (LOVENOX) SYR SC ONE (21:45)
[2019-04-11] MEDS ORDERED: cefTRIAXone FOR IV USE 1,000 MG in WATER (STERILE) FOR INJECTION 10 ML IV ONE (22:00)
[2019-04-11 23:30] VITALS: BP 152/88
[2019-04-11 23:45] VITALS: BP 152/88
[2019-04-12] VITALS (26 sets, daily range): BP systolic 88–162; BP diastolic 52–84
[2019-04-12] MEDS: LORazepam INJ 2 MG/ML (ATIVAN) VIAL IVP PRN ×2 (00:11→20:54)
[2019-04-12] MEDS ORDERED: DOXYCYCLINE INJECTION 100 MG in NS (IVPB) 100 ML IV SCH (02:00)
--- NOTE | 2019-04-12 03:20 | Pulmonary Consultation ---
VALENTINA CALHOUN MED STUDENT 04/12/19 0319: History of Present Illness History of Present Illness Date Seen by Provider: Apr 12, 2019 Time Seen by Provider: 03:08 Date of Admission History of Present Illness The patient is an anxious 78 year old female. She was admitted after presenting to the ER with a chief complaint of chest pain. Her chest pain resolved in the ER. This morning she is answering all questions appropriately and fully participates in the physical exam. She states that she "just got scared" when she began having chest pain last night and came in to get checked out. She denies chest pain this morning. She does report an occasional cough that has been non-productive. The patient also denies shortness of breath, fever, or chills. She is asking if she will have to undergo a procedure and is obviously anxious about it. She has no other concerns at this time. Allergies and Home Medications Allergies Coded Allergies: codeine (Verified Adverse Reaction, Mild, NAUSEA, 02/08/19) Home Medications Acetaminophen 650 Mg Tablet.er, 650 MG PO Q8H PRN for PAIN-MILD, (Reported) Albuterol Sulfate 18 Gm Hfa.aer.ad, 2 PUFF PO Q4H, (Reported) Alprazolam 0.25 Mg Tablet, 0.25 MG PO Q8H PRN for ANXIETY Prescribed by: JAMEY VACA on 02/17/19 163 Amlodipine Besylate 10 Mg Tablet, 10 MG PO DAILY, (Reported) Atorvastatin Calcium 10 Mg Tablet, 10 MG PO DAILY, (Reported) Buspirone HCl 10 Mg Tablet, 10 MG PO BID, (Reported) Enoxaparin Sodium 40 Mg/0.4 Ml Syringe, 40 MG SC DAILY@2200 Prescribed by: JAMEY VACA on 02/17/19 163 Fluticasone Propionate 16 Gm Shelly.susp, 2 SPR NSEACH DAILY, (Reported) Furosemide 20 Mg Tablet, 20 MG PO DAILY, (Reported) Glimepiride 4 Mg Tablet, 4 MG PO DAILY, (Reported) Hydrocodone Bit/Acetaminophen 1 Tab Tab, 1 TAB PO Q4H PRN for MOD Prescribed by: JAMEY VACA on 02/22/19 1016 Lisinopril 20 Mg Tablet, 20 MG PO DAILY Prescribed by: JAMEY VACA on 02/17/19 163 Montelukast Sodium 10 Mg Tablet, 10 MG PO HS, (Reported) Sennosides/Docusate Sodium 1 Each Tablet, 2 EA PO BID Prescribed by: JAMEY VACA on 02/22/19 1016 Sodium Chloride 1 Gm Tab, 1 GM PO BID Prescribed by: JAMEY VACA on 02/17/19 1632 Past Wmrwewn-Xahycb-Jniynr Hx Patient Social History Alcohol Use: Denies Use Recreational Drug Use: No Smoking Status: Never a Smoker Recent Foreign Travel: No Contact w/Someone Who Travel: No Recent Infectious Disease Expo: No Recent Hopitalizations: No Physical Abuse: No Sexual Abuse: No Mistreated: No Fear: No Immunizations Up To Date PED Vaccines UTD: Yes Date of Pneumonia Vaccine: Jul 05, 2015 Date of Influenza Vaccine: Feb 03, 2019 Seasonal Allergies Seasonal Allergies: No Past Medical History Surgeries: Yes Hysterectomy Respiratory: Yes Chronic Bronchitis Currently Using CPAP: No Currently Using BIPAP: No Cardiac: Yes High Cholesterol, Hypertension Neurological: No Developmental Disorder : No Reproductive Disorders: No 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, 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 Sexually Transmitted Disease: No HIV/AIDS: No Genitourinary: No Gastrointestinal: No Musculoskeletal: Yes Arthritis, Chronic Back Pain, Fractures Endocrine: Yes Diabetes, Non-Insulin dep HEENT: No (wears glasses) Loss of Vision: Denies Cancer: No Uterine Did You Recieve Any Treatments: Yes What Type of Treatment Did You: Surgical Intervention Psychosocial: No Anxiety Integumentary: No Blood Disorders: No Adverse Reaction/Blood Tranf: No Family Medical History Diabetes mellitus 19 FATHER Hypertension 19 FATHER Diabetes, Hypertension Review of Systems Constitutional: No: Fever, Chills Respiratory: Cough, Dry; No: Shortness of breath Cardiovascular: No: Chest Pain Sepsis Event Evaluation Height, Weight, BMI Height: 5'" Weight: 203lbs. oz. 92.863426zi; 36.68 BMI Method:Stated Exam Exam Vital Signs Date Time Temp Pulse Resp B/P (MAP) Pulse Ox O2 Delivery O2 Flow Rate FiO2 04/12/19 01:00 93 04/12/19 00:33 97 Room Air 04/11/19 23:36 90 04/11/19 23:30 36.6 99 13 152/88 (109) 98 Room Air 04/11/19 20:32 Room Air 97 04/11/19 20:30 Room Air 04/11/19 20:30 103 141/82 (101) Room Air I & O 04/12/19 07:00 Intake Total 10 ml Output Total 300 ml Balance -290 ml Height & Weight Height: 5'" Weight: 203lbs. oz. 92.193983vj; 36.68 BMI Method:Stated General Appearance: No Apparent Distress, WD/WN, Chronically ill, Obese Respiratory: Normal Breath Sounds, No Accessory Muscle Use, No Respiratory Distress Cardiovascular: Regular Rate, Rhythm, Normal Peripheral Pulses Capillary Refill: Less Than 3 Seconds Extremity: Normal Capillary Refill, Pedal Edema (3+ bilateral lower extremities) Neurologic/Psychiatric: Alert, Oriented x3 Skin: Normal Color, Warm/Dry Results Lab Laboratory Tests 04/11/19 20:42 Assessment/Plan Assessment/Plan Chest pain -Cardiology consulted CHF -BNP: 1406.9 -Lasix 40mg BID Anxiety -Lorazepam 0.5 Q6h PRN BOB GRANADOS DO 04/12/19 0506: History of Present Illness History of Present Illness Time Seen by Provider: 05:01 History of Present Illness The patient is an anxious 78 year old female. She was admitted after presenting to the ER with a chief complaint of chest pain. Her chest pain resolved in the ER. This morning she is answering all questions appropriately and fully participates in the physical exam. She states that she "just got scared" when she began having chest pain last night and came in to get checked out. She denies chest pain this morning. She does report an occasional cough that has been non-productive. The patient also denies shortness of breath, fever, or chills. She is asking if she will have to undergo a procedure and is obviously anxious about it. She has no other concerns at this time. Allergies and Home Medications Allergies Coded Allergies: codeine (Verified Adverse Reaction, Mild, NAUSEA, 02/08/19) Home Medications Acetaminophen 650 Mg Tablet.er, 650 MG PO Q8H PRN for PAIN-MILD, (Reported) Albuterol Sulfate 18 Gm Hfa.aer.ad, 2 PUFF PO Q4H, (Reported) Alprazolam 0.25 Mg Tablet, 0.25 MG PO Q8H PRN for ANXIETY Prescribed by: JAMEY VACA on 02/17/19 7922 Amlodipine Besylate 10 Mg Tablet, 10 MG PO DAILY, (Reported) Atorvastatin Calcium 10 Mg Tablet, 10 MG PO DAILY, (Reported) Buspirone HCl 10 Mg Tablet, 10 MG PO BID, (Reported) Enoxaparin Sodium 40 Mg/0.4 Ml Syringe, 40 MG SC DAILY@2200 Prescribed by: JAMEY VACA on 02/17/19 1632 Fluticasone Propionate 16 Gm Shelly.susp, 2 SPR NSEACH DAILY, (Reported) Furosemide 20 Mg Tablet, 20 MG PO DAILY, (Reported) Glimepiride 4 Mg Tablet, 4 MG PO DAILY, (Reported) Hydrocodone Bit/Acetaminophen 1 Tab Tab, 1 TAB PO Q4H PRN for MOD Prescribed by: JAMEY VACA on 02/22/19 1016 Lisinopril 20 Mg Tablet, 20 MG PO DAILY Prescribed by: JAMEY VACA on 02/17/19 1632 Montelukast Sodium 10 Mg Tablet, 10 MG PO HS, (Reported) Sennosides/Docusate Sodium 1 Each Tablet, 2 EA PO BID Prescribed by: JAMEY VACA on 02/22/19 1016 Sodium Chloride 1 Gm Tab, 1 GM PO BID Prescribed by: JAMEY VACA on 02/17/19 1632 Past Jkhvhxl-Qsmzid-Nmlqcd Hx Family Medical History Diabetes mellitus 19 FATHER Hypertension 19 FATHER Review of Systems Time Seen by Provider: 05:01 Respiratory: Cough, Dry; No: Shortness of breath Cardiovascular: No: Chest Pain Exam Exam General Appearance: No Apparent Distress, WD/WN, Chronically ill, Obese Respiratory: Normal Breath Sounds, No Accessory Muscle Use, No Respiratory Distress Cardiovascular: Regular Rate, Rhythm, Normal Peripheral Pulses Extremity: Normal Capillary Refill, Pedal Edema (3+ bilateral lower extremities) Neurologic/Psychiatric: Alert, Oriented x3 Skin: Normal Color, Warm/Dry Assessment/Plan Assessment/Plan NSTEMI with Chest pain -Cardiology consulted -Probable cardiac cath today CHF -BNP: 1406.9 -Lasix 40mg BID NIDDM HTN Hypercholesteremia Anxiety -Lorazepam 0.5 Q6h PRN Supervisory-Addendum Brief Verification & Attestation Participated in pt care: history Personally performed: exam, history Care discussed with: Medical Student Procedures: n/a Verification and Attestation of Medical Student E/M Service A medical student performed and documented this service in my presence. I reviewed and verified all information documented by the medical student and made modifications to such information, when appropriate. I personally performed the physical exam and medical decision making. Bob Granados, Apr 12, 2019,06:13 VALENTINA CALHOUN MED STUDENT Apr 12, 2019 03:19 BOB GRANADOS DO Apr 12, 2019 05:06
[2019-04-12 03:48] LABS: BASOPHILS # (AUTO) 0.1 10^3/uL (0.0-0.1); BASOPHILS % (AUTO) 1 % (0-10); EOSINOPHILS # (AUTO) 0.2 10^3/uL (0.0-0.3); EOSINOPHILS % (AUTO) 2 % (0-10); HEMATOCRIT 31 % (35-52); LYMPHOCYTES # (AUTO) 1.5 X 10^3 (1.0-4.0); LYMPHOCYTES % (AUTO) 17 % (12-44); MEAN CORPUSCULAR HEMOGLOBIN 26 PG (25-34); MEAN CORPUSCULAR HGB CONC 32 G/DL (32-36); MEAN CORPUSCULAR VOLUME 80 FL (80-99); MEAN PLATELET VOLUME 8.7 FL (7.4-10.4); MONOCYTES % (AUTO) 12 % (0-12); NEUTROPHILS # (AUTO) 6.2 X 10^3 (1.8-7.8); NEUTROPHILS % (AUTO) 69 % (42-75); PLATELET COUNT 395 10^3/uL (130-400); RED CELL DISTRIBUTION WIDTH 16.1 % (10.0-14.5); WHITE BLOOD COUNT 8.9 10^3/uL (4.3-11.0)
[2019-04-12 04:12] LABS: ALBUMIN 3.5 GM/DL (3.2-4.5); BILIRUBIN,TOTAL 0.6 MG/DL (0.1-1.0); CALCIUM 9.1 MG/DL (8.5-10.1); CREATININE SERUM 1.08 MG/DL (0.60-1.30); MAGNESIUM 1.7 MG/DL (1.6-2.4); PHOSPHORUS 3.6 MG/DL (2.3-4.7); POTASSIUM 4.1 MMOL/L (3.6-5.0); TOTAL PROTEIN 6.2 GM/DL (6.4-8.2)
[2019-04-12] MEDS: KCL 20 MEQ TAB (K-DUR) PO SCH (05:45)
[2019-04-12] MEDS: FUROSEMIDE 40 MG/4 ML INJ (LASIX) IV SCH ×2 (06:50→19:39)
--- NOTE | 2019-04-12 08:04 | Diagnostic Imaging Report ---
HISTORY: Congestive heart failure, non-ST elevation, myocardial infarction COMPARISON: 04/11/2019 TECHNIQUE: Single frontal view of the chest. FINDINGS: Lung volumes are normal. Aeration in the left lung base is improved. There is a calcified granuloma in the right lung base. There is mild cardiomegaly. No pneumothorax is seen. There is a left shoulder arthroplasty present. IMPRESSION: 1. Left basilar opacities and effusion appear improved since the prior exam. 2. Stable cardiomegaly. Dictated by: Dictated on workstation # [id number]
[2019-04-12] MEDS ORDERED: LIDOCAINE 1% INJ 20 ML 20 ML VIAL ONE (08:17)
[2019-04-12] MEDS ORDERED: HEParin 1000 UNIT/ML (10ML VIAL) FOR BOLUS ONE ×2 (08:17→16:12)
[2019-04-12] MEDS ORDERED: NS IV 1000 ML 3,000 ML ONE (08:17)
--- NOTE | 2019-04-12 09:34 | History & Physical ---
HPI History of Present Illness: Chest discomfort x 2-3 days, with shortness of breath and nausea. Occasional cough. Some pain in left arm as well, but states it is her "bad" arm. She feels good this morning. 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 Date seen by provider: Apr 12, 2019 Time Seen by Provider: 09:33 Attending Physician Julissa Cadet MD PCP Reji Daigle MD Consult Date of Admission Apr 11, 2019 at 21:27 Home Medications Home Medications Reviewed patient Home Medication Reconciliation performed by pharmacy medication reconciliations pharmacy order entry technician and/or nursing. Patients Allergies have been reviewed. Allergies Coded Allergies: codeine (Verified Adverse Reaction, Mild, NAUSEA, 02/08/19) EHA-Kapmfj-Nbmwjf Hx Patient Social History Alcohol Use: Denies Use Recreational Drug Use: No Smoking Status: Never a Smoker Recent Foreign Travel: No Contact w/other who traveled: No Recent Hopitalizations: No Recent Infectious Disease Expo: No Immunizations Up To Date Date of Pneumonia Vaccine: Jul 05, 2015 Date of Influenza Vaccine: Feb 03, 2019 Past Medical History PMHx: DMII HTN HLD PSurgHx: Hysterectomy Left arm/shoulder surgery after fracture Family Medical History Significant Family History: Diabetes, Hypertension Family History: Diabetes mellitus 19 FATHER Hypertension 19 FATHER Review of Systems ([facility]) Constitutional: No fever EENTM: No nose congestion Respiratory: see HPI Cardiovascular: see HPI Gastrointestinal: constipation (occasional) Genitourinary: No dysuria Musculoskeletal: see HPI Skin: dryness; No rash Psychiatric/Neurological: Anxiety (occasional) Reviewed Test Results Reviewed Test Results Lab Laboratory Tests Test 04/11/19 20:42 04/12/19 03:23 Range/Units White Blood Count 11.9 H 8.9 4.3-11.0 10^3/uL Red Blood Count 4.31 L 3.91 L 4.35-5.85 10^6/uL Hemoglobin 10.8 L 10.0 L 11.5-16.0 G/DL Hematocrit 35 31 L 35-52 % Mean Corpuscular Volume 81 80 80-99 FL Mean Corpuscular Hemoglobin 25 26 25-34 PG Mean Corpuscular Hemoglobin Concent 31 L 32 32-36 G/DL Red Cell Distribution Width 16.1 H 16.1 H 10.0-14.5 % Platelet Count 423 H 395 130-400 10^3/uL Mean Platelet Volume 8.7 8.7 7.4-10.4 FL Neutrophils (%) (Auto) 80 H 69 42-75 % Lymphocytes (%) (Auto) 11 L 17 12-44 % Monocytes (%) (Auto) 8 12 0-12 % Eosinophils (%) (Auto) 1 2 0-10 % Basophils (%) (Auto) 1 1 0-10 % Neutrophils # (Auto) 9.6 H 6.2 1.8-7.8 X 10^3 Lymphocytes # (Auto) 1.3 1.5 1.0-4.0 X 10^3 Monocytes # (Auto) 0.9 1.0 0.0-1.0 X 10^3 Eosinophils # (Auto) 0.1 0.2 0.0-0.3 10^3/uL Basophils # (Auto) 0.1 0.1 0.0-0.1 10^3/uL Prothrombin Time 14.1 12.2-14.7 SEC INR Comment 1.1 0.8-1.4 Activated Partial Thromboplast Time 34 24-35 SEC Sodium Level 136 135 135-145 MMOL/L Potassium Level 4.8 4.1 3.6-5.0 MMOL/L Chloride Level 98 99 98-107 MMOL/L Carbon Dioxide Level 22 22 21-32 MMOL/L Anion Gap 16 H 14 5-14 MMOL/L Blood Urea Nitrogen 25 H 26 H 7-18 MG/DL Creatinine 1.12 1.08 0.60-1.30 MG/DL Estimat Glomerular Filtration Rate 47 49 BUN/Creatinine Ratio 22 24 Glucose Level 129 H 110 H 70-105 MG/DL Calcium Level 9.4 9.1 8.5-10.1 MG/DL Corrected Calcium 9.5 9.5 8.5-10.1 MG/DL Magnesium Level 1.7 1.7 1.6-2.4 MG/DL Total Bilirubin 0.4 0.6 0.1-1.0 MG/DL Aspartate Amino Transf (AST/SGOT) 49 H 36 H 5-34 U/L Alanine Aminotransferase (ALT/SGPT) 15 14 0-55 U/L Alkaline Phosphatase 80 69 40-136 U/L Myoglobin 146.9 H 10.0-92.0 NG/ML Troponin I 9.812 *H 12.468 *H <0.028 NG/ML B-Type Natriuretic Peptide 1406.9 H <100.0 PG/ML Total Protein 7.0 6.2 L 6.4-8.2 GM/DL Albumin 3.9 3.5 3.2-4.5 GM/DL Phosphorus Level 3.6 2.3-4.7 MG/DL Triglycerides Level 132 <150 MG/DL Cholesterol Level 146 < 200 MG/DL LDL Cholesterol Direct 110 1-129 MG/DL VLDL Cholesterol 26 5-40 MG/DL HDL Cholesterol 30 L 40-60 MG/DL Radiology 04/11 CXR: IMPRESSION: Borderline cardiomegaly and vascular congestion, left lower lobe infiltrate and pleural fluid present suspicious for pneumonia. Physical Exam-([facility]) Physical Exam Vital Signs VS - Last 72 Hours, by Label 04/11/19 04/11/19 04/11/19 04/11/19 20:30 20:30 20:32 23:26 Pulse 103 103 Resp 20 B/P (MAP) 141/82 (101) 141/82 (101) Pulse Ox 98 O2 Delivery Room Air Room Air Room Air Room Air FiO2 97 04/11/19 04/11/19 04/11/19 04/12/19 23:30 23:36 23:45 00:00 Temp 36.6 Pulse 99 90 100 106 Resp 13 21 18 B/P (MAP) 152/88 (109) 152/88 (109) 162/83 (109) Pulse Ox 98 97 98 O2 Delivery Room Air Room Air Room Air 04/12/19 04/12/19 04/12/19 04/12/19 00:15 00:30 00:33 01:00 Pulse 98 91 93 Resp 25 16 B/P (MAP) 114/84 (94) 98/63 (75) Pulse Ox 98 97 97 O2 Delivery Room Air Room Air Room Air 04/12/19 04/12/19 04/12/19 04/12/19 01:00 01:30 02:00 03:00 Pulse 91 70 90 91 Resp 19 16 12 13 B/P (MAP) 105/54 (71) 99/62 (74) 97/62 (74) 131/75 (93) Pulse Ox 97 97 97 97 O2 Delivery Room Air Room Air Room Air Room Air 04/12/19 04/12/19 04/12/19 04/12/19 03:15 03:35 04:00 05:00 Temp 36.4 Pulse 87 95 Resp 20 13 B/P (MAP) 124/67 (86) 136/68 (90) Pulse Ox 98 97 95 O2 Delivery Room Air Room Air Room Air 04/12/19 04/12/19 04/12/19 04/12/19 06:00 07:00 07:00 07:11 Temp 36.2 Pulse 92 93 92 Resp 13 19 B/P (MAP) 131/68 (89) 138/70 (92) Pulse Ox 96 97 O2 Delivery Room Air Room Air 04/12/19 04/12/19 04/12/19 04/12/19 08:00 08:00 09:00 10:00 Pulse 98 94 94 Resp 17 24 18 B/P (MAP) 137/81 (99) 153/83 (106) Pulse Ox 96 98 96 96 O2 Delivery Room Air Room Air Room Air Room Air 04/12/19 04/12/19 04/12/19 04/12/19 11:00 11:35 12:00 12:00 Temp 36.5 Pulse 104 98 Resp 52 29 B/P (MAP) 154/82 (106) Pulse Ox 96 97 98 O2 Delivery Room Air Room Air Room Air 04/12/19 04/12/19 04/12/19 12:48 13:00 14:00 Pulse 101 96 93 Resp 16 12 B/P (MAP) 155/81 (105) 138/84 (102) Pulse Ox 97 94 O2 Delivery Room Air Room Air Capillary Refill : Less Than 3 Seconds General Appearance: no apparent distress (appears anxious) Respiratory: lungs clear Cardiovascular: regular rate, rhythm, no murmur Gastrointestinal: normal bowel sounds, non tender, soft Neurologic/Psychiatric: alert, normal mood/affect Skin: normal color, warm/dry Assessment/Plan Assessment/Plan Admission Status: Inpatient Order (span 2 midnights) Reason for Inpatient Admission: NSTEMI, possible pneumonia with underlying diabetes, high risk for complications (1) Chest pain Status: Acute Assessment & Plan: With elevated troponin, Cardiology consulted, appreciate recommendations. CXR with possible pneumonia, started on antibiotics from ER, repeat CXR pending. Qualifiers: Qualified Codes: I20.8 - Other forms of angina pectoris (2) Diabetes mellitus Status: Chronic Assessment & Plan: Sliding scale insulin, NPO for now while waiting on Cardiology eval Qualifiers: (3) CHF (congestive heart failure) Status: Acute Assessment & Plan: Diuretic given last night, reports good output and improved shortness of breath, Cardiology consulted, appreciate recommendations. Qualifiers: Qualified Codes: I50.9 - Heart failure, unspecified (4) DVT prophylaxis Assessment & Plan: Pending possible procedure, anticipate enoxaparin when okay with Cardiology Clinical Quality Measures AMI/AHF: ASA po Prior to arrival: No DVT/VTE Risk/Contraindication: Risk Factor Score Per Nursin RFS Level Per Nursing on Admit: 4+=Very High JULISSA CADET MD Apr 12, 2019 09:34
[2019-04-12] MEDS ORDERED: fentaNYL INJECTION 100 MCG/2 ML AMP ONE ×3 (11:03→16:02)
[2019-04-12] MEDS ORDERED: MIDAZOLAM 5 MG/5 ML (VERSED) VIAL ONE ×2 (11:03→14:30)
[2019-04-12] MEDS: lisINopril 20 MG (PRINIVIL) TABLET PO SCH (12:01)
[2019-04-12] MEDS: HYDROCHLOROTHIAZIDE 25 MG (HCTZ) TAB PO SCH (12:01)
--- NOTE | 2019-04-12 13:20 | Consultation-Cardiology ---
HPI-Cardiology Cardiology Consultation: Date of Consultation 04/12/19 Date of Admission Attending Physician Hortensia Ballesteros MD Admitting Physician Reji Daigle MD Consulting Physician Norm RANGEL MD HPI: Time Seen by a Provider: 10:00 Chief Complaint: Chest pain This is a 78-year-old lady who presented with chest pain, shortness of breath. She has history of hypertension, diabetes, obesity. She denies active smoking. She has family history of [place] in the father. She denies previous history of coronary disease and congestive heart failure. She presented with resting chest pain off over 30 minutes. Substernal. No radiation. No exacerbating or relieving factors. No associated other cardiac symptoms. Moderate intensity. Review of Systems-Cardiology Review of Systems Constitutional: As described under HPI; No As described under HPI, No no symptoms reported, No chills, No fever, No lightheadedness Eyes: No As described under HPI, No no symptoms reported, No blindness, No blurred vision, No contact lenses, No drainage, No decreased acuity, No foreign body sensation, No pain, No vision change Ears/Nose/Throat: No As described under HPI, No no symptoms reported, No chronic hearing loss, No ear discharge, No ear pain, No nasal drainage, No ul cerations Respiratory: No no symptoms reported; As described under HPI; No As described under HPI, No cough, No orthopnea, No shortness of breath, No SOB with excertion Cardiovascular: No no symptoms reported; As described under HPI; No As described under HPI; chest pain; No edema, No irregular heart rate, No lightheadedness, No palpitations Gastrointestinal: No no symptoms reported, No As described under HPI, No abdomen distended, No abdominal pain, No blood streaked bowels, No constipation, No diarrhea, No nausea, No vomiting, No stool coloration changes Genitourinary: No As described under HPI, No burning, No dysuria, No discharge, No frequency, No flank pain, No hematuria, No urgency : Yes : No Skin: No rash, No skin related problems, No ulcerations Psychiatric/Neurological: No anxiety, No depression, No seizure, No focal weakness, No syncope Hematologic: No bleeding abnormalities LPB-Aoujpn-Lhooin Hx Patient Social History Alcohol Use: Denies Use Recreational Drug Use: No Smoking Status: Never a Smoker Recent Foreign Travel: No Recent Infectious Disease Expo: No Immunizations Up To Date Date of Pneumonia Vaccine: Jul 05, 2015 Date of Influenza Vaccine: Feb 03, 2019 Past Medical History PMH As described under Assessment. Family Medical History Family History: Diabetes mellitus 19 FATHER Hypertension 19 FATHER Allergies and Home Medications Allergies Coded Allergies: codeine (Verified Adverse Reaction, Mild, NAUSEA, 02/08/19) Home Medications Acetaminophen 650 Mg Tablet.er, 650 MG PO Q8H PRN for PAIN-MILD, (Reported) Albuterol Sulfate 18 Gm Hfa.aer.ad, 2 PUFF PO Q4H PRN for SHORTNESS OF BREATH, (Reported) Albuterol Sulfate 2.5 Mg/0.5 Ml Vial.neb, 2.5 MG INH Q8H PRN for SHORTNESS OF BREATH, (Reported) Ascorbic Acid 500 Mg Tab.chew, 500 MG PO DAILY, (Reported) Aspirin 81 Mg Tablet.dr, 81 MG PO DAILY Prescribed by: HORTENSIA BALLESTEROS on 04/13/19 1236 Atorvastatin Calcium 80 Mg Tablet, 80 MG PO HS Prescribed by: HORTENSIA BALLESTEROS on 04/13/19 1224 Buspirone HCl 10 Mg Tablet, 10 MG PO BID, (Reported) Fluticasone Propionate 16 Gm [place].susp, 2 SPR NSEACH DAILY, (Reported) Furosemide 20 Mg Tablet, 20 MG PO DAILY, (Reported) Glimepiride 4 Mg Tablet, 4 MG PO DAILY, (Reported) Guaifenesin 100 Mg/5 Ml Liquid, 5 ML PO PRN, (Reported) Hydrochlorothiazide 25 Mg Tablet, 25 MG PO DAILY, (Reported) Lisinopril 20 Mg Tablet, 20 MG PO DAILY Prescribed by: JAMEY VACA on 02/17/19 1632 Melatonin 3 Mg Tab.rapdis, 3 MG PO HS PRN for INSOMNIA, (Reported) Metoprolol Succinate 25 Mg Tab.er.24h, 25 MG PO DAILY, (Reported) HOLD MED AND NOTIFY PCP IS SYSTOLIC BP LESS THAN 100 OR DIASTOLIC LESS THAN 60 Montelukast Sodium 10 Mg Tablet, 10 MG PO DAILY, (Reported) Multivitamin 1 Each Tablet, 1 EACH PO DAILY, (Reported) Ondansetron HCl 4 Mg Tab, 4 MG PO Q4H PRN for NAUSEA/VOMITING-1ST LINE, (Reported) Phenol 177 Ml [place].pump, 1 SPRAY MM Q6H PRN for SORE THROAT, (Reported) Sennosides/Docusate Sodium 1 Each Tablet, 2 EACH PO BID, (Reported) Sodium Chloride 1 Gm Tab, 1 GM PO BID, (Reported) Ticagrelor 90 Mg Tablet, 90 MG PO BID Prescribed by: HORTENSIA BALLESTEROS on 04/13/19 1236 Tramadol HCl 50 Mg Tablet, 50 MG PO BID PRN for PAIN-MODERATE (5-7), (Reported) Patient Home Medication List Home Medication List Reviewed: Yes Physical Exam-Cardiology Physical Exam Vital Signs/I&O 04/13/19 04/13/19 04/13/19 04/13/19 04:00 04:26 04:32 05:00 Temp 36.7 Pulse 101 98 Resp 18 B/P (MAP) 114/56 (75) 108/53 (71) Pulse Ox 99 98 O2 Delivery Room Air Room Air Room Air 04/13/19 04/13/19 04/13/19 04/13/19 06:00 07:00 07:00 07:30 Temp 36.6 Pulse 95 96 96 Resp 15 11 B/P (MAP) 111/70 (84) 84/44 (57) Pulse Ox 96 98 O2 Delivery Room Air Room Air 04/13/19 04/13/19 04/13/19 04/13/19 07:34 08:00 08:00 09:00 Pulse 93 99 Resp 16 12 B/P (MAP) 96/54 (68) 85/51 (62) Pulse Ox 96 93 97 O2 Delivery Room Air Room Air Room Air Room Air 04/13/19 04/13/19 04/13/19 04/13/19 09:02 10:00 10:18 11:00 Temp 36.6 Pulse 101 89 89 Resp 19 18 B/P (MAP) 116/65 (82) 111/74 (86) Pulse Ox 94 98 95 93 O2 Delivery Room Air Room Air Room Air FiO2 21 04/13/19 04/13/19 04/13/19 04/13/19 11:30 12:00 12:24 13:00 Temp 36.6 Pulse 90 86 Resp 11 13 B/P (MAP) 119/62 (81) 97/56 (70) Pulse Ox 97 97 O2 Delivery Room Air Room Air Room Air 04/13/19 04/13/19 13:00 14:00 Pulse 86 101 Resp 20 B/P (MAP) 115/64 (81) O2 Delivery Room Air 04/13/19 00:00 Intake Total 220 ml Output Total 0 ml Balance 220 ml Capillary Refill : Less Than 3 Seconds Constitutional: appears stated age, AAO x 3; No apparent distress; well- developed, well-nourished HEENT: PERRL; No discharge; hearing is well preserved, oral hygience is good; No ulceration, No xanthelasmas are seen Neck: No carotid bruit; carotid pulses are 2 + bilaterally Respiratory: chest is bilaterally symmetric, lungs clear to auscultation Cardiovascular: regular rate-rhythm, S1 and S2 Gastrointestinal: soft, round, audible bowel sounds; No spleenomegaly Rectal: deferred Extremities: normal range of motion, non-tender, normal inspection; No clubbing, No cyanosis; no lower extremity edema bilateral; No significant edema Neurologic/Psychiatric: no motor/sensory deficits, alert, normal mood/affect, oriented x 3, power is 5/5 both on sides Skin: normal color, warm/dry; No rash, No ulcerations Data Review Labs Laboratory Tests 04/13/19 03:03: White Blood Count 10.2, Red Blood Count 3.62L, Hemoglobin 9.1L, Hematocrit 29L, Mean Corpuscular Volume 80, Mean Corpuscular Hemoglobin 25, Mean Corpuscular Hemoglobin Concent 31L, Red Cell Distribution Width 16.2H, Platelet Count 365, Mean Platelet Volume 8.9, Neutrophils (%) (Auto) 79H, Lymphocytes (%) (Auto) 10L , Monocytes (%) (Auto) 10, Eosinophils (%) (Auto) 1, Basophils (%) (Auto) 1, Neutrophils # (Auto) 8.0H, Lymphocytes # (Auto) 1.1, Monocytes # (Auto) 1.0, Eosinophils # (Auto) 0.1, Basophils # (Auto) 0.1, Sodium Level 136, Potassium Level 3.9, Chloride Level 99, Carbon Dioxide Level 21, Anion Gap 16H, Blood Urea Nitrogen 30H, Creatinine 1.24, Estimat Glomerular Filtration Rate 42, BUN/Creatinine Ratio 24, Glucose Level 121H, Calcium Level 8.8, Phosphorus Level 5.2H, Magnesium Level 1.8 Microbiology 04/12/19 MRSA Screen - Final, Complete MRSA not isolated ECG Impression ECG Initial ECG Rhythm: Normal Sinus Comment Sinus rhythm with Q waves in the anterior leads. 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 A/P-Cardiology Assessment/Admission Diagnosis Non-STEMI, Acute systolic congestive heart failure, Diabetes, Hypertension, Hyperlipidemia. Plan Non-STEMI, discussed at length with the patient. Coronary angiography is recommended. Informed consent was taken. Dual antiplatelet therapy will be given. Acute systolic congestive heart failure, continue Lasix. Echocardiogram. Diabetes, Hypertension, lisinopril, beta andrew. Hyperlipidemia, high-dose statin therapy.. Thank you for your consultation. Please call me if you have any questions. Jacoby Rangel MD, FACP, FACC, FSCAI, FHRS, CCDS Interventional Cardiology Cardiac Electrophysiology Vascular Medicine and Endovascular Interventions Clinical Quality Measures AMI/AHF: ASA po Prior to arrival: No DVT/VTE Risk/Contraindication: Risk Factor Score Per Nursin RFS Level Per Nursing on Admit: 4+=Very High Norm RANGEL MD Apr 12, 2019 13:20
[2019-04-12] MEDS ORDERED: NITRO DRIP 25000 MCG/D5W 0 ML IV ONE (15:49)
[2019-04-12] MEDS ORDERED: MIDAZOLAM 2 MG/2 ML (VERSED) VIAL ONE (15:52)
[2019-04-12] MEDS ORDERED: TICAGRELOR 90 MG TABLET (BRILINTA) PO ONE (16:09)
[2019-04-12] MEDS ORDERED: NS IV 1000 ML 1,000 ML IV SCH (16:30)
--- NOTE | 2019-04-12 16:42 | Coronary Angiography & PCI ---
Coronary Angiography & PCI DATE OF PROCEDURE: 04/12/19 INDICATION: Non-STEMI. PREOPERATIVE DIAGNOSIS: Non-STEMI. POSTOPERATIVE DIAGNOSIS: Severe three-vessel disease. Successful PCI to left circumflex artery. HISTORY: This is a 78-year-old lady with non-STEMI. Therefore, the patient was scheduled for coronary angiography. PROCEDURES PERFORMED: 1.Coronary angiography. 2.Left heart catheterization. 3. Abdominal aortogram, bilateral nonselective renal angiogram and lower extremity runoff. Medical necessity: Difficulty in advancing wire in the right common iliac artery. 3.PCI to the COMPLICATIONS: None. SPECIMENS: None. ESTIMATED BLOOD LOSS: 10 mL ANESTHESIA: Conscious sedation ANTICOAGULATION: IV heparin CONTRAST: 186 mL. FLUOROSCOPY: FLOUROSCOPY DOSE: [id number]. PROCEDURE DETAILS: The patient is a 78 female and was brought to the laborer cutting tool after informed consent was taken. All the risks and complications were explained in detail; this included the risk of bleeding, vascular damage, stroke, CO and even . The patient was draped and prepped in the usual sterile fashion. Access was gained in the femoral artery with a 6 Serbian sheath. Coronary angiography and left heart catheterization was performed with a JR4 and JL4 catheter. FINDINGS: 1.Left main: Mild distal left main disease. 20-30 percent stenosis. 2.LAD: Occlusive disease in the proximal/midsegment. With faint distal reconstitution of the LAD which is diffusely diseased. 3.Left circumflex artery: Mild diffuse disease in the left circumflex artery. Mid left circumflex artery has a subtotal hazy stenosis. Stenosis severity 90 percent. There is a third OM artery which has severe ostial disease as well as mid segment disease. Diameter is 1.5 mm. 4.RCA: IT ADMIN in the midsegment. Small vessel. 5.Left heart catheterization: LV pressure 115/4 mmHg. LVEDP 13 mmHg. Aortic pressure 131/68 mmHg. LV gram showed mildly reduce LV systolic function with an EF of 45 percent. Anterior hypokinesis is noted. 6. Abdominal aortogram with bilateral lower extremity runoff. No significant disease in the mid abdominal aorta. Mild calcified disease is noted in the distal abdominal aorta. Bilateral nonselective renal angiogram showed patent left renal artery. Right renal artery has moderate stenosis in the ostium. Right lower extremity: Heavily calcified arteries. Mild disease in the right co mmon iliac, external iliac artery. Patent SENIOR SHAREPOINT DEVELOPER, SFA. Left lower extremity: Heavily calcified arteries with severe disease in the left common iliac artery. Patent external iliac artery, SENIOR SHAREPOINT DEVELOPER and SFA. Calcified SFA. RECOMMENDATIONS: PCI to the mid left circumflex artery is recommended. INTERVENTION DETAILS: EBU 3.5 guide catheter, whisper extra-support guidewire, heparin for ant icoagulation. Patient was given Brilinta 180 mg before the PCI. The lesion in the mid left circumflex artery was crossed with the whisper wire. Direct stenting was done with a Xience Francisca 2.25 x 23 mm stent at 18 ortiz for 32 seconds. No residual stenosis with ALTON-3 flow. I did not attempt OM 3 and LAD. Patient tolerated procedure well and did not have any complication. CONCLUSIONS: 1. Severe three-vessel disease. IT ADMIN of the RCA. Severe occlusive disease of the LAD with severe diffuse disease distally. Severe mid left circumflex artery stenosis treated successfully with a drug-eluting stent. 2. Staged PCI to OM 3 or LAD can be considered, if required in the future. 3. Severe disease in the left common iliac artery. Patient does not have juan luis ication or critical limb ischemia therefore treatment was deferred. 4. Long-term dual antiplatelet therapy. Jacoby Rangel MD, FACP, FACC, [facility] Interventional Cardiology Norm RANGEL MD Apr 12, 2019 16:42
--- NOTE | 2019-04-12 16:42 | Cardiac Procedure Note-CS/ASA ---
Pre-Procedure Note Pre-Op Procedure Note H&P Reviewed The H&P was reviewed, patient examined and no changes noted. Date H&P Reviewed: Apr 12, 2019 Time H&P Reviewed: 13:00 Conscious Sedation Pre-Proced Time 13:00 ASA Score 3 For ASA 3 and 4: Consider anesthesia and medical clearance. Also, for patients with a history of failed moderate sedation consider anesthesia. Airway Lungs Heart ASA score ASA 1: a normal healthy patient ASA 2: a patient with a mild systemic disease (mid diabetes, controlled hypertension, obesity ASA 3: a patient with a severe systemic disease that limits activity (angina, COPD, prior Myocardial infarction) ASA 4: a patient with an incapacitating disease that is a constant threat to life (CHF, renal failure) ASA 5: a moribund patient not expected to survive 24 hrs. (ruptured aneurysm) ASA 6: a declared brain- patient whose organs are being harvested. For emergent operations, add the letter E after the classification Mallampati Classification Grade 1 Sedation Plan Analgesia, Amnesia, Plan communicated to team members, Discussed options with patient/fam, Discussed risks with patient/fam The patient is an appropriate candidate to undergo the planned procedure, sedation, and anesthesia. The patient immediately re-assessed prior to indication. Norm ZACARIAS MD Apr 12, 2019 16:42
[2019-04-12] MEDS ORDERED: PATIENT MAY USE OWN MEDS, ALL PO SCH (16:45)
[2019-04-12] MEDS: NS IV 1000 ML 1,000 ML IV SCH (18:54)
[2019-04-12] MEDS ORDERED: HYDR25TA4 PO (20:33)
[2019-04-12] MEDS ORDERED: ONDN4T PO (20:33)
[2019-04-12] MEDS ORDERED: TRAM50TA2 PO (20:33)
[2019-04-12] MEDS ORDERED: METO-387 PO (20:33)
[2019-04-12] MEDS: TICAGRELOR 90 MG TABLET (BRILINTA) PO SCH (20:43)
[2019-04-12] MEDS ORDERED: cefTRIAXone 1,000 MG/SWFI 10 ML IV PUSH IV SCH ×2 (21:00)
[2019-04-13] VITALS (20 sets, daily range): BP systolic 84–134; BP diastolic 44–80
[2019-04-13] MEDS: ONDANSETRON 4 MG/2 ML (SDV) Z0FRAN IV PRN ×2 (02:33→08:41)
[2019-04-13] MEDS: NS IV 1000 ML 1,000 ML IV SCH ×2 (02:50→12:35)
[2019-04-13 03:42] LABS: BASOPHILS # (AUTO) 0.1 10^3/uL (0.0-0.1); BASOPHILS % (AUTO) 1 % (0-10); EOSINOPHILS # (AUTO) 0.1 10^3/uL (0.0-0.3); EOSINOPHILS % (AUTO) 1 % (0-10); HEMATOCRIT 29 % (35-52); HEMOGLOBIN 9.1 G/DL (11.5-16.0); LYMPHOCYTES # (AUTO) 1.1 X 10^3 (1.0-4.0); LYMPHOCYTES % (AUTO) 10 % (12-44); MEAN CORPUSCULAR HEMOGLOBIN 25 PG (25-34); MEAN CORPUSCULAR HGB CONC 31 G/DL (32-36); MEAN CORPUSCULAR VOLUME 80 FL (80-99); MEAN PLATELET VOLUME 8.9 FL (7.4-10.4); MONOCYTES % (AUTO) 10 % (0-12); NEUTROPHILS % (AUTO) 79 % (42-75); PLATELET COUNT 365 10^3/uL (130-400); RED CELL DISTRIBUTION WIDTH 16.2 % (10.0-14.5); WHITE BLOOD COUNT 10.2 10^3/uL (4.3-11.0)
[2019-04-13 04:03] LABS: CALCIUM 8.8 MG/DL (8.5-10.1); CREATININE SERUM 1.24 MG/DL (0.60-1.30); MAGNESIUM 1.8 MG/DL (1.6-2.4); PHOSPHORUS 5.2 MG/DL (2.3-4.7); POTASSIUM 3.9 MMOL/L (3.6-5.0)
[2019-04-13] MEDS: ASPIRIN E.C. 81 MG (ECOTRIN) TAB PO SCH (08:41)
[2019-04-13] MEDS: FUROSEMIDE 40 MG/4 ML INJ (LASIX) IV SCH (08:41)
[2019-04-13] MEDS: lisINopril 20 MG (PRINIVIL) TABLET PO SCH (08:41)
[2019-04-13] MEDS: TICAGRELOR 90 MG TABLET (BRILINTA) PO SCH ×2 (08:41→21:13)
[2019-04-13] MEDS: KCL 20 MEQ TAB (K-DUR) PO SCH (08:41)
[2019-04-13] MEDS: HYDROCHLOROTHIAZIDE 25 MG (HCTZ) TAB PO SCH (08:41)
--- NOTE | 2019-04-13 09:00 | Diagnostic Imaging Report ---
INDICATION: CHF COMPARISON: 04/12/19 FINDINGS: Single view of the chest demonstrates stable cardiac enlargement. Lungs are clear. There is no pulmonary edema, pneumothorax or effusion. Osseous structures are stable. IMPRESSION: Stable cardiac enlargement without pulmonary edema or infiltrate. Dictated by: Dictated on workstation # [id number]
[2019-04-13] MEDS ORDERED: DEXT30SU19 PO (10:54)
[2019-04-13] MEDS ORDERED: GUAI-613 PO (10:54)
[2019-04-13] MEDS ORDERED: SENN-109 PO (10:54)
[2019-04-13] MEDS ORDERED: ALB0.5V INH (10:54)
[2019-04-13] MEDS ORDERED: ASCO500T5 PO (10:54)
[2019-04-13] MEDS ORDERED: NF-NACL1GT PO (10:54)
[2019-04-13] MEDS ORDERED: PHEN177S41 MM (10:54)
[2019-04-13] MEDS ORDERED: MULT-974 PO (10:54)
[2019-04-13] MEDS ORDERED: MELA3TAB52 PO (10:54)
[2019-04-13] MEDS ORDERED: RT-ALBUTEROL SULF 2.5 MG/3 ML PRE-MIX VIAL INH PRN (11:00)
[2019-04-13] MEDS ORDERED: ATOR80TA76 PO (12:24)
--- NOTE | 2019-04-13 12:26 | Discharge Instructions ---
Discharge [facility] Discharge Medications New, Converted or Re-Newed RX: Transmitted to Pharmacy New Medications: Aspirin (Aspirin EC) 81 Mg Tablet.dr 81 MG PO DAILY, #30 TAB 0 Refills Atorvastatin Calcium (Atorvastatin Calcium) 80 Mg Tablet 80 MG PO HS, #30 TAB 0 Refills Ticagrelor (Brilinta) 90 Mg Tablet 90 MG PO BID, #60 TAB 0 Refills Continued Medications: Acetaminophen (Tylenol Arthritis) 650 Mg Tablet.er 650 MG PO Q8H PRN for PAIN-MILD, TAB Albuterol Sulfate (Ventolin Hfa) 18 Gm Hfa.aer.ad 2 PUFF PO Q4H PRN for SHORTNESS OF BREATH Albuterol Sulfate (Albuterol Sulfate) 2.5 Mg/0.5 Ml Vial.neb 2.5 MG INH Q8H PRN for SHORTNESS OF BREATH, EACH Ascorbic Acid (Vitamin C) 500 Mg Tab.chew 500 MG PO DAILY, TAB Buspirone HCl (Buspirone HCl) 10 Mg Tablet 10 MG PO BID, TAB Fluticasone Propionate (Fluticasone Propionate) 16 Gm [place].susp 2 SPR NSEACH DAILY Furosemide (Furosemide) 20 Mg Tablet 20 MG PO DAILY Glimepiride (Glimepiride) 4 Mg Tablet 4 MG PO DAILY Guaifenesin (Nicole-Tussin) 100 Mg/5 Ml Liquid 5 ML PO PRN for COUGH, EA Hydrochlorothiazide (Hydrochlorothiazide) 25 Mg Tablet 25 MG PO DAILY, TAB Lisinopril (Lisinopril) 20 Mg Tablet 20 MG PO DAILY for 30 Days, TAB Melatonin (Melatonin) 3 Mg Tab.rapdis 3 MG PO HS PRN for INSOMNIA, TAB Metoprolol Succinate (Metoprolol Succinate) 25 Mg Tab.er.24h 25 MG PO DAILY, TAB HOLD MED AND NOTIFY PCP IS SYSTOLIC BP LESS THAN 100 OR DIASTOLIC LESS THAN 60 Montelukast Sodium (Montelukast Sodium) 10 Mg Tablet 10 MG PO DAILY Multivitamin (Multi-Vitamin Daily) 1 Each Tablet 1 EACH PO DAILY, TAB Ondansetron HCl (Zofran) 4 Mg Tab 4 MG PO Q4H PRN for NAUSEA/VOMITING-1ST LINE, TAB Phenol (Chloraseptic) 177 Ml [place].pump 1 SPRAY MM Q6H PRN for SORE THROAT, ML Sennosides/Docusate Sodium (Senna-S Tablet) 1 Each Tablet 2 EACH PO BID, TAB Sodium Chloride (Sodium Chloride) 1 Gm Tab 1 GM PO BID, TAB Tramadol HCl (Tramadol HCl) 50 Mg Tablet 50 MG PO BID PRN for PAIN-MODERATE (5-7), TAB Discontinued Medications: Amlodipine Besylate (Amlodipine Besylate) 10 Mg Tablet 10 MG PO DAILY Atorvastatin Calcium (Atorvastatin Calcium) 10 Mg Tablet 10 MG PO DAILY Dextromethorphan Polistirex (Dextromethorphan Polistirex) 30 Mg/5 Ml Sharla.er.12h 10 ML PO Q12H, ML Sennosides/Docusate Sodium (Senna-Time S Tablet) 1 Each Tablet 2 EA PO BID for 30 Days, TAB Patient Instructions Goal/Follow Up Appt: Follow up with Dr. Rangel as directed. Follow up with Dr. Daigle on 04/19 at 2:40 pm. [facility] For: Chest pain, shortness of breath, inability to take medications Activity & Diet Discharge Diet: Cardiac Diet HORTENSIA BALLESTEROS MD Apr 13, 2019 12:26
[2019-04-13] MEDS ORDERED: TICA90TA PO (12:36)
[2019-04-13] MEDS ORDERED: ASPI-983 PO (12:36)
[2019-04-13] MEDS: LORazepam INJ 2 MG/ML (ATIVAN) VIAL IVP PRN (14:23)
--- NOTE | 2019-04-13 15:13 | Cardiology Progress Note ---
Cardiology SOAP Progress Note Subjective: No further chest pain. Improved clinical condition. Objective: I&O/Vital Signs 04/13/19 04/13/19 04/13/19 04/13/19 04:00 04:26 04:32 05:00 Temp 36.7 Pulse 101 98 Resp 18 B/P (MAP) 114/56 (75) 108/53 (71) Pulse Ox 99 98 O2 Delivery Room Air Room Air Room Air 04/13/19 04/13/19 04/13/19 04/13/19 06:00 07:00 07:00 07:30 Temp 36.6 Pulse 95 96 96 Resp 15 11 B/P (MAP) 111/70 (84) 84/44 (57) Pulse Ox 96 98 O2 Delivery Room Air Room Air 04/13/19 04/13/19 04/13/19 04/13/19 07:34 08:00 08:00 09:00 Pulse 93 99 Resp 16 12 B/P (MAP) 96/54 (68) 85/51 (62) Pulse Ox 96 93 97 O2 Delivery Room Air Room Air Room Air Room Air 04/13/19 04/13/19 04/13/19 04/13/19 09:02 10:00 10:18 11:00 Temp 36.6 Pulse 101 89 89 Resp 19 18 B/P (MAP) 116/65 (82) 111/74 (86) Pulse Ox 94 98 95 93 O2 Delivery Room Air Room Air Room Air FiO2 21 04/13/19 04/13/19 04/13/19 04/13/19 11:30 12:00 12:24 13:00 Temp 36.6 Pulse 90 86 Resp 11 13 B/P (MAP) 119/62 (81) 97/56 (70) Pulse Ox 97 97 O2 Delivery Room Air Room Air Room Air 04/13/19 04/13/19 13:00 14:00 Pulse 86 101 Resp 20 B/P (MAP) 115/64 (81) O2 Delivery Room Air 04/13/19 00:00 Intake Total 220 ml Output Total 0 ml Balance 220 ml Weight (Pounds): 203 Weight (Calculated Kilograms): 92.816195 Constitutional: appears stated age, AAO x 3; No apparent distress; well- developed, well-nourished Respiratory: chest is bilaterally symmetric, lungs clear to auscultation Cardiovascular: regular rate-rhythm, S1 and S2 Gastrointestional: soft, round, audible bowel sounds; No spleenomegaly Extremities: normal range of motion, non-tender, normal inspection; No c lubbing, No cyanosis; no lower extremity edema bilateral; No significant edema Neurologic/Psychiatric: no motor/sensory deficits, alert, normal mood/affect, oriented x 3, power is 5/5 both on sides Skin: normal color, warm/dry; No rash, No ulcerations Results/Procedures: Labs Laboratory Tests 04/13/19 03:03: White Blood Count 10.2, Red Blood Count 3.62L, Hemoglobin 9.1L, Hematocrit 29L, Mean Corpuscular Volume 80, Mean Corpuscular Hemoglobin 25, Mean Corpuscular Hemoglobin Concent 31L, Red Cell Distribution Width 16.2H, Platelet Count 365, Mean Platelet Volume 8.9, Neutrophils (%) (Auto) 79H, Lymphocytes (%) (Auto) 10L , Monocytes (%) (Auto) 10, Eosinophils (%) (Auto) 1, Basophils (%) (Auto) 1, Neutrophils # (Auto) 8.0H, Lymphocytes # (Auto) 1.1, Monocytes # (Auto) 1.0, Eosinophils # (Auto) 0.1, Basophils # (Auto) 0.1, Sodium Level 136, Potassium Level 3.9, Chloride Level 99, Carbon Dioxide Level 21, Anion Gap 16H, Blood Urea Nitrogen 30H, Creatinine 1.24, Estimat Glomerular Filtration Rate 42, BUN/Creatinine Ratio 24, Glucose Level 121H, Calcium Level 8.8, Phosphorus Level 5.2H, Magnesium Level 1.8 Microbiology 04/12/19 MRSA Screen - Final, Complete MRSA not isolated A/P: Assessment/Dx: Non-STEMI, Acute systolic congestive heart failure, Ischemic cardiomyopathy. Diabetes, Hypertension, Hyperlipidemia. Plan: Non-STEMI, Coronary angiography done on 04/12/2019 which shows occluded RCA. Occlusive LAD disease. Severe mid left circumflex artery stenosis treated successfully with a drug-eluting stent. There is a small caliber OM artery which has significant disease but was not intervened on. Mild to moderate systolic dysfunction. Acute systolic congestive heart failure, continue Lasix. Ischemic cardiomyopathy, continue ILIR inhibitor and beta andrew. Echocardiogram done 04/12/2019 shows LVEF of 40 percent. Diabetes, Hypertension, lisinopril, beta andrew. Hyperlipidemia, high-dose statin therapy. Okay to discharge to follow-up with cardiology in 2-3 weeks. Discharge on dual antiplatelet therapy, asymmetry, beta andrew, high-dose statin therapy, Lasix. Thank you for your consultation. Please call me if you have any questions. Jacoby Rangel MD, FACP, FACC, FSCAI, FHRS, CCDS Interventional Cardiology Cardiac Electrophysiology Vascular Medicine and Endovascular Interventions Clinical Quality Measures AMI/AHF: ASA po Prior to arrival: Norm Joe MD Apr 13, 2019 15:13
[2019-04-13] MEDS: RT-ALBUTEROL SULF 2.5 MG/3 ML PRE-MIX VIAL INH SCH ×2 (15:54→19:58)
--- NOTE | 2019-04-13 20:49 | Progress Note ---
Subjective Subjective/Events-last exam Seen at 0910 am. Reports some stomach upset, but otherwise doing okay, denies chest pain. Objective Exam Last Set of Vital Signs Vital Signs Date Time Temp Pulse Resp B/P (MAP) Pulse Ox O2 Delivery O2 Flow Rate FiO2 04/13/19 19:58 90 Room Air 04/13/19 19:00 37.2 85 18 101/61 (74) 04/13/19 09:02 21 Capillary Refill : Less Than 3 Seconds I&O Intake and Output 04/13/19 00:00 Intake Total 320 ml Output Total 1650 ml Balance -1330 ml Intake Oral 220 ml IV Total 100 ml Output Urine Total 1650 ml # Voids 4 Daily Weight Change No General: Alert, No Acute Distress Lungs: Clear to Auscultation, Normal Air Movement Heart: Regular Rate, No Murmurs Neuro: Normal Speech Psych/Mental Status: Other (appears anxious) Results/Procedures Lab Laboratory Tests 04/13/19 03:03: White Blood Count 10.2, Red Blood Count 3.62L, Hemoglobin 9.1L, Hematocrit 29L, Mean Corpuscular Volume 80, Mean Corpuscular Hemoglobin 25, Mean Corpuscular Hemoglobin Concent 31L, Red Cell Distribution Width 16.2H, Platelet Count 365, Mean Platelet Volume 8.9, Neutrophils (%) (Auto) 79H, Lymphocytes (%) (Auto) 10L , Monocytes (%) (Auto) 10, Eosinophils (%) (Auto) 1, Basophils (%) (Auto) 1, Neutrophils # (Auto) 8.0H, Lymphocytes # (Auto) 1.1, Monocytes # (Auto) 1.0, Eosinophils # (Auto) 0.1, Basophils # (Auto) 0.1, Sodium Level 136, Potassium Level 3.9, Chloride Level 99, Carbon Dioxide Level 21, Anion Gap 16H, Blood Urea Nitrogen 30H, Creatinine 1.24, Estimat Glomerular Filtration Rate 42, BUN/Creatinine Ratio 24, Glucose Level 121H, Calcium Level 8.8, Phosphorus Level 5.2H, Magnesium Level 1.8 Microbiology 04/12/19 MRSA Screen - Final, Complete MRSA not isolated Radiology 04/11 CXR: IMPRESSION: Borderline cardiomegaly and vascular congestion, left lower lobe infiltrate and pleural fluid present suspicious for pneumonia. Assessment/Plan Assessment/Plan (1) Chest pain Status: Acute Assessment & Plan: With elevated troponin, Cardiology consulted, appreciate recommendations. CXR with possible pneumonia, started on antibiotics from ER, repeat CXR pending. 04/13 repeat CXR yesterday not convincing for pneumonia, vitals okay, antibiotics discontinued. See other diagnoses for cardiac status. Qualifiers: Qualified Codes: I20.8 - Other forms of angina pectoris (2) NSTEMI (non-ST elevated myocardial infarction) Status: Acute (3) Coronary artery disease Assessment & Plan: Coronary angiography done on 04/12/2019 noted occluded RCA and occlusive LAD disease. Left circumflex treated with drug eluting stent. which shows occluded RCA. Occlusive LAD disease. Severe mid left circumflex artery stenosis treated successfully with a drug-eluting stent. Qualifiers: (4) Diabetes mellitus Status: Chronic Assessment & Plan: Sliding scale insulin, NPO for now while waiting on Cardiology eval Qualifiers: (5) CHF (congestive heart failure) Status: Acute Assessment & Plan: Diuretic given last night, reports good output and improved shortness of breath, Cardiology consulted, appreciate recommendations. Echocardiogram done 04/12/2019 shows LVEF of 40 percent. 04/13 BP somewhat low, will change from high dose IV lasix to PO lasix Qualifiers: Qualified Codes: I50.21 - Acute systolic (congestive) heart failure (6) DVT prophylaxis Assessment & Plan: Pending possible procedure, anticipate enoxaparin when okay with Cardiology (7) Discharge planning issues Status: Acute Assessment & Plan: Nurse received call this evening from caregiver after discharge was planned that she did not feel she could take care of her at home- she was just discharged from care home last week after stay post surgery. Will discuss with patient further tomorrow. Clinical Quality Measures AMI/AHF: ASA po Prior to arrival: No DVT/VTE Risk/Contraindication: Risk Factor Score Per Nursin RFS Level Per Nursing on Admit: 4+=Very High HORTENSIA BALLESTEROS MD Apr 13, 2019 20:49
[2019-04-13] MEDS ORDERED: LORazepam 0.5 MG (ATIVAN) TABLET ONE (23:23)
[2019-04-13] MEDS: LORazepam 0.5 MG (ATIVAN) TABLET PO PRN (23:27)
[2019-04-14] VITALS: BP 117/73
[2019-04-14] MEDS: RT-ALBUTEROL SULF 2.5 MG/3 ML PRE-MIX VIAL INH SCH ×4 (02:28→20:24)
[2019-04-14 04:00] VITALS: BP 96/63
[2019-04-14] MEDS: KCL 20 MEQ TAB (K-DUR) PO SCH (06:49)
[2019-04-14 07:39] VITALS: BP 137/75
[2019-04-14] MEDS: HYDROCHLOROTHIAZIDE 25 MG (HCTZ) TAB PO SCH (08:28)
[2019-04-14] MEDS: lisINopril 20 MG (PRINIVIL) TABLET PO SCH (08:28)
[2019-04-14] MEDS: ASPIRIN E.C. 81 MG (ECOTRIN) TAB PO SCH (08:28)
[2019-04-14] MEDS: FUROSEMIDE 20 MG (LASIX) TAB PO SCH (08:28)
[2019-04-14] MEDS: TICAGRELOR 90 MG TABLET (BRILINTA) PO SCH ×2 (08:28→20:24)
[2019-04-14] MEDS: LORazepam 0.5 MG (ATIVAN) TABLET PO PRN ×2 (08:33→20:24)
--- NOTE | 2019-04-14 12:23 | Progress Note ---
Subjective Subjective/Events-last exam Afebrile, no acute events. She states she generally doesn't feel well today, but has no chest pain. She is not entirely happy about going back to a nursing facility but states she will if needed and doesn't want to be a "problem for anybody". Objective Exam Last Set of Vital Signs Vital Signs Date Time Temp Pulse Resp B/P (MAP) Pulse Ox O2 Delivery O2 Flow Rate FiO2 04/14/19 09:00 Room Air 04/14/19 09:00 92 04/14/19 07:39 36.9 89 16 137/75 (95) 04/13/19 09:02 21 Capillary Refill : Less Than 3 Seconds I&O Intake and Output 04/14/19 00:00 Intake Total 1215 ml Output Total 2350 ml Balance -1135 ml Intake Oral 1215 ml Output Urine Total 2350 ml General: Alert, No Acute Distress Lungs: Clear to Auscultation, Normal Air Movement Heart: Regular Rate, No Murmurs Abdomen: Normal Bowel Sounds, Soft, No Tenderness Neuro: Normal Speech Psych/Mental Status: Mood NL Results/Procedures Lab Microbiology 04/12/19 MRSA Screen - Final, Complete MRSA not isolated Radiology 04/11 CXR: IMPRESSION: Borderline cardiomegaly and vascular congestion, left lower lobe infiltrate and pleural fluid present suspicious for pneumonia. Assessment/Plan Assessment/Plan (1) Chest pain Status: Acute Assessment & Plan: With elevated troponin, Cardiology consulted, appreciate recommendations. CXR with possible pneumonia, started on antibiotics from ER, repeat CXR pending. 04/13 repeat CXR yesterday not convincing for pneumonia, vitals okay, antibiotics discontinued. See other diagnoses for cardiac status. Qualifiers: Qualified Codes: I20.8 - Other forms of angina pectoris (2) NSTEMI (non-ST elevated myocardial infarction) Status: Acute (3) Coronary artery disease Assessment & Plan: Coronary angiography done on 04/12/2019 noted occluded RCA and occlusive LAD disease. Left circumflex treated with drug eluting stent. which shows occluded RCA. Occlusive LAD disease. Severe mid left circumflex artery stenosis treated successfully with a drug-eluting stent. Qualifiers: (4) Diabetes mellitus Status: Chronic Assessment & Plan: Sliding scale insulin, NPO for now while waiting on Cardiology eval Qualifiers: (5) CHF (congestive heart failure) Status: Acute Assessment & Plan: Diuretic given last night, reports good output and improved shortness of breath, Cardiology consulted, appreciate recommendations. Echocardiogram done 04/12/2019 shows LVEF of 40 percent. 04/13 BP somewhat low, will change from high dose IV lasix to PO lasix Qualifiers: Qualified Codes: I50.21 - Acute systolic (congestive) heart failure (6) DVT prophylaxis Assessment & Plan: Enoxaparin (7) Discharge planning issues Status: Acute Assessment & Plan: 04/13 Nurse received call this evening from caregiver after discharge was planned that she did not feel she could take care of her at home- she was just discharged from [facility] last week after stay post surgery. Will discuss with patient further tomorrow. 04/14 patient okay with nursing facility, social work consult placed Clinical Quality Measures AMI/AHF: ASA po Prior to arrival: No DVT/VTE Risk/Contraindication: Risk Factor Score Per Nursin RFS Level Per Nursing on Admit: 4+=Very High HORTENSIA BALLESTEROS MD Apr 14, 2019 12:23
--- NOTE | 2019-04-14 13:45 | Cardiology Progress Note ---
Cardiology SOAP Progress Note Subjective: Patient says that she has improved significantly. However she was kept in the hospital due to social issues since nursing facility placement is still pending. Objective: I&O/Vital Signs 04/14/19 04/14/19 04/14/19 04/14/19 02:28 04:00 07:39 09:00 Temp 36.4 36.9 Pulse 88 89 Resp 18 16 B/P (MAP) 96/63 (74) 137/75 (95) Pulse Ox 92 95 97 92 O2 Delivery Room Air Room Air Room Air Room Air 04/14/19 09:00 O2 Delivery Room Air 04/14/19 00:00 Intake Total 640 ml Output Total 1050 ml Balance -410 ml Weight (Pounds): 203 Weight (Calculated Kilograms): 92.909112 Constitutional: appears stated age, AAO x 3; No apparent distress; well- developed, well-nourished Respiratory: chest is bilaterally symmetric, lungs clear to auscultation Cardiovascular: regular rate-rhythm, S1 and S2 Gastrointestional: soft, round, audible bowel sounds; No spleenomegaly Extremities: normal range of motion, non-tender, normal inspection; No clubbing, No cyanosis; no lower extremity edema bilateral; No significant edema Neurologic/Psychiatric: no motor/sensory deficits, alert, normal mood/affect, oriented x 3, power is 5/5 both on sides Skin: normal color, warm/dry; No rash, No ulcerations Results/Procedures: Labs Microbiology 04/12/19 MRSA Screen - Final, Complete MRSA not isolated A/P: Assessment/Dx: Non-STEMI, Acute systolic congestive heart failure, Ischemic cardiomyopathy. Diabetes, Hypertension, Hyperlipidemia. Plan: Non-STEMI, Coronary angiography done on 04/12/2019 which shows occluded RCA. Occlusive LAD disease. Severe mid left circumflex artery stenosis treated successfully with a drug-eluting stent. There is a small caliber OM artery which has significant disease but was not intervened on. Mild to moderate systolic dysfunction. Acute systolic congestive heart failure, continue Lasix. Ischemic cardiomyopathy, continue ILIR inhibitor and beta andrew. Echocardiogram done 04/12/2019 shows LVEF of 40 percent. Diabetes, Hypertension, lisinopril, beta andrew. Hyperlipidemia, high-dose statin therapy. Okay to discharge to follow-up with cardiology (Dr Galindo) in 2-3 weeks. Discharge on dual antiplatelet therapy, ILIR inhibitor, beta andrew, high-dose statin therapy, Lasix. Thank you for your consultation. Please call me if you have any questions. Jacoby Rangel MD, FACP, FACC, FSCAI, FHRS, CCDS Interventional Cardiology Cardiac Electrophysiology Vascular Medicine and Endovascular Interventions Clinical Quality Measures AMI/AHF: ASA po Prior to arrival: Norm Joe MD Apr 14, 2019 13:45
[2019-04-14] MEDS: ENOXAPARIN 40 MG/0.4 ML (LOVENOX) SYR SC SCH (13:55)
[2019-04-14] MEDS ORDERED: ONDANSETRON 4 MG (ZOFRAN) ORAL DISSOLVE TAB PO PRN (14:30)
[2019-04-14] MEDS ORDERED: FUROSEMIDE 40 MG/4 ML INJ (LASIX) IV NR (14:58)
[2019-04-14 16:03] VITALS: BP 99/62
[2019-04-14 23:20] VITALS: BP 116/66
[2019-04-15] MEDS: RT-ALBUTEROL SULF 2.5 MG/3 ML PRE-MIX VIAL INH SCH ×4 (02:24→20:39)
[2019-04-15 05:57] LABS: HEMOGLOBIN 7.6 G/DL (11.5-16.0); RED CELL DISTRIBUTION WIDTH 16.1 % (10.0-14.5); WHITE BLOOD COUNT 7.4 10^3/uL (4.3-11.0)
[2019-04-15 06:20] LABS: CALCIUM 8.2 MG/DL (8.5-10.1); CREATININE SERUM 2.37 MG/DL (0.60-1.30); POTASSIUM 4.4 MMOL/L (3.6-5.0)
[2019-04-15] MEDS: KCL 20 MEQ TAB (K-DUR) PO SCH (06:27)
[2019-04-15 07:47] VITALS: BP 106/62
[2019-04-15] MEDS: ASPIRIN E.C. 81 MG (ECOTRIN) TAB PO SCH (08:15)
[2019-04-15] MEDS: HYDROCHLOROTHIAZIDE 25 MG (HCTZ) TAB PO SCH (08:15)
[2019-04-15] MEDS: TICAGRELOR 90 MG TABLET (BRILINTA) PO SCH ×2 (08:15→20:13)
[2019-04-15] MEDS: lisINopril 20 MG (PRINIVIL) TABLET PO SCH (08:15)
[2019-04-15] MEDS: FUROSEMIDE 20 MG (LASIX) TAB PO SCH (08:15)
[2019-04-15] MEDS: NS IV 1000 ML 1,000 ML IV SCH ×3 (09:14→22:31)
--- NOTE | 2019-04-15 09:59 | Physical Therapy Evaluation ---
PT Evaluation-General Medical Diagnosis Admission Date Apr 11, 2019 at 21:27 Medical Diagnosis: CHF Onset Date: Apr 11, 2019 Therapy Diagnosis Therapy Diagnosis: weakness; abn gait Height/Weight Height (Feet): 5 Weight (Pounds): 203 Precautions Precautions/Isolations: Fall Prevention, Standard Precautions Weight Bear Status Right Lower Extremity: Right Weight Bearing/Tolerated Left Lower Extremity: Left Weight Bearing/Tolerated Referral Physician: Helio Reason for Referral: Evaluation/Treatment Medical History Pertinent Medical History: Arthritis, DM, HTN Current History Admitted with complaints of SOA and generally not feeling well. Reviewed History: Yes Social History Home: Single Level Current Living Status: Alone Pt has social support Prior Prior Level of Function SCALE: Activities may be completed with or without assistive devices. 1-Tlznyixlnl-vulgcme completes the activity by him/herself with no assistance from a helper. 5-Set-up or Clean-up Assistance-helper sets up or cleans up; patient completes activity. [place] assists only prior to or following the activity. 4-Supervision or Touching Assistance-helper provides verbal cues and/or touching/steadying and/or contact guard assistance as patient completes activity. Assistance may be provided throughout the activity or intermittently. 3-Partial/Moderate Assistance-helper does LESS THAN HALF the effort. [place] lifts, holds or supports trunk or limbs, but provides less than half the effort. 2-Substantial/Maximal Assistance-helper does MORE THAN HALF the effort. [place] lifts or holds trunk or limbs and provides more than half the effort. 1-Pzvztltpt-bshpej does ALL the effort. Patient does none of the effort to complete the activity. Or, the assistance of 2 or more helpers is required for the patient to complete the activity. If activity was not attempted, code reason: 7-Patient Refused. 9-Not Applicable-not attempted and the patient did not perform the activity before the current illness, exacerbation or injury. 10-Not Attempted due to Environmental Limitations-(lack of equipment, weather restraints, etc.). 88-Not Attempted due to Medical Conditions or Safety Concerns. Bed Mobility: 6 Transfers (B,C,W/C): 6 Gait: 6 Indoor Mobility (Ambulation): Independent Stairs: Needed Some Help Prior Devices Use: Other-see list below PT Evaluation-Current Subjective Pt agreeable to get out of bed and sit up. Reports she doesn't feel well today. Pain Numeric Pain Scale: 0-No Pain Location: No Pain Reported Objective Patient Orientation: Person, Place, Time, Situation Attachments: IV ROM/Strength ROM Lower Extremities WNL Strength Lower Extremities strength is grossly 4-/5 Integumentary/Posture Integumentary refer to nursing notes. Bowel Incontinence: No Bladder Incontinence: No Posture rounded shoulders. Neuromuscular (Tone, Coordination, Reflexes) intact and functional Sensory Vision: Wears Glasses Hearing: Functional Hand Dominance: Right Sensation Right Lower Extremit: Intact Sensation Left Lower Extremity: Intact Transfers Sit to Lying (QC): 4 Lying to Sitting/Side of Bed(Q: 4 Sit to Stand (QC): 4 SBA with all functional transfers with skilled cues for safety and sequencing. Gait Does the Patient Walk?: Yes Mode of Locomotion: Walk Anticipated Mode of Locomotion: Walk Walk 10 feet (QC): 4 Walk 50 ft with 2 Turns(QC): 4 (min- CGA for safety. ) Gait Assistive Device: FWW Comments/Gait Description Pt walked in her room and in/out of the bathroom with FWW with CGA and assist with the IV pole. Pt up in chair post treatment with call light and needs met. Nursing aware. Balance Sitting Static: Normal Sitting Dynamic: Normal Standing Static: Fair Standing Dynamic: Normal Picking up an Object (QC): 88 Treatment Functional transfers and mobilty within her room. Assessment/Needs Presents with slight decrease in strength and balance that impairs safety with gait and transfers. She will benefit from skilled PT to promote indep with mobiltiy to allow her to return home as before. Rehab Potential: Good PT Buckle Strap Drum Operator Goals Buckle Strap Drum Operator Goals PT Snf Goals Time Frame: Apr 22, 2019 Sit to Lying (QC): 6 Lying-Sitting on Side/Bed(QC): 6 Sit to Stand (QC): 6 Chair/Dmv-wp-Dybzb Xfer(QC): 6 Walk 10 feet (QC): 6 Walk 50ft with 2 Turns (QC): 6 Walk 150 ft (QC): 6 PT Plan Problem List Problem List: Activity Tolerance, Functional Strength, Safety, Balance, Gait, Transfer, Bed Mobility Treatment/Plan Treatment Plan: Continue Plan of Care Treatment Plan: Bed Mobility, Education, Functional Activity Isaias, Functional Strength, Gait, Safety, Therapeutic Exercise, Transfers Treatment Duration: Apr 22, 2019 Frequency: 5 times per week Estimated Hrs Per Day: .25 hour per day Safety Risks/Education Patient Education: Transfer Techniques, Safety Issues Teaching Recipient: Patient Teaching Methods: Demonstration Response to Teaching: Reinforcement Needed Time/GCodes Time In: 930 Time Out: 1000 Total Billed Treatment Time: 30 Total Billed Treatment visit EVM 15 FA 15 KALANI NARANJO PT Apr 15, 2019 09:59
--- NOTE | 2019-04-15 10:49 | Progress Note ---
Subjective Subjective/Events-last exam Afebrile, denies concerns. She still feels somewhat anxious. Objective Exam Last Set of Vital Signs Vital Signs Date Time Temp Pulse Resp B/P (MAP) Pulse Ox O2 Delivery O2 Flow Rate FiO2 04/15/19 09:20 94 Room Air 04/15/19 07:47 36.0 71 18 106/62 (77) 04/13/19 09:02 21 Capillary Refill : Less Than 3 Seconds I&O Intake and Output 04/15/19 00:00 Intake Total 1002 ml Output Total 1200 ml Balance -198 ml Intake Oral 1002 ml Output Urine Total 1200 ml # Voids 1 General: Alert, No Acute Distress Lungs: Clear to Auscultation, Normal Air Movement Heart: Regular Rate, No Murmurs Extremities: No Edema Psych/Mental Status: Mental Status NL Results/Procedures Lab Laboratory Tests 04/15/19 05:13: White Blood Count 7.4, Red Blood Count 3.01L, Hemoglobin 7.6L, Hematocrit 25L, Mean Corpuscular Volume 81, Mean Corpuscular Hemoglobin 25, Mean Corpuscular Hemoglobin Concent 31L, Red Cell Distribution Width 16.1H, Platelet Count 316, Mean Platelet Volume 9.0, Sodium Level 134L, Potassium Level 4.4, Chloride Level 98, Carbon Dioxide Level 21, Anion Gap 15H, Blood Urea Nitrogen 45H, Creatinine 2.37H, Estimat Glomerular Filtration Rate 20, BUN/Creatinine Ratio 19, Glucose Level 112H, Calcium Level 8.2L Microbiology 04/12/19 MRSA Screen - Final, Complete MRSA not isolated Radiology 04/11 CXR: IMPRESSION: Borderline cardiomegaly and vascular congestion, left lower lobe infiltrate and pleural fluid present suspicious for pneumonia. Assessment/Plan Assessment/Plan (1) Chest pain Status: Acute Assessment & Plan: With elevated troponin, Cardiology consulted, appreciate recommendations. CXR with possible pneumonia, started on antibiotics from ER, repeat CXR pending. 04/13 repeat CXR yesterday not convincing for pneumonia, vitals okay, antibiotics discontinued. See other diagnoses for cardiac status. Qualifiers: Qualified Codes: I20.8 - Other forms of angina pectoris (2) NSTEMI (non-ST elevated myocardial infarction) Status: Acute (3) Coronary artery disease Assessment & Plan: Coronary angiography done on 04/12/2019 noted occluded RCA and occlusive LAD disease. Left circumflex treated with drug eluting stent. which shows occluded RCA. Occlusive LAD disease. Severe mid left circumflex artery stenosis treated successfully with a drug-eluting stent. Qualifiers: (4) Diabetes mellitus Status: Chronic Assessment & Plan: Sliding scale insulin Qualifiers: (5) Acute kidney injury Status: Acute Assessment & Plan: 04/15- creatinine up today, suspect combination of high dose diuretic and dye from cath, she also notes she isn't drinking a lot. Will give IVF today and encouraged increased hydration but will monitor closely due to CHF. (6) CHF (congestive heart failure) Status: Acute Assessment & Plan: Diuretic given last night, reports good output and improved shortness of breath, Cardiology consulted, appreciate recommendations. Echocardiogram done 04/12/2019 shows LVEF of 40 percent. 04/13 BP somewhat low, will change from high dose IV lasix to PO lasix Qualifiers: Qualified Codes: I50.21 - Acute systolic (congestive) heart failure (7) Anemia Assessment & Plan: Anemic since at least January, but is decreasing. Check iron studies and peripheral smear and stool occult blood. (8) DVT prophylaxis Assessment & Plan: Enoxaparin (9) Discharge planning issues Status: Acute Assessment & Plan: 04/13 Nurse received call this evening from caregiver after discharge was planned that she did not feel she could take care of her at home- she was just discharged from nursing home last week after stay post surgery. Will discuss with patient further tomorrow. 04/14 patient okay with nursing facility, social work consult placed 04/14 plan for d/c tomorrow if renal function improved Clinical Quality Measures AMI/AHF: ASA po Prior to arrival: No DVT/VTE Risk/Contraindication: Risk Factor Score Per Nursin RFS Level Per Nursing on Admit: 4+=Very High HORTENSIA BALLESTEROS MD Apr 15, 2019 10:48
--- NOTE | 2019-04-15 13:32 | Occupational Therapy Eval ---
OT Evaluation-General/PLF Medical Diagnosis Admission Date Apr 11, 2019 at 21:27 Medical Diagnosis: CHF Onset Date: Apr 11, 2019 Therapy Diagnosis Therapy Diagnosis: impaired ADLs and functional mobility Height/Weight Height (Feet): 5 Weight (Pounds): 203 Precautions Precautions/Isolations: Fall Prevention, Standard Precautions Safety Interventions: Reorient-PRN Referral Physician: Helio Referral Reason: Evaluation/Treatment Medical History Pertinent Medical History: Arthritis, DM, HTN Current History Per H&P: "Chest discomfort x 2-3 days, with shortness of breath and nausea. Occasional cough. Some pain in left arm as well, but states it is her "bad" arm. She feels good this morning. Denies heart history, has "lazy valve" noted on cardiac testing in [place] a "long time ago" and was put on procardia." Reviewed History: Yes Social History Home: Single Level Current Living Status: Alone (social support.) ADL-Prior Level of Function SCALE: Activities may be completed with or without assistive devices. 2-Uebprawjlh-mpwjlcf completes the activity by him/herself with no assistance from a helper. 5-Set-up or Clean-up Assistance-helper sets up or cleans up; patient completes activity. [place] assists only prior to or following the activity. 4-Supervision or Touching Assistance-helper provides verbal cues and/or touchi ng/steadying and/or contact guard assistance as patient completes activity. Assistance may be provided throughout the activity or intermittently. 3-Partial/Moderate Assistance-helper does LESS THAN HALF the effort. [place] lifts, holds or supports trunk or limbs, but provides less than half the effort. 2-Substantial/Maximal Assistance-helper does MORE THAN HALF the effort. [place] lifts or holds trunk or limbs and provides more than half the effort. 3-Ibmgwqibz-vdwzsx does ALL the effort. Patient does none of the effort to complete the activity. Or, the assistance of 2 or more helpers is required for the patient to complete the activity. If activity was not attempted, code reason: 7-Patient Refused. 9-Not Applicable-not attempted and the patient did not perform the activity before the current illness, exacerbation or injury. 10-Not Attempted due to Environmental Limitations-(lack of equipment, weather restraints, etc.). 88-Not Attempted due to Medical Conditions or Safety Concerns. ADL PLOF Comments Pt reports she was independent with all ADLs prior to hospitalization, but she needed some assist but not very often. Pt says she walks without AD most of the time, but she occasionally uses a cane or walker. When asked if she has a walk in shower or a tub shower pt reports her tub does not work. Pt talked about her water pipes freezing in the winter causing her to have to take sponge baths. Pt was not clear on if she was taking sponge baths or a showers prior to hospitalization. Self Care: Needed Some Help Functional Cognition: Independent OT Current Status Subjective Pt laying in bed at start of session, stating she was very tired and not up for doing much today. She did not report any pain but was wanting a stool softener, nurse notified. Pt said once discharged is going to a nursing facility for the winter since her water pipes at home freeze. Mental Status/Objective Patient Orientation: Person, Place, Time, Situation Attachments: IV Current Glasses/Contacts: Yes Hearing Aids: No Dentures/Partials: Yes Hand Dominance: Right Upper Extremity ROM WFL, BUE shoulder flexion to approximately 110 degrees. Upper Extremity Coordination WFL Upper Extremity Sensation When asked if she has any tingling or numbness in her arms, she reports that her right arm has arthritis. Upper Extremity Strength grossly 3+/5 MMT ADL-Treatment Eating (QC): 6 (Pt reports she was able to eat her lunch without assistance, no difficulty cutting food and she is able to bring food to her mouth.) Oral Hygiene (QC): 7 Other Treatments Pt sitting upright in bed at start of session, stating she was done with her lunch. Pt reported no difficulties with task of eating but said she does not have much of an appetite and has to force the food down. Pt provided information about PLOF and home set up, stating she needs to go to a nursing facility for the winter because her pipes freeze during the winter. Pt declined further ADLs stating she did not feel very good today and would just like to rest. Post OT session, pt laying in bed, call light in reach and all needs met. Education OT Patient Education: Correct positioning, Energy conservation, Modified ADL techniques, Progress toward Goal/Update tx plan, Purpose of tx/functional activities Teaching Recipient: Patient Teaching Methods: Discussion Response to Teaching: Verbalize Understanding OT Service Center Manager Goals Service Center Manager Goals Time Frame: Apr 23, 2019 Oral Hygiene (QC): 6 Toileting Hygiene (QC): 4 Shower/Bathe Self (QC): 4 Upper Body Dressing (QC): 5 Lower Body Dressing (QC): 4 Additional Goals: 1-Demonstrate ADL Tasks, 2-Verbalize Understanding, 3- ImproveStrength/Isaias 1=Demonstrate adherence to instructed precautions during ADL tasks. 2=Patient will verbalize/demonstrate understanding of assistive devic es/modifications for ADL. 3=Patient will improve strength/tolerance for activity to enable patient to perform ADL's. OT Education/Plan Problem List/Assessment Assessment: Decreased Activ Tolerance, Decreased UE Strength, Impaired I ADL's, Impaired Self-Care Skills Discharge Recommendations Plan/Recommendations: Continue POC Treatment Plan/Plan of Care Treatment,Training & Education: Yes Patient would benefit from OT for education, treatment and training to promote independence in ADL's, mobility, safety and/or upper extremity function for ADL's. Plan of Care: ADL Retraining, Functional Mobility, UE Funct Exercise/Act Treatment Duration: Apr 23, 2019 Frequency: 5 times per week Estimated Hrs Per Day: .25 hour per day Rehab Potential: Good Time/GCodes Start Time: 13:10 Stop Time: 13:20 Total Time Billed (hr/min): 10 Billed Treatment Time 1JULIO ADDISON OT Apr 15, 2019 13:32
[2019-04-15] MEDS ORDERED: DOCUSATE SODIUM 100 MG (COLACE) CAP PO ONE (13:34)
[2019-04-15] MEDS: ENOXAPARIN 40 MG/0.4 ML (LOVENOX) SYR SC SCH (13:42)
[2019-04-15] MEDS: DOCUSATE SODIUM 100 MG (COLACE) CAP PO SCH ×2 (13:42→20:13)
[2019-04-15 15:49] VITALS: BP 130/81
[2019-04-15] MEDS: LORazepam 0.5 MG (ATIVAN) TABLET PO PRN (15:49)
--- NOTE | 2019-04-15 16:56 | Cardiology Progress Note ---
Cardiology SOAP Progress Note Subjective: No further cardiac complaints. Feels much better. Objective: I&O/Vital Signs 04/15/19 04/15/19 04/15/19 04/15/19 07:47 09:00 09:20 15:47 Temp 36.0 Pulse 71 Resp 18 B/P (MAP) 106/62 (77) Pulse Ox 100 94 96 O2 Delivery Room Air Room Air Room Air Room Air 04/15/19 15:49 Temp 36.4 Pulse 85 Resp 20 B/P (MAP) 130/81 (97) Pulse Ox 99 O2 Delivery Room Air 04/15/19 00:00 Intake Total 702 ml Output Total 800 ml Balance -98 ml Weight (Pounds): 203 Weight (Calculated Kilograms): 92.107016 Constitutional: appears stated age, AAO x 3; No apparent distress; well- developed, well-nourished Respiratory: chest is bilaterally symmetric, lungs clear to auscultation Cardiovascular: regular rate-rhythm, S1 and S2 Gastrointestional: soft, round, audible bowel sounds; No spleenomegaly Extremities: normal range of motion, non-tender, normal inspection; No clubbing, No cyanosis; no lower extremity edema bilateral; No significant edema Neurologic/Psychiatric: no motor/sensory deficits, alert, normal mood/affect, oriented x 3, power is 5/5 both on sides Skin: normal color, warm/dry; No rash, No ulcerations Results/Procedures: Labs Laboratory Tests 04/15/19 05:13: White Blood Count 7.4, Red Blood Count 3.01L, Hemoglobin 7.6L, Hematocrit 25L, Mean Corpuscular Volume 81, Mean Corpuscular Hemoglobin 25, Mean Corpuscular Hemoglobin Concent 31L, Red Cell Distribution Width 16.1H, Platelet Count 316, Mean Platelet Volume 9.0, Sodium Level 134L, Potassium Level 4.4, Chloride Level 98, Carbon Dioxide Level 21, Anion Gap 15H, Blood Urea Nitrogen 45H, Creatinine 2.37H, Estimat Glomerular Filtration Rate 20, BUN/Creatinine Ratio 19, Glucose Level 112H, Calcium Level 8.2L Microbiology 04/12/19 MRSA Screen - Final, Complete MRSA not isolated A/P: Assessment/Dx: Non-STEMI, Acute systolic congestive heart failure, Ischemic cardiomyopathy. Diabetes, Hypertension, Hyperlipidemia. Plan: Non-STEMI, Coronary angiography done on 04/12/2019 which shows occluded RCA. Occlusive LAD disease. Severe mid left circumflex artery stenosis treated successfully with a drug-eluting stent. There is a small caliber OM artery which has significant disease but was not intervened on. Mild to moderate systolic dysfunction. Acute systolic congestive heart failure, continue Lasix. Ischemic cardiomyopathy, continue ILIR inhibitor and beta andrew. Echocardiogram done 04/12/2019 shows LVEF of 40 percent. Diabetes, Hypertension, lisinopril, beta andrew. Hyperlipidemia, high-dose statin therapy. Okay to discharge to follow-up with cardiology (Dr Galindo) in 2-3 weeks. Discharge on dual antiplatelet therapy, ILIR inhibitor, beta andrew, high-dose statin therapy, Lasix. Thank you for your consultation. Please call me if you have any questions. Jacoby Rangel MD, FACP, FACC, FSCAI, FHRS, CCDS Interventional Cardiology Cardiac Electrophysiology Vascular Medicine and Endovascular Interventions Clinical Quality Measures AMI/AHF: ASA po Prior to arrival: Norm Joe MD Apr 15, 2019 16:56
[2019-04-15 23:33] VITALS: BP 129/77
[2019-04-16] MEDS: RT-ALBUTEROL SULF 2.5 MG/3 ML PRE-MIX VIAL INH SCH ×4 (02:20→22:49)
[2019-04-16] MEDS: ACETAMINOPHEN 325 MG TABLET PO PRN ×2 (04:37→16:51)
[2019-04-16] MEDS: NS IV 1000 ML 1,000 ML IV SCH ×3 (05:07→16:49)
[2019-04-16 05:43] LABS: ABSOLUTE RETIC # 71 10e9/L (24-90); BASOPHILS # (AUTO) 0.1 10^3/uL (0.0-0.1); BASOPHILS % (AUTO) 1 % (0-10); EOSINOPHILS # (AUTO) 0.4 10^3/uL (0.0-0.3); EOSINOPHILS % (AUTO) 5 % (0-10); HEMATOCRIT 25 % (35-52); HEMOGLOBIN 7.7 G/DL (11.5-16.0); LYMPHOCYTES # (AUTO) 1.4 X 10^3 (1.0-4.0); LYMPHOCYTES % (AUTO) 17 % (12-44); MEAN CORPUSCULAR HEMOGLOBIN 25 PG (25-34); MEAN CORPUSCULAR HGB CONC 31 G/DL (32-36); MEAN CORPUSCULAR VOLUME 82 FL (80-99); MONOCYTES # (AUTO) 0.7 X 10^3 (0.0-1.0); MONOCYTES % (AUTO) 9 % (0-12); NEUTROPHILS # (AUTO) 5.4 X 10^3 (1.8-7.8); NEUTROPHILS % (AUTO) 68 % (42-75); PLATELET COUNT 344 10^3/uL (130-400); RED CELL DISTRIBUTION WIDTH 16.1 % (10.0-14.5); RETICULOCYTE % 2.31 % (0.50-2.40)
[2019-04-16 06:17] LABS: CREATININE SERUM 1.62 MG/DL (0.60-1.30); POTASSIUM 4.5 MMOL/L (3.6-5.0)
[2019-04-16 06:19] LABS: ANISOCYTOSIS MODERATE; BAND NEUTROPHILS 1 %; EOSINOPHILS % (MANUAL) 3 %; LYMPHOCYTES % (MANUAL) 17 %; MICROCYTOSIS MODERATE; MONOCYTES % (MANUAL) 4 %; NEUTROPHILS % (MANUAL) 75 %; POLYCHROMASIA SLIGHT
[2019-04-16] MEDS: KCL 20 MEQ TAB (K-DUR) PO SCH (06:29)
[2019-04-16 07:42] VITALS: BP 151/63
[2019-04-16] MEDS: lisINopril 20 MG (PRINIVIL) TABLET PO SCH (08:15)
[2019-04-16] MEDS: LORazepam 0.5 MG (ATIVAN) TABLET PO PRN ×2 (08:15→16:51)
[2019-04-16] MEDS: FUROSEMIDE 20 MG (LASIX) TAB PO SCH (08:15)
[2019-04-16] MEDS: TICAGRELOR 90 MG TABLET (BRILINTA) PO SCH ×2 (08:15→20:38)
[2019-04-16] MEDS: DOCUSATE SODIUM 100 MG (COLACE) CAP PO SCH ×2 (08:15→20:39)
[2019-04-16] MEDS: HYDROCHLOROTHIAZIDE 25 MG (HCTZ) TAB PO SCH (08:16)
[2019-04-16] MEDS: ASPIRIN E.C. 81 MG (ECOTRIN) TAB PO SCH (08:16)
--- NOTE | 2019-04-16 11:15 | Physical Therapy Daily Note ---
PT Daily Note-Current Subjective Pt says she is fearful of falling and asks therapist to stay close during gait. Transfers SCALE: Activities may be completed with or without assistive devices. 6-Qiywvssgyt-eikxhyj completes the activity by him/herself with no assistance from a helper. 5-Set-up or Clean-up Assistance-helper sets up or cleans up; patient completes activity. [place] assists only prior to or following the activity. 4-Supervision or Touching Assistance-helper provides verbal cues and/or touching/steadying and/or contact guard assistance as patient completes activity. Assistance may be provided throughout the activity or intermittently. 3-Partial/Moderate Assistance-helper does LESS THAN HALF the effort. [place] lifts, holds or supports trunk or limbs, but provides less than half the effort. 2-Substantial/Maximal Assistance-helper does MORE THAN HALF the effort. [place] lifts or holds trunk or limbs and provides more than half the effort. 1-Bouljeogy-uihrms does ALL the effort. Patient does none of the effort to complete the activity. Or, the assistance of 2 or more helpers is required for the patient to complete the activity. If activity was not attempted, code reason: 7-Patient Refused. 9-Not Applicable-not attempted and the patient did not perform the activity before the current illness, exacerbation or injury. 10-Not Attempted due to Environmental Limitations-(lack of equipment, weather restraints, etc.). 88-Not Attempted due to Medical Conditions or Safety Concerns. Pt transfered out of bed with set up assist. Sit to stand with verbal cues and CGA. Weight Bearing Right Lower Extremity: Right Weight Bearing/Tolerated Left Lower Extremity: Left Weight Bearing/Tolerated Gait Training Does the Patient Walk?: Yes Gait Assistive Device: FWW Ambulate 100ft with CGA and O2 at 3 L/min. Seated rest 1 min and then repeat 100ft. Pt up in chair post treatment. Pt stable during ambulation. Slow but no loss of balance. Needs reminders for walker safety. PT Ship Wirer Goals Ship Wirer Goals PT Ship Wirer Goals Time Frame: Apr 22, 2019 Sit to Lying (QC): 6 Lying-Sitting on Side/Bed(QC): 6 Sit to Stand (QC): 6 Chair/Ijj-ww-Uqzzn Xfer(QC): 6 Walk 10 feet (QC): 6 Walk 50ft with 2 Turns (QC): 6 Walk 150 ft (QC): 6 PT Plan Problem List Problem List: Balance, Gait Treatment/Plan Treatment Plan: Continue Plan of Care Treatment Plan: Bed Mobility, Education, Functional Activity Isaias, Functional Strength, Gait, Safety, Therapeutic Exercise, Transfers Treatment Duration: Apr 22, 2019 Frequency: 5 times per week Estimated Hrs Per Day: .25 hour per day Time/GCodes Time In: 928 Time Out: 940 Total Billed Treatment Time: 22 Total Billed Treatment visit, gait 15 min, FA 8 min SUZE GOLD PT Apr 16, 2019 11:15
--- NOTE | 2019-04-16 13:26 | Discharge Inst-Skilled Nursing ---
Discharge Inst-Skilled NF Patient Instructions Patient Problems: NSTEMI Systolic CHF Coronary artery disease Debility Acute renal insufficiency Anemia Anxiety Consult/Follow Up/Orders Skilled NF Admit to: [facility] Certification ([facility]) I certify that SNF services are required to be given on an inpatient basis because of the above named patient's need for residential care on a continuing basis for the conditions(s) for which he/she was receiving inpatient hospital services prior to his/her transfer to the SNF. Nursing Home Facility Order: Nursing Services, Movie Extra-Evaluate & Treat, Physical Therapy-Evaluate & Treat, Speech Language-Evaluate & Treat Oxygen Delivery Method: Room Air Discharge Diet: Cardiac Diet New & Resume Previous Orders New Medications: Aspirin (Aspirin EC) 81 Mg Tablet.dr 81 MG PO DAILY, #30 TAB 0 Refills Atorvastatin Calcium (Atorvastatin Calcium) 80 Mg Tablet 80 MG PO HS, #30 TAB 0 Refills Ticagrelor (Brilinta) 90 Mg Tablet 90 MG PO BID, #60 TAB 0 Refills Continued Medications: Acetaminophen (Tylenol Arthritis) 650 Mg Tablet.er 650 MG PO Q8H PRN for PAIN-MILD, TAB Albuterol Sulfate (Ventolin Hfa) 18 Gm Hfa.aer.ad 2 PUFF PO Q4H PRN for SHORTNESS OF BREATH Albuterol Sulfate (Albuterol Sulfate) 2.5 Mg/0.5 Ml Vial.neb 2.5 MG INH Q8H PRN for SHORTNESS OF BREATH, EACH Ascorbic Acid (Vitamin C) 500 Mg Tab.chew 500 MG PO DAILY, TAB Buspirone HCl (Buspirone HCl) 10 Mg Tablet 10 MG PO BID, TAB Fluticasone Propionate (Fluticasone Propionate) 16 Gm [place].susp 2 SPR NSEACH DAILY Furosemide (Furosemide) 20 Mg Tablet 20 MG PO DAILY Glimepiride (Glimepiride) 4 Mg Tablet 4 MG PO DAILY Guaifenesin (Nicole-Tussin) 100 Mg/5 Ml Liquid 5 ML PO PRN for COUGH, EA Hydrochlorothiazide (Hydrochlorothiazide) 25 Mg Tablet 25 MG PO DAILY, TAB Lisinopril (Lisinopril) 20 Mg Tablet 20 MG PO DAILY for 30 Days, TAB Melatonin (Melatonin) 3 Mg Tab.rapdis 3 MG PO HS PRN for INSOMNIA, TAB Metoprolol Succinate (Metoprolol Succinate) 25 Mg Tab.er.24h 25 MG PO DAILY, TAB HOLD MED AND NOTIFY PCP IS SYSTOLIC BP LESS THAN 100 OR DIASTOLIC LESS THAN 60 Montelukast Sodium (Montelukast Sodium) 10 Mg Tablet 10 MG PO DAILY Multivitamin (Multi-Vitamin Daily) 1 Each Tablet 1 EACH PO DAILY, TAB Ondansetron HCl (Zofran) 4 Mg Tab 4 MG PO Q4H PRN for NAUSEA/VOMITING-1ST LINE, TAB Phenol (Chloraseptic) 177 Ml [place].pump 1 SPRAY MM Q6H PRN for SORE THROAT, ML Sennosides/Docusate Sodium (Senna-S Tablet) 1 Each Tablet 2 EACH PO BID, TAB Sodium Chloride (Sodium Chloride) 1 Gm Tab 1 GM PO BID, TAB Tramadol HCl (Tramadol HCl) 50 Mg Tablet 50 MG PO BID PRN for PAIN-MODERATE (5-7), TAB Discontinued Medications: Amlodipine Besylate (Amlodipine Besylate) 10 Mg Tablet 10 MG PO DAILY Atorvastatin Calcium (Atorvastatin Calcium) 10 Mg Tablet 10 MG PO DAILY Dextromethorphan Polistirex (Dextromethorphan Polistirex) 30 Mg/5 Ml Sharla.er.12h 10 ML PO Q12H, ML Sennosides/Docusate Sodium (Senna-Time S Tablet) 1 Each Tablet 2 EA PO BID for 30 Days, TAB Hortensia Cadet Apr 16, 2019 13:25 HORTENSIA CADET MD Apr 16, 2019 13:26
--- NOTE | 2019-04-16 13:40 | Occ Therapy Progress Note ---
Therapy Progress Note OT attempted tx this afternoon, pt declined OT services at this time. Pt reports she is not feeling well and she is constipated. OT educated pt on the benefits of OT, pt still declined. OT will attempt at later date. 1, visit 1330 ARMANDO GARCIA OT Apr 16, 2019 13:40
[2019-04-16] MEDS: ENOXAPARIN 40 MG/0.4 ML (LOVENOX) SYR SC SCH (13:53)
--- NOTE | 2019-04-16 14:14 | Progress Note ---
Subjective Subjective/Events-last exam Afebrile, no acute events. Kidney function improved. She feels sick to her stomach and constipated and is anxious about leaving, doesn't feel right. Objective Exam Last Set of Vital Signs Vital Signs Date Time Temp Pulse Resp B/P (MAP) Pulse Ox O2 Delivery O2 Flow Rate FiO2 04/16/19 09:00 Room Air 04/16/19 08:55 96 04/16/19 07:42 36.2 75 18 151/63 (92) 04/13/19 09:02 21 Capillary Refill : Less Than 3 Seconds I&O Intake and Output0 04/16/19 00:00 Intake Total 1625 ml Output Total 2450 ml Balance -825 ml Intake Oral 625 ml IV Total 1000 ml Output Urine Total 2450 ml # Voids 2 General: Alert, No Acute Distress Lungs: Clear to Auscultation, Normal Air Movement Heart: Regular Rate, No Murmurs Extremities: No Edema Neuro: Normal Speech Psych/Mental Status: Mental Status NL Results/Procedures Lab Laboratory Tests 04/16/19 04:41: White Blood Count 8.0, Red Blood Count 3.06L, Hemoglobin 7.7L, Hematocrit 25L, Mean Corpuscular Volume 82, Mean Corpuscular Hemoglobin 25, Mean Corpuscular Hemoglobin Concent 31L, Red Cell Distribution Width 16.1H, Platelet Count 344, Mean Platelet Volume 9.0, Neutrophils (%) (Auto) 68, Lymphocytes (%) (Auto) 17, Monocytes (%) (Auto) 9, Eosinophils (%) (Auto) 5, Basophils (%) (Auto) 1, Neutrophils # (Auto) 5.4, Lymphocytes # (Auto) 1.4, Monocytes # (Auto) 0.7, Eosinophils # (Auto) 0.4H, Basophils # (Auto) 0.1, Neutrophils % (Manual) 75, Lymphocytes % (Manual) 17, Monocytes % (Manual) 4, Eosinophils % (Manual) 3, Band Neutrophils 1, Polychromasia SLIGHT, Anisocytosis MODERATE, Microcytosis MODERATE, Absolute Reticulocyte Count 71, Percent Reticulocyte Count 2.31, Sodium Level 137, Potassium Level 4.5, Chloride Level 105, Carbon Dioxide Level 18L, Anion Gap 14, Blood Urea Nitrogen 40H, Creatinine 1.62H, Estimat Glomerular Filtration Rate 31, BUN/Creatinine Ratio 25, Glucose Level 152H, Calcium Level 8.0L 04/16/19 05:00: Iron Level 28L, Total Iron Binding Capacity 289, Unsaturated Iron Binding Capacity 261, Transferrin % Saturation 10L Microbiology 04/12/19 MRSA Screen - Final, Complete MRSA not isolated Radiology 04/11 CXR: IMPRESSION: Borderline cardiomegaly and vascular congestion, left lower lobe infiltrate and pleural fluid present suspicious for pneumonia. Assessment/Plan Assessment/Plan (1) Chest pain Status: Acute Assessment & Plan: With elevated troponin, Cardiology consulted, appreciate recommendations. CXR with possible pneumonia, started on antibiotics from ER, repeat CXR pending. 04/13 repeat CXR yesterday not convincing for pneumonia, vitals okay, a ntibiotics discontinued. See other diagnoses for cardiac status. Qualifiers: Qualified Codes: I20.8 - Other forms of angina pectoris (2) NSTEMI (non-ST elevated myocardial infarction) Status: Acute (3) Coronary artery disease Assessment & Plan: Coronary angiography done on 04/12/2019 noted occluded RCA and occlusive LAD disease. Left circumflex treated with drug eluting stent. which shows occluded RCA. Occlusive LAD disease. Severe mid left circumflex artery stenosis treated successfully with a drug-eluting stent. Qualifiers: (4) Diabetes mellitus Status: Chronic Assessment & Plan: Sliding scale insulin Qualifiers: (5) Acute kidney injury Status: Acute Assessment & Plan: 04/15- creatinine up today, suspect combination of high dose diuretic and dye from cath, she also notes she isn't drinking a lot. Will give IVF today and encouraged increased hydration but will monitor closely due to CHF. 04/16 improved but not normalized, decrease IVF rate and repeat tomorrow (6) CHF (congestive heart failure) Status: Acute Assessment & Plan: Diuretic given last night, reports good output and improved shortness of breath, Cardiology consulted, appreciate recommendations. Echocardiogram done 04/12/2019 shows LVEF of 40 percent. 04/13 BP somewhat low, will change from high dose IV lasix to PO lasix Qualifiers: Qualified Codes: I50.21 - Acute systolic (congestive) heart failure (7) Anemia Assessment & Plan: Anemic since at least January, but is decreasing. Check iron studies and peripheral smear and stool occult blood. 04/16 pending (8) DVT prophylaxis Assessment & Plan: Enoxaparin (9) Discharge planning issues Status: Acute Assessment & Plan: 04/13 Nurse received call this evening from caregiver after discharge was planned that she did not feel she could take care of her at home- she was just discharged from senior care last week after stay post surgery. Will discuss with patient further tomorrow. 04/14 patient okay with nursing facility, social work consult placed 04/14 plan for d/c tomorrow if renal function improved 04/16 d/c orders for SNF for tomorrow placed. Clinical Quality Measures AMI/AHF: ASA po Prior to arrival: No DVT/VTE Risk/Contraindication: Risk Factor Score Per Nursin RFS Level Per Nursing on Admit: 4+=Very High HORTENSIA BALLESTEROS MD Apr 16, 2019 14:14
[2019-04-16] MEDS: POLYETHYLENE GLYCOL 17 GM (MIRALAX) PACK PO SCH ×2 (14:54→20:39)
[2019-04-16 16:07] VITALS: BP 131/77
--- NOTE | 2019-04-16 17:40 | Cardiology Progress Note ---
Cardiology SOAP Progress Note Subjective: No cardiac complaints. Objective: I&O/Vital Signs 04/16/19 04/16/19 04/16/19 04/16/19 07:42 08:55 09:00 16:05 Temp 36.2 Pulse 75 Resp 18 B/P (MAP) 151/63 (92) Pulse Ox 98 96 98 O2 Delivery Room Air Room Air Room Air Room Air 04/16/19 16:07 Temp 36.4 Pulse 72 Resp 20 B/P (MAP) 131/77 (95) Pulse Ox 98 O2 Delivery Room Air 04/16/19 00:00 Intake Total 1625 ml Output Total 2450 ml Balance -825 ml Weight (Pounds): 203 Weight (Calculated Kilograms): 92.081350 Constitutional: appears stated age, AAO x 3; No apparent distress; well- developed, well-nourished Respiratory: chest is bilaterally symmetric, lungs clear to auscultation Cardiovascular: regular rate-rhythm, S1 and S2 Gastrointestional: soft, round, audible bowel sounds; No spleenomegaly Extremities: normal range of motion, non-tender, normal inspection; No clubbing, No cyanosis; no lower extremity edema bilateral; No significant edema Neurologic/Psychiatric: no motor/sensory deficits, alert, normal mood/affect, oriented x 3, power is 5/5 both on sides Skin: normal color, warm/dry; No rash, No ulcerations Results/Procedures: Labs Laboratory Tests 04/16/19 04:41: White Blood Count 8.0, Red Blood Count 3.06L, Hemoglobin 7.7L, Hematocrit 25L, Mean Corpuscular Volume 82, Mean Corpuscular Hemoglobin 25, Mean Corpuscular H emoglobin Concent 31L, Red Cell Distribution Width 16.1H, Platelet Count 344, Mean Platelet Volume 9.0, Neutrophils (%) (Auto) 68, Lymphocytes (%) (Auto) 17, Monocytes (%) (Auto) 9, Eosinophils (%) (Auto) 5, Basophils (%) (Auto) 1, Neutrophils # (Auto) 5.4, Lymphocytes # (Auto) 1.4, Monocytes # (Auto) 0.7, Eosinophils # (Auto) 0.4H, Basophils # (Auto) 0.1, Neutrophils % (Manual) 75, Lymphocytes % (Manual) 17, Monocytes % (Manual) 4, Eosinophils % (Manual) 3, Band Neutrophils 1, Polychromasia SLIGHT, Anisocytosis MODERATE, Microcytosis MODERATE, Absolute Reticulocyte Count 71, Percent Reticulocyte Count 2.31, Sodium Level 137, Potassium Level 4.5, Chloride Level 105, Carbon Dioxide Level 18L, Anion Gap 14, Blood Urea Nitrogen 40H, Creatinine 1.62H, Estimat Glomerular Filtration Rate 31, BUN/Creatinine Ratio 25, Glucose Level 152H, Calcium Level 8.0L 04/16/19 05:00: Iron Level 28L, Total Iron Binding Capacity 289, Unsaturated Iron Binding Capacity 261, Transferrin % Saturation 10L Microbiology 04/12/19 MRSA Screen - Final, Complete MRSA not isolated A/P: Assessment/Dx: Non-STEMI, Acute systolic congestive heart failure, Ischemic cardiomyopathy. Diabetes, Hypertension, Hyperlipidemia. Plan: Non-STEMI, Coronary angiography done on 04/12/2019 which shows occluded RCA. Occlusive LAD disease. Severe mid left circumflex artery stenosis treated successfully with a drug-eluting stent. There is a small caliber OM artery which has significant disease but was not intervened on. Mild to moderate systolic dysfunction. Acute systolic congestive heart failure, continue Lasix. Ischemic cardiomyopathy, continue ILIR inhibitor and beta andrew. Echocardiogram done 04/12/2019 shows LVEF of 40 percent. Diabetes, Hypertension, lisinopril, beta andrew. Hyperlipidemia, high-dose statin therapy. Okay to discharge to follow-up with cardiology (Dr Galindo) in 2-3 weeks. Discharge on dual antiplatelet therapy, ILIR inhibitor, beta andrew, high-dose statin therapy, Lasix. Thank you for your consultation. Please call me if you have any questions. Jacoby Rangel MD, FACP, FACC, FSCAI, FHRS, CCDS Interventional Cardiology Cardiac Electrophysiology Vascular Medicine and Endovascular Interventions Clinical Quality Measures AMI/AHF: ASA po Prior to arrival: Norm Joe MD Apr 16, 2019 17:40
[2019-04-16] MEDS ORDERED: LORazepam 0.5 MG (ATIVAN) TABLET PO STA (23:38)
[2019-04-16] MEDS ORDERED: LORazepam 1 MG (ATIVAN) TAB ONE (23:41)
[2019-04-17] VITALS: BP 138/70
[2019-04-17] MEDS: RT-ALBUTEROL SULF 2.5 MG/3 ML PRE-MIX VIAL INH SCH (02:04)
[2019-04-17 02:16] VITALS: BP 138/70
[2019-04-17] MEDS ORDERED: RT-ALBUTEROL SULF 2.5 MG/3 ML PRE-MIX VIAL INH PRN (02:45)
[2019-04-17] MEDS: KCL 20 MEQ TAB (K-DUR) PO SCH ×2 (05:22→06:01)
[2019-04-17 05:37] LABS: HEMOGLOBIN 8.4 G/DL (11.5-16.0); WHITE BLOOD COUNT 8.7 10^3/uL (4.3-11.0)
[2019-04-17 05:56] LABS: CALCIUM 8.8 MG/DL (8.5-10.1); CREATININE SERUM 1.29 MG/DL (0.60-1.30); POTASSIUM 5.1 MMOL/L (3.6-5.0)
[2019-04-17] MEDS: NS IV 1000 ML 1,000 ML IV SCH (06:55)
[2019-04-17 07:23] VITALS: BP 147/66
[2019-04-17] MEDS: FUROSEMIDE 20 MG (LASIX) TAB PO SCH (08:26)
[2019-04-17] MEDS: lisINopril 20 MG (PRINIVIL) TABLET PO SCH (08:26)
[2019-04-17] MEDS: POLYETHYLENE GLYCOL 17 GM (MIRALAX) PACK PO SCH (08:27)
[2019-04-17] MEDS: ASPIRIN E.C. 81 MG (ECOTRIN) TAB PO SCH (08:27)
[2019-04-17] MEDS: HYDROCHLOROTHIAZIDE 25 MG (HCTZ) TAB PO SCH (08:27)
[2019-04-17] MEDS: TICAGRELOR 90 MG TABLET (BRILINTA) PO SCH (08:27)
[2019-04-17] MEDS: DOCUSATE SODIUM 100 MG (COLACE) CAP PO SCH (08:27)
[2019-04-17] MEDS: ACETAMINOPHEN 325 MG TABLET PO PRN (10:26)
--- NOTE | 2019-04-17 12:48 | Cardiology Progress Note ---
Cardiology SOAP Progress Note Subjective: No cardiac complaints. Objective: I&O/Vital Signs 04/17/19 04/17/19 04/17/19 04/17/19 02:04 02:16 07:23 09:00 Temp 36.6 36.8 Pulse 78 75 Resp 18 B/P (MAP) 147/66 (93) Pulse Ox 97 97 97 O2 Delivery Room Air Room Air Room Air FiO2 21 04/17/19 10:11 O2 Delivery Room Air 04/17/19 00:00 Intake Total 970 ml Output Total 980 ml Balance -10 ml Weight (Pounds): 203 Weight (Calculated Kilograms): 92.851919 Constitutional: appears stated age, AAO x 3; No apparent distress; well- developed, well-nourished Respiratory: chest is bilaterally symmetric, lungs clear to auscultation Cardiovascular: regular rate-rhythm, S1 and S2 Gastrointestional: soft, round, audible bowel sounds; No spleenomegaly Extremities: normal range of motion, non-tender, normal inspection; No clubbing, No cyanosis; no lower extremity edema bilateral; No significant edema Neurologic/Psychiatric: no motor/sensory deficits, alert, normal mood/affect, oriented x 3, power is 5/5 both on sides Skin: normal color, warm/dry; No rash, No ulcerations Results/Procedures: Labs Laboratory Tests 04/17/19 04:49: White Blood Count 8.7, Red Blood Count 3.32L, Hemoglobin 8.4L, Hematocrit 27L, Mean Corpuscular Volume 82, Mean Corpuscular Hemoglobin 25, Mean Corpuscular Hemoglobin Concent 31L, Red Cell Distribution Width 16.0H, Platelet Count 398, Mean Platelet Volume 9.0, Sodium Level 136, Potassium Level 5.1H, Chloride Level 106, Carbon Dioxide Level 18L, Anion Gap 12, Blood Urea Nitrogen 30H, Creatinine 1.29, Estimat Glomerular Filtration Rate 40, BUN/Creatinine Ratio 23, Glucose Level 119H, Calcium Level 8.8 Microbiology 04/12/19 MRSA Screen - Final, Complete MRSA not isolated A/P: Assessment/Dx: Non-STEMI, Acute systolic congestive heart failure, Ischemic cardiomyopathy. Diabetes, Hypertension, Hyperlipidemia. Plan: Non-STEMI, Coronary angiography done on 04/12/2019 which shows occluded RCA. Occlusive LAD disease. Severe mid left circumflex artery stenosis treated successfully with a drug-eluting stent. There is a small caliber OM artery which has significant disease but was not intervened on. Mild to moderate systolic dysfunction. Acute systolic congestive heart failure, continue Lasix. Ischemic cardiomyopathy, continue ILIR inhibitor and beta andrew. Echocardiogram done 04/12/2019 shows LVEF of 40 percent. Diabetes, Hypertension, lisinopril, beta andrew. Hyperlipidemia, high-dose statin therapy. Okay to discharge to follow-up with cardiology (Dr Galindo) in 2-3 weeks. Discharge on dual antiplatelet therapy, ILIR inhibitor, beta andrew, high-dose statin therapy, Lasix. Thank you for your consultation. Please call me if you have any questions. Jacoby Rangel MD, FACP, FACC, FSCAI, FHRS, CCDS Interventional Cardiology Cardiac Electrophysiology Vascular Medicine and Endovascular Interventions Clinical Quality Measures AMI/AHF: ASA po Prior to arrival: Norm Joe MD Apr 17, 2019 12:48
[2019-04-17] MEDS ORDERED: TRAM50TA2 PO (13:34)
[2019-04-17] MEDS: LORazepam 0.5 MG (ATIVAN) TABLET PO PRN (14:10)
[2019-04-17 14:25] VITALS: BP 147/66
== END 2019-04-17 14:25 | DRG 246 ==
LOC: EDUNIT# 20:25 → ER 20:27 → ICU 21:27 → 4TH 04-13 18:28
PROVIDERS: ADMIT Internal Medicine; ATTEND Family Medicine
PROC: 027034Z Dilation of Coronary Artery, One Artery with Drug-eluting Intraluminal Device, Percutaneous Approach (ICD-10-PCS; principal; 2019-04-12)
PROC: 4A023N7 Measurement of Cardiac Sampling and Pressure, Left Heart, Percutaneous Approach (ICD-10-PCS; 2019-04-12)
PROC: B2111ZZ Fluoroscopy of Multiple Coronary Arteries using Low Osmolar Contrast (ICD-10-PCS; 2019-04-12)
PROC: B4101ZZ Fluoroscopy of Abdominal Aorta using Low Osmolar Contrast (ICD-10-PCS; 2019-04-12)
PROC: B51L1ZZ Fluoroscopy of Bilateral Renal Veins using Low Osmolar Contrast (ICD-10-PCS; 2019-04-12)
PROC: B51D1ZZ Fluoroscopy of Bilateral Lower Extremity Veins using Low Osmolar Contrast (ICD-10-PCS; 2019-04-12)
DX: I21.4 Non-ST elevation (NSTEMI) myocardial infarction (principal); I50.21 Acute systolic (congestive) heart failure; I13.0 Hypertensive heart and chronic kidney disease with heart failure and stage 1 through stage 4 chronic kidney disease, or unspecified chronic kidney disease; N17.9 Acute kidney failure, unspecified; N18.9 Chronic kidney disease, unspecified; I25.5 Ischemic cardiomyopathy; D64.9 Anemia, unspecified; E11.22 Type 2 diabetes mellitus with diabetic chronic kidney disease; E78.00 Pure hypercholesterolemia, unspecified; E78.5 Hyperlipidemia, unspecified; M54.9 Dorsalgia, unspecified; G89.29 Other chronic pain; F41.9 Anxiety disorder, unspecified; M19.90 Unspecified osteoarthritis, unspecified site; J42 Unspecified chronic bronchitis; Z90.710 Acquired absence of both cervix and uterus; Z79.84 Long term (current) use of oral hypoglycemic drugs
CPT/HCPCS: 36415; 71045; 75625; 80048; 80053; 80061; 82728; 83540; 83735; 83874; 83880; 84100; 84484; 85007; 85025; 85027; 85045; 85610; 85730; 87081; 93005; 93041; 93306; 93458; 94640; 94760; 96372; 96374; 96375

== ENCOUNTER 2020-02-27 09:11 | Emergency (ER) | payer MEDICARE, MEDICAID ==
[~2020-02-27] VITALS: Ht 162.5 cm; Wt 77.7 kg
[~2020-02-27 09:11] MED LIST changes: +ALB0.5V INH; +ALPR.25T PO; -ALPR0.254 PO; +AMLO-251 PO; -AMLO10TA7 PO; +ASCO500T71 PO; +ASPI-1238 PO; +ATOR80TA76 PO; +BUSP5TAB59 PO; +CALC200T33 PO; +CETI10TA49 PO; +CLOT15CR6 TOP; +DEXT30SU19 PO; +FURO40TA4 PO; -GLIM4TAB PO; +GLIM4TAB5 PO; +GUAI-1052 PO; +HYDR12.56 PO; +HYDR25TA4 PO; -LISI1TAB10 PO; +LISI1TAB26 PO; +MELA3TAB52 PO; +MENT118G TP; -MONT10TA24 PO; +MONT10TA26 PO; +MTP25TSR PO; +MULT-974 PO; +ONDN4T PO; +PHEN177S41 MM; +SENN-109 PO; +SERT50TA9 PO; +SULF1TAB35 PO; +TICA90TA PO; +TRM50T PO; +TROL85CR14 TP; +[UNRECOGNIZED DRUG - CODE] TP
--- NOTE | 2020-02-27 10:14 | Diagnostic Imaging Report ---
EXAMINATION: CT brain and CT cervical spine from 02/27/2020. TECHNIQUE: Multiple contiguous axial images were obtained through the brain and cervical spine without the use of intravenous contrast. Sagittal and coronal reformations through the cervical spine were then performed. Auto Exposure Controls were utilized during the CT exam to meet ALARA standards for radiation dose reduction. INDICATION: Trauma. COMPARISONS: None. FINDINGS: BRAIN: There is a prominent scalp hematoma right paracentral overlying the posterior calvarium. The underlying osseous structures are intact. No intracranial hemorrhage, mass, mass effect, or midline shift appreciated. There is diffuse atrophy as well as chronic ischemic disease. There is no hydrocephalus. There is diffuse nonspecific heterogeneity noted within the clivus, perhaps due to the diffuse osteopenia. This could be re-evaluated at a follow-up non emergently. IMPRESSION: 1. Scalp hematoma with no acute intracranial process. Other findings, as above. Follow-up recommended. CT CERVICAL SPINE: There is no significant subluxation. No compression deformities appreciated. Multilevel diffuse degenerative change noted with intervertebral disc space narrowing and anterior spurring as well as some posterior spurring throughout the mid cervical spine, especially at C5-C6 and C6-C7. No acute osseous abnormalities appreciated. The visualized lung apices are clear. Prevertebral soft tissues are unremarkable. Prominence of the left thyroid lobe is noted, better characterized sonographically on a nonemergent basis. IMPRESSION: 1. No acute cervical spine abnormality with multilevel diffuse degenerative and chronic changes, as above. 2. Prominent left thyroid lobe, nonemergent sonogram recommended if not previously performed. Dictated by: Dictated on workstation # [id number]
[2020-02-27] MEDS ORDERED: ACETAMINOPHEN 500 MG TAB (TYLENOL) PO STA (10:22)
--- NOTE | 2020-02-27 10:27 | NUR ---
PRISON CALLED TO COME GET HER INFORMED THAT WOULD BE GIVING HER B/P MEDS AND TYLENOL BEFORE DISCHARE.
--- NOTE | 2020-02-27 10:36 | ED Fall/Injury ---
General Chief Complaint: Trauma-Non Activation Stated Complaint: FALL Nursing Triage Note: TO ED PER EMS [facility] WAS WALKING AND FELL BACK HITTING HER HEAD NO LOC. DID VOMIT X1 AFTER TAKING AM MEDS. Source: patient Exam Limitations: no limitations History of Present Illness Date Seen by Provider: Feb 27, 2020 Time Seen by Provider: 10:10 Initial Comments [facility] She was walking and fell backwards and hit her head. Denies any other injury. She is on Brilinta. She is known to me and appropriately acting currently. Did have one episode of vomiting after taking her morning meds including her blood pressure medicine. Reports headache currently. No breaks in skin and no bleeding noted or reported. Occurred: just prior to arrival (Approximately 30 minutes prior to arrival) Severity: mild Injuries/Pain Location: head Context: tripped Loss of Consciousness: no loss of consciousness Modifying Factors: Improves With Rest Associated Symptoms (Fall): No Chest Pain, No Confusion; Headache, Nausea/Vomiting; No Neck Pain, No Shortness of Air, No Vision Changes Allergies and Home Medications Allergies Coded Allergies: Penicillins (Verified Allergy, Unknown, 11/08/19) codeine (Verified Adverse Reaction, Mild, NAUSEA, 02/08/19) Home Medications Acetaminophen 650 Mg Tablet.er, 650 MG PO Q8H PRN for PAIN-MILD, (Reported) Albuterol Sulfate 18 Gm Hfa.aer.ad, 2 PUFF PO Q4H PRN for SHORTNESS OF BREATH, (Reported) Ascorbic Acid 500 Mg Tab.chew, 500 MG PO DAILY, (Reported) Aspirin 81 Mg Tablet.dr, 81 MG PO DAILY, (Reported) Atorvastatin Calcium 80 Mg Tablet, 80 MG PO HS, (Reported) Buspirone HCl 5 Mg Tablet, 5 MG PO Q12H, (Reported) Calcium Carbonate 200 Mg Tab.chew, 200-400 MG PO Q4H PRN for REFLUX, (Reported) Cetirizine HCl 10 Mg Tablet, 10 MG PO DAILY, (Reported) Clotrimazole/Betamethasone Dip 15 Gm Cream..g., 1 APPLIC TOP BID, (Reported) APPLY TO WOUND Fluticasone Propionate 16 Gm [place].susp, 2 SPR NSEACH DAILY, (Reported) Furosemide 40 Mg Tablet, 40 MG PO DAILY, (Reported) Guaifenesin 100 Mg/5 Ml Liquid, 5 ML PO Q6H PRN for COUGH, (Reported) Melatonin 3 Mg Tab.rapdis, 3 MG PO HS PRN for INSOMNIA, (Reported) Menthol 118 Ml Gel..ml., 1 APPLIC TP BID PRN for PAIN-BREAKTHROUGH, (Reported) FOR BILATERAL SHOULDER AND NECK PAIN Metformin HCl 500 Mg Tablet, 500 MG PO BID, (Reported) Metoprolol Succinate 25 Mg Tab.er.24h, 25 MG PO DAILY, (Reported) HOLD MED AND NOTIFY PCP IS SYSTOLIC BP LESS THAN 100 OR DIASTOLIC LESS THAN 60 Montelukast Sodium 10 Mg Tablet, 10 MG PO DAILY, (Reported) Multivitamin 1 Each Tablet, 1 EACH PO DAILY, (Reported) Ondansetron HCl 4 Mg Tab, 4 MG PO Q4H PRN for NAUSEA/VOMITING-1ST LINE, (Reported) Phenol 177 Ml [place].pump, 1 SPRAY MM Q6H PRN for SORE THROAT, (Reported) Selenium Sulfide 180 Ml Shampoo, 1 APPLIC TP WEEK, (Reported) Selenium Sulfide 180 Ml Shampoo, 1 APPLIC TP PRN PRN for DANDRUFF, (Reported) Sennosides/Docusate Sodium 1 Each Tablet, 2 EACH PO BID, (Reported) Sertraline HCl 50 Mg Tablet, 50 MG PO HS, (Reported) Sodium Chloride 1 Gm Tab, 2 GM PO BID, (Reported) TAKES 2 (1GM) TABS Ticagrelor 90 Mg Tablet, 90 MG PO BID, (Reported) Tramadol HCl 50 Mg Tablet, 50 MG PO DAILY, (Reported) Tramadol HCl 50 Mg Tablet, 100 MG PO HS, (Reported) Trolamine Salicylate 85 Gm Cream..g., 1 APPLIC TP BID, (Reported) BILATERAL SHOULDER AND NECK PAIN Patient Home Medication List Home Medication List Reviewed: Yes Review of Systems Review of Systems Constitutional: see HPI; No chills, No fever Eyes: No Symptoms Reported Ears, Nose, Mouth, Throat: no symptoms reported Respiratory: No cough, No short of breath Cardiovascular: No chest pain; edema Gastrointestinal: No abdominal pain; nausea, vomiting Genitourinary: no symptoms reported Musculoskeletal: No back pain, No neck pain Skin: change in color; No lesions Psychiatric/Neurological: Headache; Denies Weakness Past Yhwrwaz-Jrjops-Wodbqp Hx Past Med/Social Hx: Reviewed Nursing Past Med/Soc Hx Patient Social History Alcohol Use: Denies Use Recreational Drug Use: No Smoking Status: Never a Smoker 2nd Hand Smoke Exposure: No Recent Foreign Travel: No Contact w/Someone Who Travel: No Recent Infectious Disease Expo: No Recent Hopitalizations: No Immunizations Up To Date PED Vaccines UTD: Yes Date of Pneumonia Vaccine: Jul 05, 2015 Date of Influenza Vaccine: Feb 03, 2019 Seasonal Allergies Seasonal Allergies: No Past Medical History Surgeries: No (LEFT HUMERUS FX/ORIF;CARDIAC CATH-STENT X 1 04/12/2019) Cardiac, Coronary Stent, Hysterectomy, Orthopedic Respiratory: Yes Chronic Bronchitis Currently Using CPAP: No Currently Using BIPAP: No Cardiac: Yes (CHF;NSTEMI WITH CARDIAC CATH AND STENT X 03/2019) Atrial Fibrillation, Coronary Artery Disease, Heart Attack, High Cholesterol, Hypertension Neurological: Yes ( PERIPHERAL NEUROPATHY ) Developmental Disorder, Neuropathy Reproductive Disorders: No 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, 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 Sexually Transmitted Disease: No HIV/AIDS: No Genitourinary: Yes (INCONT AT TIMES) Gastrointestinal: Yes Chronic Constipation Musculoskeletal: Yes (muscle weakness) Arthritis, Chronic Back Pain, Fractures Endocrine: Yes Diabetes, Non-Insulin dep HEENT: No (wears glasses) Loss of Vision: Denies Cancer: Yes Uterine Did You Recieve Any Treatments: Yes What Type of Treatment Did You: Surgical Intervention Psychosocial: Yes Anxiety Integumentary: Yes (MRSA + DECUB ON BUTTOCKS) Blood Disorders: Yes (anemia) Adverse Reaction/Blood Tranf: No Family Medical History Reviewed Nursing Family Hx Diabetes mellitus 19 FATHER Hypertension 19 FATHER Diabetes, Hypertension Physical Exam Vital Signs Vital Signs - First Documented 02/27/20 09:26 Pulse 82 Resp 18 B/P (MAP) 191/140 (157) Pulse Ox 98 O2 Delivery Room Air Capillary Refill : Less Than 3 Seconds Height, Weight, BMI Height: 5'" Weight: 203lbs. oz. 92.222950dj; 29.00 BMI Method:Stated General Appearance: WD/WN, no apparent distress HEENT: PERRL/EOMI, TMs normal, pharynx normal Neck: non-tender, full range of motion, supple, normal inspection Cardiovascular: regular rate, rhythm, no murmur Respiratory: lungs clear, normal breath sounds Gastrointestinal: non tender, soft Back: normal inspection, no CVA tenderness, no vertebral tenderness Extremities: non-tender, pelvis stable, pedal edema Neurologic/Psychiatric: no motor/sensory deficits, alert, oriented x 3 Skin: warm/dry, ecchymosis (Posterior scalp midline and to right side near top of head) Progress/Results/Core Measures Results/Orders My Orders Orders - JEFF BECERRA MD Ct Head/Cervical Spine Wo (02/27/20 09:16) Metoprolol Succinate (Xl) Tab (Toprol Xl (02/27/20 10:30) Acetaminophen Tablet (Tylenol Tablet) (02/27/20 10:22) Vital Signs/I&O 02/27/20 09:26 Pulse 82 Resp 18 B/P (MAP) 191/140 (157) Pulse Ox 98 O2 Delivery Room Air Blood Pressure Mean: 157 Progress Progress Note : Progress Note Seen and evaluated. CT head and neck ordered. 1015: C-collar cleared and patient has full range of motion without pain. Metoprolol XL 25 mg p.o. as well as Tylenol 1 g p.o. ordered for blood pressure and pain. 1033: No acute findings on CT scan other than enlarged thyroid that will need outpatient work- up. Discharged home with return precautions. Patient verbalized understanding of instructions and agreement with plan. Diagnostic Imaging Diagonstic Imaging: CT Plain Films/CT/US/NM/MRI: c-spine, head Comments [facility] [place] NAME: PRIMO BORJA [facility] REC#: [id number] PT STATUS: REG ER : 1940 PHYSICIAN: JEFF BECERRA MD ADMIT DATE: 02/27/20/ER Draft Date of Exam:02/27/20 CT HEAD/CERVICAL SPINE WO EXAMINATION: CT brain and CT cervical spine from 02/27/2020. TECHNIQUE: Multiple contiguous axial images were obtained through the brain and cervical spine without the use of intravenous contrast. Sagittal and coronal reformations through the cervical spine were then performed. Auto Exposure Controls were utilized during the CT exam to meet ALARA standards for radiation dose reduction. INDICATION: Trauma. COMPARISONS: None. FINDINGS: BRAIN: There is a prominent scalp hematoma right paracentral overlying the posterior calvarium. The underlying osseous structures are intact. No intracranial hemorrhage, mass, mass effect, or midline shift appreciated. There is diffuse atrophy as well as chronic ischemic disease. There is no hydrocephalus. There is diffuse nonspecific heterogeneity noted within the clivus, perhaps due to the diffuse osteopenia. This could be re-evaluated at a follow-up non emergently. IMPRESSION: 1. Scalp hematoma with no acute intracranial process. Other findings, as above. Follow-up recommended. CT CERVICAL SPINE: There is no significant subluxation. No compression deformities appreciated. Multilevel diffuse degenerative change noted with intervertebral disc space narrowing and anterior spurring as well as some posterior spurring throughout the mid cervical spine, especially at C5-C6 and C6-C7. No acute osseous abnormalities appreciated. The visualized lung apices are clear. Prevertebral soft tissues are unremarkable. Prominence of the left thyroid lobe is noted, better characterized sonographically on a nonemergent basis. IMPRESSION: 1. No acute cervical spine abnormality with multilevel diffuse degenerative and chronic changes, as above. 2. Prominent left thyroid lobe, nonemergent sonogram recommended if not previously performed. Dictated on workstation # [id number] Dict: 02/27/20 0959 Trans: 02/27/20 1013 [id number] Interpreted by: MAYRA FAM MD Electronically signed by: Departure Impression Primary Impression: Head injury Qualified Codes: S09.90XA - Unspecified injury of head, initial encounter Additional Impression: Enlarged thyroid gland Disposition: 01 HOME, SELF-CARE Condition: Stable Departure-Patient Inst. Decision time for Depature: 10:35 Referrals: CARLOS STUBBS MD (PCP/Family) Primary Care Physician Patient Instructions: Closed Head Injury (DC), Thyroid Nodules Add. Discharge Instructions: All discharge instructions reviewed with patient and/or family. Voiced understanding. Continue home medications as previously prescribed. You should follow-up with your doctor this week for recheck and further evaluation and to discuss the enlarged thyroid noted on CT scan. This may need an ultrasound as an o utpatient. Return for worse pain, vomiting, weakness, breathing problems or other concerns as needed. Copy Copies To 1: CARLOS STUBBS MD, TIMOTHY D MD Feb 27, 2020 10:36
--- NOTE | 2020-02-27 10:42 | NUR ---
UP TO W/C HAKAN FOR CUSTODIAL TO COME GET HIM
[2020-02-27 10:57] VITALS: BP 182/107
== END 2020-02-27 10:57 | disposition home or self-care (01) ==
LOC: EDUNIT# 09:11 → ER 09:11
DX: S09.90XA Unspecified injury of head, initial encounter (principal); S00.03XA Contusion of scalp, initial encounter; E04.9 Nontoxic goiter, unspecified; I10 Essential (primary) hypertension; E11.40 Type 2 diabetes mellitus with diabetic neuropathy, unspecified; I25.10 Atherosclerotic heart disease of native coronary artery without angina pectoris; E78.00 Pure hypercholesterolemia, unspecified; I48.91 Unspecified atrial fibrillation; F41.9 Anxiety disorder, unspecified; G89.29 Other chronic pain; K59.09 Other constipation; D64.9 Anemia, unspecified; Z95.5 Presence of coronary angioplasty implant and graft; Z85.42 Personal history of malignant neoplasm of other parts of uterus; Z88.0 Allergy status to penicillin; Z88.5 Allergy status to narcotic agent; Z79.82 Long term (current) use of aspirin; Z79.51 Long term (current) use of inhaled steroids; Z79.84 Long term (current) use of oral hypoglycemic drugs; Z79.891 Long term (current) use of opiate analgesic; W18.30XA Fall on same level, unspecified, initial encounter; Y92.129 Unspecified place in nursing home as the place of occurrence of the external cause
CPT/HCPCS: 70450; 72125

== ENCOUNTER → 2020-03-29 | Outpatient (CLI) | payer MEDICARE, MEDICAID ==
[~2020-03-29] MED LIST changes: +LIDOCAINE 1% INJ 20 ML 20 ML VIAL INJ ONE; +LIDOCAINE 1% INJ 20 ML 20 ML VIAL ONE; -MONT10TA26 PO; +MONT10TA97 PO
--- NOTE | 2020-03-29 14:28 | Diagnostic Imaging Report ---
INDICATION: Left thyroid nodule. Patient presents for ultrasound-guided fine-needle aspiration and biopsy. FINDINGS: Patient was brought to the procedure room, placed on table in the supine position. Ultrasound imaging of the left neck was performed to evaluate appropriate entry site. Left neck was then prepped and draped in the usual sterile fashion. A small amount of 1% lidocaine was utilized for local anesthesia. A total of four passes were made into the solid dominant left lobe thyroid nodule utilizing 25-gauge needles and fine-needle aspiration technique. A single pass was made with a Rotex needle and a Rotex biopsy was performed. Patient tolerated the procedure well and left the department in stable condition. IMPRESSION: Successful left thyroid nodule fine-needle aspiration and Rotex biopsy. Pathology results are currently pending. Dictated by: Dictated on workstation # [id number]
== END ==
LOC: RAD 11:00
PROVIDERS: ATTEND Nurse Practitioner Community Health
DX: C73 Malignant neoplasm of thyroid gland (principal)

== ENCOUNTER 2020-06-02 13:41 | Outpatient (CLI) | payer MEDICARE, MEDICAID ==
[~2020-06-02] VITALS: Ht 160 cm; Wt 77.0 kg
[2020-06-02 13:28] VITALS: BP 190/69
[~2020-06-02 13:41] MED LIST changes: -LIDOCAINE 1% INJ 20 ML 20 ML VIAL INJ ONE; -LIDOCAINE 1% INJ 20 ML 20 ML VIAL ONE; -LISI-552 PO; +LISI20TA26 PO; +MONT10TA32 PO; -MONT10TA97 PO; +SERT-413 PO; -SERT50TA9 PO
[2020-06-02] MEDS ORDERED: diphenhydrAMINE 50 MG/ML INJ (BENADRYL) IV PRN (14:00)
[2020-06-02] MEDS ORDERED: EPINEPHrine INJECTION 1 MG/ML AMP IM PRN (14:00)
[2020-06-02] MEDS ORDERED: BAMLANIVIMAB (NON FORM) 700 MG in NS (IVPB) 100 ML IV ONE (14:00)
[2020-06-02 14:38] VITALS: BP 170/82
== END 2020-06-02 15:33 | disposition home or self-care (01) ==
LOC: INFUSION 13:41
PROVIDERS: ATTEND Nurse Practitioner Community Health
DX: U07.1 COVID-19 (principal)

== ENCOUNTER 2021-03-21 12:42 | Emergency (ER) | payer MEDICARE, MEDICAID ==
[~2021-03-21] VITALS: Ht 167 cm; Wt 90.0 kg
[~2021-03-21 12:42] MED LIST changes: -LISI1TAB26 PO; +LISI1TAB48 PO; +MONT-40 PO; -MONT10TA32 PO; -SULF1TAB35 PO; +SULF1TAB38 PO
[2021-03-21] MEDS ORDERED: CATHETER FLUSH 10 ML SYR IV ONE (12:44)
[2021-03-21] MEDS ORDERED: EPINEPHrine 0.1 MG/ML 10 ML (HOSPIRA) SYR INJ ONE (12:44)
--- NOTE | 2021-03-21 13:21 | ED CPR ---
HPI-CPR General Chief Complaint: Code Blue Stated Complaint: CODE BLUE Nursing Triage Note: ARRIVED VIA EMS FROM [facility] CODE BLUE. EMS REPORTS IT WAS WITNESSED AND CPR WAS STARTED. PT ARRIVED WITH CPR IN PROGRESS ET IJELL IN PLACE ET EMS BAGGING THE PT THRU. EMS REPORTS X2 DOSES OF EPI WAS GIVEN AND IS IN ASYSTOLE. Source of Information: Patient Exam Limitations: No Limitations History of Present Illness Date Seen by Provider: Mar 21, 2021 Time Seen by Provider: 12:43 Initial Comments Arrives via EMS from [facility] with CPR in progress. Apparently this was a witnessed arrest by family members. EMS was summoned to the scene after initiation of CPR at approximately 1221 hours. They arrived on the scene and noted CPR in progress. Initial pulse check was absent. Patient had PEA on the monitor initially and then asystole. They did initiate IO for access and I gel for ventilation. They did initiate ACLS protocol and continued CPR. Two rounds of epinephrine were given and patient was transported emergently from the [facility] to here. CPR in progress. Patient in asystole on arrival without pulse and airway managed via gel and BVM. Does have significant history of heart failure. Follows with [facility] under the care of Dr. Stubbs. Initial Complaints: Collapsed Witnessed Arrest: Yes Bystander CPR: Yes Down-Time Before ACLS: 10 Paramedics Initial Findings: No Pulse, PED Bradycardia, Unresponsive Pre Hospital Treatment: Bag Valve Mask, CPR/Thumper, Oxygen, IV Fluids, Epinephrine (mg) (2) Allergies and Home Medications Allergies Coded Allergies: Penicillins (Verified Allergy, Unknown, 11/08/19) codeine (Verified Adverse Reaction, Mild, NAUSEA, 02/08/19) Patient Home Medication List Home Medication List Reviewed: Yes Acetaminophen (Tylenol Arthritis) 650 Mg Tablet.er, 650 MG PO Q8H PRN for PAIN- MILD, (Reported) Entered as Reported by: KRIS FISHER on 02/08/19 1049 Albuterol Sulfate (Ventolin Hfa) 18 Gm Hfa.aer.ad, 2 PUFF PO Q4H PRN for SHORTNESS OF BREATH, (Reported) Entered as Reported by: KRIS FISHER on 02/08/19 1035 Ascorbic Acid (Vitamin C) 500 Mg Tab.chew, 500 MG PO DAILY, (Reported) Entered as Reported by: KRIS FISHER on 04/13/19 1054 Aspirin (Aspirin EC) 81 Mg Tablet.dr, 81 MG PO DAILY, (Reported) Entered as Reported by: KRIS FISHER on 11/08/19 1401 Atorvastatin Calcium (Atorvastatin Calcium) 80 Mg Tablet, 80 MG PO HS, (Reported) Entered as Reported by: KRIS FISHER on 11/08/19 1401 Buspirone HCl (Buspirone HCl) 5 Mg Tablet, 5 MG PO Q12H, (Reported) Entered as Reported by: KRIS FISHER on 11/08/19 1401 Calcium Carbonate (Tums [place]) 200 Mg Tab.chew, 200-400 MG PO Q4H PRN for REFLUX, (Reported) Entered as Reported by: KRIS FISHER on 11/08/19 1401 Cetirizine HCl (Zyrtec) 10 Mg Tablet, 10 MG PO DAILY, (Reported) Entered as Reported by: KRIS FISHER on 11/08/19 140 Clotrimazole/Betamethasone Dip (Clotrimazole-Betamethasone Crm) 15 Gm Cream..g., 1 APPLIC TOP BID, (Reported) Entered as Reported by: KRIS FISHER on 11/08/19 1401 Fluticasone Propionate (Fluticasone Propionate) 16 Gm [place].susp, 2 SPR NSEACH DAILY, (Reported) Entered as Reported by: KRIS FISHER on 02/08/19 1035 Furosemide (Furosemide) 40 Mg Tablet, 40 MG PO DAILY, (Reported) Entered as Reported by: KRIS FISHER on 11/08/19 1405 Guaifenesin (Nicole-Tussin) 100 Mg/5 Ml Liquid, 5 ML PO Q6H PRN for COUGH, (R eported) Entered as Reported by: KRIS FISHER on 04/13/19 1054 Melatonin (Melatonin) 3 Mg Tab.rapdis, 3 MG PO HS PRN for INSOMNIA, (Reported) Entered as Reported by: KRIS FISHER on 04/13/19 1054 Menthol (Biofreeze) 118 Ml Gel..ml., 1 APPLIC TP BID PRN for PAIN-BREAKTHROUGH, (Reported) Entered as Reported by: KRIS FISHER on 11/08/19 1401 Metformin HCl (Metformin HCl) 500 Mg Tablet, 500 MG PO BID, (Reported) Entered as Reported by: KRIS FISHER on 11/08/19 140 Metoprolol Succinate (Metoprolol Succinate) 25 Mg Tab.er.24h, 25 MG PO DAILY, (Reported) Entered as Reported by: HORTENSIA BALLESTEROS on 04/12/192032 Montelukast Sodium (Montelukast Sodium) 10 Mg Tablet, 10 MG PO DAILY, (Reported) Entered as Reported by: KRIS FISHER on 02/08/19 103 Multivitamin (Multi-Vitamin Daily) 1 Each Tablet, 1 EACH PO DAILY, (Reported) Entered as Reported by: KRIS FISHER on 04/13/19 105 Ondansetron HCl (Zofran) 4 Mg Tab, 4 MG PO Q4H PRN for NAUSEA/VOMITING-1ST LINE, (Reported) Entered as Reported by: HORTENSIA BALLESTEROS on 04/12/192032 Phenol (Chloraseptic) 177 Ml [place].pump, 1 SPRAY MM Q6H PRN for SORE THROAT, (Reported) Entered as Reported by: KRIS FISHER on 04/13/19 105 Selenium Sulfide (Selenium Sulfide) 180 Ml Shampoo, 1 APPLIC TP WEEK, (Reported) Entered as Reported by: KRIS FISHER on 11/08/19 140 Selenium Sulfide (Selenium Sulfide) 180 Ml Shampoo, 1 APPLIC TP PRN PRN for DANDRUFF, (Reported) Entered as Reported by: KRIS FISHER on 11/08/19 140 Sennosides/Docusate Sodium (Senna-S Tablet) 1 Each Tablet, 2 EACH PO BID, (Reported) Entered as Reported by: KRIS FISHER on 04/13/19 105 Sertraline HCl (Sertraline HCl) 50 Mg Tablet, 50 MG PO HS, (Reported) Entered as Reported by: KRIS FISHER on 11/08/19 1401 Sodium Chloride (Sodium Chloride) 1 Gm Tab, 2 GM PO BID, (Reported) Entered as Reported by: KIRS FISHER on 04/13/19 105 Ticagrelor (Brilinta) 90 Mg Tablet, 90 MG PO BID, (Reported) Entered as Reported by: KRIS FISHER on 11/08/19 140 Tramadol HCl (Tramadol HCl) 50 Mg Tablet, 50 MG PO DAILY, (Reported) Entered as Reported by: HORTENSIA BALLESTEROS on 04/12/192032 Tramadol HCl (Tramadol HCl) 50 Mg Tablet, 100 MG PO HS, (Reported) Entered as Reported by: KRIS FISHER on 11/08/19 140 Trolamine Salicylate (Asper-Flex) 85 Gm Cream..g., 1 APPLIC TP BID, (Reported) Entered as Reported by: KRIS FISHER on 11/08/19 140 Review of Systems Review of Systems Constitutional: No chills, No fever Other Comments Unable to complete review of systems due to unresponsiveness Past Wszpfif-Nqudyc-Nvezid Hx Immunizations Up To Date PED Vaccines UTD: Yes Seasonal Allergies Seasonal Allergies: No Past Medical History Surgeries: No (LEFT HUMERUS FX/ORIF;CARDIAC CATH-STENT X 1 04/12/2019) Cardiac, Coronary Stent, Hysterectomy, Orthopedic Respiratory: Yes Chronic Bronchitis Currently Using CPAP: No Currently Using BIPAP: No Cardiac: Yes (CHF;NSTEMI WITH CARDIAC CATH AND STENT X 1 03/2019) Atrial Fibrillation, Coronary Artery Disease, Heart Attack, High Cholesterol, Hypertension Neurological: Yes ( PERIPHERAL NEUROPATHY ) Developmental Disorder, Neuropathy Reproductive Disorders: No Female 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, 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 Sexually Transmitted Disease: No HIV/AIDS: No Genitourinary: Yes (INCONT AT TIMES) Gastrointestinal: Yes Chronic Constipation Musculoskeletal: Yes (muscle weakness) Arthritis, Chronic Back Pain, Fractures Endocrine: Yes Diabetes, Non-Insulin dep HEENT: No (wears glasses) Loss of Vision: Denies Cancer: Yes Uterine Did You Recieve Any Treatments: Yes What Type of Treatment Did You: Surgical Intervention Psychosocial: Yes Anxiety Integumentary: Yes (MRSA + DECUB ON BUTTOCKS) Blood Disorders: Yes (anemia) Adverse Reaction/Blood Tranf: No Family Medical History Diabetes mellitus 19 FATHER Hypertension 19 FATHER Diabetes, Hypertension History per records as patient is unresponsive with CPR in progress Physical Exam Vital Signs Capillary Refill : Height, Weight, BMI Height: 5'" Weight: 203lbs. oz. 92.212806yb; 32.00 BMI Method:Stated General Appearance: Obese, Other (Unresponsive with CPR in progress) Respiratory: Other (Respirations via BVM and eye gel with chest rise and O2 sat in the 60s with good CPR) Cardiovascular: Other (No pulse with asystole on monitor) Neurologic/Psychiatric: Other (Unresponsive) Skin: Cool, Pallor Progress/Results/Core Measures Results/Orders Lab Results Laboratory Tests Test 03/21/21 12:48 Range/Units Glucometer 184 H 70-110 MG/DL FSBG Bedside Testing Finger Stick Blood Glucose: 124 Progress Progress Note : Progress Note Seen and evaluated on arrival by EMS. Initial pulse check showed asystole. CPR continued and epinephrine 1 mg IV given. I did review [facility] records while CPR continued. Repeat pulse check shows asystole on monitor. Repeat epinephrine given and CPR continued. 1251: Patient remains in asystole without pulse. Patient has been down for 30 minutes without return of circulation or return of shockable rhythm. Code called at this time with time of of 1251. 1305: I did speak with patient's DPOA, Mariama Ravi at [phone]. She was informed of . I did make contact with [facility] to pass message to Dr. Ely for certificate. Patient has longstanding history of cardiac disease and this appears to be cardiac mediated event. Departure Impression Primary Impression: Cardiopulmonary arrest Disposition: 20 Condition: Departure-Patient Inst. Decision time for Depature: 12:51 Referrals: CARLOS STUBBS MD (PCP/Family) Primary Care Physician Copy Copies To 1: CARLOS STUBBS MD, TIMOTHY D MD Mar 21, 2021 13:21
== END 2021-03-21 15:08 | disposition expired ==
LOC: EDUNIT# 12:42 → ER 12:43
DX: I46.9 Cardiac arrest, cause unspecified (principal); I25.2 Old myocardial infarction; I11.0 Hypertensive heart disease with heart failure; I50.9 Heart failure, unspecified; E78.00 Pure hypercholesterolemia, unspecified; I25.10 Atherosclerotic heart disease of native coronary artery without angina pectoris; F41.9 Anxiety disorder, unspecified; E66.9 Obesity, unspecified; E11.9 Type 2 diabetes mellitus without complications; G89.29 Other chronic pain; M54.9 Dorsalgia, unspecified; Z86.14 Personal history of Methicillin resistant Staphylococcus aureus infection; Z68.32 Body mass index [BMI] 32.0-32.9, adult; Z79.82 Long term (current) use of aspirin; Z79.84 Long term (current) use of oral hypoglycemic drugs; Z79.899 Other long term (current) drug therapy; Z79.891 Long term (current) use of opiate analgesic
CPT/HCPCS: 82947